=== PATIENT | female | born 1965 | race Two or more races ===

== ENCOUNTER 2016-06-18 20:59 | Emergency (ER) | payer SELFPAY ==
[~2016-06-18] VITALS: Ht 154.9 cm; Wt 83.5 kg
[2016-06-18] MEDS ORDERED: DIPHENHYDRAMINE HCL 25 MG CAPSULE PO ONE (22:00)
[2016-06-18] MEDS ORDERED: METOCLOPRAMIDE 10 MG TABLET. PO ONE (22:00)
--- NOTE | 2016-06-18 22:32 | RAD ---
PROCEDURE CT scan of the head without contrast 06/18/2016 HISTORY Severe headaches and dizziness for 3 months. Syncopal episode 2 days ago. TECHNIQUE Unenhanced contiguous, 5 millimeter axial sections were obtained through the head. One or more of the following individualized dose reduction techniques were utilized for this study: 1. Automated exposure control. 2. Adjustment of the mA and/or kV according to patient size. 3. Use of iterative reconstruction technique. FINDINGS There is mild generalized parenchymal atrophy. No acute parenchymal abnormality is seen. No extra-axial fluid collection is noted. No skull fracture is seen. IMPRESSION No acute intracranial abnormality is seen. Electronically signed by: Maurice Lora MD (Jun 18, 2016 22:30:52)
[2016-06-18] MEDS ORDERED: BUTA1CAP29 PO (22:39)
--- NOTE | 2016-06-18 22:39 | PHYS DOC ---
Past Medical History Past Medical History: Cancer Additional Past Medical Histor: cervical ca,HEP C, esophageal varices Past Surgical History: Other Additional Past Surgical Histo: radiation implants Alcohol Use: Occasionally Drug Use: None Adult General Chief Complaint Chief Complaint: HEADACHE HPI HPI 50-year-old female presents with a one-week history of waxing and waning headaches. She states the headaches at their worst R 10 out of 10 currently her pain is 5 out of 10. She states she has had some associated nosebleeds. She denies any trauma. She denies any fever or neck pain. She denies lateralizing neurologic weakness. She states she does occasionally get headaches. [] Review of Systems Review of Systems Constitutional: Denies fever or chills [] Eyes: Denies change in visual acuity, redness, or eye pain [] HENT: Denies nasal congestion or sore throat [] Respiratory: Denies cough or shortness of breath [] Cardiovascular: No additional information not addressed in HPI [] GI: Denies abdominal pain, nausea, vomiting, bloody stools or diarrhea [] : Denies dysuria or hematuria [] Musculoskeletal: Denies back pain or joint pain [] Integument: Denies rash or skin lesions [] Neurologic: Per history of present illness [] Endocrine: Denies polyuria or polydipsia [] Current Medications Current Medications Current Medications Medications (Trade) Dose Ordered Sig/Iza Start Time Stop Time Status Last Admin Dose Admin Diphenhydramine HCl (Benadryl) 25 mg 1X ONCE 06/18/16 22:00 06/18/16 22:01 DC 06/18/16 21:49 25 MG Metoclopramide HCl (Reglan) 10 mg 1X ONCE 06/18/16 22:00 06/18/16 22:01 DC 06/18/16 21:50 10 MG Allergies Allergies Allergies Coded Allergies Type Severity Reaction Last Updated Verified No Known Drug Allergies 11/16/14 No Physical Exam Physical Exam Constitutional: Well developed, well nourished, mild distress, non-toxic appearance. [] HENT: Normocephalic, atraumatic, bilateral external ears normal, oropharynx moist, no oral exudates, nose normal. [] Eyes: PERRLA, EOMI, conjunctiva normal, no discharge. [] Neck: Normal range of motion, no tenderness, supple, no stridor. [] Cardiovascular:Heart rate regular rhythm, no murmur [] Lungs & Thorax: Bilateral breath sounds clear to auscultation [] Abdomen: Bowel sounds normal, soft, no tenderness, no masses, no pulsatile masses. [] Skin: Warm, dry, no erythema, no rash. [] Back: No tenderness, no CVA tenderness. [] Extremities: No tenderness, no cyanosis, no clubbing, ROM intact, no edema. [] Neurologic: Alert and oriented X 3, normal motor function, normal sensory function, no focal deficits noted. [] Psychologic: Anxious. [] Current Patient Data Vital Signs Vital Signs Date Time Temp Pulse Resp B/P Pulse Ox O2 Delivery O2 Flow Rate FiO2 06/18/16 21:05 99 102 18 148/86 97 Room Air 99.0 EKG EKG [] Radiology/Procedures Radiology/Procedures [] Impressions: PROCEDURE: CT HEAD WO CONTRAST PROCEDURE CT scan of the head without contrast 06/18/2016 HISTORY Severe headaches and dizziness for 3 months. Syncopal episode 2 days ago. TECHNIQUE Unenhanced contiguous, 5 millimeter axial sections were obtained through the head. One or more of the following individualized dose reduction techniques were utilized for this study: 1. Automated exposure control. 2. Adjustment of the mA and/or kV according to patient size. 3. Use of iterative reconstruction technique. FINDINGS There is mild generalized parenchymal atrophy. No acute parenchymal abnormality is seen. No extra-axial fluid collection is noted. No skull fracture is seen. IMPRESSION No acute intracranial abnormality is seen. Course & Med Decision Making Course & Med Decision Making Pertinent Labs and Imaging studies reviewed. (See chart for details) [ED course: Evaluation reveals a 50-year-old neurologically intact female in mild distress secondary to headache. Her headache sounded migrainous in nature. She was given Reglan and Benadryl during her stay in the department which had some affect but did not completely resolve her headache. Her CT scan was unremarkable. I explained to the patient that I would prescribe her some medication to take for her headache at home. Patient stable for discharge] Dragon Disclaimer Dragon Disclaimer This electronic medical record was generated, in whole or in part, using a voice recognition dictation system. Departure Departure Impression: Primary Impression: Headache Disposition: HOME, SELF-CARE Condition: IMPROVED Referrals: NO PCP (PCP) Patient Instructions: General Headache Without Cause, Headache, FAQs, Migraine Headache Additional Instructions: Thank you for allowing us to participate in your care today. Followup with your primary care physician in 3 days if your symptoms do not improve. Return to the emergency department you have any new or concerning findings. This should be evaluated by the primary care physician and any necessary consulting services for continued management within a few days after discharge. Return to emergency room if you have any new or concerning symptoms including but not limited to fever, chills, nausea, vomiting, intractable pain, any new rashes, chest pain, shortness of air, uncontrolled bleeding, difficulty breathing, and/or vision loss. You may have been prescribed medication that can change in your level of thinking and ability to operate machinery. These medications include hydrocodone and Ativan. Also, Benadryl has been known to do this as well. Be sure to check with your pharmacist and ask if the medications you've prescribed can affect your level of consciousness. I recommend not operating heavy machinery or driving while on medication such as these. Scripts Butalb/Acetaminophen/Caffeine (Fioricet 50-300-40 Mg Capsule)1 Each Capsule1 Each PO PRN Q4HRS PRN MIGRAINE HEADACHE #20 CAP Prov:SHELLIE BARBOUR DO 06/18/16 Problem Qualifiers Primary Impression: Headache Headache type: tension-type Headache chronicity pattern: episodic headache Intractability: not intractable Qualified Code: G44.219 - Episodic tension- type headache, not intractable SHELLIE BARBOUR DO Jun 18, 2016 22:39
[2016-06-18 22:55] VITALS: BP 135/66
== END 2016-06-18 23:00 | disposition home or self-care (01) ==
LOC: ER 20:59
DX: R51 Headache (principal); R04.0 Epistaxis; R55 Syncope and collapse; R53.1 Weakness; R42 Dizziness and giddiness
CPT/HCPCS: 70450; 99284; J8597; Q0163

== ENCOUNTER 2016-06-25 17:02 | Inpatient (IN) | payer SELFPAY ==
[~2016-06-25] VITALS: Ht 157.5 cm; Wt 84.4 kg
[~2016-06-25 17:02] MED LIST: BUTA1CAP29 PO
--- NOTE | 2016-06-25 17:55 | PHYS DOC ---
Past Medical History Past Medical History: Cancer Additional Past Medical Histor: cervical ca,HEP C, esophageal varices Past Surgical History: Other Additional Past Surgical Histo: radiation implants Alcohol Use: Occasionally Drug Use: None Adult General Chief Complaint Chief Complaint: MULTIPLE COMPLAINTS HPI HPI Patient is a 50 year old female who presents with multiple complaints. Patient states that she started having chest pain, nausea, vomiting, diarrhea starting at 0400 this morning. Patient states that she has had multiple episodes of diarrhea and vomiting and states that she has noticed blood in both her stools and in her vomit. Patient states that the pain is underneath her left breast and describes the pain as sharp. Patient rates the pain as 7 out of 10 currently. Patient states that she has been dizzy and lightheaded especially upon standing. Patient is unsure but states that she may have history of ulcers , stating that she had an EGD done 2-1/2 years ago. Patient has not taken any medications to help with her symptoms. Patient denies any known exacerbating factors for her pain. Review of Systems Review of Systems Constitutional: Lightheadedness, Denies fever or chills [] Eyes: Denies change in visual acuity, redness, or eye pain [] HENT: Denies nasal congestion or sore throat [] Respiratory: Cough, shortness of breath [] Cardiovascular: Chest pain [] GI: Abdominal pain, hematemesis, bloody stools [] : Denies dysuria or hematuria [] Musculoskeletal: Denies back pain or joint pain [] Integument: Denies rash or skin lesions [] Neurologic: Denies headache, focal weakness or sensory changes [] Current Medications Current Medications Current Medications Medications (Trade) Dose Ordered Sig/Iza Start Time Stop Time Status Last Admin Dose Admin Famotidine (Pepcid) 20 mg 1X ONCE 06/25/16 18:00 06/25/16 18:27 DC Fentanyl Citrate (Fentanyl 2ml Vial) 50 mcg PRN Q15MIN PRN 06/25/16 18:00 06/26/16 17:59 Ondansetron HCl (Zofran) 4 mg 1X ONCE 06/25/16 18:00 06/25/16 18:01 DC Sodium Chloride (Iv Sodium Chloride 0.9% 1000ml Bag) 1,000 ml @ 1,000 mls/hr Q1H 06/25/16 18:00 06/25/16 18:59 DC Allergies Allergies Allergies Coded Allergies Type Severity Reaction Last Updated Verified No Known Drug Allergies 11/16/14 No Physical Exam Physical Exam Constitutional: Alert, afebrile, appears ill. [] HENT: Normocephalic, atraumatic, bilateral external ears normal, oropharynx dry , no oral exudates, nose normal. [] Eyes: PERRLA, EOMI, conjunctiva normal, no discharge. [] Neck: Normal range of motion, no tenderness, supple, no stridor. [] Cardiovascular: Tachycardia, regular rhythm no murmur [] Lungs & Thorax: Bilateral breath sounds clear to auscultation [] Abdomen: Bowel sounds normal, soft, left upper quadrant tenderness to palpation , no masses, no pulsatile masses. [] Skin: Warm, dry, no erythema, no rash. [] Back: No tenderness, no CVA tenderness. [] Extremities: No tenderness, no cyanosis, no clubbing, ROM intact, no edema. [] Neurologic: Alert and oriented X 3, normal motor function, normal sensory function, no focal deficits noted. [] Current Patient Data Vital Signs Vital Signs Date Time Temp Pulse Resp B/P Pulse Ox O2 Delivery O2 Flow Rate FiO2 06/25/16 17:05 98.3 129 24 159/72 100 Room Air 98.3 Lab Values Laboratory Tests Test 06/25/16 17:50 White Blood Count 17.6x10^3/uL (4.0-11.0) H Red Blood Count 2.87x10^6/uL (3.50-5.40) L Hemoglobin 6.2g/dL (12.0-15.5) *L Hematocrit 20.4% (36.0-47.0) *L Mean Corpuscular Volume 71fL (79-100) L Mean Corpuscular Hemoglobin 22pg (25-35) L Mean Corpuscular Hemoglobin Concent 31g/dL (31-37) Red Cell Distribution Width 21.4% (11.5-14.5) H Platelet Count 151x10^3/uL (140-400) Neutrophils (%) (Auto) 77% (31-73) H Lymphocytes (%) (Auto) 10% (24-48) L Monocytes (%) (Auto) 11% (0-9) H Eosinophils (%) (Auto) 1% (0-3) Basophils (%) (Auto) 1% (0-3) Neutrophils # (Auto) 13.5x10^3uL (1.8-7.7) H Lymphocytes # (Auto) 1.8x10^3/uL (1.0-4.8) Monocytes # (Auto) 1.9x10^3/uL (0.0-1.1) H Eosinophils # (Auto) 0.2x10^3/uL (0.0-0.7) Basophils # (Auto) 0.1x10^3/uL (0.0-0.2) Platelet Estimate Pending Prothrombin Time 15.7SEC (11.7-14.0) H Prothrombin Time INR 1.3 (0.8-1.1) H PTT 27SEC (24-38) D-Dimer (Yuliet) 0.27ug/mlFEU (0.00-0.50) Sodium Level 138mmol/L (136-145) Potassium Level 4.2mmol/L (3.5-5.1) Chloride Level 103mmol/L (98-107) Carbon Dioxide Level 22mmol/L (21-32) Anion Gap 13 (6-14) Blood Urea Nitrogen 35mg/dL (7-20) H Creatinine 0.9mg/dL (0.6-1.0) Estimated GFR (Cockcroft-Gault) 66.5 BUN/Creatinine Ratio 39 (6-20) H Glucose Level 162mg/dL (70-99) H Calcium Level 8.5mg/dL (8.5-10.1) Total Bilirubin 0.6mg/dL (0.2-1.0) Aspartate Amino Transferase (AST) 83U/L (15-37) H Alanine Aminotransferase (ALT) 42U/L (14-59) Alkaline Phosphatase 120U/L (46-116) H Creatine Kinase 62U/L (26-192) Creatine Kinase MB (Mass) 0.9ng/mL (0.0-3.6) Creatine Kinase MB Relative Index % (0-4) Troponin I Quantitative < 0.017ng/mL (0.000-0.055) Total Protein 8.5g/dL (6.4-8.2) H Albumin 2.9g/dL (3.4-5.0) L Albumin/Globulin Ratio 0.5 (1.0-1.7) L Lipase 188U/L (73-393) Laboratory Tests 06/25/16 17:50 Laboratory Tests 06/25/16 17:50 EKG EKG Interpreted by me: Heart rate 122, sinus tachycardia, normal intervals, leftward axis, no acute ST/T-wave abnormalities present [] Radiology/Procedures Radiology/Procedures 3 view acute abdominal series interpreted by me: No pulmonary infiltrates or effusions, nonobstructive bowel gas pattern, no free air under the diaphragm [] Course & Med Decision Making Course & Med Decision Making Pertinent Labs and Imaging studies reviewed. (See chart for details) Patient was started on IV fluids, Zofran, Protonix. Patient found having vomiting 6.2 and was typed and crossed for 3 units of packed red blood cells. I spoke with Dr. Hinson who will except care patient in hospital. I also spoke with Dr. Mendez who stated that he would inform Dr. Macdonald of GI of the patient's status and recommended that the patient be placed in ICU and continue on packed red blood cells and IV Protonix at this time. A bleeding scan was also ordered and results will be followed up by Dr. Macdonald of GI. Critical care time excluding procedures: 45 minutes Dragon Disclaimer Dragon Disclaimer This electronic medical record was generated, in whole or in part, using a voice recognition dictation system. Departure Departure Impression: Primary Impression: Acute GI bleeding Additional Impressions: Blood loss anemia Moderate protein malnutrition Disposition: ADMITTED INPATIENT Admitting Physician: Other Condition: GUARDED Referrals: NO PCP (PCP) Problem Qualifiers SEAMJ JEWELL MD Jun 25, 2016 17:55
[2016-06-25] MEDS ORDERED: FAMOTIDINE 20 MG/2 ML VIAL IVP ONE (18:00)
[2016-06-25] MEDS ORDERED: ONDANSETRON PF 4 MG/2 ML VIAL. IV ONE (18:00)
[2016-06-25] MEDS ORDERED: IV NORMAL SALINE 1000ML BAG 1,000 ML IV SCH (18:00)
[2016-06-25] MEDS ORDERED: fentaNYL PF VIAL 100 MCG/2 ML VIAL IV PRN (18:00)
[2016-06-25 18:10] LABS: BASO # 0.1 x10^3/uL (0.0-0.2); BASO % 1 % (0-3); EOS % 1 % (0-3); LYMPH # 1.8 x10^3/uL (1.0-4.8); LYMPH % 10 % (24-48); MEAN CORPUSCULAR HEMOGLOBIN 22 pg (25-35); MEAN CORPUSCULAR HGB CONC 31 g/dL (31-37); MEAN CORPUSCULAR VOLUME 71 fL (79-100); MONO % 11 % (0-9); NEUT % 77 % (31-73); PLATELET COUNT 151 x10^3/uL (140-400); RED BLOOD COUNT 2.87 x10^6/uL (3.50-5.40); RED CELL DISTRIBUTION WIDTH 21.4 % (11.5-14.5); WHITE BLOOD COUNT 17.6 x10^3/uL (4.0-11.0)
[2016-06-25 18:17] LABS: HEMATOCRIT 20.4 % (36.0-47.0); HEMOGLOBIN 6.2 g/dL (12.0-15.5)
[2016-06-25 18:30] LABS: INR 1.3 (0.8-1.1); PROTHROMBIN TIME PATIENT 15.7 SEC (11.7-14.0)
[2016-06-25] MEDS ORDERED: PANTOPRAZOLE IV PUSH 40 MG VIAL. IVP ONE (18:30)
[2016-06-25 18:37] LABS: CALCIUM 8.5 mg/dL (8.5-10.1); CREATININE 0.9 mg/dL (0.6-1.0); GFR 66.5; POTASSIUM 4.2 mmol/L (3.5-5.1)
[2016-06-25 18:39] LABS: CKMB MASS 0.9 ng/mL (0.0-3.6); CREATINE KINASE 62 U/L (26-192)
[2016-06-25 18:40] LABS: ALBUMIN 2.9 g/dL (3.4-5.0); ALBUMIN/GLOBULIN RATIO 0.5 (1.0-1.7); TOTAL BILIRUBIN 0.6 mg/dL (0.2-1.0); TOTAL PROTEIN 8.5 g/dL (6.4-8.2)
[2016-06-25 18:54] LABS: BILIRUBIN,URINE NEGATIVE (NEG); GLUCOSE,URINE NEGATIVE (NEG); NITRITE,URINE NEGATIVE (NEG); PROTEIN,URINE NEGATIVE (NEG-TRACE); UROBILINOGEN,URINE 0.2 mg/dL (0.2 mg/dL)
[2016-06-25] MEDS ORDERED: ONDANSETRON PF 4 MG/2 ML VIAL. IV PRN (19:00)
[2016-06-25 19:03] LABS: NEG OBC FOB NEG; POS OBC FOB POS
--- NOTE | 2016-06-25 19:10 | ACF ---
Admission Forms Criteria GASTROINTESTINAL BLEEDING Clinical Indications for Inpatient Care (Place 'X' for any and all applicable criteria): Ongoing inpatient care may be indicated for gastrointestinal bleeding with ANY ONE of the following (4)(20)(21)(22)(23)(24): [X]I. Active bleeding (eg, fresh voluminous blood in emesis or nasogastric aspirate, or per rectum) [ ]II. Hemodynamic instability [ ]III. Anticoagulation therapy or coagulopathy ((eg, advanced liver disease, irreversible anticoagulation) [ ]IV. Ischemic colitis (22) [ ]V. Endoscopy showing arterial bleeding, adherent clot, nonbleeding visible vessel, varices, flat red spots, ulcer size greater than 2 cm, or portal hypertensive gastropathy [ ]. High-risk low platelet count [X]VII. Anemia requiring inpatient care as indicated by ANY ONE of the following a)[ ] Cognitive impairment b)[ ] Syncope c)[ ] Heart failure d)[X] Chest pain e)[ ] Dyspnea f)[ ] Other findings suggesting inadequate perfusion (eg, peripheral or myocardial ischemia, end organ dysfunction) [ ]VIII. High-risk low platelet count [ ]IX. Suspected variceal cause of bleeding as indicated by ANY ONE of the following(27)(28): a)[ ] Known varices b)[ ] Hepatomegaly or splenomegaly c)[ ] Ascites d)[ ] Jaundice or scleral icterus e)[ ] History of liver disease (eg, cirrhosis) f)[ ] Physical findings of portal hypertension (eg, caput medusa) g)[ ] Comorbid disorder indicating risk for portal vein thrombosis (eg , abdominal surgery, sepsis, shock, exchange transfusion, prior umbilical vein catheterization) Extended stay may be needed until ALL of the following are present(20)(38)(47): [ ]a) Hemodynamic stability [ ]b) No evidence of active bleeding (eg, stable Hematocrit) [ ]c) Platelet count, prothrombin time, and partial thromboplastin time acceptable for next level of care [ ]d) Surgical or other acute intervention not needed [ ]e) Oral hydration and diet tolerated The original [facility] content created by [employer] has been revised. The portions of the content which have been revised are identified through the use of italic text or in bold, and [employer] has neither reviewed nor approved the modified material. All other unmodified content is copyright [facility]. Please see references footnoted in the original [facility] edition 2016 Admission Criteria Met?: Yes SUSI JULES Jun 25, 2016 19:10
[2016-06-25] MEDS: PANTOPRAZOLE SODIUM IV 80 MG in IV NORMAL SALINE 100ML 100 ML IV SCH (19:12)
[2016-06-25 19:15] LABS: BACTERIA,URINE FEW /HPF (0-FEW); SQUAMOUS EPITHELIAL CELL,UR MOD /LPF
[2016-06-25 19:28] LABS: NEG OBC UR NEG; POS OBC UR POS
[2016-06-25 19:57] LABS: % EOS 2 % (0-5); HYPOCHROMIA MOD; MICROCYTOSIS MOD; PLT ESTIMATE ADEQUATE (ADEQUATE); TARGET CELLS OCC
[2016-06-25 19:58] LABS: ROULEAUX PRESENT
[2016-06-25 21:15] VITALS: BP 147/82
[2016-06-25 21:30] VITALS: BP 151/61
[2016-06-25] MEDS: IV NORMAL SALINE 1000ML BAG 1,000 ML IV SCH (21:35)
[2016-06-25 21:45] VITALS: BP_SYST 147; BP_SYST 151; BP_DIAS 79; BP_DIAS 82
--- NOTE | 2016-06-25 21:51 | RAD ---
PROCEDURE GI bleed scan. HISTORY Rectal bleeding since 2010. Dark rectal bleeding today. Decreased hemoglobin. TECHNIQUE Patient is injected with 27 millicuries technetium 99m labeled red blood cells using ultra tag technique. Anterior dynamic images of the abdomen are acquired time 60 minutes. COMPARISON Tagged red blood cell scan October 02, 2010. FINDINGS Tracer is seen in blood pool. No accumulation or propagation of tracer is seen to indicate acute GI bleed. Tracer gradually accumulates in the bladder, normal. IMPRESSION Negative for acute GI bleed. Electronically signed by: Ross Martins MD (Jun 25, 2016 21:49:33)
[2016-06-25 22:00] VITALS: BP 152/74
[2016-06-25 23:00] VITALS: BP 137/67
--- NOTE | 2016-06-25 23:56 | HP ---
ADMIT DATE: 06/25/2016 CHIEF COMPLAINT: Melena. HISTORY OF PRESENT ILLNESS: The patient is a 50-year-old woman with history of GI bleed, admitted here twice, most recently in 11/2014. She relates that she had episodes of melena over the past couple of weeks, almost on a daily basis. However, this morning, she became very dizzy, could barely walk, had ongoing melena as well as today an episode of hematemesis. This finally prompted her to come to the Emergency Room. Here, she was found with a hemoglobin of 6.2 and promptly admitted for further management and care. PAST MEDICAL HISTORY: 1. History of GI bleed, EGD done in November 2014 without any evidence of bleeding. 2. 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 3. Diabetes mellitus. 4. Hypertension. 5. Anxiety/depression. 6. Osteoarthritis. 7. Sickle cell trait. FAMILY HISTORY: Positive for sickle cell disease in her son who of complications of diabetes, hypertension. SOCIAL HISTORY: She is , no toxic habits. ALLERGIES: No known drug allergies. MEDICATIONS: MAR reconciled with home medications. REVIEW OF SYSTEMS: Positive as per HPI for melena, hematemesis, abdominal pain, mainly on the left side. Pain worse with bowel movements. Rest of organ system review is negative. PHYSICAL EXAMINATION: VITAL SIGNS: Today, show blood pressure of 161/65, heart rate at 120, respiratory rate at 20. She is afebrile. GENERAL: This is a 50-year-old obese woman, alert and oriented, in no acute distress. HEENT: Shows no scleral icterus. NECK: Supple. CHEST: Lungs are clear. HEART: Slightly tachycardic. ABDOMEN: Positive bowel sounds, soft, tenderness in the left upper quadrant as well as mildly in the left lower quadrant. EXTREMITIES: Show no edema. SKIN: Warm, soft and dry without any rash, no bruising noted. LABORATORY DATA: CBC with a WBC of 17.6, hemoglobin 6.2, MCV of 71 (on previous admits had been in the 80s) and a platelet count of 151. Chemistries with a BUN and creatinine of 35 and 0.9, normal electrolytes. Glucose at 162, albumin at 2.9. LFTs with an AST of 83 and an alkaline phosphatase of 120, which is stable for her. ASSESSMENT AND PLAN: The patient is a 50-year-old woman with recurrent massive gastrointestinal bleed. She currently is severely anemic. We will transfuse as needed, monitoring her CBC closely, transfuse for hemoglobins of less than 7. The patient has microcytic anemia consistent with iron deficiency. We will obtain iron labs, probably will need replacement of this IV. A GI consult will be obtained. Suspicion for chronic bleed is given. A previous endoscopy about a year and a half ago was actually within normal limits without sign of bleeding or esophageal varices. Suspicion for small bowel AVM is given. A tagged RBC scan has been obtained, results are pending. The patient is diabetic, currently on n.p.o. and thus not receiving her medications. We will obtain insulin sliding scale and blood sugar checks on her q. 6 hours. Obtain hemoglobin A1c as well. The patient does have a history of hypertension and clearly is hypertensive despite severe anemia. Monitor closely. We will give her hydralazine p.r.n. for now until p.o. medications can be restarted. For prophylaxis, she has been started on IV PPI already. We will continue that for the time being. CHARIS LUNDBERG MD DR: SINAI/nts JOB#: [id number] / [id number] BARBRA
[2016-06-26] VITALS (26 sets, daily range): BP systolic 105–154; BP diastolic 57–94
[2016-06-26 01:45] LABS: BASO # 0.1 x10^3/uL (0.0-0.2); BASO % 1 % (0-3); EOS % 1 % (0-3); LYMPH # 1.8 x10^3/uL (1.0-4.8); LYMPH % 16 % (24-48); MEAN CORPUSCULAR HEMOGLOBIN 23 pg (25-35); MEAN CORPUSCULAR HGB CONC 32 g/dL (31-37); MEAN CORPUSCULAR VOLUME 73 fL (79-100); MONO % 11 % (0-9); NEUT % 71 % (31-73); PLATELET COUNT 112 x10^3/uL (140-400); RED BLOOD COUNT 2.82 x10^6/uL (3.50-5.40); RED CELL DISTRIBUTION WIDTH 20.8 % (11.5-14.5); WHITE BLOOD COUNT 11.4 x10^3/uL (4.0-11.0)
[2016-06-26 01:46] LABS: HEMATOCRIT 20.6 % (36.0-47.0); HEMOGLOBIN 6.5 g/dL (12.0-15.5)
[2016-06-26] MEDS: fentaNYL PF VIAL 100 MCG/2 ML VIAL IV PRN ×5 (02:24→21:25)
[2016-06-26] MEDS: PANTOPRAZOLE SODIUM IV 80 MG in IV NORMAL SALINE 100ML 100 ML IV SCH ×3 (03:37→17:19)
[2016-06-26] MEDS: IV NORMAL SALINE 1000ML BAG 1,000 ML IV SCH ×2 (05:34→10:58)
--- NOTE | 2016-06-26 06:43 | EKG ---
[facility] [address] [place] [address] Test Date: 2016-06-25 Test Time: 17:15:25 Pat Name: NELLI SHAY Department: Room: 108 1 Gender: F Pharmacy Benefit Manager: : [id number] Requested By: SEMAJ JEWELL Order Number: [id number] Reading MD: Brett Simeon Measurements Intervals [place] Rate: 122 P: 6 SD: 112 QRS: 0 QRSD: 86 T: 15 QT: 332 QTc: 474 Interpretive Statements SINUS TACHYCARDIA Electronically Signed On 07-08-2016 15:37:16 CDT by Brett Simeon
[2016-06-26 07:11] LABS: BASO # 0.1 x10^3/uL (0.0-0.2); BASO % 1 % (0-3); EOS % 3 % (0-3); HEMATOCRIT 26.8 % (36.0-47.0); HEMOGLOBIN 8.8 g/dL (12.0-15.5); LYMPH # 1.6 x10^3/uL (1.0-4.8); LYMPH % 16 % (24-48); MEAN CORPUSCULAR HEMOGLOBIN 25 pg (25-35); MEAN CORPUSCULAR HGB CONC 33 g/dL (31-37); MEAN CORPUSCULAR VOLUME 76 fL (79-100); MONO % 11 % (0-9); NEUT % 70 % (31-73); PLATELET COUNT 102 x10^3/uL (140-400); RED BLOOD COUNT 3.52 x10^6/uL (3.50-5.40); RED CELL DISTRIBUTION WIDTH 20.6 % (11.5-14.5); WHITE BLOOD COUNT 10.2 x10^3/uL (4.0-11.0)
[2016-06-26 07:37] LABS: CALCIUM 8.1 mg/dL (8.5-10.1); CREATININE 0.8 mg/dL (0.6-1.0); GFR 76.2; POTASSIUM 4.1 mmol/L (3.5-5.1)
--- NOTE | 2016-06-26 08:32 | RAD ---
Acute abdomen series with chest, 06/25/2016: History: Left lower quadrant pain, hematemesis Gas is present in large and small bowel in a nonspecific pattern. No free air is seen in the abdomen. There is no evidence of organomegaly. Lower pelvic calcifications are probably phleboliths. The heart size and pulmonary vascularity are normal. The lungs are clear. There is no evidence of pleural fluid. IMPRESSION: No acute abdominal abnormality is detected.
--- NOTE | 2016-06-26 08:40 | PDOC2 ---
GI CONSULT Reason For Consult: Acute GI Bleed HPI: HPI: 50 y/o female w/ h/o GI bleed evaluated in the ER for 1-2 weeks of black tarry stools (7-8 times daily). More recently, she has felt dizzy and weak, and also vomited some dark red blood yesterday. H/o Hep C w/ prior banding of esophageal varices, started treatment at but hasn't followed-up since last year. Additional h/o GERD w/ daily heartburn, has been out of medication x 1 month. Has also been taking ibuprofen or Advil QHS for migraines and body aches. Also has some lower abd discomfort. Last EGD by Dr. Macdonald on 11/15/14: no esophageal varices, scarring in the distal esophagus c/w prior banding, mild narrowing at GEJ, possible small Keira-Bailey tear (non-bleeding w/o clot), hiatal hernia, and normal duodenum. At that time chronic PPI was recommended. Additionally, abd US in 2014 showed mild hepatomegaly and borderline splenomegaly. No previous colonoscopy. Hgb in ER was 6.2, now 8.8 s/p transfusion 3 units pRBCs, low indices w/ elevated RDW, plt 102, INR 1.3, hemoccult neg stool, BUN 35 (now 24), Cr 0.8. LFTs WNL except AST 83. GI bleed scan was negative. In ICU, had one small dark stool. EGD planned later this morning. PMH: PMH: Hep C, GERD, HTN, anxiety/depression, migraines, OA, sickle cell trait, cervical cancer s/p radiation implants, FH: Family History: Cancer (colon (aunt), breast), DM Social History: Smoke: <1 pack per day ALCOHOL: occassional ROS: GEN: Denies fevers, chills, sweats HEENT: Denies blurred vision, sore throat CV: Denies chest pain RESP: Denies shortness of air, cough GI: Per HPI : Denies hematuria, dysuria ENDO: Denies weight changes NEURO: +dizziness MSK: +weakness SKIN: Denies jaundice, pruritus VItals: Vitals: Vital Signs Date Time Temp Pulse Resp B/P Pulse Ox O2 Delivery O2 Flow Rate FiO2 06/26/16 08:00 Room Air 06/26/16 08:00 99.0 77 19 120/73 97 99.0 Labs: Labs: Laboratory Tests Test 06/25/16 17:50 06/25/16 18:49 06/26/16 01:30 06/26/16 07:00 White Blood Count 17.6x10^3/uL (4.0-11.0) 11.4x10^3/uL (4.0-11.0) 10.2x10^3/uL (4.0-11.0) Red Blood Count 2.87x10^6/uL (3.50-5.40) 2.82x10^6/uL (3.50-5.40) 3.52x10^6/uL (3.50-5.40) Hemoglobin 6.2g/dL (12.0-15.5) 6.5g/dL (12.0-15.5) 8.8g/dL (12.0-15.5) Hematocrit 20.4% (36.0-47.0) 20.6% (36.0-47.0) 26.8% (36.0-47.0) Mean Corpuscular Volume 71fL (79-100) 73fL (79-100) 76fL (79-100) Mean Corpuscular Hemoglobin 22pg (25-35) 23pg (25-35) 25pg (25-35) Mean Corpuscular Hemoglobin Concent 31g/dL (31-37) 32g/dL (31-37) 33g/dL (31-37) Red Cell Distribution Width 21.4% (11.5-14.5) 20.8% (11.5-14.5) 20.6% (11.5-14.5) Platelet Count 151x10^3/uL (140-400) 112x10^3/uL (140-400) 102x10^3/uL (140-400) Neutrophils (%) (Auto) 77% (31-73) 71% (31-73) 70% (31-73) Lymphocytes (%) (Auto) 10% (24-48) 16% (24-48) 16% (24-48) Monocytes (%) (Auto) 11% (0-9) 11% (0-9) 11% (0-9) Eosinophils (%) (Auto) 1% (0-3) 1% (0-3) 3% (0-3) Basophils (%) (Auto) 1% (0-3) 1% (0-3) 1% (0-3) Neutrophils # (Auto) 13.5x10^3uL (1.8-7.7) 8.1x10^3uL (1.8-7.7) 7.1x10^3uL (1.8-7.7) Lymphocytes # (Auto) 1.8x10^3/uL (1.0-4.8) 1.8x10^3/uL (1.0-4.8) 1.6x10^3/uL (1.0-4.8) Monocytes # (Auto) 1.9x10^3/uL (0.0-1.1) 1.2x10^3/uL (0.0-1.1) 1.1x10^3/uL (0.0-1.1) Eosinophils # (Auto) 0.2x10^3/uL (0.0-0.7) 0.1x10^3/uL (0.0-0.7) 0.3x10^3/uL (0.0-0.7) Basophils # (Auto) 0.1x10^3/uL (0.0-0.2) 0.1x10^3/uL (0.0-0.2) 0.1x10^3/uL (0.0-0.2) Segmented Neutrophils % 80% (35-66) Band Neutrophils % 1% (0-9) Lymphocytes % 10% (24-48) Monocytes % 7% (0-10) Eosinophils % 2% (0-5) Platelet Estimate Adequate (ADEQUATE) Hypochromasia Mod Microcytosis Mod Target Cells Occ Rouleau Present Prothrombin Time 15.7SEC (11.7-14.0) Prothromb Time International Ratio 1.3 (0.8-1.1) Activated Partial Thromboplast Time 27SEC (24-38) D-Dimer (Yuliet) 0.27ug/mlFEU (0.00-0.50) Sodium Level 138mmol/L (136-145) 143mmol/L (136-145) Potassium Level 4.2mmol/L (3.5-5.1) 4.1mmol/L (3.5-5.1) Chloride Level 103mmol/L (98-107) 110mmol/L (98-107) Carbon Dioxide Level 22mmol/L (21-32) 23mmol/L (21-32) Anion Gap 13 (6-14) 10 (6-14) Blood Urea Nitrogen 35mg/dL (7-20) 24mg/dL (7-20) Creatinine 0.9mg/dL (0.6-1.0) 0.8mg/dL (0.6-1.0) Estimated GFR (Cockcroft-Gault) 66.5 76.2 BUN/Creatinine Ratio 39 (6-20) Glucose Level 162mg/dL (70-99) 96mg/dL (70-99) Calcium Level 8.5mg/dL (8.5-10.1) 8.1mg/dL (8.5-10.1) Total Bilirubin 0.6mg/dL (0.2-1.0) Aspartate Amino Transf (AST/SGOT) 83U/L (15-37) Alanine Aminotransferase (ALT/SGPT) 42U/L (14-59) Alkaline Phosphatase 120U/L (46-116) Creatine Kinase 62U/L (26-192) Creatine Kinase MB (Mass) 0.9ng/mL (0.0-3.6) Creatine Kinase MB Relative Index % (0-4) Troponin I Quantitative < 0.017ng/mL (0.000-0.055) Total Protein 8.5g/dL (6.4-8.2) Albumin 2.9g/dL (3.4-5.0) Albumin/Globulin Ratio 0.5 (1.0-1.7) Lipase 188U/L (73-393) Urine Collection Type Unknown Urine Color Yellow Urine Clarity Clear Urine pH 5.0 Urine Specific [place] 1.015 Urine Protein Negativemg/dL (NEG-TRACE) Urine Glucose (UA) Negativemg/dL (NEG) Urine Ketones (Stick) Negativemg/dL (NEG) Urine Blood Moderate (NEG) Urine Nitrite Negative (NEG) Urine Bilirubin Negative (NEG) Urine Urobilinogen Dipstick 0.2mg/dL (0.2 mg/dL) Urine Leukocyte Esterase Moderate (NEG) Urine RBC 6-10/HPF (0-2) Urine WBC 5-10/HPF (0-4) Urine Squamous Epithelial Cells Mod/LPF Urine Bacteria Few/HPF (0-FEW) Urine Test Negative (NEG) Stool Occult Blood Negative (NEG) Allergies: Coded Allergies: No Known Drug Allergies (Unverified , 11/16/14) Medications: Current Medications Medications (Trade) Dose Ordered Sig/Iza Route PRN Reason Start Time Stop Time Status Last Admin Dose Admin Sodium Chloride (Iv Sodium Chloride 0.9% 1000ml Bag) 1,000 ml @ 1,000 mls/hr Q1H IV 06/25/16 18:00 06/25/16 18:59 DC 06/25/16 19:05 Ondansetron HCl (Zofran) 4 mg 1X ONCE IV 06/25/16 18:00 06/25/16 18:01 DC 06/25/16 19:08 Fentanyl Citrate (Fentanyl 2ml Vial) 50 mcg PRN Q15MIN PRN IV PAIN GREATER THAN 3/10 06/25/16 18:00 06/25/16 21:33 DC 06/25/16 19:07 Pantoprazole Sodium 40 mg 40 mg 1X ONCE IVP 06/25/16 18:30 06/25/16 18:31 DC 06/25/16 19:14 Pantoprazole Sodium/Sodium Chloride (Protonix Iv/Iv Sodium Chloride 0.9% 100ml) 100 ml @ 10 mls/hr Q10H IV 06/25/16 18:30 06/26/16 03:37 Fentanyl Citrate 50 mcg 50 mcg PRN Q2HR PRN IV PAIN 06/25/16 19:00 06/26/16 18:59 06/26/16 07:46 Sodium Chloride (Iv Sodium Chloride 0.9% 1000ml Bag) 1,000 ml @ 125 mls/hr Q8H IV 06/25/16 18:58 06/26/16 18:57 06/26/16 05:34 Imaging: Imaging: GI Bleed Scan 06/25/16 IMPRESSION Negative for acute GI bleed. PE: GEN: NAD HEENT: Atraumatic, PERRL LUNGS: CTAB anteriorly HEART: RRR ABD: NABS, S/ND, vague BLQ/suprapubic discomfort EXTREMITY: No edema SKIN: No rashes, no jaundice NEURO/PSYCH: A & O 3 A/P: A/P: Melena, hematemesis, symptomatic anemia -melena for a couple weeks, hematemesis yesterday -Hgb improved s/p transfusion -on PPI drip Hep C -last EGD 11/2014 w/ evidence of prior banding of varices -started treatment at last year, has not followed-up -mild hepatomegaly and borderline splenomegaly on previous US -thrombocytopenic GERD -daily symptoms, untreated -hiatal hernia on previous EGD NSAID use -nightly for migraines CRC screen -no previous colonoscopy -aunt had colon cancer -- D/w Dr. Macdonald. Plan for EGD this morning. BENTON JACOBSON Jun 26, 2016 08:40
[2016-06-26] MEDS ORDERED: LIDOCAINE 2% PF Vial for OR 5 ML VIAL. ONE (09:32)
[2016-06-26] MEDS ORDERED: PROPOFOL 20 ML IV ONE ×5 (09:32→10:11)
[2016-06-26] MEDS ORDERED: EPINEPHrine SYRINGE 1 MG/10 ML SYRINGE ONE (10:07)
[2016-06-26] MEDS ORDERED: DEXTROSE 50% 25 GM / 50ML DISP.SYRIN. IV PRN (10:15)
--- NOTE | 2016-06-26 10:15 | PDOC ---
PROGRESS NOTES Chief Complaint Chief Complaint GIB ASSESSMENT AND PLAN: 1. GIB: suspect UGI, poss SB AVMs. d/w Dr Macdonald: EGD today. on PPI gtt, fentanyl PRN 2. Anemia: acute (and chronic) blood loss; s/p PRBC x3 O/N. monitor q6h, transfuse to keep Hgb >7. iron studies pending. also has sickle cell trait 3. HCV: on treatment, interrupted 4. DM: NPO. ISS 5. HTN: well controlled. hydralazine PRN 6. Anxiety/depression: no acute issues 7. Osteoarthritis: no acute issues. pain in epigastrium, not joints Vitals Vitals Vital Signs Date Time Temp Pulse Resp B/P Pulse Ox O2 Delivery O2 Flow Rate FiO2 06/26/16 09:36 72 20 100 06/26/16 09:32 Room Air 06/26/16 09:00 124/77 06/26/16 08:00 99.0 99.0 Physical Exam General: Alert, Oriented X3, Cooperative, No acute distress Heart: Regular rate Lungs: Clear Abdomen: Other (TTP epigastrium) Extremities: No clubbing Skin: No significant lesion Labs LABS Laboratory Tests Test 06/25/16 17:50 06/25/16 18:49 06/26/16 01:30 06/26/16 07:00 White Blood Count 17.6x10^3/uL (4.0-11.0) 11.4x10^3/uL (4.0-11.0) 10.2x10^3/uL (4.0-11.0) Red Blood Count 2.87x10^6/uL (3.50-5.40) 2.82x10^6/uL (3.50-5.40) 3.52x10^6/uL (3.50-5.40) Hemoglobin 6.2g/dL (12.0-15.5) 6.5g/dL (12.0-15.5) 8.8g/dL (12.0-15.5) Hematocrit 20.4% (36.0-47.0) 20.6% (36.0-47.0) 26.8% (36.0-47.0) Mean Corpuscular Volume 71fL (79-100) 73fL (79-100) 76fL (79-100) Mean Corpuscular Hemoglobin 22pg (25-35) 23pg (25-35) 25pg (25-35) Mean Corpuscular Hemoglobin Concent 31g/dL (31-37) 32g/dL (31-37) 33g/dL (31-37) Red Cell Distribution Width 21.4% (11.5-14.5) 20.8% (11.5-14.5) 20.6% (11.5-14.5) Platelet Count 151x10^3/uL (140-400) 112x10^3/uL (140-400) 102x10^3/uL (140-400) Neutrophils (%) (Auto) 77% (31-73) 71% (31-73) 70% (31-73) Lymphocytes (%) (Auto) 10% (24-48) 16% (24-48) 16% (24-48) Monocytes (%) (Auto) 11% (0-9) 11% (0-9) 11% (0-9) Eosinophils (%) (Auto) 1% (0-3) 1% (0-3) 3% (0-3) Basophils (%) (Auto) 1% (0-3) 1% (0-3) 1% (0-3) Neutrophils # (Auto) 13.5x10^3uL (1.8-7.7) 8.1x10^3uL (1.8-7.7) 7.1x10^3uL (1.8-7.7) Lymphocytes # (Auto) 1.8x10^3/uL (1.0-4.8) 1.8x10^3/uL (1.0-4.8) 1.6x10^3/uL (1.0-4.8) Monocytes # (Auto) 1.9x10^3/uL (0.0-1.1) 1.2x10^3/uL (0.0-1.1) 1.1x10^3/uL (0.0-1.1) Eosinophils # (Auto) 0.2x10^3/uL (0.0-0.7) 0.1x10^3/uL (0.0-0.7) 0.3x10^3/uL (0.0-0.7) Basophils # (Auto) 0.1x10^3/uL (0.0-0.2) 0.1x10^3/uL (0.0-0.2) 0.1x10^3/uL (0.0-0.2) Segmented Neutrophils % 80% (35-66) Band Neutrophils % 1% (0-9) Lymphocytes % 10% (24-48) Monocytes % 7% (0-10) Eosinophils % 2% (0-5) Platelet Estimate Adequate (ADEQUATE) Hypochromasia Mod Microcytosis Mod Target Cells Occ Rouleau Present Prothrombin Time 15.7SEC (11.7-14.0) Prothromb Time International Ratio 1.3 (0.8-1.1) Activated Partial Thromboplast Time 27SEC (24-38) D-Dimer ([place]uliet) 0.27ug/mlFEU (0.00-0.50) Sodium Level 138mmol/L (136-145) 143mmol/L (136-145) Potassium Level 4.2mmol/L (3.5-5.1) 4.1mmol/L (3.5-5.1) Chloride Level 103mmol/L (98-107) 110mmol/L (98-107) Carbon Dioxide Level 22mmol/L (21-32) 23mmol/L (21-32) Anion Gap 13 (6-14) 10 (6-14) Blood Urea Nitrogen 35mg/dL (7-20) 24mg/dL (7-20) Creatinine 0.9mg/dL (0.6-1.0) 0.8mg/dL (0.6-1.0) Estimated GFR (Cockcroft-Gault) 66.5 76.2 BUN/Creatinine Ratio 39 (6-20) Glucose Level 162mg/dL (70-99) 96mg/dL (70-99) Calcium Level 8.5mg/dL (8.5-10.1) 8.1mg/dL (8.5-10.1) Total Bilirubin 0.6mg/dL (0.2-1.0) Aspartate Amino Transf (AST/SGOT) 83U/L (15-37) Alanine Aminotransferase (ALT/SGPT) 42U/L (14-59) Alkaline Phosphatase 120U/L (46-116) Creatine Kinase 62U/L (26-192) Creatine Kinase MB (Mass) 0.9ng/mL (0.0-3.6) Creatine Kinase MB Relative Index % (0-4) Troponin I Quantitative < 0.017ng/mL (0.000-0.055) Total Protein 8.5g/dL (6.4-8.2) Albumin 2.9g/dL (3.4-5.0) Albumin/Globulin Ratio 0.5 (1.0-1.7) Lipase 188U/L (73-393) Urine Collection Type Unknown Urine Color Yellow Urine Clarity Clear Urine pH 5.0 Urine Specific [place] 1.015 Urine Protein Negativemg/dL (NEG-TRACE) Urine Glucose (UA) Negativemg/dL (NEG) Urine Ketones (Stick) Negativemg/dL (NEG) Urine Blood Moderate (NEG) Urine Nitrite Negative (NEG) Urine Bilirubin Negative (NEG) Urine Urobilinogen Dipstick 0.2mg/dL (0.2 mg/dL) Urine Leukocyte Esterase Moderate (NEG) Urine RBC 6-10/HPF (0-2) Urine WBC 5-10/HPF (0-4) Urine Squamous Epithelial Cells Mod/LPF Urine Bacteria Few/HPF (0-FEW) Urine Test Negative (NEG) Stool Occult Blood Negative (NEG) Review of Systems Review of Systems small BM, melanotic, hard, causing pain w/defecation CHARIS LUNDBERG MD Jun 26, 2016 10:15
[2016-06-26] MEDS ORDERED: EPINEPHrine SYRINGE 1 MG/10 ML SYRINGE IV ONE ×2 (10:20→10:22)
[2016-06-26] MEDS ORDERED: PROPOFOL 40 ML IV ONE (10:20)
[2016-06-26 10:27] LABS: % SAT IRON 23 % (15-34); IRON,SERUM 96 ug/dL (50-170)
--- NOTE | 2016-06-26 10:44 | PDOC4 ---
PROCEDURE Procedure EGD/attempted control of bleeding. Ind: UGI bleeding. Med: per anesthesia. Findings; E-distal grade IV reflux with mild stricture. NO VARICES. G--Small hiatal hernia. On retroflex in the hiatal hernia at the cardia, oozing of blood from what's probably a penetrating vein from external varices. Attempted clipping, epi injection, banding w/o success, largely due to location and no muscles in venous wall, therefore no response to epi. Remainder of stomach OK. D--Normal to second portion. Tolerated well. IMP: Bleeding likely from penetrating vein from external varices; unsuccessful re: treatment endoscopically. Severe reflux esophagitis with mild stricture. Hiatal hernia. REC: Octreotide drip. NPO If stabilizes, consider elective TIPS. If unstable, emergent TIPS. Continue PPI and follow. Thanks. RETA CANTU MD Jun 26, 2016 10:44
[2016-06-26] MEDS: OCTREOTIDE 500 MCG in IV NORMAL SALINE 100ML 100 ML IV PRN (11:26)
[2016-06-26] MEDS: INSULIN ASPART 300 UNITS/3 ML INSULN.PEN SQ SCH ×2 (11:29→17:00)
[2016-06-26 11:55] LABS: HEMATOCRIT 26.7 % (36.0-47.0); HEMOGLOBIN 8.6 g/dL (12.0-15.5); RED BLOOD COUNT 3.5 x10^6/uL (3.50-5.40); RED CELL DISTRIBUTION WIDTH 20.7 % (11.5-14.5); WHITE BLOOD COUNT 10.2 x10^3/uL (4.0-11.0)
[2016-06-26 12:05] LABS: INR 1.2 (0.8-1.1); PROTHROMBIN TIME PATIENT 14.6 SEC (11.7-14.0)
[2016-06-26 18:26] LABS: HEMATOCRIT 25.7 % (36.0-47.0); HEMOGLOBIN 8.5 g/dL (12.0-15.5); RED BLOOD COUNT 3.44 x10^6/uL (3.50-5.40); RED CELL DISTRIBUTION WIDTH 20.3 % (11.5-14.5); WHITE BLOOD COUNT 10.9 x10^3/uL (4.0-11.0)
[2016-06-26] MEDS ORDERED: FENTANYL PF 100 MCG/2 ML VIAL. IV PRN (21:00)
[2016-06-27] VITALS (15 sets, daily range): BP systolic 124–157; BP diastolic 64–84
[2016-06-27] MEDS: PANTOPRAZOLE SODIUM IV 80 MG in IV NORMAL SALINE 100ML 100 ML IV SCH ×2 (02:59→18:22)
[2016-06-27] MEDS: OCTREOTIDE 500 MCG in IV NORMAL SALINE 100ML 100 ML IV PRN ×2 (03:00→18:22)
[2016-06-27] MEDS: fentaNYL PF VIAL 100 MCG/2 ML VIAL IV PRN ×5 (05:24→20:42)
[2016-06-27 06:50] LABS: HEMATOCRIT 25.4 % (36.0-47.0); HEMOGLOBIN 8.1 g/dL (12.0-15.5); RED BLOOD COUNT 3.32 x10^6/uL (3.50-5.40); RED CELL DISTRIBUTION WIDTH 20.6 % (11.5-14.5); WHITE BLOOD COUNT 8.3 x10^3/uL (4.0-11.0)
[2016-06-27] MEDS: INSULIN ASPART 300 UNITS/3 ML INSULN.PEN SQ SCH ×3 (08:00→17:38)
--- NOTE | 2016-06-27 10:25 | PDOC ---
Subjective: Subjective: Feels constipated. Has had a couple more dark stools since EGD, says hard to clean. Some lower abd pain, dizziness. Has ice chips. Transferring to second floor. Objective: Vital Signs: Vital Signs Date Time Temp Pulse Resp B/P Pulse Ox O2 Delivery O2 Flow Rate FiO2 06/27/16 08:40 95 Room Air 4.0 06/27/16 08:00 77 16 141/73 06/27/16 04:00 98.4 98.4 Labs: Laboratory Tests Test 06/26/16 11:22 06/26/16 11:45 06/26/16 17:17 06/26/16 18:00 Glucose (Fingerstick) 124mg/dL 93mg/dL White Blood Count 10.2x10^3/uL 10.9x10^3/uL Red Blood Count 3.50x10^6/uL 3.44x10^6/uL Hemoglobin 8.6g/dL 8.5g/dL Hematocrit 26.7% 25.7% Mean Corpuscular Volume 76fL 75fL Mean Corpuscular Hemoglobin 25pg 25pg Mean Corpuscular Hemoglobin Concent 32g/dL 33g/dL Red Cell Distribution Width 20.7% 20.3% Platelet Count 102x10^3/uL 102x10^3/uL Prothrombin Time 14.6SEC Prothromb Time International Ratio 1.2 Test 06/27/16 06:07 06/27/16 08:40 White Blood Count 8.3x10^3/uL Red Blood Count 3.32x10^6/uL Hemoglobin 8.1g/dL Hematocrit 25.4% Mean Corpuscular Volume 77fL Mean Corpuscular Hemoglobin 24pg Mean Corpuscular Hemoglobin Concent 32g/dL Red Cell Distribution Width 20.6% Platelet Count 92x10^3/uL Glucose (Fingerstick) 103mg/dL Imaging: EGD 06/26/16: E-distal grade IV reflux with mild stricture. NO VARICES. G--Small hiatal hernia. On retroflex in the hiatal hernia at the cardia, oozing of blood from what's probably a penetrating vein from external varices. Attempted clipping, epi injection, banding w/o success, largely due to location and no muscles in venous wall, therefore no response to epi. Remainder of stomach OK. D--Normal to second portion. IMP: Bleeding likely from penetrating vein from external varices; unsuccessful re: treatment endoscopically. Severe reflux esophagitis with mild stricture. Hiatal hernia. PE: GEN: NAD LUNGS: CTAB HEART: RRR ABD: soft NEURO/PSYCH: A & O 3 A/P: GI bleeding likely from penetrating vein from external varices -unsuccessfully treated during EGD -no recurrent hematemesis, dark stools slowing (feels constipated), Hgb stable -on octreotide, PPI drip, ice chips Severe reflux esophagitis -w/ mild stricture, hiatal hernia on EGD 06/26/16 Hep C -started treatment at last year, has not followed-up -mild hepatomegaly and borderline splenomegaly on previous US -thrombocytopenic -- Reviewed w/ Dr. Macdonald - continue same per GI. BENTON JACOBSON Jun 27, 2016 10:25
--- NOTE | 2016-06-27 11:14 | PDOC ---
PROGRESS NOTES Chief Complaint Chief Complaint GIB ASSESSMENT AND PLAN: 1. GIB: variceal bleed on EDG 06/26. unable to clip/band. on PPI gtt, octreotide. fentanyl PRN. 2. Anemia: acute (and chronic) blood loss; s/p PRBC x3 initially, none in past 24h. monitor q6h, transfuse to keep Hgb >7. iron deficiency by labs: venofer IV. also has sickle cell trait 3. HCV: on treatment, interrupted 4. 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 DM: NPO. ISS 6. HTN: well controlled. hydralazine PRN 7. Anxiety/depression: no acute issues 8. Osteoarthritis: no acute issues. 9. Dispo: transfer to med floor Vitals Vitals Vital Signs Date Time Temp Pulse Resp B/P Pulse Ox O2 Delivery O2 Flow Rate FiO2 06/27/16 10:34 73 20 145/69 96 Room Air 06/27/16 08:40 4.0 06/27/16 04:00 98.4 98.4 Physical Exam General: Alert, Oriented X3, Cooperative, No acute distress Heart: Regular rate Lungs: Clear Abdomen: Soft, Other (TTP epigastrium) Extremities: No clubbing Skin: No significant lesion Labs LABS Laboratory Tests Test 06/26/16 11:22 06/26/16 11:45 06/26/16 17:17 06/26/16 18:00 Glucose (Fingerstick) 124mg/dL (70-99) 93mg/dL (70-99) White Blood Count 10.2x10^3/uL (4.0-11.0) 10.9x10^3/uL (4.0-11.0) Red Blood Count 3.50x10^6/uL (3.50-5.40) 3.44x10^6/uL (3.50-5.40) Hemoglobin 8.6g/dL (12.0-15.5) 8.5g/dL (12.0-15.5) Hematocrit 26.7% (36.0-47.0) 25.7% (36.0-47.0) Mean Corpuscular Volume 76fL (79-100) 75fL (79-100) Mean Corpuscular Hemoglobin 25pg (25-35) 25pg (25-35) Mean Corpuscular Hemoglobin Concent 32g/dL (31-37) 33g/dL (31-37) Red Cell Distribution Width 20.7% (11.5-14.5) 20.3% (11.5-14.5) Platelet Count 102x10^3/uL (140-400) 102x10^3/uL (140-400) Prothrombin Time 14.6SEC (11.7-14.0) Prothromb Time International Ratio 1.2 (0.8-1.1) Test 06/27/16 06:07 06/27/16 08:40 White Blood Count 8.3x10^3/uL (4.0-11.0) Red Blood Count 3.32x10^6/uL (3.50-5.40) Hemoglobin 8.1g/dL (12.0-15.5) Hematocrit 25.4% (36.0-47.0) Mean Corpuscular Volume 77fL (79-100) Mean Corpuscular Hemoglobin 24pg (25-35) Mean Corpuscular Hemoglobin Concent 32g/dL (31-37) Red Cell Distribution Width 20.6% (11.5-14.5) Platelet Count 92x10^3/uL (140-400) Glucose (Fingerstick) 103mg/dL (70-99) Review of Systems Review of Systems tired, no sleep O/N CHARIS LUNDBERG MD Jun 27, 2016 11:14
[2016-06-27] MEDS: IRON SUCROSE COMPLEX 300 MG in IV NORMAL SALINE 250ML 250 ML IV SCH ×2 (12:43→19:33)
[2016-06-27 14:13] LABS: HEMATOCRIT 25.4 % (36.0-47.0); HEMOGLOBIN 8.4 g/dL (12.0-15.5); RED BLOOD COUNT 3.35 x10^6/uL (3.50-5.40); RED CELL DISTRIBUTION WIDTH 20.4 % (11.5-14.5); WHITE BLOOD COUNT 8.2 x10^3/uL (4.0-11.0)
[2016-06-28] MEDS: fentaNYL PF VIAL 100 MCG/2 ML VIAL IV PRN ×6 (01:26→21:51)
[2016-06-28] MEDS: PANTOPRAZOLE SODIUM IV 80 MG in IV NORMAL SALINE 100ML 100 ML IV SCH ×2 (03:34→16:36)
[2016-06-28] MEDS: ONDANSETRON PF 4 MG/2 ML VIAL. IV PRN ×3 (04:35→22:04)
[2016-06-28 07:00] VITALS: BP 140/79
[2016-06-28] MEDS: INSULIN ASPART 300 UNITS/3 ML INSULN.PEN SQ SCH ×3 (08:00→16:46)
[2016-06-28] MEDS: IRON SUCROSE COMPLEX 300 MG in IV NORMAL SALINE 250ML 250 ML IV SCH (09:57)
[2016-06-28 11:00] VITALS: BP_SYST 138; BP_SYST 145; BP_DIAS 72; BP_DIAS 87
--- NOTE | 2016-06-28 14:52 | PDOC ---
PROGRESS NOTES Chief Complaint Chief Complaint cc: angina, nausea, vomiting, diarrhea -GI bleed -Hepatitis C -DM -Hypertension -Anxiety/Depression -OA -Sickle cell trait -Asthma -Esophageal varices -Ulcer -Cervical cancer History of Present Illness History of Present Illness Ms. Hollis reports she is feeling well overall, but she had a few symptoms to report. She had no jaundice upon examination. Her IV was hooked up and running. She described enduring a burning sensation today. According to her, she has not had any more blood in her stools. She is no longer experiencing episodes of emesis. Her condition is guarded. Vitals Vitals Vital Signs Date Time Temp Pulse Resp B/P Pulse Ox O2 Delivery O2 Flow Rate FiO2 06/28/16 14:43 Room Air 06/28/16 11:00 98.0 62 17 145/87 95 98.0 06/27/16 21:19 4.0 Physical Exam General: Alert, Cooperative, No acute distress Heart: Regular rate, Normal S1, Normal S2 Lungs: Clear, Other (No chest retractions) Abdomen: Soft, No tenderness Extremities: No clubbing, No cyanosis Skin: No rashes, No significant lesion Labs LABS Laboratory Tests Test 06/27/16 17:06 06/27/16 21:34 06/28/16 07:27 Glucose (Fingerstick) 187mg/dL (70-99) 98mg/dL (70-99) 107mg/dL (70-99) Review of Systems Review of Systems Ms. Hollis does confirm feeling nausea. She has a new onset headache. Dizziness and lightheadedness have persisted throughout her hospital stay thus far, but they are getting better. She has no appetite. She is experiencing muscle weakness and profound symptoms of osteoarthritis, which she associates with the changing weather. She has been experiencing cramps in her lower extremities over the past 4-5 days. Assessment and Plan Assessmemt and Plan Problems Medical Problems: (1) Acute GI bleeding Status: Acute (2) Blood loss anemia Status: Acute (3) Moderate protein malnutrition Status: Acute Assessment: Ms. Hollis is a 50 year old female who presented with angina, nausea, vomiting , and diarrhea. -GI bleed -Hepatitis C -DM -Hypertension -Anxiety/Depression -OA -Sickle cell trait -Asthma -Esophageal varices -Ulcer -Cervical cancer Plan: 1. Start Rocephin for UTI 2. Obtain CMP 3. Continue pain management with fentanyl 4. Continue nausea management with ondansetron 5. Continue GI bleed/varices treatment with octreotide and pantoprazole 6. Appreciate consultation from GI Problems: Comment Review of Relevant I have reviewed the following items candace (where applicable) has been applied. Labs Laboratory Tests Test 06/26/16 17:17 06/26/16 18:00 06/27/16 06:07 06/27/16 08:40 Glucose (Fingerstick) 93mg/dL (70-99) 103mg/dL (70-99) White Blood Count 10.9x10^3/uL (4.0-11.0) 8.3x10^3/uL (4.0-11.0) Red Blood Count 3.44x10^6/uL (3.50-5.40) 3.32x10^6/uL (3.50-5.40) Hemoglobin 8.5g/dL (12.0-15.5) 8.1g/dL (12.0-15.5) Hematocrit 25.7% (36.0-47.0) 25.4% (36.0-47.0) Mean Corpuscular Volume 75fL (79-100) 77fL (79-100) Mean Corpuscular Hemoglobin 25pg (25-35) 24pg (25-35) Mean Corpuscular Hemoglobin Concent 33g/dL (31-37) 32g/dL (31-37) Red Cell Distribution Width 20.3% (11.5-14.5) 20.6% (11.5-14.5) Platelet Count 102x10^3/uL (140-400) 92x10^3/uL (140-400) Test 06/27/16 11:49 06/27/16 14:00 06/27/16 17:06 06/27/16 21:34 Glucose (Fingerstick) 104mg/dL (70-99) 187mg/dL (70-99) 98mg/dL (70-99) White Blood Count 8.2x10^3/uL (4.0-11.0) Red Blood Count 3.35x10^6/uL (3.50-5.40) Hemoglobin 8.4g/dL (12.0-15.5) Hematocrit 25.4% (36.0-47.0) Mean Corpuscular Volume 76fL (79-100) Mean Corpuscular Hemoglobin 25pg (25-35) Mean Corpuscular Hemoglobin Concent 33g/dL (31-37) Red Cell Distribution Width 20.4% (11.5-14.5) Platelet Count 100x10^3/uL (140-400) Test 06/28/16 07:27 Glucose (Fingerstick) 107mg/dL (70-99) Laboratory Tests Test 06/27/16 17:06 06/27/16 21:34 06/28/16 07:27 Glucose (Fingerstick) 187mg/dL (70-99) 98mg/dL (70-99) 107mg/dL (70-99) Microbiology 06/25/16 Urine Culture - Final, Complete 06/25/16 Urine Culture Result 1 (JAKE) - Final, Complete Medications Current Medications Sodium Chloride (Iv Sodium Chloride 0.9% 1000ml Bag) 1,000 ml @ 1,000 mls/hr Q1H IV Last administered on 06/25/16 19:05; Start 06/25/16 at 18:00; Stop 01/31 at 18:59; Status DC Ondansetron HCl (Zofran) 4 mg 1X ONCE IV Last administered on 06/25/16 19:08 ; Start 06/25/16 at 18:00; Stop 06/25/16 at 18:01; Status DC Famotidine (Pepcid) 20 mg 1X ONCE IVP ; Start 06/25/16 at 18:00; Stop 06/25/16 at 18:27; Status DC Fentanyl Citrate (Fentanyl 2ml Vial) 50 mcg PRN Q15MIN PRN IV PAIN GREATER THAN 3/10 Last administered on 06/25/16 19:07; Start 06/25/16 at 18:00; Stop at 21:33; Status DC Pantoprazole Sodium 40 mg 40 mg 1X ONCE IVP Last administered on 06/25/16 19: 14; Start 06/25/16 at 18:30; Stop 06/25/16 at 18:31; Status DC Pantoprazole Sodium/Sodium Chloride (Protonix Iv/Iv Sodium Chloride 0.9% 100ml) 100 ml @ 10 mls/hr Q10H IV Last administered on 06/28/16 03:34; Start at 18:30 Ondansetron HCl (Zofran) 4 mg PRN Q8HRS PRN IV NAUSEA/VOMITING Last administered on 06/26/16 13:37; Start 06/25/16 at 19:00; Stop 06/26/16 at 18:59 ; Status DC Fentanyl Citrate 50 mcg 50 mcg PRN Q2HR PRN IV PAIN Last administered on 17:19; Start 06/25/16 at 19:00; Stop 06/26/16 at 18:59; Status DC Sodium Chloride 1,000 ml @ 125 mls/hr Q8H IV Last administered on 06/26/16 10 :58; Start 06/25/16 at 18:58; Stop 06/26/16 at 18:57; Status DC Propofol (Diprivan) 20 ml @ As Directed STK-MED ONCE IV ; Start 06/26/16 at 09: 32; Stop 06/26/16 at 09:33; Status DC Lidocaine HCl 5 ml 5 ml STK-MED ONCE .ROUTE ; Start 06/26/16 at 09:32; Stop 03/02 at 09:33; Status DC Propofol 20 ml @ As Directed STK-MED ONCE IV ; Start 06/26/16 at 09:50; Stop 03/02 at 09:51; Status DC Propofol 20 ml @ As Directed STK-MED ONCE IV ; Start 06/26/16 at 09:55; Stop 03/02 at 09:56; Status DC Propofol (Diprivan) 20 ml @ As Directed STK-MED ONCE IV ; Start 06/26/16 at 10: 04; Stop 06/26/16 at 10:05; Status DC Epinephrine HCl (Epinephrine Syringe) 1 mg STK-MED ONCE .ROUTE ; Start 06/26/16 at 10:07; Stop 06/26/16 at 10:08; Status DC Insulin Aspart (Novolog) 0-7 UNITS TIDWMEALS SQ Last administered on 06/27/16 17:38; Start 06/26/16 at 12:00 Dextrose 12.5 gm 12.5 gm PRN Q15MIN PRN IV SEE COMMENTS; Start 06/26/16 at 10: 15 Propofol 20 ml @ As Directed STK-MED ONCE IV ; Start 06/26/16 at 10:11; Stop 03/02 at 10:12; Status DC Propofol (Diprivan) 40 ml @ As Directed STK-MED ONCE IV ; Start 06/26/16 at 10: 20; Stop 06/26/16 at 10:21; Status DC Epinephrine HCl (Epinephrine Syringe) 1 mg STK-MED ONCE IV Last administered on 06/26/16 10:20; Start 06/26/16 at 10:20; Stop 06/26/16 at 10:46; Status DC Epinephrine HCl 1 mg 1 mg STK-MED ONCE IV Last administered on 06/26/16 10:22 ; Start 06/26/16 at 10:22; Stop 06/26/16 at 10:46; Status DC Octreotide Acetate/Sodium Chloride (Sandostatin/Iv Sodium Chloride 0.9% 100ml) 101 ml @ 0 mls/hr CONT PRN IV SEE COMMENTS Last administered on 06/27/16 18:22 ; Start 06/26/16 at 11:00 Fentanyl Citrate (Fentanyl 2ml Vial) 25 mcg PRN Q4HRS PRN IV PAIN; Start at 21:00; Stop 06/26/16 at 21:00; Status DC Fentanyl Citrate 25 mcg 25 mcg PRN Q4HRS PRN IV PAIN Last administered on 20:42; Start 06/26/16 at 21:00; Stop 06/28/16 at 00:00; Status DC Iron Sucrose/ Sodium Chloride (Venofer/Iv Sodium Chloride 0.9% 250ml) 265 ml @ 90 mls/hr Q12HR IV Last administered on 06/28/16 09:57; Start 06/27/16 at 12: 00; Stop 06/28/16 at 11:57; Status DC Fentanyl Citrate (Fentanyl 2ml Vial) 25 mcg PRN Q4HRS PRN IV SEVERE PAIN Last administered on 06/28/16 14:04; Start 06/28/16 at 01:15 Ondansetron HCl (Zofran) 4 mg PRN Q6HRS PRN IV NAUSEA/VOMITING Last administered on 06/28/16 14:03; Start 06/28/16 at 04:30 Active Scripts Active Fioricet 50-300-40 Mg Capsule (Butalb/Acetaminophen/Caffeine) 1 Each Capsule 1 Each PO PRN Q4HRS PRN Vitals/I & O Vital Sign - Last 24 Hours 06/27/16 06/27/16 06/27/16 06/27/16 15:00 17:15 17:56 19:00 Temp 97.5 97.5 Pulse 75 76 Resp 12 18 B/P 146/77 155/84 Pulse Ox 95 96 O2 Delivery Room Air Room Air Room Air Room Air 06/27/16 06/27/16 06/27/16 06/27/16 20:00 20:42 21:19 23:00 Temp 97.5 97.5 Pulse 71 Resp 18 B/P 140/76 Pulse Ox 96 O2 Delivery Room Air Room Air Room Air Room Air O2 Flow Rate 4.0 06/28/16 06/28/16 06/28/16 06/28/16 01:26 05:57 07:00 08:00 Temp 98.0 98.0 Pulse 66 Resp 20 17 B/P 140/79 Pulse Ox 95 O2 Delivery Room Air Room Air Room Air Room Air 06/28/16 06/28/16 06/28/16 06/28/16 09:57 11:00 14:04 14:43 Temp 98.0 98.0 Pulse 62 Resp 17 B/P 145/87 Pulse Ox 95 O2 Delivery Room Air Room Air Room Air Room Air Intake and Output 06/27/16 06/27/16 06/28/16 15:00 23:00 07:00 Intake Total 0 ml 0 ml Balance 0 ml 0 ml NAVID SANTOS III DO Jun 28, 2016 14:52
[2016-06-28 15:00] VITALS: BP 110/73
--- NOTE | 2016-06-28 17:33 | PDOC ---
G I PROGRESS NOTE Subjective No complaints. Tolerating clears. Wants to consider TIPS. Melena has apparently cleared. Physical Exam Lungs clear. RRR Abdomen soft, not distended nor tender. Review of Relevant I have reviewed the following items candace (where applicable) has been applied. Labs Laboratory Tests Test 06/26/16 18:00 06/27/16 06:07 06/27/16 08:40 06/27/16 11:49 White Blood Count 10.9x10^3/uL (4.0-11.0) 8.3x10^3/uL (4.0-11.0) Red Blood Count 3.44x10^6/uL (3.50-5.40) 3.32x10^6/uL (3.50-5.40) Hemoglobin 8.5g/dL (12.0-15.5) 8.1g/dL (12.0-15.5) Hematocrit 25.7% (36.0-47.0) 25.4% (36.0-47.0) Mean Corpuscular Volume 75fL (79-100) 77fL (79-100) Mean Corpuscular Hemoglobin 25pg (25-35) 24pg (25-35) Mean Corpuscular Hemoglobin Concent 33g/dL (31-37) 32g/dL (31-37) Red Cell Distribution Width 20.3% (11.5-14.5) 20.6% (11.5-14.5) Platelet Count 102x10^3/uL (140-400) 92x10^3/uL (140-400) Glucose (Fingerstick) 103mg/dL (70-99) 104mg/dL (70-99) Test 06/27/16 14:00 06/27/16 17:06 06/27/16 21:34 06/28/16 07:27 White Blood Count 8.2x10^3/uL (4.0-11.0) Red Blood Count 3.35x10^6/uL (3.50-5.40) Hemoglobin 8.4g/dL (12.0-15.5) Hematocrit 25.4% (36.0-47.0) Mean Corpuscular Volume 76fL (79-100) Mean Corpuscular Hemoglobin 25pg (25-35) Mean Corpuscular Hemoglobin Concent 33g/dL (31-37) Red Cell Distribution Width 20.4% (11.5-14.5) Platelet Count 100x10^3/uL (140-400) Glucose (Fingerstick) 187mg/dL (70-99) 98mg/dL (70-99) 107mg/dL (70-99) Laboratory Tests Test 06/27/16 21:34 06/28/16 07:27 Glucose (Fingerstick) 98mg/dL (70-99) 107mg/dL (70-99) Microbiology 06/25/16 Urine Culture - Final, Complete 06/25/16 Urine Culture Result 1 (JAKE) - Final, Complete Medications Current Medications Sodium Chloride (Iv Sodium Chloride 0.9% 1000ml Bag) 1,000 ml @ 1,000 mls/hr Q1H IV Last administered on 06/25/16 19:05; Start 06/25/16 at 18:00; Stop 01/31 at 18:59; Status DC Ondansetron HCl (Zofran) 4 mg 1X ONCE IV Last administered on 06/25/16 19:08 ; Start 06/25/16 at 18:00; Stop 06/25/16 at 18:01; Status DC Famotidine (Pepcid) 20 mg 1X ONCE IVP ; Start 06/25/16 at 18:00; Stop 06/25/16 at 18:27; Status DC Fentanyl Citrate (Fentanyl 2ml Vial) 50 mcg PRN Q15MIN PRN IV PAIN GREATER THAN 3/10 Last administered on 06/25/16 19:07; Start 06/25/16 at 18:00; Stop at 21:33; Status DC Pantoprazole Sodium 40 mg 40 mg 1X ONCE IVP Last administered on 06/25/16 19: 14; Start 06/25/16 at 18:30; Stop 06/25/16 at 18:31; Status DC Pantoprazole Sodium/Sodium Chloride (Protonix Iv/Iv Sodium Chloride 0.9% 100ml) 100 ml @ 10 mls/hr Q10H IV Last administered on 06/28/16 16:36; Start at 18:30 Ondansetron HCl (Zofran) 4 mg PRN Q8HRS PRN IV NAUSEA/VOMITING Last administered on 06/26/16 13:37; Start 06/25/16 at 19:00; Stop 06/26/16 at 18:59 ; Status DC Fentanyl Citrate 50 mcg 50 mcg PRN Q2HR PRN IV PAIN Last administered on 17:19; Start 06/25/16 at 19:00; Stop 06/26/16 at 18:59; Status DC Sodium Chloride 1,000 ml @ 125 mls/hr Q8H IV Last administered on 06/26/16 10 :58; Start 06/25/16 at 18:58; Stop 06/26/16 at 18:57; Status DC Propofol (Diprivan) 20 ml @ As Directed STK-MED ONCE IV ; Start 06/26/16 at 09: 32; Stop 06/26/16 at 09:33; Status DC Lidocaine HCl 5 ml 5 ml STK-MED ONCE .ROUTE ; Start 06/26/16 at 09:32; Stop 03/02 at 09:33; Status DC Propofol 20 ml @ As Directed STK-MED ONCE IV ; Start 06/26/16 at 09:50; Stop 03/02 at 09:51; Status DC Propofol 20 ml @ As Directed STK-MED ONCE IV ; Start 06/26/16 at 09:55; Stop 03/02 at 09:56; Status DC Propofol (Diprivan) 20 ml @ As Directed STK-MED ONCE IV ; Start 06/26/16 at 10: 04; Stop 06/26/16 at 10:05; Status DC Epinephrine HCl (Epinephrine Syringe) 1 mg STK-MED ONCE .ROUTE ; Start 06/26/16 at 10:07; Stop 06/26/16 at 10:08; Status DC Insulin Aspart (Novolog) 0-7 UNITS TIDWMEALS SQ Last administered on 06/27/16 17:38; Start 06/26/16 at 12:00 Dextrose 12.5 gm 12.5 gm PRN Q15MIN PRN IV SEE COMMENTS; Start 06/26/16 at 10: 15 Propofol 20 ml @ As Directed STK-MED ONCE IV ; Start 06/26/16 at 10:11; Stop 03/02 at 10:12; Status DC Propofol (Diprivan) 40 ml @ As Directed STK-MED ONCE IV ; Start 06/26/16 at 10: 20; Stop 06/26/16 at 10:21; Status DC Epinephrine HCl (Epinephrine Syringe) 1 mg STK-MED ONCE IV Last administered on 06/26/16 10:20; Start 06/26/16 at 10:20; Stop 06/26/16 at 10:46; Status DC Epinephrine HCl 1 mg 1 mg STK-MED ONCE IV Last administered on 06/26/16 10:22 ; Start 06/26/16 at 10:22; Stop 06/26/16 at 10:46; Status DC Octreotide Acetate/Sodium Chloride (Sandostatin/Iv Sodium Chloride 0.9% 100ml) 101 ml @ 0 mls/hr CONT PRN IV SEE COMMENTS Last administered on 06/27/16 18:22 ; Start 06/26/16 at 11:00 Fentanyl Citrate (Fentanyl 2ml Vial) 25 mcg PRN Q4HRS PRN IV PAIN; Start at 21:00; Stop 06/26/16 at 21:00; Status DC Fentanyl Citrate 25 mcg 25 mcg PRN Q4HRS PRN IV PAIN Last administered on 20:42; Start 06/26/16 at 21:00; Stop 06/28/16 at 00:00; Status DC Iron Sucrose/ Sodium Chloride (Venofer/Iv Sodium Chloride 0.9% 250ml) 265 ml @ 90 mls/hr Q12HR IV Last administered on 06/28/16 09:57; Start 06/27/16 at 12: 00; Stop 06/28/16 at 11:57; Status DC Fentanyl Citrate (Fentanyl 2ml Vial) 25 mcg PRN Q4HRS PRN IV SEVERE PAIN Last administered on 06/28/16 14:04; Start 06/28/16 at 01:15 Ondansetron HCl 4 mg 4 mg PRN Q6HRS PRN IV NAUSEA/VOMITING Last administered on 06/28/16 14:03; Start 06/28/16 at 04:30 Ceftriaxone Sodium/Sodium Chloride (Rocephin/Iv Sodium Chloride 0.9% 50ml) 50 ml @ 100 mls/hr Q24H IV Last administered on 06/28/16 16:36; Start 06/28/16 at 16:00 Active Scripts Active Fioricet 50-300-40 Mg Capsule (Butalb/Acetaminophen/Caffeine) 1 Each Capsule 1 Each PO PRN Q4HRS PRN Vitals/I & O Vital Sign - Last 24 Hours 06/27/16 06/27/16 06/27/16 06/27/16 17:56 19:00 20:00 20:42 Temp 97.5 97.5 Pulse 76 Resp 18 B/P 155/84 Pulse Ox 96 O2 Delivery Room Air Room Air Room Air Room Air 06/27/16 06/27/16 06/28/16 06/28/16 21:19 23:00 01:26 05:57 Temp 97.5 97.5 Pulse 71 Resp 18 20 B/P 140/76 Pulse Ox 96 O2 Delivery Room Air Room Air Room Air Room Air O2 Flow Rate 4.0 06/28/16 06/28/16 06/28/16 06/28/16 07:00 08:00 09:57 11:00 Temp 98.0 98.0 98.0 98.0 Pulse 66 62 Resp 17 17 B/P 140/79 145/87 Pulse Ox 95 95 O2 Delivery Room Air Room Air Room Air Room Air 06/28/16 06/28/16 06/28/16 06/28/16 11:00 14:04 14:43 15:00 Temp 98.7 98.1 98.7 98.1 Pulse 74 78 Resp 18 17 B/P 138/72 110/73 Pulse Ox 95 95 O2 Delivery Room Air Room Air Room Air Room Air Intake and Output 06/27/16 06/27/16 06/28/16 15:00 23:00 07:00 Intake Total 0 ml 0 ml Balance 0 ml 0 ml Problem List Problems Medical Problems: (1) Acute GI bleeding Status: Acute (2) Blood loss anemia Status: Acute (3) Moderate protein malnutrition Status: Acute Assessment "Variceal" bleed, appears stable. Plan of Care: Continue current Tx, Mgmt Plan of Care Note Stop octreotide. Advance diet, po PPI in am. Will ask IR to see. RETA CANTU MD Jun 28, 2016 17:32
[2016-06-28] MEDS: OCTREOTIDE 500 MCG in IV NORMAL SALINE 100ML 100 ML IV PRN (17:42)
[2016-06-28 19:36] VITALS: BP 133/81
[2016-06-28 23:59] VITALS: BP 138/84
[2016-06-29 03:59] VITALS: BP 132/81
[2016-06-29 05:49] LABS: CALCIUM 8.2 mg/dL (8.5-10.1); CREATININE 0.7 mg/dL (0.6-1.0); GFR 88.9; POTASSIUM 3.8 mmol/L (3.5-5.1)
[2016-06-29] MEDS: ONDANSETRON PF 4 MG/2 ML VIAL. IV PRN ×2 (06:24→20:50)
[2016-06-29 07:00] VITALS: BP 137/80
[2016-06-29] MEDS: INSULIN ASPART 300 UNITS/3 ML INSULN.PEN SQ SCH ×3 (08:00→17:00)
[2016-06-29] MEDS: PANTOPRAZOLE 40 MG TABLET.DR. PO SCH (08:46)
[2016-06-29 11:16] VITALS: BP 156/69
--- NOTE | 2016-06-29 11:21 | PDOC ---
Provider Note Provider Note IR Note: Asked to consider TIPS creation---thank you 50 YO female admitted thru ED with severe anemia, s/p 1-2 week h/o intermittent GI bleeding, including melena and hematemesis. She has h/o Hep C and prior h/o EV banding, although PMC EGD from 11/16/14 revealed no EVs. 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 Hgb stable. VSS. MELD score = 9. CT abdomen with contrast has been requested to confirm changes of portal HTN, to asses for varices, and to assess patency of portal and hepatic veins. Will discuss possible elective TIPS creation with patient following review of CT abdomen. JERRY FLOYD MD Jun 29, 2016 11:21
[2016-06-29] MEDS ORDERED: CONTRAST GIVEN MC PRN (12:00)
[2016-06-29] MEDS ORDERED: IOHEXOL 350 MG/ML 100 ML VIAL. IV ONE (12:00)
--- NOTE | 2016-06-29 13:47 | PDOC ---
G I PROGRESS NOTE Subjective No complaints. Would like more to eat. No further melena or hematemesis. Physical Exam Lungs clear. RRR Abdomen soft, not distended nor tender. Review of Relevant I have reviewed the following items candace (where applicable) has been applied. Labs Laboratory Tests Test 06/27/16 14:00 06/27/16 17:06 06/27/16 21:34 06/28/16 07:27 White Blood Count 8.2x10^3/uL (4.0-11.0) Red Blood Count 3.35x10^6/uL (3.50-5.40) Hemoglobin 8.4g/dL (12.0-15.5) Hematocrit 25.4% (36.0-47.0) Mean Corpuscular Volume 76fL (79-100) Mean Corpuscular Hemoglobin 25pg (25-35) Mean Corpuscular Hemoglobin Concent 33g/dL (31-37) Red Cell Distribution Width 20.4% (11.5-14.5) Platelet Count 100x10^3/uL (140-400) Glucose (Fingerstick) 187mg/dL (70-99) 98mg/dL (70-99) 107mg/dL (70-99) Test 06/28/16 20:41 06/29/16 04:15 06/29/16 07:42 06/29/16 08:00 Glucose (Fingerstick) 107mg/dL (70-99) 111mg/dL (70-99) 111mg/dL (70-99) Sodium Level 138mmol/L (136-145) Potassium Level 3.8mmol/L (3.5-5.1) Chloride Level 105mmol/L (98-107) Carbon Dioxide Level 23mmol/L (21-32) Anion Gap 10 (6-14) Blood Urea Nitrogen 4mg/dL (7-20) Creatinine 0.7mg/dL (0.6-1.0) Estimated GFR (Cockcroft-Gault) 88.9 Glucose Level 108mg/dL (70-99) Calcium Level 8.2mg/dL (8.5-10.1) Test 06/29/16 10:51 06/29/16 11:45 Glucose (Fingerstick) 112mg/dL (70-99) Ammonia 50mcmol/L (11-34) Laboratory Tests Test 06/28/16 20:41 06/29/16 04:15 06/29/16 07:42 06/29/16 08:00 Glucose (Fingerstick) 107mg/dL (70-99) 111mg/dL (70-99) 111mg/dL (70-99) Sodium Level 138mmol/L (136-145) Potassium Level 3.8mmol/L (3.5-5.1) Chloride Level 105mmol/L (98-107) Carbon Dioxide Level 23mmol/L (21-32) Anion Gap 10 (6-14) Blood Urea Nitrogen 4mg/dL (7-20) Creatinine 0.7mg/dL (0.6-1.0) Estimated GFR (Cockcroft-Gault) 88.9 Glucose Level 108mg/dL (70-99) Calcium Level 8.2mg/dL (8.5-10.1) Test 06/29/16 10:51 06/29/16 11:45 Glucose (Fingerstick) 112mg/dL (70-99) Ammonia 50mcmol/L (11-34) Microbiology 06/25/16 Urine Culture - Final, Complete 06/25/16 Urine Culture Result 1 (JAKE) - Final, Complete Medications Current Medications Sodium Chloride (Iv Sodium Chloride 0.9% 1000ml Bag) 1,000 ml @ 1,000 mls/hr Q1H IV Last administered on 06/25/16 19:05; Start 06/25/16 at 18:00; Stop 01/31 at 18:59; Status DC Ondansetron HCl (Zofran) 4 mg 1X ONCE IV Last administered on 06/25/16 19:08 ; Start 06/25/16 at 18:00; Stop 06/25/16 at 18:01; Status DC Famotidine (Pepcid) 20 mg 1X ONCE IVP ; Start 06/25/16 at 18:00; Stop 06/25/16 at 18:27; Status DC Fentanyl Citrate (Fentanyl 2ml Vial) 50 mcg PRN Q15MIN PRN IV PAIN GREATER THAN 3/10 Last administered on 06/25/16 19:07; Start 06/25/16 at 18:00; Stop at 21:33; Status DC Pantoprazole Sodium 40 mg 40 mg 1X ONCE IVP Last administered on 06/25/16 19: 14; Start 06/25/16 at 18:30; Stop 06/25/16 at 18:31; Status DC Pantoprazole Sodium/Sodium Chloride (Protonix Iv/Iv Sodium Chloride 0.9% 100ml) 100 ml @ 10 mls/hr Q10H IV Last administered on 06/28/16 16:36; Start at 18:30; Stop 06/29/16 at 07:18; Status DC Ondansetron HCl (Zofran) 4 mg PRN Q8HRS PRN IV NAUSEA/VOMITING Last administered on 06/26/16 13:37; Start 06/25/16 at 19:00; Stop 06/26/16 at 18:59 ; Status DC Fentanyl Citrate 50 mcg 50 mcg PRN Q2HR PRN IV PAIN Last administered on 17:19; Start 06/25/16 at 19:00; Stop 06/26/16 at 18:59; Status DC Sodium Chloride 1,000 ml @ 125 mls/hr Q8H IV Last administered on 06/26/16 10 :58; Start 06/25/16 at 18:58; Stop 06/26/16 at 18:57; Status DC Propofol (Diprivan) 20 ml @ As Directed STK-MED ONCE IV ; Start 06/26/16 at 09: 32; Stop 06/26/16 at 09:33; Status DC Lidocaine HCl 5 ml 5 ml STK-MED ONCE .ROUTE ; Start 06/26/16 at 09:32; Stop 03/02 at 09:33; Status DC Propofol 20 ml @ As Directed STK-MED ONCE IV ; Start 06/26/16 at 09:50; Stop 03/02 at 09:51; Status DC Propofol 20 ml @ As Directed STK-MED ONCE IV ; Start 06/26/16 at 09:55; Stop 03/02 at 09:56; Status DC Propofol (Diprivan) 20 ml @ As Directed STK-MED ONCE IV ; Start 06/26/16 at 10: 04; Stop 06/26/16 at 10:05; Status DC Epinephrine HCl (Epinephrine Syringe) 1 mg STK-MED ONCE .ROUTE ; Start 06/26/16 at 10:07; Stop 06/26/16 at 10:08; Status DC Insulin Aspart (Novolog) 0-7 UNITS TIDWMEALS SQ Last administered on 06/27/16 17:38; Start 06/26/16 at 12:00 Dextrose 12.5 gm 12.5 gm PRN Q15MIN PRN IV SEE COMMENTS; Start 06/26/16 at 10: 15 Propofol 20 ml @ As Directed STK-MED ONCE IV ; Start 06/26/16 at 10:11; Stop 03/02 at 10:12; Status DC Propofol (Diprivan) 40 ml @ As Directed STK-MED ONCE IV ; Start 06/26/16 at 10: 20; Stop 06/26/16 at 10:21; Status DC Epinephrine HCl (Epinephrine Syringe) 1 mg STK-MED ONCE IV Last administered on 06/26/16 10:20; Start 06/26/16 at 10:20; Stop 06/26/16 at 10:46; Status DC Epinephrine HCl 1 mg 1 mg STK-MED ONCE IV Last administered on 06/26/16 10:22 ; Start 06/26/16 at 10:22; Stop 06/26/16 at 10:46; Status DC Octreotide Acetate/Sodium Chloride (Sandostatin/Iv Sodium Chloride 0.9% 100ml) 101 ml @ 0 mls/hr CONT PRN IV SEE COMMENTS Last administered on 06/28/16 17:42 ; Start 06/26/16 at 11:00; Stop 06/29/16 at 07:18; Status DC Fentanyl Citrate (Fentanyl 2ml Vial) 25 mcg PRN Q4HRS PRN IV PAIN; Start at 21:00; Stop 06/26/16 at 21:00; Status DC Fentanyl Citrate 25 mcg 25 mcg PRN Q4HRS PRN IV PAIN Last administered on 20:42; Start 06/26/16 at 21:00; Stop 06/28/16 at 00:00; Status DC Iron Sucrose/ Sodium Chloride (Venofer/Iv Sodium Chloride 0.9% 250ml) 265 ml @ 90 mls/hr Q12HR IV Last administered on 06/28/16 09:57; Start 06/27/16 at 12: 00; Stop 06/28/16 at 11:57; Status DC Fentanyl Citrate (Fentanyl 2ml Vial) 25 mcg PRN Q4HRS PRN IV SEVERE PAIN Last administered on 06/28/16 21:51; Start 06/28/16 at 01:15 Ondansetron HCl 4 mg 4 mg PRN Q6HRS PRN IV NAUSEA/VOMITING Last administered on 06/29/16 06:24; Start 06/28/16 at 04:30 Ceftriaxone Sodium/Sodium Chloride (Rocephin/Iv Sodium Chloride 0.9% 50ml) 50 ml @ 100 mls/hr Q24H IV Last administered on 06/28/16 16:36; Start 06/28/16 at 16:00 Pantoprazole Sodium (Protonix) 40 mg DAILYAC PO Last administered on 06/29/16 08:46; Start 06/29/16 at 08:00 Iohexol (Omnipaque 350 Mg/ml) 75 ml 1X ONCE IV Last administered on 06/29/16 12:05; Start 06/29/16 at 12:00; Stop 06/29/16 at 12:01; Status DC Info (Do NOT chart on this entry -- for MONITORING) 1 each PRN DAILY PRN MC SEE COMMENTS; Start 06/29/16 at 12:00; Stop 07/01/16 at 11:59 Active Scripts Active Fioricet 50-300-40 Mg Capsule (Butalb/Acetaminophen/Caffeine) 1 Each Capsule 1 Each PO PRN Q4HRS PRN Vitals/I & O Vital Sign - Last 24 Hours 06/28/16 06/28/16 06/28/16 06/28/16 14:04 15:00 17:42 19:36 Temp 98.1 98.6 98.1 98.6 Pulse 78 67 Resp 17 18 B/P 110/73 133/81 Pulse Ox 95 98 O2 Delivery Room Air Room Air Room Air Room Air 06/28/16 06/28/16 06/28/16 06/28/16 21:50 21:51 22:20 23:59 Temp 98.4 98.4 Pulse 68 Resp 20 20 18 B/P 138/84 Pulse Ox 94 O2 Delivery Room Air Room Air Room Air Room Air 06/29/16 06/29/16 06/29/16 06/29/16 03:59 07:00 08:00 11:16 Temp 98.0 98.1 96.4 98.0 98.1 96.4 Pulse 66 72 67 Resp 18 18 18 B/P 132/81 137/80 156/69 Pulse Ox 95 94 95 O2 Delivery Room Air Room Air Room Air Room Air Intake and Output 06/28/16 06/28/16 06/29/16 15:00 23:00 07:00 Intake Total 1750 ml 170 ml Balance 1750 ml 170 ml Problem List Problems Medical Problems: (1) Acute GI bleeding Status: Acute (2) Blood loss anemia Status: Acute (3) Moderate protein malnutrition Status: Acute Assessment 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 Plan of Care: Continue current Tx, Mgmt Plan of Care Note Advance diet. Await final IR note re: TIPS. RETA CANTU MD Jun 29, 2016 13:47
--- NOTE | 2016-06-29 14:26 | PDOC ---
PROGRESS NOTES Chief Complaint Chief Complaint cc: angina, nausea, vomiting, diarrhea -GI bleed -Hepatitis C -DM -Hypertension -Anxiety/Depression -OA -Sickle cell trait -Asthma -Esophageal varices -Ulcer -Cervical cancer History of Present Illness History of Present Illness Ms. Hollis is doing well and sitting comfortably in NAD. She reports she is still having the persistent headaches. They are associated with tearing and rhinorrhea and occur when she stands up or moves too quickly. The pain medications she is receiving are working to curb the pain. She also reports scotoma when she moves too quickly. Her condition remains guarded. Vitals Vitals Vital Signs Date Time Temp Pulse Resp B/P Pulse Ox O2 Delivery O2 Flow Rate FiO2 06/29/16 11:16 96.4 67 18 156/69 95 Room Air 96.4 Physical Exam General: Alert, Cooperative, No acute distress Heart: Regular rate, Normal S1, Normal S2 Lungs: Clear, Other (No chest retractions were present.) Abdomen: Soft, No tenderness Extremities: No clubbing, No cyanosis Skin: No rashes, No breakdown Labs LABS Laboratory Tests Test 06/28/16 20:41 06/29/16 04:15 06/29/16 07:42 06/29/16 08:00 Glucose (Fingerstick) 107mg/dL (70-99) 111mg/dL (70-99) 111mg/dL (70-99) Sodium Level 138mmol/L (136-145) Potassium Level 3.8mmol/L (3.5-5.1) Chloride Level 105mmol/L (98-107) Carbon Dioxide Level 23mmol/L (21-32) Anion Gap 10 (6-14) Blood Urea Nitrogen 4mg/dL (7-20) Creatinine 0.7mg/dL (0.6-1.0) Estimated GFR (Cockcroft-Gault) 88.9 Glucose Level 108mg/dL (70-99) Calcium Level 8.2mg/dL (8.5-10.1) Test 06/29/16 10:51 06/29/16 11:45 Glucose (Fingerstick) 112mg/dL (70-99) Ammonia 50mcmol/L (11-34) Review of Systems Review of Systems Ms. Hollis reports she is still feeling a dizziness. The cramping sensation in her legs has gotten better from yesterday. Assessment and Plan Assessmemt and Plan Problems Medical Problems: (1) Acute GI bleeding Status: Acute (2) Blood loss anemia Status: Acute (3) Moderate protein malnutrition Status: Acute Ms. Hollis is a 50 year old female who presented with angina, nausea, vomiting , and diarrhea. -GI bleed -Hepatitis C -DM -Hypertension -Anxiety/Depression -OA -Sickle cell trait -Asthma -Esophageal varices -Ulcer -Cervical cancer Plan: 1. Recheck labs and continue to monitor for anemic symptoms 2. Continue antibiotic ceftriaxone 3. Continue pantoprazole 4. Continue pain management with fentanyl 5. Advance diet per GI 6. Continue nausea medication with ondansetron 7. Consider PT/OT 8. Appreciate consultation from GI Problems: Comment Review of Relevant I have reviewed the following items candace (where applicable) has been applied. Labs Laboratory Tests Test 06/27/16 17:06 06/27/16 21:34 06/28/16 07:27 06/28/16 20:41 Glucose (Fingerstick) 187mg/dL (70-99) 98mg/dL (70-99) 107mg/dL (70-99) 107mg/dL (70-99) Test 06/29/16 04:15 06/29/16 07:42 06/29/16 08:00 06/29/16 10:51 Sodium Level 138mmol/L (136-145) Potassium Level 3.8mmol/L (3.5-5.1) Chloride Level 105mmol/L (98-107) Carbon Dioxide Level 23mmol/L (21-32) Anion Gap 10 (6-14) Blood Urea Nitrogen 4mg/dL (7-20) Creatinine 0.7mg/dL (0.6-1.0) Estimated GFR (Cockcroft-Gault) 88.9 Glucose Level 108mg/dL (70-99) Calcium Level 8.2mg/dL (8.5-10.1) Glucose (Fingerstick) 111mg/dL (70-99) 111mg/dL (70-99) 112mg/dL (70-99) Test 06/29/16 11:45 Ammonia 50mcmol/L (11-34) Laboratory Tests Test 06/28/16 20:41 06/29/16 04:15 06/29/16 07:42 06/29/16 08:00 Glucose (Fingerstick) 107mg/dL (70-99) 111mg/dL (70-99) 111mg/dL (70-99) Sodium Level 138mmol/L (136-145) Potassium Level 3.8mmol/L (3.5-5.1) Chloride Level 105mmol/L (98-107) Carbon Dioxide Level 23mmol/L (21-32) Anion Gap 10 (6-14) Blood Urea Nitrogen 4mg/dL (7-20) Creatinine 0.7mg/dL (0.6-1.0) Estimated GFR (Cockcroft-Gault) 88.9 Glucose Level 108mg/dL (70-99) Calcium Level 8.2mg/dL (8.5-10.1) Test 06/29/16 10:51 06/29/16 11:45 Glucose (Fingerstick) 112mg/dL (70-99) Ammonia 50mcmol/L (11-34) Microbiology 06/25/16 Urine Culture - Final, Complete 06/25/16 Urine Culture Result 1 (JAKE) - Final, Complete Medications Current Medications Sodium Chloride (Iv Sodium Chloride 0.9% 1000ml Bag) 1,000 ml @ 1,000 mls/hr Q1H IV Last administered on 06/25/16 19:05; Start 06/25/16 at 18:00; Stop 01/31 at 18:59; Status DC Ondansetron HCl (Zofran) 4 mg 1X ONCE IV Last administered on 06/25/16 19:08 ; Start 06/25/16 at 18:00; Stop 06/25/16 at 18:01; Status DC Famotidine (Pepcid) 20 mg 1X ONCE IVP ; Start 06/25/16 at 18:00; Stop 06/25/16 at 18:27; Status DC Fentanyl Citrate (Fentanyl 2ml Vial) 50 mcg PRN Q15MIN PRN IV PAIN GREATER THAN 3/10 Last administered on 06/25/16 19:07; Start 06/25/16 at 18:00; Stop at 21:33; Status DC Pantoprazole Sodium 40 mg 40 mg 1X ONCE IVP Last administered on 06/25/16 19: 14; Start 06/25/16 at 18:30; Stop 06/25/16 at 18:31; Status DC Pantoprazole Sodium/Sodium Chloride (Protonix Iv/Iv Sodium Chloride 0.9% 100ml) 100 ml @ 10 mls/hr Q10H IV Last administered on 06/28/16 16:36; Start at 18:30; Stop 06/29/16 at 07:18; Status DC Ondansetron HCl (Zofran) 4 mg PRN Q8HRS PRN IV NAUSEA/VOMITING Last administered on 06/26/16 13:37; Start 06/25/16 at 19:00; Stop 06/26/16 at 18:59 ; Status DC Fentanyl Citrate 50 mcg 50 mcg PRN Q2HR PRN IV PAIN Last administered on 17:19; Start 06/25/16 at 19:00; Stop 06/26/16 at 18:59; Status DC Sodium Chloride 1,000 ml @ 125 mls/hr Q8H IV Last administered on 06/26/16 10 :58; Start 06/25/16 at 18:58; Stop 06/26/16 at 18:57; Status DC Propofol (Diprivan) 20 ml @ As Directed STK-MED ONCE IV ; Start 06/26/16 at 09: 32; Stop 06/26/16 at 09:33; Status DC Lidocaine HCl 5 ml 5 ml STK-MED ONCE .ROUTE ; Start 06/26/16 at 09:32; Stop 03/02 at 09:33; Status DC Propofol 20 ml @ As Directed STK-MED ONCE IV ; Start 06/26/16 at 09:50; Stop 03/02 at 09:51; Status DC Propofol 20 ml @ As Directed STK-MED ONCE IV ; Start 06/26/16 at 09:55; Stop 03/02 at 09:56; Status DC Propofol (Diprivan) 20 ml @ As Directed STK-MED ONCE IV ; Start 06/26/16 at 10: 04; Stop 06/26/16 at 10:05; Status DC Epinephrine HCl (Epinephrine Syringe) 1 mg STK-MED ONCE .ROUTE ; Start 06/26/16 at 10:07; Stop 06/26/16 at 10:08; Status DC Insulin Aspart (Novolog) 0-7 UNITS TIDWMEALS SQ Last administered on 06/27/16 17:38; Start 06/26/16 at 12:00 Dextrose 12.5 gm 12.5 gm PRN Q15MIN PRN IV SEE COMMENTS; Start 06/26/16 at 10: 15 Propofol 20 ml @ As Directed STK-MED ONCE IV ; Start 06/26/16 at 10:11; Stop 03/02 at 10:12; Status DC Propofol (Diprivan) 40 ml @ As Directed STK-MED ONCE IV ; Start 06/26/16 at 10: 20; Stop 06/26/16 at 10:21; Status DC Epinephrine HCl (Epinephrine Syringe) 1 mg STK-MED ONCE IV Last administered on 06/26/16 10:20; Start 06/26/16 at 10:20; Stop 06/26/16 at 10:46; Status DC Epinephrine HCl 1 mg 1 mg STK-MED ONCE IV Last administered on 06/26/16 10:22 ; Start 06/26/16 at 10:22; Stop 06/26/16 at 10:46; Status DC Octreotide Acetate/Sodium Chloride (Sandostatin/Iv Sodium Chloride 0.9% 100ml) 101 ml @ 0 mls/hr CONT PRN IV SEE COMMENTS Last administered on 06/28/16 17:42 ; Start 06/26/16 at 11:00; Stop 06/29/16 at 07:18; Status DC Fentanyl Citrate (Fentanyl 2ml Vial) 25 mcg PRN Q4HRS PRN IV PAIN; Start at 21:00; Stop 06/26/16 at 21:00; Status DC Fentanyl Citrate 25 mcg 25 mcg PRN Q4HRS PRN IV PAIN Last administered on 20:42; Start 06/26/16 at 21:00; Stop 06/28/16 at 00:00; Status DC Iron Sucrose/ Sodium Chloride (Venofer/Iv Sodium Chloride 0.9% 250ml) 265 ml @ 90 mls/hr Q12HR IV Last administered on 06/28/16 09:57; Start 06/27/16 at 12: 00; Stop 06/28/16 at 11:57; Status DC Fentanyl Citrate (Fentanyl 2ml Vial) 25 mcg PRN Q4HRS PRN IV SEVERE PAIN Last administered on 06/28/16 21:51; Start 06/28/16 at 01:15 Ondansetron HCl 4 mg 4 mg PRN Q6HRS PRN IV NAUSEA/VOMITING Last administered on 06/29/16 06:24; Start 06/28/16 at 04:30 Ceftriaxone Sodium/Sodium Chloride (Rocephin/Iv Sodium Chloride 0.9% 50ml) 50 ml @ 100 mls/hr Q24H IV Last administered on 06/28/16 16:36; Start 06/28/16 at 16:00 Pantoprazole Sodium (Protonix) 40 mg DAILYAC PO Last administered on 06/29/16 08:46; Start 06/29/16 at 08:00 Iohexol (Omnipaque 350 Mg/ml) 75 ml 1X ONCE IV Last administered on 06/29/16 12:05; Start 06/29/16 at 12:00; Stop 06/29/16 at 12:01; Status DC Info (Do NOT chart on this entry -- for MONITORING) 1 each PRN DAILY PRN MC SEE COMMENTS; Start 06/29/16 at 12:00; Stop 07/01/16 at 11:59 Active Scripts Active Fioricet 50-300-40 Mg Capsule (Butalb/Acetaminophen/Caffeine) 1 Each Capsule 1 Each PO PRN Q4HRS PRN Vitals/I & O Vital Sign - Last 24 Hours 06/28/16 06/28/16 06/28/16 06/28/16 15:00 17:42 19:36 21:50 Temp 98.1 98.6 98.1 98.6 Pulse 78 67 Resp 17 18 B/P 110/73 133/81 Pulse Ox 95 98 O2 Delivery Room Air Room Air Room Air Room Air 06/28/16 06/28/16 06/28/16 06/29/16 21:51 22:20 23:59 03:59 Temp 98.4 98.0 98.4 98.0 Pulse 68 66 Resp 20 20 18 18 B/P 138/84 132/81 Pulse Ox 94 95 O2 Delivery Room Air Room Air Room Air Room Air 06/29/16 06/29/16 06/29/16 07:00 08:00 11:16 Temp 98.1 96.4 98.1 96.4 Pulse 72 67 Resp 18 18 B/P 137/80 156/69 Pulse Ox 94 95 O2 Delivery Room Air Room Air Room Air Intake and Output 06/28/16 06/28/16 06/29/16 15:00 23:00 07:00 Intake Total 1750 ml 170 ml Balance 1750 ml 170 ml NAVID SANTOS III DO Jun 29, 2016 14:26
[2016-06-29] MEDS: fentaNYL PF VIAL 100 MCG/2 ML VIAL IV PRN ×2 (14:54→20:53)
[2016-06-29 15:00] VITALS: BP 144/79
[2016-06-29 19:00] VITALS: BP 113/72
[2016-06-29 23:00] VITALS: BP 117/74
[2016-06-30 03:04] VITALS: BP 131/74
[2016-06-30 04:16] LABS: CALCIUM 8.1 mg/dL (8.5-10.1); CREATININE 0.8 mg/dL (0.6-1.0); GFR 76.2; POTASSIUM 3.3 mmol/L (3.5-5.1)
[2016-06-30] MEDS: fentaNYL PF VIAL 100 MCG/2 ML VIAL IV PRN ×3 (04:46→20:10)
[2016-06-30] MEDS: PANTOPRAZOLE 40 MG TABLET.DR. PO SCH (06:35)
[2016-06-30 07:00] VITALS: BP 114/66
[2016-06-30] MEDS: INSULIN ASPART 300 UNITS/3 ML INSULN.PEN SQ SCH ×3 (08:00→16:29)
--- NOTE | 2016-06-30 09:36 | RAD ---
EXAM: CT abdomen with and without contrast. HISTORY: 50-year-old female presents for TIPS evaluation, history of hep C. TECHNIQUE: Computed tomographic images of the abdomen are obtained before and after the intravenous demonstration of 75 cc of Omni 350. Precontrast, arterial and portal venous phases are obtained. Multiplanar reformatting was performed. One or more of the following individualized dose reduction techniques were utilized for this examination: 1. Automated exposure control 2. Adjustment of the mA and/or kV according to patient size 3. Use of iterative reconstruction technique COMPARISON: None. FINDINGS: Visualized lung bases appear clear. The liver demonstrates a micronodular contour. No intrahepatic mass is seen. Hepatic veins and portal veins appear patent. Spleen appears within upper limits of normal in size. The gallbladder, pancreas, adrenal glands and kidneys demonstrate no focal abnormality. Visualized GI tract demonstrates no dilated bowel loops to suggest obstruction. The appendix appears surgically absent. No intra-abdominal free air, free fluid or significant lymphadenopathy is seen. Aorta is normal in caliber with patent celiac axis, SMA, renal arteries and ERVIN. Overlying soft tissues and visualized osseous structures demonstrate no acute or suspicious finding. IMPRESSION: No acute intra-abdominal or pelvic process. Minimal nodular contour of the liver suggested, without an intrahepatic mass seen.
--- NOTE | 2016-06-30 10:26 | PDOC ---
PROGRESS NOTES Chief Complaint Chief Complaint cc: GI bleeding. Upper GI bleeding, due to varicose veins, due to portal hypertension Plan s/p EGD Hemoglobin stable IR recommendation, possible TIPS Pain control with fentanyl Avoid co2 narcosis - History of Present Illness History of Present Illness No GI Bleeding no fever Vitals Vitals Vital Signs Date Time Temp Pulse Resp B/P Pulse Ox O2 Delivery O2 Flow Rate FiO2 06/30/16 08:00 Room Air 06/30/16 07:00 97.7 69 20 114/66 96 97.7 06/29/16 15:24 4.0 Physical Exam General: Alert, Oriented X3, Cooperative, No acute distress Heart: Regular rate, Normal S1, Normal S2 Lungs: Clear, Other (No chest retractions were present.) Abdomen: Soft, No tenderness Extremities: No clubbing, No cyanosis Skin: No rashes, No breakdown Labs LABS Laboratory Tests Test 06/29/16 10:51 06/29/16 11:45 06/29/16 16:52 06/29/16 20:12 Glucose (Fingerstick) 112mg/dL (70-99) 103mg/dL (70-99) 99mg/dL (70-99) Ammonia 50mcmol/L (11-34) Test 06/30/16 03:15 06/30/16 07:38 Sodium Level 140mmol/L (136-145) Potassium Level 3.3mmol/L (3.5-5.1) Chloride Level 104mmol/L (98-107) Carbon Dioxide Level 26mmol/L (21-32) Anion Gap 10 (6-14) Blood Urea Nitrogen 5mg/dL (7-20) Creatinine 0.8mg/dL (0.6-1.0) Estimated GFR (Cockcroft-Gault) 76.2 Glucose Level 109mg/dL (70-99) Calcium Level 8.1mg/dL (8.5-10.1) Glucose (Fingerstick) 106mg/dL (70-99) Assessment and Plan Assessmemt and Plan Problems Medical Problems: (1) Acute GI bleeding Status: Acute (2) Blood loss anemia Status: Acute (3) Moderate protein malnutrition Status: Acute Problems: Comment Review of Relevant I have reviewed the following items candace (where applicable) has been applied. Labs Laboratory Tests Test 06/28/16 11:20 06/28/16 16:43 06/28/16 20:41 06/29/16 04:15 Glucose (Fingerstick) 108mg/dL (70-99) 89mg/dL (70-99) 107mg/dL (70-99) Sodium Level 138mmol/L (136-145) Potassium Level 3.8mmol/L (3.5-5.1) Chloride Level 105mmol/L (98-107) Carbon Dioxide Level 23mmol/L (21-32) Anion Gap 10 (6-14) Blood Urea Nitrogen 4mg/dL (7-20) Creatinine 0.7mg/dL (0.6-1.0) Estimated GFR (Cockcroft-Gault) 88.9 Glucose Level 108mg/dL (70-99) Calcium Level 8.2mg/dL (8.5-10.1) Test 06/29/16 07:42 06/29/16 08:00 06/29/16 10:51 06/29/16 11:45 Glucose (Fingerstick) 111mg/dL (70-99) 111mg/dL (70-99) 112mg/dL (70-99) Ammonia 50mcmol/L (11-34) Test 06/29/16 16:52 06/29/16 20:12 06/30/16 03:15 06/30/16 07:38 Glucose (Fingerstick) 103mg/dL (70-99) 99mg/dL (70-99) 106mg/dL (70-99) Sodium Level 140mmol/L (136-145) Potassium Level 3.3mmol/L (3.5-5.1) Chloride Level 104mmol/L (98-107) Carbon Dioxide Level 26mmol/L (21-32) Anion Gap 10 (6-14) Blood Urea Nitrogen 5mg/dL (7-20) Creatinine 0.8mg/dL (0.6-1.0) Estimated GFR (Cockcroft-Gault) 76.2 Glucose Level 109mg/dL (70-99) Calcium Level 8.1mg/dL (8.5-10.1) Laboratory Tests Test 06/29/16 10:51 06/29/16 11:45 06/29/16 16:52 06/29/16 20:12 Glucose (Fingerstick) 112mg/dL (70-99) 103mg/dL (70-99) 99mg/dL (70-99) Ammonia 50mcmol/L (11-34) Test 06/30/16 03:15 06/30/16 07:38 Sodium Level 140mmol/L (136-145) Potassium Level 3.3mmol/L (3.5-5.1) Chloride Level 104mmol/L (98-107) Carbon Dioxide Level 26mmol/L (21-32) Anion Gap 10 (6-14) Blood Urea Nitrogen 5mg/dL (7-20) Creatinine 0.8mg/dL (0.6-1.0) Estimated GFR (Cockcroft-Gault) 76.2 Glucose Level 109mg/dL (70-99) Calcium Level 8.1mg/dL (8.5-10.1) Glucose (Fingerstick) 106mg/dL (70-99) Microbiology 06/25/16 Urine Culture - Final, Complete 06/25/16 Urine Culture Result 1 (JAKE) - Final, Complete Medications Current Medications Sodium Chloride (Iv Sodium Chloride 0.9% 1000ml Bag) 1,000 ml @ 1,000 mls/hr Q1H IV Last administered on 06/25/16 19:05; Start 06/25/16 at 18:00; Stop 01/31 at 18:59; Status DC Ondansetron HCl (Zofran) 4 mg 1X ONCE IV Last administered on 06/25/16 19:08 ; Start 06/25/16 at 18:00; Stop 06/25/16 at 18:01; Status DC Famotidine (Pepcid) 20 mg 1X ONCE IVP ; Start 06/25/16 at 18:00; Stop 06/25/16 at 18:27; Status DC Fentanyl Citrate (Fentanyl 2ml Vial) 50 mcg PRN Q15MIN PRN IV PAIN GREATER THAN 3/10 Last administered on 06/25/16 19:07; Start 06/25/16 at 18:00; Stop at 21:33; Status DC Pantoprazole Sodium 40 mg 40 mg 1X ONCE IVP Last administered on 06/25/16 19: 14; Start 06/25/16 at 18:30; Stop 06/25/16 at 18:31; Status DC Pantoprazole Sodium/Sodium Chloride (Protonix Iv/Iv Sodium Chloride 0.9% 100ml) 100 ml @ 10 mls/hr Q10H IV Last administered on 06/28/16 16:36; Start at 18:30; Stop 06/29/16 at 07:18; Status DC Ondansetron HCl (Zofran) 4 mg PRN Q8HRS PRN IV NAUSEA/VOMITING Last administered on 06/26/16 13:37; Start 06/25/16 at 19:00; Stop 06/26/16 at 18:59 ; Status DC Fentanyl Citrate 50 mcg 50 mcg PRN Q2HR PRN IV PAIN Last administered on 17:19; Start 06/25/16 at 19:00; Stop 06/26/16 at 18:59; Status DC Sodium Chloride 1,000 ml @ 125 mls/hr Q8H IV Last administered on 06/26/16 10 :58; Start 06/25/16 at 18:58; Stop 06/26/16 at 18:57; Status DC Propofol (Diprivan) 20 ml @ As Directed STK-MED ONCE IV ; Start 06/26/16 at 09: 32; Stop 06/26/16 at 09:33; Status DC Lidocaine HCl 5 ml 5 ml STK-MED ONCE .ROUTE ; Start 06/26/16 at 09:32; Stop 03/02 at 09:33; Status DC Propofol 20 ml @ As Directed STK-MED ONCE IV ; Start 06/26/16 at 09:50; Stop 03/02 at 09:51; Status DC Propofol 20 ml @ As Directed STK-MED ONCE IV ; Start 06/26/16 at 09:55; Stop 03/02 at 09:56; Status DC Propofol (Diprivan) 20 ml @ As Directed STK-MED ONCE IV ; Start 06/26/16 at 10: 04; Stop 06/26/16 at 10:05; Status DC Epinephrine HCl (Epinephrine Syringe) 1 mg STK-MED ONCE .ROUTE ; Start 06/26/16 at 10:07; Stop 06/26/16 at 10:08; Status DC Insulin Aspart (Novolog) 0-7 UNITS TIDWMEALS SQ Last administered on 06/27/16 17:38; Start 06/26/16 at 12:00 Dextrose 12.5 gm 12.5 gm PRN Q15MIN PRN IV SEE COMMENTS; Start 06/26/16 at 10: 15 Propofol 20 ml @ As Directed STK-MED ONCE IV ; Start 06/26/16 at 10:11; Stop 03/02 at 10:12; Status DC Propofol (Diprivan) 40 ml @ As Directed STK-MED ONCE IV ; Start 06/26/16 at 10: 20; Stop 06/26/16 at 10:21; Status DC Epinephrine HCl (Epinephrine Syringe) 1 mg STK-MED ONCE IV Last administered on 06/26/16 10:20; Start 06/26/16 at 10:20; Stop 06/26/16 at 10:46; Status DC Epinephrine HCl 1 mg 1 mg STK-MED ONCE IV Last administered on 06/26/16 10:22 ; Start 06/26/16 at 10:22; Stop 06/26/16 at 10:46; Status DC Octreotide Acetate/Sodium Chloride (Sandostatin/Iv Sodium Chloride 0.9% 100ml) 101 ml @ 0 mls/hr CONT PRN IV SEE COMMENTS Last administered on 06/28/16 17:42 ; Start 06/26/16 at 11:00; Stop 06/29/16 at 07:18; Status DC Fentanyl Citrate (Fentanyl 2ml Vial) 25 mcg PRN Q4HRS PRN IV PAIN; Start at 21:00; Stop 06/26/16 at 21:00; Status DC Fentanyl Citrate 25 mcg 25 mcg PRN Q4HRS PRN IV PAIN Last administered on 20:42; Start 06/26/16 at 21:00; Stop 06/28/16 at 00:00; Status DC Iron Sucrose/ Sodium Chloride (Venofer/Iv Sodium Chloride 0.9% 250ml) 265 ml @ 90 mls/hr Q12HR IV Last administered on 06/28/16 09:57; Start 06/27/16 at 12: 00; Stop 06/28/16 at 11:57; Status DC Fentanyl Citrate (Fentanyl 2ml Vial) 25 mcg PRN Q4HRS PRN IV SEVERE PAIN Last administered on 06/30/16 04:46; Start 06/28/16 at 01:15 Ondansetron HCl 4 mg 4 mg PRN Q6HRS PRN IV NAUSEA/VOMITING Last administered on 06/29/16 20:50; Start 06/28/16 at 04:30 Ceftriaxone Sodium/Sodium Chloride (Rocephin/Iv Sodium Chloride 0.9% 50ml) 50 ml @ 100 mls/hr Q24H IV Last administered on 06/29/16 16:30; Start 06/28/16 at 16:00 Pantoprazole Sodium (Protonix) 40 mg DAILYAC PO Last administered on 06/30/16 06:35; Start 06/29/16 at 08:00 Iohexol (Omnipaque 350 Mg/ml) 75 ml 1X ONCE IV Last administered on 06/29/16 12:05; Start 06/29/16 at 12:00; Stop 06/29/16 at 12:01; Status DC Info (Do NOT chart on this entry -- for MONITORING) 1 each PRN DAILY PRN MC SEE COMMENTS; Start 06/29/16 at 12:00; Stop 07/01/16 at 11:59 Active Scripts Active Fioricet 50-300-40 Mg Capsule (Butalb/Acetaminophen/Caffeine) 1 Each Capsule 1 Each PO PRN Q4HRS PRN Vitals/I & O Vital Sign - Last 24 Hours 06/29/16 06/29/16 06/29/16 06/29/16 11:16 14:54 15:00 15:24 Temp 96.4 99.7 96.4 99.7 Pulse 67 70 Resp 18 16 18 B/P 156/69 144/79 Pulse Ox 95 96 O2 Delivery Room Air Room Air Room Air O2 Flow Rate 4.0 06/29/16 06/29/16 06/29/16 06/29/16 19:00 20:00 20:53 23:00 Temp 98.8 98.6 98.8 98.6 Pulse 84 78 Resp 20 20 20 B/P 113/72 117/74 Pulse Ox 93 93 95 O2 Delivery Room Air Room Air Room Air Room Air 06/30/16 06/30/16 06/30/16 06/30/16 03:04 04:46 05:16 07:00 Temp 98.3 97.7 98.3 97.7 Pulse 80 69 Resp 20 20 20 20 B/P 131/74 114/66 Pulse Ox 94 94 94 96 O2 Delivery Room Air Room Air Room Air Room Air 06/30/16 08:00 O2 Delivery Room Air Intake and Output 06/29/16 06/29/16 06/30/16 15:00 23:00 07:00 Intake Total 300 ml Balance 300 ml ANTONY GILES MD Jun 30, 2016 10:26
[2016-06-30 10:46] VITALS: BP 112/64
[2016-06-30] MEDS ORDERED: POTASSIUM CHLORIDE 20 MEQ TABLET.ER. PO ONE (11:00)
[2016-06-30 14:40] VITALS: BP 128/69
[2016-06-30] MEDS: ONDANSETRON PF 4 MG/2 ML VIAL. IV PRN (14:43)
--- NOTE | 2016-06-30 15:20 | PDOC ---
G I PROGRESS NOTE Subjective No complaints. Having abnormal stools again now off octreotide? Objective Awaiting final IR opinion. Physical Exam Lungs clear. RRR Abdomen soft, not tender nor distended. Review of Relevant I have reviewed the following items candace (where applicable) has been applied. Labs Laboratory Tests Test 06/28/16 16:43 06/28/16 20:41 06/29/16 04:15 06/29/16 07:42 Glucose (Fingerstick) 89mg/dL (70-99) 107mg/dL (70-99) 111mg/dL (70-99) Sodium Level 138mmol/L (136-145) Potassium Level 3.8mmol/L (3.5-5.1) Chloride Level 105mmol/L (98-107) Carbon Dioxide Level 23mmol/L (21-32) Anion Gap 10 (6-14) Blood Urea Nitrogen 4mg/dL (7-20) Creatinine 0.7mg/dL (0.6-1.0) Estimated GFR (Cockcroft-Gault) 88.9 Glucose Level 108mg/dL (70-99) Calcium Level 8.2mg/dL (8.5-10.1) Test 06/29/16 08:00 06/29/16 10:51 06/29/16 11:45 06/29/16 16:52 Glucose (Fingerstick) 111mg/dL (70-99) 112mg/dL (70-99) 103mg/dL (70-99) Ammonia 50mcmol/L (11-34) Test 06/29/16 20:12 06/30/16 03:15 06/30/16 07:38 06/30/16 10:07 Glucose (Fingerstick) 99mg/dL (70-99) 106mg/dL (70-99) 148mg/dL (70-99) Sodium Level 140mmol/L (136-145) Potassium Level 3.3mmol/L (3.5-5.1) Chloride Level 104mmol/L (98-107) Carbon Dioxide Level 26mmol/L (21-32) Anion Gap 10 (6-14) Blood Urea Nitrogen 5mg/dL (7-20) Creatinine 0.8mg/dL (0.6-1.0) Estimated GFR (Cockcroft-Gault) 76.2 Glucose Level 109mg/dL (70-99) Calcium Level 8.1mg/dL (8.5-10.1) Laboratory Tests Test 06/29/16 16:52 06/29/16 20:12 06/30/16 03:15 06/30/16 07:38 Glucose (Fingerstick) 103mg/dL (70-99) 99mg/dL (70-99) 106mg/dL (70-99) Sodium Level 140mmol/L (136-145) Potassium Level 3.3mmol/L (3.5-5.1) Chloride Level 104mmol/L (98-107) Carbon Dioxide Level 26mmol/L (21-32) Anion Gap 10 (6-14) Blood Urea Nitrogen 5mg/dL (7-20) Creatinine 0.8mg/dL (0.6-1.0) Estimated GFR (Cockcroft-Gault) 76.2 Glucose Level 109mg/dL (70-99) Calcium Level 8.1mg/dL (8.5-10.1) Test 06/30/16 10:07 Glucose (Fingerstick) 148mg/dL (70-99) Microbiology 06/25/16 Urine Culture - Final, Complete 06/25/16 Urine Culture Result 1 (JAKE) - Final, Complete Medications Current Medications Sodium Chloride (Iv Sodium Chloride 0.9% 1000ml Bag) 1,000 ml @ 1,000 mls/hr Q1H IV Last administered on 06/25/16 19:05; Start 06/25/16 at 18:00; Stop 01/31 at 18:59; Status DC Ondansetron HCl (Zofran) 4 mg 1X ONCE IV Last administered on 06/25/16 19:08 ; Start 06/25/16 at 18:00; Stop 06/25/16 at 18:01; Status DC Famotidine (Pepcid) 20 mg 1X ONCE IVP ; Start 06/25/16 at 18:00; Stop 06/25/16 at 18:27; Status DC Fentanyl Citrate (Fentanyl 2ml Vial) 50 mcg PRN Q15MIN PRN IV PAIN GREATER THAN 3/10 Last administered on 06/25/16 19:07; Start 06/25/16 at 18:00; Stop at 21:33; Status DC Pantoprazole Sodium 40 mg 40 mg 1X ONCE IVP Last administered on 06/25/16 19: 14; Start 06/25/16 at 18:30; Stop 06/25/16 at 18:31; Status DC Pantoprazole Sodium/Sodium Chloride (Protonix Iv/Iv Sodium Chloride 0.9% 100ml) 100 ml @ 10 mls/hr Q10H IV Last administered on 06/28/16 16:36; Start at 18:30; Stop 06/29/16 at 07:18; Status DC Ondansetron HCl (Zofran) 4 mg PRN Q8HRS PRN IV NAUSEA/VOMITING Last administered on 06/26/16 13:37; Start 06/25/16 at 19:00; Stop 06/26/16 at 18:59 ; Status DC Fentanyl Citrate 50 mcg 50 mcg PRN Q2HR PRN IV PAIN Last administered on 17:19; Start 06/25/16 at 19:00; Stop 06/26/16 at 18:59; Status DC Sodium Chloride 1,000 ml @ 125 mls/hr Q8H IV Last administered on 06/26/16 10 :58; Start 06/25/16 at 18:58; Stop 06/26/16 at 18:57; Status DC Propofol (Diprivan) 20 ml @ As Directed STK-MED ONCE IV ; Start 06/26/16 at 09: 32; Stop 06/26/16 at 09:33; Status DC Lidocaine HCl 5 ml 5 ml STK-MED ONCE .ROUTE ; Start 06/26/16 at 09:32; Stop 03/02 at 09:33; Status DC Propofol 20 ml @ As Directed STK-MED ONCE IV ; Start 06/26/16 at 09:50; Stop 03/02 at 09:51; Status DC Propofol 20 ml @ As Directed STK-MED ONCE IV ; Start 06/26/16 at 09:55; Stop 03/02 at 09:56; Status DC Propofol (Diprivan) 20 ml @ As Directed STK-MED ONCE IV ; Start 06/26/16 at 10: 04; Stop 06/26/16 at 10:05; Status DC Epinephrine HCl (Epinephrine Syringe) 1 mg STK-MED ONCE .ROUTE ; Start 06/26/16 at 10:07; Stop 06/26/16 at 10:08; Status DC Insulin Aspart (Novolog) 0-7 UNITS TIDWMEALS SQ Last administered on 06/27/16 17:38; Start 06/26/16 at 12:00 Dextrose 12.5 gm 12.5 gm PRN Q15MIN PRN IV SEE COMMENTS; Start 06/26/16 at 10: 15 Propofol 20 ml @ As Directed STK-MED ONCE IV ; Start 06/26/16 at 10:11; Stop 03/02 at 10:12; Status DC Propofol (Diprivan) 40 ml @ As Directed STK-MED ONCE IV ; Start 06/26/16 at 10: 20; Stop 06/26/16 at 10:21; Status DC Epinephrine HCl (Epinephrine Syringe) 1 mg STK-MED ONCE IV Last administered on 06/26/16 10:20; Start 06/26/16 at 10:20; Stop 06/26/16 at 10:46; Status DC Epinephrine HCl 1 mg 1 mg STK-MED ONCE IV Last administered on 06/26/16 10:22 ; Start 06/26/16 at 10:22; Stop 06/26/16 at 10:46; Status DC Octreotide Acetate/Sodium Chloride (Sandostatin/Iv Sodium Chloride 0.9% 100ml) 101 ml @ 0 mls/hr CONT PRN IV SEE COMMENTS Last administered on 06/28/16 17:42 ; Start 06/26/16 at 11:00; Stop 06/29/16 at 07:18; Status DC Fentanyl Citrate (Fentanyl 2ml Vial) 25 mcg PRN Q4HRS PRN IV PAIN; Start at 21:00; Stop 06/26/16 at 21:00; Status DC Fentanyl Citrate 25 mcg 25 mcg PRN Q4HRS PRN IV PAIN Last administered on 20:42; Start 06/26/16 at 21:00; Stop 06/28/16 at 00:00; Status DC Iron Sucrose/ Sodium Chloride (Venofer/Iv Sodium Chloride 0.9% 250ml) 265 ml @ 90 mls/hr Q12HR IV Last administered on 06/28/16 09:57; Start 06/27/16 at 12: 00; Stop 06/28/16 at 11:57; Status DC Fentanyl Citrate (Fentanyl 2ml Vial) 25 mcg PRN Q4HRS PRN IV SEVERE PAIN Last administered on 06/30/16 14:44; Start 06/28/16 at 01:15 Ondansetron HCl 4 mg 4 mg PRN Q6HRS PRN IV NAUSEA/VOMITING Last administered on 06/30/16 14:43; Start 06/28/16 at 04:30 Ceftriaxone Sodium/Sodium Chloride (Rocephin/Iv Sodium Chloride 0.9% 50ml) 50 ml @ 100 mls/hr Q24H IV Last administered on 06/30/16 14:44; Start 06/28/16 at 16:00 Pantoprazole Sodium (Protonix) 40 mg DAILYAC PO Last administered on 06/30/16 06:35; Start 06/29/16 at 08:00 Iohexol (Omnipaque 350 Mg/ml) 75 ml 1X ONCE IV Last administered on 06/29/16 12:05; Start 06/29/16 at 12:00; Stop 06/29/16 at 12:01; Status DC Info (Do NOT chart on this entry -- for MONITORING) 1 each PRN DAILY PRN MC SEE COMMENTS; Start 06/29/16 at 12:00; Stop 07/01/16 at 11:59 Potassium Chloride (Klor-Con) 40 meq 1X ONCE PO Last administered on 11:18; Start 06/30/16 at 11:00; Stop 06/30/16 at 11:01; Status DC Active Scripts Active Fioricet 50-300-40 Mg Capsule (Butalb/Acetaminophen/Caffeine) 1 Each Capsule 1 Each PO PRN Q4HRS PRN Vitals/I & O Vital Sign - Last 24 Hours 06/29/16 06/29/16 06/29/16 06/29/16 15:24 19:00 20:00 20:53 Temp 98.8 98.8 Pulse 84 Resp 20 20 B/P 113/72 Pulse Ox 93 93 O2 Delivery Room Air Room Air Room Air O2 Flow Rate 4.0 06/29/16 06/30/16 06/30/16 06/30/16 23:00 03:04 04:46 05:16 Temp 98.6 98.3 98.6 98.3 Pulse 78 80 Resp 20 20 20 20 B/P 117/74 131/74 Pulse Ox 95 94 94 94 O2 Delivery Room Air Room Air Room Air Room Air 06/30/16 06/30/16 06/30/16 06/30/16 07:00 08:00 10:46 14:40 Temp 97.7 97.9 98.1 97.7 97.9 98.1 Pulse 69 73 70 Resp 20 20 20 B/P 114/66 112/64 128/69 Pulse Ox 96 95 98 O2 Delivery Room Air Room Air Room Air Room Air 06/30/16 14:44 Pulse Ox 98 O2 Delivery Room Air O2 Flow Rate 4.0 Intake and Output 06/29/16 06/29/16 06/30/16 15:00 23:00 07:00 Intake Total 300 ml Balance [address] done. Problem List Problems Medical Problems: (1) Acute GI bleeding Status: Acute (2) Blood loss anemia Status: Acute (3) Moderate protein malnutrition Status: Acute Assessment Portal HTN-related bleeding; awaiting final IR opinion re: TIPS. Plan of Care: Continue current Tx, Mgmt Plan of Care Note Observe for bleeding. RETA CANTU MD Jun 30, 2016 15:20
[2016-06-30 19:00] VITALS: BP 132/71
[2016-06-30 23:00] VITALS: BP 148/83
[2016-07-01] VITALS (13 sets, daily range): BP systolic 105–159; BP diastolic 58–88
[2016-07-01] MEDS: fentaNYL PF VIAL 100 MCG/2 ML VIAL IV PRN ×3 (02:05→11:33)
[2016-07-01 04:49] LABS: CALCIUM 8.1 mg/dL (8.5-10.1); CREATININE 0.7 mg/dL (0.6-1.0); GFR 88.9; POTASSIUM 3.6 mmol/L (3.5-5.1)
[2016-07-01] MEDS: PANTOPRAZOLE 40 MG TABLET.DR. PO SCH (06:17)
[2016-07-01] MEDS: INSULIN ASPART 300 UNITS/3 ML INSULN.PEN SQ SCH ×3 (08:00→17:00)
[2016-07-01 08:02] LABS: HEMATOCRIT 26.1 % (36.0-47.0); HEMOGLOBIN 8.3 g/dL (12.0-15.5); RED BLOOD COUNT 3.3 x10^6/uL (3.50-5.40); RED CELL DISTRIBUTION WIDTH 22.6 % (11.5-14.5); WHITE BLOOD COUNT 9.2 x10^3/uL (4.0-11.0)
--- NOTE | 2016-07-01 08:39 | PDOC ---
Provider Note Provider Note IR Note: VSS over weekend. Last two stools normal. CBC pending. CT abdomen Friday revealed no obvious findings of portal HTN. Discussed case with GI this AM. Plan TJLB with hemodynamics today. If significant portosysemic gradient demonstrated, then proceed to TIPS tomorrow with Anesthesia. JERRY FLOYD MD Jul 01, 2016 08:38
[2016-07-01] MEDS ORDERED: MORPHINE SULFATE 2 MG/ML DISP.SYRIN. IV PRN ×2 (09:00→11:00)
--- NOTE | 2016-07-01 10:56 | PDOC ---
PROGRESS NOTES Chief Complaint Chief Complaint cc: GI bleeding. Upper GI bleeding, due to portal hypertension, esophageal varices s/p EGD w/u TIPS, Dr. Kohli following Hemoglobin stable IR recommendation, possible TIPS Pain control with fentanyl or morphine - History of Present Illness History of Present Illness some nasal bleeding No GI Bleeding no fever Vitals Vitals Vital Signs Date Time Temp Pulse Resp B/P Pulse Ox O2 Delivery O2 Flow Rate FiO2 07/01/16 09:34 97 Room Air 07/01/16 07:56 98.2 64 18 131/75 98.2 07/01/16 06:17 4.0 Physical Exam General: Alert, Oriented X3, Cooperative, No acute distress Heart: Regular rate, Normal S1, Normal S2, No murmurs Lungs: Clear, Other (No chest retractions were present.) Abdomen: Soft, No tenderness Extremities: No clubbing, No cyanosis Skin: No rashes, No breakdown Labs LABS Laboratory Tests Test 06/30/16 16:17 06/30/16 20:57 07/01/16 03:20 07/01/16 03:22 Glucose (Fingerstick) 102mg/dL (70-99) 111mg/dL (70-99) White Blood Count 9.2x10^3/uL (4.0-11.0) Red Blood Count 3.30x10^6/uL (3.50-5.40) Hemoglobin 8.3g/dL (12.0-15.5) Hematocrit 26.1% (36.0-47.0) Mean Corpuscular Volume 79fL (79-100) Mean Corpuscular Hemoglobin 25pg (25-35) Mean Corpuscular Hemoglobin Concent 32g/dL (31-37) Red Cell Distribution Width 22.6% (11.5-14.5) Platelet Count 141x10^3/uL (140-400) Sodium Level 139mmol/L (136-145) Potassium Level 3.6mmol/L (3.5-5.1) Chloride Level 103mmol/L (98-107) Carbon Dioxide Level 27mmol/L (21-32) Anion Gap 9 (6-14) Blood Urea Nitrogen 6mg/dL (7-20) Creatinine 0.7mg/dL (0.6-1.0) Estimated GFR (Cockcroft-Gault) 88.9 Glucose Level 88mg/dL (70-99) Calcium Level 8.1mg/dL (8.5-10.1) Test 07/01/16 08:06 Glucose (Fingerstick) 99mg/dL (70-99) Review of Systems Review of Systems pain w/ headache no n/v/d Assessment and Plan Assessmemt and Plan Problems Medical Problems: (1) Acute GI bleeding Status: Acute (2) Blood loss anemia Status: Acute (3) Moderate protein malnutrition Status: Acute Problems: Comment Review of Relevant I have reviewed the following items candace (where applicable) has been applied. Labs Laboratory Tests Test 06/29/16 11:45 06/29/16 16:52 06/29/16 20:12 06/30/16 03:15 Ammonia 50mcmol/L (11-34) Glucose (Fingerstick) 103mg/dL (70-99) 99mg/dL (70-99) Sodium Level 140mmol/L (136-145) Potassium Level 3.3mmol/L (3.5-5.1) Chloride Level 104mmol/L (98-107) Carbon Dioxide Level 26mmol/L (21-32) Anion Gap 10 (6-14) Blood Urea Nitrogen 5mg/dL (7-20) Creatinine 0.8mg/dL (0.6-1.0) Estimated GFR (Cockcroft-Gault) 76.2 Glucose Level 109mg/dL (70-99) Calcium Level 8.1mg/dL (8.5-10.1) Test 06/30/16 07:38 06/30/16 10:07 06/30/16 16:17 06/30/16 20:57 Glucose (Fingerstick) 106mg/dL (70-99) 148mg/dL (70-99) 102mg/dL (70-99) 111mg/dL (70-99) Test 07/01/16 03:20 07/01/16 03:22 07/01/16 08:06 White Blood Count 9.2x10^3/uL (4.0-11.0) Red Blood Count 3.30x10^6/uL (3.50-5.40) Hemoglobin 8.3g/dL (12.0-15.5) Hematocrit 26.1% (36.0-47.0) Mean Corpuscular Volume 79fL (79-100) Mean Corpuscular Hemoglobin 25pg (25-35) Mean Corpuscular Hemoglobin Concent 32g/dL (31-37) Red Cell Distribution Width 22.6% (11.5-14.5) Platelet Count 141x10^3/uL (140-400) Sodium Level 139mmol/L (136-145) Potassium Level 3.6mmol/L (3.5-5.1) Chloride Level 103mmol/L (98-107) Carbon Dioxide Level 27mmol/L (21-32) Anion Gap 9 (6-14) Blood Urea Nitrogen 6mg/dL (7-20) Creatinine 0.7mg/dL (0.6-1.0) Estimated GFR (Cockcroft-Gault) 88.9 Glucose Level 88mg/dL (70-99) Calcium Level 8.1mg/dL (8.5-10.1) Glucose (Fingerstick) 99mg/dL (70-99) Laboratory Tests Test 06/30/16 16:17 06/30/16 20:57 07/01/16 03:20 07/01/16 03:22 Glucose (Fingerstick) 102mg/dL (70-99) 111mg/dL (70-99) White Blood Count 9.2x10^3/uL (4.0-11.0) Red Blood Count 3.30x10^6/uL (3.50-5.40) Hemoglobin 8.3g/dL (12.0-15.5) Hematocrit 26.1% (36.0-47.0) Mean Corpuscular Volume 79fL (79-100) Mean Corpuscular Hemoglobin 25pg (25-35) Mean Corpuscular Hemoglobin Concent 32g/dL (31-37) Red Cell Distribution Width 22.6% (11.5-14.5) Platelet Count 141x10^3/uL (140-400) Sodium Level 139mmol/L (136-145) Potassium Level 3.6mmol/L (3.5-5.1) Chloride Level 103mmol/L (98-107) Carbon Dioxide Level 27mmol/L (21-32) Anion Gap 9 (6-14) Blood Urea Nitrogen 6mg/dL (7-20) Creatinine 0.7mg/dL (0.6-1.0) Estimated GFR (Cockcroft-Gault) 88.9 Glucose Level 88mg/dL (70-99) Calcium Level 8.1mg/dL (8.5-10.1) Test 07/01/16 08:06 Glucose (Fingerstick) 99mg/dL (70-99) Microbiology 06/25/16 Urine Culture - Final, Complete 06/25/16 Urine Culture Result 1 (JAKE) - Final, Complete Medications Current Medications Sodium Chloride (Iv Sodium Chloride 0.9% 1000ml Bag) 1,000 ml @ 1,000 mls/hr Q1H IV Last administered on 06/25/16 19:05; Start 06/25/16 at 18:00; Stop 01/31 at 18:59; Status DC Ondansetron HCl (Zofran) 4 mg 1X ONCE IV Last administered on 06/25/16 19:08 ; Start 06/25/16 at 18:00; Stop 06/25/16 at 18:01; Status DC Famotidine (Pepcid) 20 mg 1X ONCE IVP ; Start 06/25/16 at 18:00; Stop 06/25/16 at 18:27; Status DC Fentanyl Citrate (Fentanyl 2ml Vial) 50 mcg PRN Q15MIN PRN IV PAIN GREATER THAN 3/10 Last administered on 06/25/16 19:07; Start 06/25/16 at 18:00; Stop at 21:33; Status DC Pantoprazole Sodium 40 mg 40 mg 1X ONCE IVP Last administered on 06/25/16 19: 14; Start 06/25/16 at 18:30; Stop 06/25/16 at 18:31; Status DC Pantoprazole Sodium/Sodium Chloride (Protonix Iv/Iv Sodium Chloride 0.9% 100ml) 100 ml @ 10 mls/hr Q10H IV Last administered on 06/28/16 16:36; Start at 18:30; Stop 06/29/16 at 07:18; Status DC Ondansetron HCl (Zofran) 4 mg PRN Q8HRS PRN IV NAUSEA/VOMITING Last administered on 06/26/16 13:37; Start 06/25/16 at 19:00; Stop 06/26/16 at 18:59 ; Status DC Fentanyl Citrate 50 mcg 50 mcg PRN Q2HR PRN IV PAIN Last administered on 17:19; Start 06/25/16 at 19:00; Stop 06/26/16 at 18:59; Status DC Sodium Chloride 1,000 ml @ 125 mls/hr Q8H IV Last administered on 06/26/16 10 :58; Start 06/25/16 at 18:58; Stop 06/26/16 at 18:57; Status DC Propofol (Diprivan) 20 ml @ As Directed STK-MED ONCE IV ; Start 06/26/16 at 09: 32; Stop 06/26/16 at 09:33; Status DC Lidocaine HCl 5 ml 5 ml STK-MED ONCE .ROUTE ; Start 06/26/16 at 09:32; Stop 03/02 at 09:33; Status DC Propofol 20 ml @ As Directed STK-MED ONCE IV ; Start 06/26/16 at 09:50; Stop 03/02 at 09:51; Status DC Propofol 20 ml @ As Directed STK-MED ONCE IV ; Start 06/26/16 at 09:55; Stop 03/02 at 09:56; Status DC Propofol (Diprivan) 20 ml @ As Directed STK-MED ONCE IV ; Start 06/26/16 at 10: 04; Stop 06/26/16 at 10:05; Status DC Epinephrine HCl (Epinephrine Syringe) 1 mg STK-MED ONCE .ROUTE ; Start 06/26/16 at 10:07; Stop 06/26/16 at 10:08; Status DC Insulin Aspart (Novolog) 0-7 UNITS TIDWMEALS SQ Last administered on 06/27/16 17:38; Start 06/26/16 at 12:00 Dextrose 12.5 gm 12.5 gm PRN Q15MIN PRN IV SEE COMMENTS; Start 06/26/16 at 10: 15 Propofol 20 ml @ As Directed STK-MED ONCE IV ; Start 06/26/16 at 10:11; Stop 03/02 at 10:12; Status DC Propofol (Diprivan) 40 ml @ As Directed STK-MED ONCE IV ; Start 06/26/16 at 10: 20; Stop 06/26/16 at 10:21; Status DC Epinephrine HCl (Epinephrine Syringe) 1 mg STK-MED ONCE IV Last administered on 06/26/16 10:20; Start 06/26/16 at 10:20; Stop 06/26/16 at 10:46; Status DC Epinephrine HCl 1 mg 1 mg STK-MED ONCE IV Last administered on 06/26/16 10:22 ; Start 06/26/16 at 10:22; Stop 06/26/16 at 10:46; Status DC Octreotide Acetate/Sodium Chloride (Sandostatin/Iv Sodium Chloride 0.9% 100ml) 101 ml @ 0 mls/hr CONT PRN IV SEE COMMENTS Last administered on 06/28/16 17:42 ; Start 06/26/16 at 11:00; Stop 06/29/16 at 07:18; Status DC Fentanyl Citrate (Fentanyl 2ml Vial) 25 mcg PRN Q4HRS PRN IV PAIN; Start at 21:00; Stop 06/26/16 at 21:00; Status DC Fentanyl Citrate 25 mcg 25 mcg PRN Q4HRS PRN IV PAIN Last administered on 20:42; Start 06/26/16 at 21:00; Stop 06/28/16 at 00:00; Status DC Iron Sucrose/ Sodium Chloride (Venofer/Iv Sodium Chloride 0.9% 250ml) 265 ml @ 90 mls/hr Q12HR IV Last administered on 06/28/16 09:57; Start 06/27/16 at 12: 00; Stop 06/28/16 at 11:57; Status DC Fentanyl Citrate (Fentanyl 2ml Vial) 25 mcg PRN Q4HRS PRN IV SEVERE PAIN Last administered on 07/01/16 06:17; Start 06/28/16 at 01:15; Stop 07/01/16 at 09:00 ; Status DC Ondansetron HCl 4 mg 4 mg PRN Q6HRS PRN IV NAUSEA/VOMITING Last administered on 06/30/16 14:43; Start 06/28/16 at 04:30 Ceftriaxone Sodium/Sodium Chloride (Rocephin/Iv Sodium Chloride 0.9% 50ml) 50 ml @ 100 mls/hr Q24H IV Last administered on 06/30/16 14:44; Start 06/28/16 at 16:00 Pantoprazole Sodium (Protonix) 40 mg DAILYAC PO Last administered on 07/01/16 06:17; Start 06/29/16 at 08:00 Iohexol (Omnipaque 350 Mg/ml) 75 ml 1X ONCE IV Last administered on 06/29/16 12:05; Start 06/29/16 at 12:00; Stop 06/29/16 at 12:01; Status DC Info (Do NOT chart on this entry -- for MONITORING) 1 each PRN DAILY PRN MC SEE COMMENTS; Start 06/29/16 at 12:00; Stop 07/01/16 at 11:59 Potassium Chloride (Klor-Con) 40 meq 1X ONCE PO Last administered on 11:18; Start 06/30/16 at 11:00; Stop 06/30/16 at 11:01; Status DC Morphine Sulfate 2 mg PRN Q2HR PRN IV PAIN Last administered on 07/01/16 09:04 ; Start 07/01/16 at 09:00 Fentanyl Citrate (Fentanyl 2ml Vial) 25 mcg PRN Q2HR PRN IV SEVERE PAIN; Start 07/01/16 at 01:15 Active Scripts Active Fioricet 50-300-40 Mg Capsule (Butalb/Acetaminophen/Caffeine) 1 Each Capsule 1 Each PO PRN Q4HRS PRN Vitals/I & O Vital Sign - Last 24 Hours 06/30/16 06/30/16 06/30/16 06/30/16 14:40 14:44 19:00 20:00 Temp 98.1 98.4 98.1 98.4 Pulse 70 82 Resp 20 20 B/P 128/69 132/71 Pulse Ox 98 98 98 O2 Delivery Room Air Room Air Room Air Room Air O2 Flow Rate 4.0 06/30/16 06/30/16 07/01/16 07/01/16 20:10 23:00 02:05 02:35 Temp 97.9 97.9 Pulse 71 Resp 18 20 20 B/P 148/83 Pulse Ox 97 100 O2 Delivery Room Air Room Air Room Air O2 Flow Rate 4.0 07/01/16 07/01/16 07/01/16 07/01/16 03:00 06:17 06:47 07:56 Temp 97.9 98.2 97.9 98.2 Pulse 64 64 Resp 20 20 20 18 B/P 129/79 131/75 Pulse Ox 97 97 97 98 O2 Delivery Room Air Room Air Room Air Room Air O2 Flow Rate 4.0 07/01/16 07/01/16 07/01/16 08:00 09:04 09:34 Pulse Ox 97 97 O2 Delivery Room Air Room Air Room Air Intake and Output 06/30/16 06/30/16 07/01/16 14:59 22:59 06:59 Intake Total 240 ml 320 ml Balance 240 ml 320 ml CHEPE NIEVES MD Jul 01, 2016 10:56
[2016-07-01] MEDS ORDERED: IV RINGERS,LACTATED 1000ML 1,000 ML IV SCH (10:59)
[2016-07-01] MEDS ORDERED: fentaNYL PF VIAL 100 MCG/2 ML VIAL IV PRN ×2 (11:00)
[2016-07-01] MEDS ORDERED: HYDROmorphone 2 MG/ML VIAL IV PRN (11:00)
[2016-07-01] MEDS ORDERED: ONDANSETRON PF 4 MG/2 ML VIAL. IV PRN (11:00)
[2016-07-01] MEDS ORDERED: LIDOCAINE 1% 1 ML SYRINGE. ID PRN (11:00)
[2016-07-01] MEDS ORDERED: PROCHLORPERAZINE 10 MG/2 ML VIAL. IV PRN (11:00)
[2016-07-01] MEDS ORDERED: MIDAZOLAM HCL/PF 2 MG/2 ML VIAL. ONE (13:27)
[2016-07-01] MEDS ORDERED: fentaNYL PF VIAL 250 MCG/5 ML VIAL ONE (13:27)
[2016-07-01] MEDS ORDERED: IOHEXOL 300 MG/ML 100ML VIAL. ONE (13:30)
[2016-07-01] MEDS ORDERED: LIDOCAINE 1% / SOD BICARB 8.4% 20 ML VIAL. IJ ONE ×2 (13:30→14:15)
[2016-07-01] MEDS ORDERED: MIDAZOLAM HCL/PF 2 MG/2 ML VIAL. IV ONE (14:15)
[2016-07-01] MEDS ORDERED: fentaNYL PF VIAL 250 MCG/5 ML VIAL IV ONE (14:15)
[2016-07-01] MEDS ORDERED: IOHEXOL 300 MG/ML 100ML VIAL. IART ONE (14:15)
--- NOTE | 2016-07-01 14:18 | PDOC ---
G I PROGRESS NOTE Subjective Not in room (in IR?). Not seen. Objective Case discussed with Dr. Kohli. Physical Exam No PE. Review of Relevant I have reviewed the following items candace (where applicable) has been applied. Labs Laboratory Tests Test 06/29/16 16:52 06/29/16 20:12 06/30/16 03:15 06/30/16 07:38 Glucose (Fingerstick) 103mg/dL (70-99) 99mg/dL (70-99) 106mg/dL (70-99) Sodium Level 140mmol/L (136-145) Potassium Level 3.3mmol/L (3.5-5.1) Chloride Level 104mmol/L (98-107) Carbon Dioxide Level 26mmol/L (21-32) Anion Gap 10 (6-14) Blood Urea Nitrogen 5mg/dL (7-20) Creatinine 0.8mg/dL (0.6-1.0) Estimated GFR (Cockcroft-Gault) 76.2 Glucose Level 109mg/dL (70-99) Calcium Level 8.1mg/dL (8.5-10.1) Test 06/30/16 10:07 06/30/16 16:17 06/30/16 20:57 07/01/16 03:20 Glucose (Fingerstick) 148mg/dL (70-99) 102mg/dL (70-99) 111mg/dL (70-99) White Blood Count 9.2x10^3/uL (4.0-11.0) Red Blood Count 3.30x10^6/uL (3.50-5.40) Hemoglobin 8.3g/dL (12.0-15.5) Hematocrit 26.1% (36.0-47.0) Mean Corpuscular Volume 79fL (79-100) Mean Corpuscular Hemoglobin 25pg (25-35) Mean Corpuscular Hemoglobin Concent 32g/dL (31-37) Red Cell Distribution Width 22.6% (11.5-14.5) Platelet Count 141x10^3/uL (140-400) Test 07/01/16 03:22 07/01/16 08:06 07/01/16 11:29 Sodium Level 139mmol/L (136-145) Potassium Level 3.6mmol/L (3.5-5.1) Chloride Level 103mmol/L (98-107) Carbon Dioxide Level 27mmol/L (21-32) Anion Gap 9 (6-14) Blood Urea Nitrogen 6mg/dL (7-20) Creatinine 0.7mg/dL (0.6-1.0) Estimated GFR (Cockcroft-Gault) 88.9 Glucose Level 88mg/dL (70-99) Calcium Level 8.1mg/dL (8.5-10.1) Glucose (Fingerstick) 99mg/dL (70-99) 93mg/dL (70-99) Laboratory Tests Test 06/30/16 16:17 06/30/16 20:57 07/01/16 03:20 07/01/16 03:22 Glucose (Fingerstick) 102mg/dL (70-99) 111mg/dL (70-99) White Blood Count 9.2x10^3/uL (4.0-11.0) Red Blood Count 3.30x10^6/uL (3.50-5.40) Hemoglobin 8.3g/dL (12.0-15.5) Hematocrit 26.1% (36.0-47.0) Mean Corpuscular Volume 79fL (79-100) Mean Corpuscular Hemoglobin 25pg (25-35) Mean Corpuscular Hemoglobin Concent 32g/dL (31-37) Red Cell Distribution Width 22.6% (11.5-14.5) Platelet Count 141x10^3/uL (140-400) Sodium Level 139mmol/L (136-145) Potassium Level 3.6mmol/L (3.5-5.1) Chloride Level 103mmol/L (98-107) Carbon Dioxide Level 27mmol/L (21-32) Anion Gap 9 (6-14) Blood Urea Nitrogen 6mg/dL (7-20) Creatinine 0.7mg/dL (0.6-1.0) Estimated GFR (Cockcroft-Gault) 88.9 Glucose Level 88mg/dL (70-99) Calcium Level 8.1mg/dL (8.5-10.1) Test 07/01/16 08:06 07/01/16 11:29 Glucose (Fingerstick) 99mg/dL (70-99) 93mg/dL (70-99) Microbiology 06/25/16 Urine Culture - Final, Complete 06/25/16 Urine Culture Result 1 (JAKE) - Final, Complete Medications Current Medications Sodium Chloride (Iv Sodium Chloride 0.9% 1000ml Bag) 1,000 ml @ 1,000 mls/hr Q1H IV Last administered on 06/25/16 19:05; Start 06/25/16 at 18:00; Stop 01/31 at 18:59; Status DC Ondansetron HCl (Zofran) 4 mg 1X ONCE IV Last administered on 06/25/16 19:08 ; Start 06/25/16 at 18:00; Stop 06/25/16 at 18:01; Status DC Famotidine (Pepcid) 20 mg 1X ONCE IVP ; Start 06/25/16 at 18:00; Stop 06/25/16 at 18:27; Status DC Fentanyl Citrate (Fentanyl 2ml Vial) 50 mcg PRN Q15MIN PRN IV PAIN GREATER THAN 3/10 Last administered on 06/25/16 19:07; Start 06/25/16 at 18:00; Stop at 21:33; Status DC Pantoprazole Sodium 40 mg 40 mg 1X ONCE IVP Last administered on 06/25/16 19: 14; Start 06/25/16 at 18:30; Stop 06/25/16 at 18:31; Status DC Pantoprazole Sodium/Sodium Chloride (Protonix Iv/Iv Sodium Chloride 0.9% 100ml) 100 ml @ 10 mls/hr Q10H IV Last administered on 06/28/16 16:36; Start at 18:30; Stop 06/29/16 at 07:18; Status DC Ondansetron HCl (Zofran) 4 mg PRN Q8HRS PRN IV NAUSEA/VOMITING Last administered on 06/26/16 13:37; Start 06/25/16 at 19:00; Stop 06/26/16 at 18:59 ; Status DC Fentanyl Citrate 50 mcg 50 mcg PRN Q2HR PRN IV PAIN Last administered on 17:19; Start 06/25/16 at 19:00; Stop 06/26/16 at 18:59; Status DC Sodium Chloride 1,000 ml @ 125 mls/hr Q8H IV Last administered on 06/26/16 10 :58; Start 06/25/16 at 18:58; Stop 06/26/16 at 18:57; Status DC Propofol (Diprivan) 20 ml @ As Directed STK-MED ONCE IV ; Start 06/26/16 at 09: 32; Stop 06/26/16 at 09:33; Status DC Lidocaine HCl 5 ml 5 ml STK-MED ONCE .ROUTE ; Start 06/26/16 at 09:32; Stop 03/02 at 09:33; Status DC Propofol 20 ml @ As Directed STK-MED ONCE IV ; Start 06/26/16 at 09:50; Stop 03/02 at 09:51; Status DC Propofol 20 ml @ As Directed STK-MED ONCE IV ; Start 06/26/16 at 09:55; Stop 03/02 at 09:56; Status DC Propofol (Diprivan) 20 ml @ As Directed STK-MED ONCE IV ; Start 06/26/16 at 10: 04; Stop 06/26/16 at 10:05; Status DC Epinephrine HCl (Epinephrine Syringe) 1 mg STK-MED ONCE .ROUTE ; Start 06/26/16 at 10:07; Stop 06/26/16 at 10:08; Status DC Insulin Aspart (Novolog) 0-7 UNITS TIDWMEALS SQ Last administered on 06/27/16 17:38; Start 06/26/16 at 12:00 Dextrose 12.5 gm 12.5 gm PRN Q15MIN PRN IV SEE COMMENTS; Start 06/26/16 at 10: 15 Propofol 20 ml @ As Directed STK-MED ONCE IV ; Start 06/26/16 at 10:11; Stop 03/02 at 10:12; Status DC Propofol (Diprivan) 40 ml @ As Directed STK-MED ONCE IV ; Start 06/26/16 at 10: 20; Stop 06/26/16 at 10:21; Status DC Epinephrine HCl (Epinephrine Syringe) 1 mg STK-MED ONCE IV Last administered on 06/26/16 10:20; Start 06/26/16 at 10:20; Stop 06/26/16 at 10:46; Status DC Epinephrine HCl 1 mg 1 mg STK-MED ONCE IV Last administered on 06/26/16 10:22 ; Start 06/26/16 at 10:22; Stop 06/26/16 at 10:46; Status DC Octreotide Acetate/Sodium Chloride (Sandostatin/Iv Sodium Chloride 0.9% 100ml) 101 ml @ 0 mls/hr CONT PRN IV SEE COMMENTS Last administered on 06/28/16 17:42 ; Start 06/26/16 at 11:00; Stop 06/29/16 at 07:18; Status DC Fentanyl Citrate (Fentanyl 2ml Vial) 25 mcg PRN Q4HRS PRN IV PAIN; Start at 21:00; Stop 06/26/16 at 21:00; Status DC Fentanyl Citrate 25 mcg 25 mcg PRN Q4HRS PRN IV PAIN Last administered on 20:42; Start 06/26/16 at 21:00; Stop 06/28/16 at 00:00; Status DC Iron Sucrose/ Sodium Chloride (Venofer/Iv Sodium Chloride 0.9% 250ml) 265 ml @ 90 mls/hr Q12HR IV Last administered on 06/28/16 09:57; Start 06/27/16 at 12: 00; Stop 06/28/16 at 11:57; Status DC Fentanyl Citrate (Fentanyl 2ml Vial) 25 mcg PRN Q4HRS PRN IV SEVERE PAIN Last administered on 07/01/16 06:17; Start 06/28/16 at 01:15; Stop 07/01/16 at 09:00 ; Status DC Ondansetron HCl 4 mg 4 mg PRN Q6HRS PRN IV NAUSEA/VOMITING Last administered on 06/30/16 14:43; Start 06/28/16 at 04:30 Ceftriaxone Sodium/Sodium Chloride (Rocephin/Iv Sodium Chloride 0.9% 50ml) 50 ml @ 100 mls/hr Q24H IV Last administered on 06/30/16 14:44; Start 06/28/16 at 16:00 Pantoprazole Sodium (Protonix) 40 mg DAILYAC PO Last administered on 07/01/16 06:17; Start 06/29/16 at 08:00 Iohexol (Omnipaque 350 Mg/ml) 75 ml 1X ONCE IV Last administered on 06/29/16 12:05; Start 06/29/16 at 12:00; Stop 06/29/16 at 12:01; Status DC Info (Do NOT chart on this entry -- for MONITORING) 1 each PRN DAILY PRN MC SEE COMMENTS; Start 06/29/16 at 12:00; Stop 07/01/16 at 11:59; Status DC Potassium Chloride (Klor-Con) 40 meq 1X ONCE PO Last administered on 11:18; Start 06/30/16 at 11:00; Stop 06/30/16 at 11:01; Status DC Morphine Sulfate 2 mg PRN Q2HR PRN IV PAIN Last administered on 07/01/16 09:04 ; Start 07/01/16 at 09:00; Stop 07/01/16 at 10:53; Status DC Fentanyl Citrate (Fentanyl 2ml Vial) 25 mcg PRN Q2HR PRN IV SEVERE PAIN Last administered on 07/01/16 11:33; Start 07/01/16 at 01:15 Morphine Sulfate 4 mg PRN Q2HR PRN IV PAIN; Start 07/01/16 at 11:00 Ondansetron HCl (Zofran) 4 mg PRN Q6HRS PRN IV NAUSEA/VOMITING; Start 07/01/16 at 11:00; Stop 07/02/16 at 10:59 Fentanyl Citrate (Fentanyl 2ml Vial) 25 mcg PRN Q5MIN PRN IV MILD PAIN; Start 07/01/16 at 11:00; Stop 07/02/16 at 10:59 Fentanyl Citrate (Fentanyl 2ml Vial) 50 mcg PRN Q5MIN PRN IV MODERATE PAIN; Start 07/01/16 at 11:00; Stop 07/02/16 at 10:59 Morphine Sulfate 1 mg 1 mg PRN Q10MIN PRN IV SEVERE PAIN; Start 07/01/16 at 11: 00; Stop 07/02/16 at 10:59 Lactated Ringer's (Iv Lactated Ringers) 1,000 ml @ 30 mls/hr Q24H IV ; Start at 10:59; Stop 07/01/16 at 22:58 Lidocaine HCl 2 ml PRN 1X PRN ID PRIOR TO IV START; Start 07/01/16 at 11:00; Stop 07/02/16 at 10:59 Hydromorphone HCl (Dilaudid) 0.5 mg PRN Q10MIN PRN IV SEV PAIN, Second choice; Start 07/01/16 at 11:00; Stop 07/02/16 at 10:59 Prochlorperazine Edisylate (Compazine) 5 mg PACU PRN PRN IV NAUSEA, MRX1; Start 07/01/16 at 11:00; Stop 07/02/16 at 10:59 Midazolam HCl (Versed) 2 mg STK-MED ONCE .ROUTE ; Start 07/01/16 at 13:27; Stop 07/01/16 at 13:28; Status DC Fentanyl Citrate (Fentanyl 5ml Vial) 250 mcg STK-MED ONCE .ROUTE ; Start at 13:27; Stop 07/01/16 at 13:28; Status DC Iohexol (Omnipaque 300 Mg/ml) 100 ml STK-MED ONCE .ROUTE ; Start 07/01/16 at 13: 30; Stop 07/01/16 at 13:31; Status DC Lidocaine/Sodium Bicarbonate 20 ml 20 ml STK-MED ONCE IJ ; Start 07/01/16 at 13: 30; Stop 07/01/16 at 13:31; Status DC Heparin Sodium/ Sodium Chloride 500 ml @ As Directed STK-MED ONCE .ROUTE ; Start 07/01/16 at 13:30; Stop 07/01/16 at 13:31; Status DC Active Scripts Active Fioricet 50-300-40 Mg Capsule (Butalb/Acetaminophen/Caffeine) 1 Each Capsule 1 Each PO PRN Q4HRS PRN Vitals/I & O Vital Sign - Last 24 Hours 06/30/16 06/30/16 06/30/16 06/30/16 14:40 14:44 19:00 20:00 Temp 98.1 98.4 98.1 98.4 Pulse 70 82 Resp 20 20 B/P 128/69 132/71 Pulse Ox 98 98 98 O2 Delivery Room Air Room Air Room Air Room Air O2 Flow Rate 4.0 06/30/16 06/30/16 07/01/16 07/01/16 20:10 23:00 02:05 02:35 Temp 97.9 97.9 Pulse 71 Resp 18 20 20 B/P 148/83 Pulse Ox 97 100 O2 Delivery Room Air Room Air Room Air O2 Flow Rate 4.0 4/17/17 07/01/16 07/01/16 07/01/16 03:00 06:17 06:47 07:56 Temp 97.9 98.2 97.9 98.2 Pulse 64 64 Resp 20 20 20 18 B/P 129/79 131/75 Pulse Ox 97 97 97 98 O2 Delivery Room Air Room Air Room Air Room Air O2 Flow Rate 4.0 07/01/16 07/01/16 07/01/16 07/01/16 08:00 09:04 09:34 10:30 Temp 97.9 97.9 Pulse 75 Resp 18 B/P 145/74 Pulse Ox 97 97 97 O2 Delivery Room Air Room Air Room Air Room Air 07/01/16 07/01/16 11:33 12:03 Pulse Ox 97 97 O2 Delivery Room Air Room Air Intake and Output 06/30/16 06/30/16 07/01/16 14:59 22:59 06:59 Intake Total 240 ml 320 ml Balance 240 ml [address] reviewed. 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 Plan of Care: Continue current Tx, Mgmt Plan of Care Note Await IR results. RETA CANTU MD Jul 01, 2016 14:17
--- NOTE | 2016-07-01 14:41 | PDOC ---
MODERATE SEDATION ASSESSMENT RISKS/ALTERNATIVES Risks/Alternatives Risks and alternatives of this type of sedation and procedure discussed with: RISK/ALTERNATIVES: Patient H & P ON CHART H & P H & P on chart and reviewed for co-morbid conditions and appropriate labs. H&P ON CHART: Yes STATUS PREG STATUS ASSESSED: N/A MEDS/ALLERGIES REVIEWED Meds/Allergies Reviewed Medications and Allergies including time and route of recently administered narcotics and sedatives. MEDS/ALLERGIES REVIEWED: Yes ASA RATING ASA RATING: II AIRWAY ASSESSMENT Airway Assessment Airway patency, oral function limitations, presence of caps, crowns, dentures, partials, and ability to extend neck assessed. AIRWAY ASSESSMENT: Yes MALLAMPATI SCORE MALLAMPATI SCORE: III PRE-SEDATION ASSESSMENT PRE-SEDATION ASSESSMENT: Yes JERRY FLOYD MD Jul 01, 2016 14:41
--- NOTE | 2016-07-01 14:51 | PDOC ---
[employer] [address] Draft[employer] Seun Cashier Receptionist Cashier Receptionist Pancho Desai Pre-Procedure Diagnosis Pre-Procedure Diagnosis 50 YO female with Hep C, with h/o prior EV banding, and with frequent bouts of intermittent GI bleeding. No significant findings of portal HTN on CT. TJLBx with hepatic hemodynamics indicated to confirm or exclude Portal HTN. Post-Procedure Diagnosis Post-Procedure Diagnosis Significant 19mm HG mean PSG. On schedule for TIPS creation tomorrow with anesthesia. Procedure Performed Procedure Performed TJLBx. Hepatic venogram with hemodynamics. Type of Anesthesia Type of Anesthesia Local + Mod sedation Estimated Blood Loss EBL: Minimal Specimens Specimans 4 20G core bx from rt lobe liver to path in formalin. Condition of Patient Condition of Patient Stable. No apparent complication. 11F rt IJ sheath left in place for access for TIPS creation planned tomorrow. Disposition Disposition From IR return to [facility]. Given mean PSG of 19 mm hg, TIPS creation is scheduled for tomorrow with anesthesia. Full report to follow. JERRY FLOYD MD Jul 01, 2016 14:51
[2016-07-01] MEDS: MORPHINE SULFATE 2 MG/ML DISP.SYRIN. IV PRN ×2 (15:46→20:58)
[2016-07-02] VITALS (11 sets, daily range): BP systolic 139–154; BP diastolic 73–86
[2016-07-02] MEDS: MORPHINE SULFATE 2 MG/ML DISP.SYRIN. IV PRN ×3 (04:29→23:38)
[2016-07-02] MEDS: PANTOPRAZOLE 40 MG TABLET.DR. PO SCH (07:30)
[2016-07-02] MEDS: INSULIN ASPART 300 UNITS/3 ML INSULN.PEN SQ SCH ×3 (08:00→17:00)
[2016-07-02 08:21] LABS: BASO # 0.1 x10^3/uL (0.0-0.2); BASO % 1 % (0-3); EOS % 4 % (0-3); HEMATOCRIT 28.6 % (36.0-47.0); HEMOGLOBIN 9.2 g/dL (12.0-15.5); LYMPH # 1.2 x10^3/uL (1.0-4.8); LYMPH % 11 % (24-48); MEAN CORPUSCULAR HEMOGLOBIN 26 pg (25-35); MEAN CORPUSCULAR HGB CONC 32 g/dL (31-37); MEAN CORPUSCULAR VOLUME 79 fL (79-100); MONO % 8 % (0-9); NEUT % 75 % (31-73); PLATELET COUNT 168 x10^3/uL (140-400); RED BLOOD COUNT 3.62 x10^6/uL (3.50-5.40); RED CELL DISTRIBUTION WIDTH 23.6 % (11.5-14.5); WHITE BLOOD COUNT 10.8 x10^3/uL (4.0-11.0)
[2016-07-02 08:34] LABS: ALBUMIN 2.7 g/dL (3.4-5.0); ALBUMIN/GLOBULIN RATIO 0.5 (1.0-1.7); CALCIUM 8.7 mg/dL (8.5-10.1); CREATININE 0.7 mg/dL (0.6-1.0); GFR 88.9; TOTAL BILIRUBIN 0.5 mg/dL (0.2-1.0); TOTAL PROTEIN 8.1 g/dL (6.4-8.2)
--- NOTE | 2016-07-02 08:37 | RAD ---
Ultrasound and fluoroscopy guided right hepatic venogram with hepatic hemodynamics Transjugular liver biopsy Indication: 50-year-old female with hepatitis C, with history of prior esophageal variceal banding, and with recurrent, intermittent bouts of upper GI bleeding. Hepatic venogram, with hemodynamics, has been scheduled to confirm expected cirrhosis, and to confirm or exclude significant portosystemic gradient, prior to possible TIPS creation. Fluoroscopy time: 4.7 minutes Kerma-area Product: 30 Gycm2 Contrast material: 40 cc Omnipaque 300 Anesthesia: 42 minutes moderate sedation was provided utilizing a total of 2 mg Versed and 100 mcg fentanyl, IV. The patient was appropriately monitored by a qualified independent observer throughout the time of moderate sedation. Consent: The procedure was explained in its entirety to the patient and/or the patient's designated product sales representative by a member of the treatment team. This included a discussion of risks and benefits and commonly accepted alternatives to the procedure, as well as expected consequences of no treatment at all. Discussion of risks included, but was not limited to, those that are most frequent and those that are rare, but possibly severe or life-threatening, as well as the possibility of unforeseen complications. Sterility: All elements of maximal sterile barrier technique were utilized, including cap, mask, sterile gown, sterile gloves, large sterile sheet, appropriate hand hygiene, and 2% chlorhexidine for cutaneous antisepsis. Antibiotic: No prophylactic antibiotic was considered indicated for this procedure. Procedure: Informed consent was obtained from the patient. She was placed supine on the angiography table. Preliminary fluoroscopic evaluation of right neck revealed wide patency of right internal jugular vein, which was documented with a single hard copy ultrasound image. Right neck was then prepped and draped in the usual sterile fashion, utilizing all elements of maximal sterile barrier technique, as described above. Moderate sedation was provided with IV Versed and fentanyl. Using aseptic technique, local anesthesia, and direct ultrasound guidance, a micropuncture needle was successfully introduced into right internal jugular vein. The micropuncture needle was exchanged over a microguidewire for a micropuncture sheath, which was, internal, removed over a 0.035 inch guidewire. The percutaneous tract was dilated and an 11 [place] right IJ sheath was successfully introduced, and was positioned near cavoatrial junction under fluoroscopic guidance. Right hepatic venogram: A 5 [place] MPA catheter was advanced through the 11 [place] right IJ sheath and was successfully directed deeply into right hepatic vein over a Glidewire. Omnipaque 300 was injected and right hepatic venogram digital angiographic images were obtained. Those images revealed widely patent right hepatic vein, without stricture or web. Contrast opacified secondary and tertiary hepatic vein branches are suboptimally opacified and appear irregular in contour, a nonspecific finding, which can be seen in association with hepatic cirrhosis. Transjugular liver biopsy: The 5 [place] MPA catheter was exchanged over an Amplatz wire for a Ayla transjugular liver biopsy set. The angled, directional guiding cannula of the biopsy set was advanced into peripheral aspect of right hepatic vein. The 19-gauge biopsy needle was then coaxially inserted through the guiding cannula, and was utilized to obtain a total of 4 biopsies from posterior segment right lobe of liver. Biopsy material was submitted in formalin to pathology. Contrast material injected through the guide cannula revealed no post biopsy complication. Hepatic hemodynamics: The biopsy guide cannula was exchanged over an Amplatz wire for a 6 mm x 20 mm Cordis extreme ART MODEL balloon, which was advanced deeply into right hepatic vein. The ART MODEL balloon was then gently inflated, and wedged hepatic vein pressures were obtained at 30 mmHg mean. The ART MODEL balloon was then deflated and was withdrawn into central right hepatic vein, and non-wedged hepatic vein pressure measurements were obtained at 14 mmHg mean. The ART MODEL balloon was then withdrawn into right atrium, and right atrial pressures were obtained at 11 mmHg mean. Patient tolerated the procedure well without apparent cortication. Given significantly elevated portosystemic gradient, the 11 [place] right IJ sheath was sutured in place to provide access for subsequent TIPS creation, which has been to the planned for the following day. Impression: 1. Right hepatic vein is widely patent, without web or stricture. 2. Successful, uneventful transjugular liver biopsy. 3. Significant 19 mmHg mean portosystemic gradient--- TIPS Creation with anesthesia has been scheduled for 07/02/2016.
[2016-07-02 08:39] LABS: INR 1.3 (0.8-1.1); PROTHROMBIN TIME PATIENT 15.4 SEC (11.7-14.0)
--- NOTE | 2016-07-02 09:21 | PDOC ---
G I PROGRESS NOTE Subjective No complaints. Awaiting TIPS. Physical Exam Lungs clear. RRR Abdomen soft, not tender nor distended. Review of Relevant I have reviewed the following items candace (where applicable) has been applied. Labs Laboratory Tests Test 06/30/16 10:07 06/30/16 16:17 06/30/16 20:57 07/01/16 03:20 Glucose (Fingerstick) 148mg/dL (70-99) 102mg/dL (70-99) 111mg/dL (70-99) White Blood Count 9.2x10^3/uL (4.0-11.0) Red Blood Count 3.30x10^6/uL (3.50-5.40) Hemoglobin 8.3g/dL (12.0-15.5) Hematocrit 26.1% (36.0-47.0) Mean Corpuscular Volume 79fL (79-100) Mean Corpuscular Hemoglobin 25pg (25-35) Mean Corpuscular Hemoglobin Concent 32g/dL (31-37) Red Cell Distribution Width 22.6% (11.5-14.5) Platelet Count 141x10^3/uL (140-400) Test 07/01/16 03:22 07/01/16 08:06 07/01/16 11:29 07/01/16 16:36 Sodium Level 139mmol/L (136-145) Potassium Level 3.6mmol/L (3.5-5.1) Chloride Level 103mmol/L (98-107) Carbon Dioxide Level 27mmol/L (21-32) Anion Gap 9 (6-14) Blood Urea Nitrogen 6mg/dL (7-20) Creatinine 0.7mg/dL (0.6-1.0) Estimated GFR (Cockcroft-Gault) 88.9 Glucose Level 88mg/dL (70-99) Calcium Level 8.1mg/dL (8.5-10.1) Glucose (Fingerstick) 99mg/dL (70-99) 93mg/dL (70-99) 98mg/dL (70-99) Test 07/01/16 22:01 07/02/16 05:00 07/02/16 07:51 07/02/16 08:00 Glucose (Fingerstick) 127mg/dL (70-99) 92mg/dL (70-99) Prothrombin Time 15.4SEC (11.7-14.0) Prothromb Time International Ratio 1.3 (0.8-1.1) White Blood Count 10.8x10^3/uL (4.0-11.0) Red Blood Count 3.62x10^6/uL (3.50-5.40) Hemoglobin 9.2g/dL (12.0-15.5) Hematocrit 28.6% (36.0-47.0) Mean Corpuscular Volume 79fL (79-100) Mean Corpuscular Hemoglobin 26pg (25-35) Mean Corpuscular Hemoglobin Concent 32g/dL (31-37) Red Cell Distribution Width 23.6% (11.5-14.5) Platelet Count 168x10^3/uL (140-400) Neutrophils (%) (Auto) 75% (31-73) Lymphocytes (%) (Auto) 11% (24-48) Monocytes (%) (Auto) 8% (0-9) Eosinophils (%) (Auto) 4% (0-3) Basophils (%) (Auto) 1% (0-3) Neutrophils # (Auto) 8.2x10^3uL (1.8-7.7) Lymphocytes # (Auto) 1.2x10^3/uL (1.0-4.8) Monocytes # (Auto) 0.9x10^3/uL (0.0-1.1) Eosinophils # (Auto) 0.4x10^3/uL (0.0-0.7) Basophils # (Auto) 0.1x10^3/uL (0.0-0.2) Sodium Level 136mmol/L (136-145) Potassium Level 4.0mmol/L (3.5-5.1) Chloride Level 105mmol/L (98-107) Carbon Dioxide Level 26mmol/L (21-32) Anion Gap 5 (6-14) Blood Urea Nitrogen 6mg/dL (7-20) Creatinine 0.7mg/dL (0.6-1.0) Estimated GFR (Cockcroft-Gault) 88.9 BUN/Creatinine Ratio 9 (6-20) Glucose Level 95mg/dL (70-99) Calcium Level 8.7mg/dL (8.5-10.1) Total Bilirubin 0.5mg/dL (0.2-1.0) Aspartate Amino Transf (AST/SGOT) 55U/L (15-37) Alanine Aminotransferase (ALT/SGPT) 34U/L (14-59) Alkaline Phosphatase 130U/L (46-116) Total Protein 8.1g/dL (6.4-8.2) Albumin 2.7g/dL (3.4-5.0) Albumin/Globulin Ratio 0.5 (1.0-1.7) Laboratory Tests Test 07/01/16 11:29 07/01/16 16:36 07/01/16 22:01 07/02/16 05:00 Glucose (Fingerstick) 93mg/dL (70-99) 98mg/dL (70-99) 127mg/dL (70-99) Prothrombin Time 15.4SEC (11.7-14.0) Prothromb Time International Ratio 1.3 (0.8-1.1) Test 07/02/16 07:51 07/02/16 08:00 Glucose (Fingerstick) 92mg/dL (70-99) White Blood Count 10.8x10^3/uL (4.0-11.0) Red Blood Count 3.62x10^6/uL (3.50-5.40) Hemoglobin 9.2g/dL (12.0-15.5) Hematocrit 28.6% (36.0-47.0) Mean Corpuscular Volume 79fL (79-100) Mean Corpuscular Hemoglobin 26pg (25-35) Mean Corpuscular Hemoglobin Concent 32g/dL (31-37) Red Cell Distribution Width 23.6% (11.5-14.5) Platelet Count 168x10^3/uL (140-400) Neutrophils (%) (Auto) 75% (31-73) Lymphocytes (%) (Auto) 11% (24-48) Monocytes (%) (Auto) 8% (0-9) Eosinophils (%) (Auto) 4% (0-3) Basophils (%) (Auto) 1% (0-3) Neutrophils # (Auto) 8.2x10^3uL (1.8-7.7) Lymphocytes # (Auto) 1.2x10^3/uL (1.0-4.8) Monocytes # (Auto) 0.9x10^3/uL (0.0-1.1) Eosinophils # (Auto) 0.4x10^3/uL (0.0-0.7) Basophils # (Auto) 0.1x10^3/uL (0.0-0.2) Sodium Level 136mmol/L (136-145) Potassium Level 4.0mmol/L (3.5-5.1) Chloride Level 105mmol/L (98-107) Carbon Dioxide Level 26mmol/L (21-32) Anion Gap 5 (6-14) Blood Urea Nitrogen 6mg/dL (7-20) Creatinine 0.7mg/dL (0.6-1.0) Estimated GFR (Cockcroft-Gault) 88.9 BUN/Creatinine Ratio 9 (6-20) Glucose Level 95mg/dL (70-99) Calcium Level 8.7mg/dL (8.5-10.1) Total Bilirubin 0.5mg/dL (0.2-1.0) Aspartate Amino Transf (AST/SGOT) 55U/L (15-37) Alanine Aminotransferase (ALT/SGPT) 34U/L (14-59) Alkaline Phosphatase 130U/L (46-116) Total Protein 8.1g/dL (6.4-8.2) Albumin 2.7g/dL (3.4-5.0) Albumin/Globulin Ratio 0.5 (1.0-1.7) Microbiology 06/25/16 Urine Culture - Final, Complete 06/25/16 Urine Culture Result 1 (JAKE) - Final, Complete Medications Current Medications Sodium Chloride (Iv Sodium Chloride 0.9% 1000ml Bag) 1,000 ml @ 1,000 mls/hr Q1H IV Last administered on 06/25/16 19:05; Start 06/25/16 at 18:00; Stop 01/31 at 18:59; Status DC Ondansetron HCl (Zofran) 4 mg 1X ONCE IV Last administered on 06/25/16t 19:08 ; Start 06/25/16 at 18:00; Stop 06/25/16 at 18:01; Status DC Famotidine (Pepcid) 20 mg 1X ONCE IVP ; Start 06/25/16 at 18:00; Stop 06/25/16 at 18:27; Status DC Fentanyl Citrate (Fentanyl 2ml Vial) 50 mcg PRN Q15MIN PRN IV PAIN GREATER THAN 3/10 Last administered on 06/25/16 19:07; Start 06/25/16 at 18:00; Stop at 21:33; Status DC Pantoprazole Sodium 40 mg 40 mg 1X ONCE IVP Last administered on 06/25/16 19: 14; Start 06/25/16 at 18:30; Stop 06/25/16 at 18:31; Status DC Pantoprazole Sodium/Sodium Chloride (Protonix Iv/Iv Sodium Chloride 0.9% 100ml) 100 ml @ 10 mls/hr Q10H IV Last administered on 06/28/16 16:36; Start at 18:30; Stop 06/29/16 at 07:18; Status DC Ondansetron HCl (Zofran) 4 mg PRN Q8HRS PRN IV NAUSEA/VOMITING Last administered on 06/26/16 13:37; Start 06/25/16 at 19:00; Stop 06/26/16 at 18:59 ; Status DC Fentanyl Citrate 50 mcg 50 mcg PRN Q2HR PRN IV PAIN Last administered on 17:19; Start 06/25/16 at 19:00; Stop 06/26/16 at 18:59; Status DC Sodium Chloride 1,000 ml @ 125 mls/hr Q8H IV Last administered on 06/26/16 10 :58; Start 06/25/16 at 18:58; Stop 06/26/16 at 18:57; Status DC Propofol (Diprivan) 20 ml @ As Directed STK-MED ONCE IV ; Start 06/26/16 at 09: 32; Stop 06/26/16 at 09:33; Status DC Lidocaine HCl 5 ml 5 ml STK-MED ONCE .ROUTE ; Start 06/26/16 at 09:32; Stop 03/02 at 09:33; Status DC Propofol 20 ml @ As Directed STK-MED ONCE IV ; Start 06/26/16 at 09:50; Stop 03/02 at 09:51; Status DC Propofol 20 ml @ As Directed STK-MED ONCE IV ; Start 06/26/16 at 09:55; Stop 03/02 at 09:56; Status DC Propofol (Diprivan) 20 ml @ As Directed STK-MED ONCE IV ; Start 06/26/16 at 10: 04; Stop 06/26/16 at 10:05; Status DC Epinephrine HCl (Epinephrine Syringe) 1 mg STK-MED ONCE .ROUTE ; Start 06/26/16 at 10:07; Stop 06/26/16 at 10:08; Status DC Insulin Aspart (Novolog) 0-7 UNITS TIDWMEALS SQ Last administered on 06/27/16 17:38; Start 06/26/16 at 12:00 Dextrose 12.5 gm 12.5 gm PRN Q15MIN PRN IV SEE COMMENTS; Start 06/26/16 at 10: 15 Propofol 20 ml @ As Directed STK-MED ONCE IV ; Start 06/26/16 at 10:11; Stop 03/02 at 10:12; Status DC Propofol (Diprivan) 40 ml @ As Directed STK-MED ONCE IV ; Start 06/26/16 at 10: 20; Stop 06/26/16 at 10:21; Status DC Epinephrine HCl (Epinephrine Syringe) 1 mg STK-MED ONCE IV Last administered on 06/26/16 10:20; Start 06/26/16 at 10:20; Stop 06/26/16 at 10:46; Status DC Epinephrine HCl 1 mg 1 mg STK-MED ONCE IV Last administered on 06/26/16 10:22 ; Start 06/26/16 at 10:22; Stop 06/26/16 at 10:46; Status DC Octreotide Acetate/Sodium Chloride (Sandostatin/Iv Sodium Chloride 0.9% 100ml) 101 ml @ 0 mls/hr CONT PRN IV SEE COMMENTS Last administered on 06/28/16 17:42 ; Start 06/26/16 at 11:00; Stop 06/29/16 at 07:18; Status DC Fentanyl Citrate (Fentanyl 2ml Vial) 25 mcg PRN Q4HRS PRN IV PAIN; Start at 21:00; Stop 06/26/16 at 21:00; Status DC Fentanyl Citrate 25 mcg 25 mcg PRN Q4HRS PRN IV PAIN Last administered on 20:42; Start 06/26/16 at 21:00; Stop 06/28/16 at 00:00; Status DC Iron Sucrose/ Sodium Chloride (Venofer/Iv Sodium Chloride 0.9% 250ml) 265 ml @ 90 mls/hr Q12HR IV Last administered on 06/28/16 09:57; Start 06/27/16 at 12: 00; Stop 06/28/16 at 11:57; Status DC Fentanyl Citrate (Fentanyl 2ml Vial) 25 mcg PRN Q4HRS PRN IV SEVERE PAIN Last administered on 07/01/16 06:17; Start 06/28/16 at 01:15; Stop 07/01/16 at 09:00 ; Status DC Ondansetron HCl 4 mg 4 mg PRN Q6HRS PRN IV NAUSEA/VOMITING Last administered on 06/30/16 14:43; Start 06/28/16 at 04:30 Ceftriaxone Sodium/Sodium Chloride (Rocephin/Iv Sodium Chloride 0.9% 50ml) 50 ml @ 100 mls/hr Q24H IV Last administered on 07/01/16 15:46; Start 06/28/16 at 16:00 Pantoprazole Sodium (Protonix) 40 mg DAILYAC PO Last administered on 07/01/16 06:17; Start 06/29/16 at 08:00 Iohexol (Omnipaque 350 Mg/ml) 75 ml 1X ONCE IV Last administered on 06/29/16 12:05; Start 06/29/16 at 12:00; Stop 06/29/16 at 12:01; Status DC Info (Do NOT chart on this entry -- for MONITORING) 1 each PRN DAILY PRN MC SEE COMMENTS; Start 06/29/16 at 12:00; Stop 07/01/16 at 11:59; Status DC Potassium Chloride (Klor-Con) 40 meq 1X ONCE PO Last administered on 11:18; Start 06/30/16 at 11:00; Stop 06/30/16 at 11:01; Status DC Morphine Sulfate 2 mg PRN Q2HR PRN IV PAIN Last administered on 07/01/16 09:04 ; Start 07/01/16 at 09:00; Stop 07/01/16 at 10:53; Status DC Fentanyl Citrate (Fentanyl 2ml Vial) 25 mcg PRN Q2HR PRN IV SEVERE PAIN Last administered on 07/01/16t 11:33; Start 07/01/16 at 01:15 Morphine Sulfate 4 mg PRN Q2HR PRN IV PAIN Last administered on 07/02/16t 08:46 ; Start 07/01/16 at 11:00 Ondansetron HCl (Zofran) 4 mg PRN Q6HRS PRN IV NAUSEA/VOMITING; Start 07/01/16 at 11:00; Stop 07/02/16 at 10:59 Fentanyl Citrate (Fentanyl 2ml Vial) 25 mcg PRN Q5MIN PRN IV MILD PAIN; Start 07/01/16 at 11:00; Stop 07/02/16 at 10:59 Fentanyl Citrate (Fentanyl 2ml Vial) 50 mcg PRN Q5MIN PRN IV MODERATE PAIN; Start 07/01/16 at 11:00; Stop 07/02/16 at 10:59 Morphine Sulfate 1 mg 1 mg PRN Q10MIN PRN IV SEVERE PAIN; Start 07/01/16 at 11: 00; Stop 07/02/16 at 10:59 Lactated Ringer's (Iv Lactated Ringers) 1,000 ml @ 30 mls/hr Q24H IV ; Start at 10:59; Stop 07/01/16 at 22:58; Status DC Lidocaine HCl 2 ml PRN 1X PRN ID PRIOR TO IV START; Start 07/01/16 at 11:00; Stop 07/02/16 at 10:59 Hydromorphone HCl (Dilaudid) 0.5 mg PRN Q10MIN PRN IV SEV PAIN, Second choice; Start 07/01/16 at 11:00; Stop 07/02/16 at 10:59 Prochlorperazine Edisylate (Compazine) 5 mg PACU PRN PRN IV NAUSEA, MRX1; Start 07/01/16 at 11:00; Stop 07/02/16 at 10:59 Midazolam HCl (Versed) 2 mg STK-MED ONCE .ROUTE ; Start 07/01/16 at 13:27; Stop 07/01/16 at 13:28; Status DC Fentanyl Citrate (Fentanyl 5ml Vial) 250 mcg STK-MED ONCE .ROUTE ; Start at 13:27; Stop 07/01/16 at 13:28; Status DC Iohexol (Omnipaque 300 Mg/ml) 100 ml STK-MED ONCE .ROUTE ; Start 07/01/16 at 13: 30; Stop 07/01/16 at 13:31; Status DC Lidocaine/Sodium Bicarbonate 20 ml 20 ml STK-MED ONCE IJ ; Start 07/01/16 at 13: 30; Stop 07/01/16 at 13:31; Status DC Heparin Sodium/ Sodium Chloride 500 ml @ As Directed STK-MED ONCE .ROUTE ; Start 07/01/16 at 13:30; Stop 07/01/16 at 13:31; Status DC Heparin Sodium/ Sodium Chloride 1,000 unit 1X ONCE IART Last administered on 14:25; Start 07/01/16 at 14:15; Stop 07/01/16 at 14:20; Status DC Lidocaine/Sodium Bicarbonate (Buffered Lidocaine 1%) 2 ml 1X ONCE IJ Last administered on 07/01/16 14:25; Start 07/01/16 at 14:15; Stop 07/01/16 at 14:20 ; Status DC Midazolam HCl (Versed) 2 mg 1X ONCE IV Last administered on 07/01/16 14:26; Start 07/01/16 at 14:15; Stop 07/01/16 at 14:20; Status DC Fentanyl Citrate (Fentanyl 5ml Vial) 100 mcg 1X ONCE IV Last administered on 14:26; Start 07/01/16 at 14:15; Stop 07/01/16 at 14:20; Status DC Iohexol (Omnipaque 300 Mg/ml) 40 ml 1X ONCE IART Last administered on 14:26; Start 07/01/16 at 14:15; Stop 07/01/16 at 14:20; Status DC Active Scripts Active Fioricet 50-300-40 Mg Capsule (Butalb/Acetaminophen/Caffeine) 1 Each Capsule 1 Each PO PRN Q4HRS PRN Vitals/I & O Vital Sign - Last 24 Hours 07/01/16 07/01/16 07/01/16 07/01/16 09:34 10:30 11:33 12:03 Temp 97.9 97.9 Pulse 75 Resp 18 B/P 145/74 Pulse Ox 97 97 97 97 O2 Delivery Room Air Room Air Room Air Room Air 4/07/01/16 07/01/16 07/01/16 14:26 14:27 14:45 15:00 Temp 97.9 97.9 Pulse 65 67 87 Resp 14 18 B/P 142/88 157/80 Pulse Ox 99 99 97 97 O2 Delivery Nasal Cannula Nasal Cannula Room Air Room Air O2 Flow Rate 2.0 2.0 07/01/16 07/01/16 07/01/16 07/01/16 15:15 15:30 15:46 16:00 Temp 97.8 97.8 97.8 97.8 Pulse 79 86 79 Resp 18 18 18 B/P 153/69 139/78 157/68 Pulse Ox 98 99 97 95 O2 Delivery Room Air Room Air Room Air Room Air 07/01/16 07/01/16 07/01/16 07/01/16 16:30 16:30 17:30 19:00 Temp 98.1 98.1 Pulse 77 77 83 76 Resp 18 19 B/P 117/60 117/60 105/58 129/77 Pulse Ox 95 95 95 97 O2 Delivery Room Air Room Air Room Air Room Air 07/01/16 07/01/16 07/01/16 07/01/16 20:00 20:58 21:28 23:00 Temp 98.1 98.1 Pulse 78 Resp 16 B/P 159/80 Pulse Ox 97 97 98 O2 Delivery Room Air Room Air Room Air Room Air O2 Flow Rate 2.0 07/02/16 07/02/16 07/02/16 07/02/16 04:29 07:00 08:00 08:46 Temp 97.9 97.9 Pulse 63 Resp 18 B/P 147/81 Pulse Ox 98 98 98 O2 Delivery Room Air Room Air Room Air Room Air Intake and Output 07/01/16 07/01/16 07/02/16 15:00 23:00 07:00 Intake Total 0 ml 220 ml Balance 0 ml 220 ml Images Data from IR reviewed. 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 Plan of Care: Continue current Tx, Mgmt Plan of Care Note Await TIPS. RETA CANTU MD Jul 02, 2016 09:20
[2016-07-02] MEDS ORDERED: IOHEXOL 300 MG/ML 100ML VIAL. ONE (12:24)
[2016-07-02] MEDS ORDERED: LIDOCAINE 1% / SOD BICARB 8.4% 20 ML VIAL. IJ ONE ×2 (12:25→13:15)
--- NOTE | 2016-07-02 12:40 | PDOC ---
PROGRESS NOTES Chief Complaint Chief Complaint Upper GI bleeding, due to portal hypertension, esophageal varices s/p EGD TIPS planned for today, Hemoglobin improved IR recommendation, possible TIPS Pain control with fentanyl or morphine - History of Present Illness History of Present Illness some nasal bleeding No GI Bleeding no fever Vitals Vitals Vital Signs Date Time Temp Pulse Resp B/P Pulse Ox O2 Delivery O2 Flow Rate FiO2 07/02/16 11:00 98.1 64 16 139/73 95 Room Air 98.1 07/01/16 20:00 2.0 Physical Exam General: Alert, Oriented X3, Cooperative, No acute distress Heart: Regular rate, Normal S1, Normal S2, No murmurs Lungs: Clear, Other (No chest retractions were present.) Abdomen: Soft, No tenderness Extremities: No clubbing, No cyanosis Skin: No rashes, No breakdown Labs LABS Laboratory Tests Test 07/01/16 16:36 07/01/16 22:01 07/02/16 05:00 07/02/16 07:51 Glucose (Fingerstick) 98mg/dL (70-99) 127mg/dL (70-99) 92mg/dL (70-99) Prothrombin Time 15.4SEC (11.7-14.0) Prothromb Time International Ratio 1.3 (0.8-1.1) Test 07/02/16 08:00 07/02/16 10:51 White Blood Count 10.8x10^3/uL (4.0-11.0) Red Blood Count 3.62x10^6/uL (3.50-5.40) Hemoglobin 9.2g/dL (12.0-15.5) Hematocrit 28.6% (36.0-47.0) Mean Corpuscular Volume 79fL (79-100) Mean Corpuscular Hemoglobin 26pg (25-35) Mean Corpuscular Hemoglobin Concent 32g/dL (31-37) Red Cell Distribution Width 23.6% (11.5-14.5) Platelet Count 168x10^3/uL (140-400) Neutrophils (%) (Auto) 75% (31-73) Lymphocytes (%) (Auto) 11% (24-48) Monocytes (%) (Auto) 8% (0-9) Eosinophils (%) (Auto) 4% (0-3) Basophils (%) (Auto) 1% (0-3) Neutrophils # (Auto) 8.2x10^3uL (1.8-7.7) Lymphocytes # (Auto) 1.2x10^3/uL (1.0-4.8) Monocytes # (Auto) 0.9x10^3/uL (0.0-1.1) Eosinophils # (Auto) 0.4x10^3/uL (0.0-0.7) Basophils # (Auto) 0.1x10^3/uL (0.0-0.2) Sodium Level 136mmol/L (136-145) Potassium Level 4.0mmol/L (3.5-5.1) Chloride Level 105mmol/L (98-107) Carbon Dioxide Level 26mmol/L (21-32) Anion Gap 5 (6-14) Blood Urea Nitrogen 6mg/dL (7-20) Creatinine 0.7mg/dL (0.6-1.0) Estimated GFR (Cockcroft-Gault) 88.9 BUN/Creatinine Ratio 9 (6-20) Glucose Level 95mg/dL (70-99) Calcium Level 8.7mg/dL (8.5-10.1) Total Bilirubin 0.5mg/dL (0.2-1.0) Aspartate Amino Transf (AST/SGOT) 55U/L (15-37) Alanine Aminotransferase (ALT/SGPT) 34U/L (14-59) Alkaline Phosphatase 130U/L (46-116) Total Protein 8.1g/dL (6.4-8.2) Albumin 2.7g/dL (3.4-5.0) Albumin/Globulin Ratio 0.5 (1.0-1.7) Glucose (Fingerstick) 88mg/dL (70-99) Review of Systems Review of Systems no nv,d' Assessment and Plan Assessmemt and Plan Problems Medical Problems: (1) Acute GI bleeding Status: Acute (2) Blood loss anemia Status: Acute (3) Moderate protein malnutrition Status: Acute Problems: Comment Review of Relevant I have reviewed the following items candace (where applicable) has been applied. Labs Laboratory Tests Test 06/30/16 16:17 06/30/16 20:57 07/01/16 03:20 07/01/16 03:22 Glucose (Fingerstick) 102mg/dL (70-99) 111mg/dL (70-99) White Blood Count 9.2x10^3/uL (4.0-11.0) Red Blood Count 3.30x10^6/uL (3.50-5.40) Hemoglobin 8.3g/dL (12.0-15.5) Hematocrit 26.1% (36.0-47.0) Mean Corpuscular Volume 79fL (79-100) Mean Corpuscular Hemoglobin 25pg (25-35) Mean Corpuscular Hemoglobin Concent 32g/dL (31-37) Red Cell Distribution Width 22.6% (11.5-14.5) Platelet Count 141x10^3/uL (140-400) Sodium Level 139mmol/L (136-145) Potassium Level 3.6mmol/L (3.5-5.1) Chloride Level 103mmol/L (98-107) Carbon Dioxide Level 27mmol/L (21-32) Anion Gap 9 (6-14) Blood Urea Nitrogen 6mg/dL (7-20) Creatinine 0.7mg/dL (0.6-1.0) Estimated GFR (Cockcroft-Gault) 88.9 Glucose Level 88mg/dL (70-99) Calcium Level 8.1mg/dL (8.5-10.1) Test 07/01/16 08:06 07/01/16 11:29 07/01/16 16:36 07/01/16 22:01 Glucose (Fingerstick) 99mg/dL (70-99) 93mg/dL (70-99) 98mg/dL (70-99) 127mg/dL (70-99) Test 07/02/16 05:00 07/02/16 07:51 07/02/16 08:00 07/02/16 10:51 Prothrombin Time 15.4SEC (11.7-14.0) Prothromb Time International Ratio 1.3 (0.8-1.1) Glucose (Fingerstick) 92mg/dL (70-99) 88mg/dL (70-99) White Blood Count 10.8x10^3/uL (4.0-11.0) Red Blood Count 3.62x10^6/uL (3.50-5.40) Hemoglobin 9.2g/dL (12.0-15.5) Hematocrit 28.6% (36.0-47.0) Mean Corpuscular Volume 79fL (79-100) Mean Corpuscular Hemoglobin 26pg (25-35) Mean Corpuscular Hemoglobin Concent 32g/dL (31-37) Red Cell Distribution Width 23.6% (11.5-14.5) Platelet Count 168x10^3/uL (140-400) Neutrophils (%) (Auto) 75% (31-73) Lymphocytes (%) (Auto) 11% (24-48) Monocytes (%) (Auto) 8% (0-9) Eosinophils (%) (Auto) 4% (0-3) Basophils (%) (Auto) 1% (0-3) Neutrophils # (Auto) 8.2x10^3uL (1.8-7.7) Lymphocytes # (Auto) 1.2x10^3/uL (1.0-4.8) Monocytes # (Auto) 0.9x10^3/uL (0.0-1.1) Eosinophils # (Auto) 0.4x10^3/uL (0.0-0.7) Basophils # (Auto) 0.1x10^3/uL (0.0-0.2) Sodium Level 136mmol/L (136-145) Potassium Level 4.0mmol/L (3.5-5.1) Chloride Level 105mmol/L (98-107) Carbon Dioxide Level 26mmol/L (21-32) Anion Gap 5 (6-14) Blood Urea Nitrogen 6mg/dL (7-20) Creatinine 0.7mg/dL (0.6-1.0) Estimated GFR (Cockcroft-Gault) 88.9 BUN/Creatinine Ratio 9 (6-20) Glucose Level 95mg/dL (70-99) Calcium Level 8.7mg/dL (8.5-10.1) Total Bilirubin 0.5mg/dL (0.2-1.0) Aspartate Amino Transf (AST/SGOT) 55U/L (15-37) Alanine Aminotransferase (ALT/SGPT) 34U/L (14-59) Alkaline Phosphatase 130U/L (46-116) Total Protein 8.1g/dL (6.4-8.2) Albumin 2.7g/dL (3.4-5.0) Albumin/Globulin Ratio 0.5 (1.0-1.7) Laboratory Tests Test 07/01/16 16:36 07/01/16 22:01 07/02/16 05:00 07/02/16 07:51 Glucose (Fingerstick) 98mg/dL (70-99) 127mg/dL (70-99) 92mg/dL (70-99) Prothrombin Time 15.4SEC (11.7-14.0) Prothromb Time International Ratio 1.3 (0.8-1.1) Test 07/02/16 08:00 07/02/16 10:51 White Blood Count 10.8x10^3/uL (4.0-11.0) Red Blood Count 3.62x10^6/uL (3.50-5.40) Hemoglobin 9.2g/dL (12.0-15.5) Hematocrit 28.6% (36.0-47.0) Mean Corpuscular Volume 79fL (79-100) Mean Corpuscular Hemoglobin 26pg (25-35) Mean Corpuscular Hemoglobin Concent 32g/dL (31-37) Red Cell Distribution Width 23.6% (11.5-14.5) Platelet Count 168x10^3/uL (140-400) Neutrophils (%) (Auto) 75% (31-73) Lymphocytes (%) (Auto) 11% (24-48) Monocytes (%) (Auto) 8% (0-9) Eosinophils (%) (Auto) 4% (0-3) Basophils (%) (Auto) 1% (0-3) Neutrophils # (Auto) 8.2x10^3uL (1.8-7.7) Lymphocytes # (Auto) 1.2x10^3/uL (1.0-4.8) Monocytes # (Auto) 0.9x10^3/uL (0.0-1.1) Eosinophils # (Auto) 0.4x10^3/uL (0.0-0.7) Basophils # (Auto) 0.1x10^3/uL (0.0-0.2) Sodium Level 136mmol/L (136-145) Potassium Level 4.0mmol/L (3.5-5.1) Chloride Level 105mmol/L (98-107) Carbon Dioxide Level 26mmol/L (21-32) Anion Gap 5 (6-14) Blood Urea Nitrogen 6mg/dL (7-20) Creatinine 0.7mg/dL (0.6-1.0) Estimated GFR (Cockcroft-Gault) 88.9 BUN/Creatinine Ratio 9 (6-20) Glucose Level 95mg/dL (70-99) Calcium Level 8.7mg/dL (8.5-10.1) Total Bilirubin 0.5mg/dL (0.2-1.0) Aspartate Amino Transf (AST/SGOT) 55U/L (15-37) Alanine Aminotransferase (ALT/SGPT) 34U/L (14-59) Alkaline Phosphatase 130U/L (46-116) Total Protein 8.1g/dL (6.4-8.2) Albumin 2.7g/dL (3.4-5.0) Albumin/Globulin Ratio 0.5 (1.0-1.7) Glucose (Fingerstick) 88mg/dL (70-99) Microbiology 06/25/16 Urine Culture - Final, Complete 06/25/16 Urine Culture Result 1 (JAKE) - Final, Complete Medications Current Medications Sodium Chloride (Iv Sodium Chloride 0.9% 1000ml Bag) 1,000 ml @ 1,000 mls/hr Q1H IV Last administered on 06/25/16 19:05; Start 06/25/16 at 18:00; Stop 01/31 at 18:59; Status DC Ondansetron HCl (Zofran) 4 mg 1X ONCE IV Last administered on 06/25/16 19:08 ; Start 06/25/16 at 18:00; Stop 06/25/16 at 18:01; Status DC Famotidine (Pepcid) 20 mg 1X ONCE IVP ; Start 06/25/16 at 18:00; Stop 06/25/16 at 18:27; Status DC Fentanyl Citrate (Fentanyl 2ml Vial) 50 mcg PRN Q15MIN PRN IV PAIN GREATER THAN 3/10 Last administered on 06/25/16 19:07; Start 06/25/16 at 18:00; Stop at 21:33; Status DC Pantoprazole Sodium 40 mg 40 mg 1X ONCE IVP Last administered on 06/25/16 19: 14; Start 06/25/16 at 18:30; Stop 06/25/16 at 18:31; Status DC Pantoprazole Sodium/Sodium Chloride (Protonix Iv/Iv Sodium Chloride 0.9% 100ml) 100 ml @ 10 mls/hr Q10H IV Last administered on 06/28/16 16:36; Start at 18:30; Stop 06/29/16 at 07:18; Status DC Ondansetron HCl (Zofran) 4 mg PRN Q8HRS PRN IV NAUSEA/VOMITING Last administered on 06/26/16 13:37; Start 06/25/16 at 19:00; Stop 06/26/16 at 18:59 ; Status DC Fentanyl Citrate 50 mcg 50 mcg PRN Q2HR PRN IV PAIN Last administered on 17:19; Start 06/25/16 at 19:00; Stop 06/26/16 at 18:59; Status DC Sodium Chloride 1,000 ml @ 125 mls/hr Q8H IV Last administered on 06/26/16 10 :58; Start 06/25/16 at 18:58; Stop 06/26/16 at 18:57; Status DC Propofol (Diprivan) 20 ml @ As Directed STK-MED ONCE IV ; Start 06/26/16 at 09: 32; Stop 06/26/16 at 09:33; Status DC Lidocaine HCl 5 ml 5 ml STK-MED ONCE .ROUTE ; Start 06/26/16 at 09:32; Stop 03/02 at 09:33; Status DC Propofol 20 ml @ As Directed STK-MED ONCE IV ; Start 06/26/16 at 09:50; Stop 03/02 at 09:51; Status DC Propofol 20 ml @ As Directed STK-MED ONCE IV ; Start 06/26/16 at 09:55; Stop 03/02 at 09:56; Status DC Propofol (Diprivan) 20 ml @ As Directed STK-MED ONCE IV ; Start 06/26/16 at 10: 04; Stop 06/26/16 at 10:05; Status DC Epinephrine HCl (Epinephrine Syringe) 1 mg STK-MED ONCE .ROUTE ; Start 06/26/16 at 10:07; Stop 06/26/16 at 10:08; Status DC Insulin Aspart (Novolog) 0-7 UNITS TIDWMEALS SQ Last administered on 06/27/16 17:38; Start 06/26/16 at 12:00 Dextrose 12.5 gm 12.5 gm PRN Q15MIN PRN IV SEE COMMENTS; Start 06/26/16 at 10: 15 Propofol 20 ml @ As Directed STK-MED ONCE IV ; Start 06/26/16 at 10:11; Stop 03/02 at 10:12; Status DC Propofol (Diprivan) 40 ml @ As Directed STK-MED ONCE IV ; Start 06/26/16 at 10: 20; Stop 06/26/16 at 10:21; Status DC Epinephrine HCl (Epinephrine Syringe) 1 mg STK-MED ONCE IV Last administered on 06/26/16 10:20; Start 06/26/16 at 10:20; Stop 06/26/16 at 10:46; Status DC Epinephrine HCl 1 mg 1 mg STK-MED ONCE IV Last administered on 06/26/16 10:22 ; Start 06/26/16 at 10:22; Stop 06/26/16 at 10:46; Status DC Octreotide Acetate/Sodium Chloride (Sandostatin/Iv Sodium Chloride 0.9% 100ml) 101 ml @ 0 mls/hr CONT PRN IV SEE COMMENTS Last administered on 06/28/16 17:42 ; Start 06/26/16 at 11:00; Stop 06/29/16 at 07:18; Status DC Fentanyl Citrate (Fentanyl 2ml Vial) 25 mcg PRN Q4HRS PRN IV PAIN; Start at 21:00; Stop 06/26/16 at 21:00; Status DC Fentanyl Citrate 25 mcg 25 mcg PRN Q4HRS PRN IV PAIN Last administered on 20:42; Start 06/26/16 at 21:00; Stop 06/28/16 at 00:00; Status DC Iron Sucrose/ Sodium Chloride (Venofer/Iv Sodium Chloride 0.9% 250ml) 265 ml @ 90 mls/hr Q12HR IV Last administered on 06/28/16 09:57; Start 06/27/16 at 12: 00; Stop 06/28/16 at 11:57; Status DC Fentanyl Citrate (Fentanyl 2ml Vial) 25 mcg PRN Q4HRS PRN IV SEVERE PAIN Last administered on 07/01/16 06:17; Start 06/28/16 at 01:15; Stop 07/01/16 at 09:00 ; Status DC Ondansetron HCl 4 mg 4 mg PRN Q6HRS PRN IV NAUSEA/VOMITING Last administered on 06/30/16 14:43; Start 06/28/16 at 04:30 Ceftriaxone Sodium/Sodium Chloride (Rocephin/Iv Sodium Chloride 0.9% 50ml) 50 ml @ 100 mls/hr Q24H IV Last administered on 07/01/16 15:46; Start 06/28/16 at 16:00 Pantoprazole Sodium (Protonix) 40 mg DAILYAC PO Last administered on 07/01/16 06:17; Start 06/29/16 at 08:00 Iohexol (Omnipaque 350 Mg/ml) 75 ml 1X ONCE IV Last administered on 06/29/16 12:05; Start 06/29/16 at 12:00; Stop 06/29/16 at 12:01; Status DC Info (Do NOT chart on this entry -- for MONITORING) 1 each PRN DAILY PRN MC SEE COMMENTS; Start 06/29/16 at 12:00; Stop 07/01/16 at 11:59; Status DC Potassium Chloride (Klor-Con) 40 meq 1X ONCE PO Last administered on 11:18; Start 06/30/16 at 11:00; Stop 06/30/16 at 11:01; Status DC Morphine Sulfate 2 mg PRN Q2HR PRN IV PAIN Last administered on 07/01/16 09:04 ; Start 07/01/16 at 09:00; Stop 07/01/16 at 10:53; Status DC Fentanyl Citrate (Fentanyl 2ml Vial) 25 mcg PRN Q2HR PRN IV SEVERE PAIN Last administered on 07/01/16 11:33; Start 07/01/16 at 01:15 Morphine Sulfate 4 mg PRN Q2HR PRN IV PAIN Last administered on 07/02/16 08:46 ; Start 07/01/16 at 11:00 Ondansetron HCl (Zofran) 4 mg PRN Q6HRS PRN IV NAUSEA/VOMITING; Start 07/01/16 at 11:00; Stop 07/02/16 at 10:59; Status DC Fentanyl Citrate (Fentanyl 2ml Vial) 25 mcg PRN Q5MIN PRN IV MILD PAIN; Start 07/01/16 at 11:00; Stop 07/02/16 at 10:59; Status DC Fentanyl Citrate (Fentanyl 2ml Vial) 50 mcg PRN Q5MIN PRN IV MODERATE PAIN; Start 07/01/16 at 11:00; Stop 07/02/16 at 10:59; Status DC Morphine Sulfate 1 mg 1 mg PRN Q10MIN PRN IV SEVERE PAIN; Start 07/01/16 at 11: 00; Stop 07/02/16 at 10:59; Status DC Lactated Ringer's (Iv Lactated Ringers) 1,000 ml @ 30 mls/hr Q24H IV ; Start at 10:59; Stop 07/01/16 at 22:58; Status DC Lidocaine HCl 2 ml PRN 1X PRN ID PRIOR TO IV START; Start 07/01/16 at 11:00; Stop 07/02/16 at 10:59; Status DC Hydromorphone HCl (Dilaudid) 0.5 mg PRN Q10MIN PRN IV SEV PAIN, Second choice; Start 07/01/16 at 11:00; Stop 07/02/16 at 10:59; Status DC Prochlorperazine Edisylate (Compazine) 5 mg PACU PRN PRN IV NAUSEA, MRX1; Start 07/01/16 at 11:00; Stop 07/02/16 at 10:59; Status DC Midazolam HCl (Versed) 2 mg STK-MED ONCE .ROUTE ; Start 07/01/16 at 13:27; Stop 07/01/16 at 13:28; Status DC Fentanyl Citrate (Fentanyl 5ml Vial) 250 mcg STK-MED ONCE .ROUTE ; Start at 13:27; Stop 07/01/16 at 13:28; Status DC Iohexol (Omnipaque 300 Mg/ml) 100 ml STK-MED ONCE .ROUTE ; Start 07/01/16 at 13: 30; Stop 07/01/16 at 13:31; Status DC Lidocaine/Sodium Bicarbonate 20 ml 20 ml STK-MED ONCE IJ ; Start 07/01/16 at 13: 30; Stop 07/01/16 at 13:31; Status DC Heparin Sodium/ Sodium Chloride 500 ml @ As Directed STK-MED ONCE .ROUTE ; Start 07/01/16 at 13:30; Stop 07/01/16 at 13:31; Status DC Heparin Sodium/ Sodium Chloride 1,000 unit 1X ONCE IART Last administered on 14:25; Start 07/01/16 at 14:15; Stop 07/01/16 at 14:20; Status DC Lidocaine/Sodium Bicarbonate (Buffered Lidocaine 1%) 2 ml 1X ONCE IJ Last administered on 07/01/16 14:25; Start 07/01/16 at 14:15; Stop 07/01/16 at 14:20 ; Status DC Midazolam HCl (Versed) 2 mg 1X ONCE IV Last administered on 07/01/16 14:26; Start 07/01/16 at 14:15; Stop 07/01/16 at 14:20; Status DC Fentanyl Citrate (Fentanyl 5ml Vial) 100 mcg 1X ONCE IV Last administered on 14:26; Start 07/01/16 at 14:15; Stop 07/01/16 at 14:20; Status DC Iohexol (Omnipaque 300 Mg/ml) 40 ml 1X ONCE IART Last administered on 14:26; Start 07/01/16 at 14:15; Stop 07/01/16 at 14:20; Status DC Iohexol (Omnipaque 300 Mg/ml) 100 ml STK-MED ONCE .ROUTE ; Start 07/02/16 at 12: 24; Stop 07/02/16 at 12:25; Status DC Lidocaine/Sodium Bicarbonate 20 ml 20 ml STK-MED ONCE IJ ; Start 07/02/16 at 12: 25; Stop 07/02/16 at 12:26; Status DC Heparin Sodium/ Sodium Chloride 1,000 ml @ As Directed STK-MED ONCE .ROUTE ; Start 07/02/16 at 12:25; Stop 07/02/16 at 12:26; Status DC Active Scripts Active Fioricet 50-300-40 Mg Capsule (Butalb/Acetaminophen/Caffeine) 1 Each Capsule 1 Each PO PRN Q4HRS PRN Vitals/I & O Vital Sign - Last 24 Hours 07/01/16 07/01/16 07/01/16 07/01/16 14:26 14:27 14:45 15:00 Temp 97.9 97.9 Pulse 65 67 87 Resp 14 18 B/P 142/88 157/80 Pulse Ox 99 99 97 97 O2 Delivery Nasal Cannula Nasal Cannula Room Air Room Air O2 Flow Rate 2.0 2.0 07/01/16 07/01/16 07/01/16 07/01/16 15:15 15:30 15:46 16:00 Temp 97.8 97.8 97.8 97.8 Pulse 79 86 79 Resp 18 18 18 B/P 153/69 139/78 157/68 Pulse Ox 98 99 97 95 O2 Delivery Room Air Room Air Room Air Room Air 07/01/16 07/01/16 07/01/16 07/01/16 16:30 16:30 17:30 19:00 Temp 98.1 98.1 Pulse 77 77 83 76 Resp 19 B/P 117/60 117/60 105/58 129/77 Pulse Ox 95 95 95 97 O2 Delivery Room Air Room Air Room Air Room Air 07/01/16 07/01/16 07/01/16 07/02/16 20:00 20:58 23:00 04:29 Temp 98.1 98.1 Pulse 78 Resp 16 B/P 159/80 Pulse Ox 97 98 98 O2 Delivery Room Air Room Air Room Air Room Air O2 Flow Rate 2.0 07/02/16 07/02/16 07/02/16 07/02/16 07:00 08:00 08:46 09:16 Temp 97.9 97.9 Pulse 63 Resp 18 B/P 147/81 Pulse Ox 98 98 98 O2 Delivery Room Air Room Air Room Air Room Air 07/02/16 11:00 Temp 98.1 98.1 Pulse 64 Resp 16 B/P 139/73 Pulse Ox 95 O2 Delivery Room Air Intake and Output 07/01/16 07/01/16 07/02/16 15:00 23:00 07:00 Intake Total 0 ml 220 ml Balance 0 ml 220 ml CHEPE NIEVES MD Jul 02, 2016 12:40
[2016-07-02] MEDS ORDERED: IOHEXOL 300 MG/ML 100ML VIAL. IART ONE (13:15)
[2016-07-02] MEDS ORDERED: MIDAZOLAM HCL/PF 2 MG/2 ML VIAL. ONE (13:34)
[2016-07-02] MEDS ORDERED: PROPOFOL 20 ML IV ONE ×2 (13:34→17:50)
[2016-07-02] MEDS ORDERED: ONDANSETRON PF 4 MG/2 ML VIAL. ONE (13:34)
[2016-07-02] MEDS ORDERED: DEXAMETHASONE SOD PHOS 20 MG/5 ML VIAL. ONE (13:34)
[2016-07-02] MEDS ORDERED: fentaNYL PF VIAL 100 MCG/2 ML VIAL ONE ×3 (13:34→17:50)
[2016-07-02] MEDS ORDERED: ROCURONIUM 50 MG/5 ML VIAL. ONE (13:34)
[2016-07-02] MEDS ORDERED: PHENYLEPHRINE in 0.9% NACL PF 1 MG/10 ML DISP.SYRIN. IV ONE (14:16)
--- NOTE | 2016-07-02 19:39 | PDOC ---
Exam Regional Account Manager Regional Account Manager Seun C[employer]arette Making Machine Operator Cigarette Making Machine Operator Pancho Desai Pre-Procedure Diagnosis Pre-Procedure Diagnosis Hep C + ETOH liver disease, with Portal HTN (mean PSG of 19mm HG by hepatic hemodynamics), and multiple episodes of upper GI bleeding. Post-Procedure Diagnosis Post-Procedure Diagnosis Same Procedure Performed Procedure Performed Fluoro guided TIPS creation Type of Anesthesia Type of Anesthesia General Estimated Blood Loss EBL: 50 cc Condition of Patient Condition of Patient Hemodynamically stable. No apparent complication. Disposition Disposition Extubated in biplane IR, then directly to ICU for overnight monitoring for bleeding, mental status changes, and rt heart failure. Please contact GI for post TIPS diet and med orders. Full re[port to follow. JERRY FLOYD MD Jul 02, 2016 19:39
[2016-07-02] MEDS: fentaNYL PF VIAL 100 MCG/2 ML VIAL IV PRN ×2 (20:31→22:30)
[2016-07-02] MEDS: ONDANSETRON PF 4 MG/2 ML VIAL. IV PRN (20:32)
[2016-07-03] VITALS (12 sets, daily range): BP systolic 92–126; BP diastolic 34–70
[2016-07-03] MEDS: MORPHINE SULFATE 2 MG/ML DISP.SYRIN. IV PRN ×5 (02:14→20:24)
[2016-07-03 05:32] LABS: BASO # 0.1 x10^3/uL (0.0-0.2); BASO % 0 % (0-3); EOS % 0 % (0-3); HEMATOCRIT 24.2 % (36.0-47.0); HEMOGLOBIN 7.7 g/dL (12.0-15.5); LYMPH # 0.6 x10^3/uL (1.0-4.8); LYMPH % 3 % (24-48); MEAN CORPUSCULAR HEMOGLOBIN 25 pg (25-35); MEAN CORPUSCULAR HGB CONC 32 g/dL (31-37); MEAN CORPUSCULAR VOLUME 78 fL (79-100); MONO % 9 % (0-9); NEUT % 88 % (31-73); PLATELET COUNT 198 x10^3/uL (140-400); RED BLOOD COUNT 3.09 x10^6/uL (3.50-5.40); RED CELL DISTRIBUTION WIDTH 24.8 % (11.5-14.5); WHITE BLOOD COUNT 23.9 x10^3/uL (4.0-11.0)
[2016-07-03 05:52] LABS: ALBUMIN 2.6 g/dL (3.4-5.0); ALBUMIN/GLOBULIN RATIO 0.5 (1.0-1.7); CALCIUM 8.8 mg/dL (8.5-10.1); CREATININE 0.9 mg/dL (0.6-1.0); GFR 66.5
[2016-07-03 06:17] LABS: PLT ESTIMATE ADEQUATE (ADEQUATE)
--- NOTE | 2016-07-03 07:26 | PDOC ---
IR PROGRESS NOTE Diagnosis GI BLEEDING DUE TO: Other (Portal HTN) Other S/P TIPS creation. 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 No bloody stools. Objective Objective Vital Signs Date Time Temp Pulse Resp B/P Pulse Ox O2 Delivery O2 Flow Rate FiO2 07/03/16 06:00 97.0 87 17 103/64 97 Nasal Cannula 2.0 97.0 Intake and Output 07/03/16 07:00 Intake Total 0 ml Output Total 1150 ml Balance -1150 ml Intake Oral 0 ml Output Urine Total 1150 ml Cardiovascular RRR Chest LCTA Other Abdomen diffusely tender, S/P TIPS No hepatic encephalopathy Comment Review of Relevant I have reviewed the following items candace (where applicable) has been applied. Labs Laboratory Tests Test 07/01/16 08:06 07/01/16 11:29 07/01/16 16:36 07/01/16 22:01 Glucose (Fingerstick) 99mg/dL (70-99) 93mg/dL (70-99) 98mg/dL (70-99) 127mg/dL (70-99) Test 07/02/16 05:00 07/02/16 07:51 07/02/16 08:00 07/02/16 10:51 Prothrombin Time 15.4SEC (11.7-14.0) Prothromb Time International Ratio 1.3 (0.8-1.1) Glucose (Fingerstick) 92mg/dL (70-99) 88mg/dL (70-99) White Blood Count 10.8x10^3/uL (4.0-11.0) Red Blood Count 3.62x10^6/uL (3.50-5.40) Hemoglobin 9.2g/dL (12.0-15.5) Hematocrit 28.6% (36.0-47.0) Mean Corpuscular Volume 79fL (79-100) Mean Corpuscular Hemoglobin 26pg (25-35) Mean Corpuscular Hemoglobin Concent 32g/dL (31-37) Red Cell Distribution Width 23.6% (11.5-14.5) Platelet Count 168x10^3/uL (140-400) Neutrophils (%) (Auto) 75% (31-73) Lymphocytes (%) (Auto) 11% (24-48) Monocytes (%) (Auto) 8% (0-9) Eosinophils (%) (Auto) 4% (0-3) Basophils (%) (Auto) 1% (0-3) Neutrophils # (Auto) 8.2x10^3uL (1.8-7.7) Lymphocytes # (Auto) 1.2x10^3/uL (1.0-4.8) Monocytes # (Auto) 0.9x10^3/uL (0.0-1.1) Eosinophils # (Auto) 0.4x10^3/uL (0.0-0.7) Basophils # (Auto) 0.1x10^3/uL (0.0-0.2) Sodium Level 136mmol/L (136-145) Potassium Level 4.0mmol/L (3.5-5.1) Chloride Level 105mmol/L (98-107) Carbon Dioxide Level 26mmol/L (21-32) Anion Gap 5 (6-14) Blood Urea Nitrogen 6mg/dL (7-20) Creatinine 0.7mg/dL (0.6-1.0) Estimated GFR (Cockcroft-Gault) 88.9 BUN/Creatinine Ratio 9 (6-20) Glucose Level 95mg/dL (70-99) Calcium Level 8.7mg/dL (8.5-10.1) Total Bilirubin 0.5mg/dL (0.2-1.0) Aspartate Amino Transf (AST/SGOT) 55U/L (15-37) Alanine Aminotransferase (ALT/SGPT) 34U/L (14-59) Alkaline Phosphatase 130U/L (46-116) Total Protein 8.1g/dL (6.4-8.2) Albumin 2.7g/dL (3.4-5.0) Albumin/Globulin Ratio 0.5 (1.0-1.7) Test 07/03/16 04:50 White Blood Count 23.9x10^3/uL (4.0-11.0) Red Blood Count 3.09x10^6/uL (3.50-5.40) Hemoglobin 7.7g/dL (12.0-15.5) Hematocrit 24.2% (36.0-47.0) Mean Corpuscular Volume 78fL (79-100) Mean Corpuscular Hemoglobin 25pg (25-35) Mean Corpuscular Hemoglobin Concent 32g/dL (31-37) Red Cell Distribution Width 24.8% (11.5-14.5) Platelet Count 198x10^3/uL (140-400) Neutrophils (%) (Auto) 88% (31-73) Lymphocytes (%) (Auto) 3% (24-48) Monocytes (%) (Auto) 9% (0-9) Eosinophils (%) (Auto) 0% (0-3) Basophils (%) (Auto) 0% (0-3) Neutrophils # (Auto) 21.1x10^3uL (1.8-7.7) Lymphocytes # (Auto) 0.6x10^3/uL (1.0-4.8) Monocytes # (Auto) 2.0x10^3/uL (0.0-1.1) Eosinophils # (Auto) 0.0x10^3/uL (0.0-0.7) Basophils # (Auto) 0.1x10^3/uL (0.0-0.2) Segmented Neutrophils % 80% (35-66) Band Neutrophils % 7% (0-9) Lymphocytes % 5% (24-48) Monocytes % 7% (0-10) Metamyelocytes % 1% (0-0) Platelet Estimate Adequate (ADEQUATE) Sodium Level 137mmol/L (136-145) Potassium Level 4.0mmol/L (3.5-5.1) Chloride Level 103mmol/L (98-107) Carbon Dioxide Level 24mmol/L (21-32) Anion Gap 10 (6-14) Blood Urea Nitrogen 8mg/dL (7-20) Creatinine 0.9mg/dL (0.6-1.0) Estimated GFR (Cockcroft-Gault) 66.5 BUN/Creatinine Ratio 9 (6-20) Glucose Level 136mg/dL (70-99) Calcium Level 8.8mg/dL (8.5-10.1) Total Bilirubin 1.0mg/dL (0.2-1.0) Aspartate Amino Transf (AST/SGOT) 102U/L (15-37) Alanine Aminotransferase (ALT/SGPT) 53U/L (14-59) Alkaline Phosphatase 130U/L (46-116) Total Protein 8.0g/dL (6.4-8.2) Albumin 2.6g/dL (3.4-5.0) Albumin/Globulin Ratio 0.5 (1.0-1.7) Laboratory Tests Test 07/02/16 07:51 07/02/16 08:00 07/02/16 10:51 07/03/16 04:50 Glucose (Fingerstick) 92mg/dL (70-99) 88mg/dL (70-99) White Blood Count 10.8x10^3/uL (4.0-11.0) 23.9x10^3/uL (4.0-11.0) Red Blood Count 3.62x10^6/uL (3.50-5.40) 3.09x10^6/uL (3.50-5.40) Hemoglobin 9.2g/dL (12.0-15.5) 7.7g/dL (12.0-15.5) Hematocrit 28.6% (36.0-47.0) 24.2% (36.0-47.0) Mean Corpuscular Volume 79fL (79-100) 78fL (79-100) Mean Corpuscular Hemoglobin 26pg (25-35) 25pg (25-35) Mean Corpuscular Hemoglobin Concent 32g/dL (31-37) 32g/dL (31-37) Red Cell Distribution Width 23.6% (11.5-14.5) 24.8% (11.5-14.5) Platelet Count 168x10^3/uL (140-400) 198x10^3/uL (140-400) Neutrophils (%) (Auto) 75% (31-73) 88% (31-73) Lymphocytes (%) (Auto) 11% (24-48) 3% (24-48) Monocytes (%) (Auto) 8% (0-9) 9% (0-9) Eosinophils (%) (Auto) 4% (0-3) 0% (0-3) Basophils (%) (Auto) 1% (0-3) 0% (0-3) Neutrophils # (Auto) 8.2x10^3uL (1.8-7.7) 21.1x10^3uL (1.8-7.7) Lymphocytes # (Auto) 1.2x10^3/uL (1.0-4.8) 0.6x10^3/uL (1.0-4.8) Monocytes # (Auto) 0.9x10^3/uL (0.0-1.1) 2.0x10^3/uL (0.0-1.1) Eosinophils # (Auto) 0.4x10^3/uL (0.0-0.7) 0.0x10^3/uL (0.0-0.7) Basophils # (Auto) 0.1x10^3/uL (0.0-0.2) 0.1x10^3/uL (0.0-0.2) Sodium Level 136mmol/L (136-145) 137mmol/L (136-145) Potassium Level 4.0mmol/L (3.5-5.1) 4.0mmol/L (3.5-5.1) Chloride Level 105mmol/L (98-107) 103mmol/L (98-107) Carbon Dioxide Level 26mmol/L (21-32) 24mmol/L (21-32) Anion Gap 5 (6-14) 10 (6-14) Blood Urea Nitrogen 6mg/dL (7-20) 8mg/dL (7-20) Creatinine 0.7mg/dL (0.6-1.0) 0.9mg/dL (0.6-1.0) Estimated GFR (Cockcroft-Gault) 88.9 66.5 BUN/Creatinine Ratio 9 (6-20) 9 (6-20) Glucose Level 95mg/dL (70-99) 136mg/dL (70-99) Calcium Level 8.7mg/dL (8.5-10.1) 8.8mg/dL (8.5-10.1) Total Bilirubin 0.5mg/dL (0.2-1.0) 1.0mg/dL (0.2-1.0) Aspartate Amino Transf (AST/SGOT) 55U/L (15-37) 102U/L (15-37) Alanine Aminotransferase (ALT/SGPT) 34U/L (14-59) 53U/L (14-59) Alkaline Phosphatase 130U/L (46-116) 130U/L (46-116) Total Protein 8.1g/dL (6.4-8.2) 8.0g/dL (6.4-8.2) Albumin 2.7g/dL (3.4-5.0) 2.6g/dL (3.4-5.0) Albumin/Globulin Ratio 0.5 (1.0-1.7) 0.5 (1.0-1.7) Segmented Neutrophils % 80% (35-66) Band Neutrophils % 7% (0-9) Lymphocytes % 5% (24-48) Monocytes % 7% (0-10) Metamyelocytes % 1% (0-0) Platelet Estimate Adequate (ADEQUATE) Microbiology 06/25/16 Urine Culture - Final, Complete 06/25/16 Urine Culture Result 1 (JAKE) - Final, Complete Hgb drop this AM likely dilutional due to intraprocedural IVFs. No creatinine increase post high volume iodinated contrast during prolonged TIPS. Expected post TIPS minimal bump in LFTs. Medications Current Medications Sodium Chloride (Iv Sodium Chloride 0.9% 1000ml Bag) 1,000 ml @ 1,000 mls/hr Q1H IV Last administered on 06/25/16 19:05; Start 06/25/16 at 18:00; Stop 01/31 at 18:59; Status DC Ondansetron HCl (Zofran) 4 mg 1X ONCE IV Last administered on 06/25/16 19:08 ; Start 06/25/16 at 18:00; Stop 06/25/16 at 18:01; Status DC Famotidine (Pepcid) 20 mg 1X ONCE IVP ; Start 06/25/16 at 18:00; Stop 06/25/16 at 18:27; Status DC Fentanyl Citrate (Fentanyl 2ml Vial) 50 mcg PRN Q15MIN PRN IV PAIN GREATER THAN 3/10 Last administered on 06/25/16 19:07; Start 06/25/16 at 18:00; Stop at 21:33; Status DC Pantoprazole Sodium 40 mg 40 mg 1X ONCE IVP Last administered on 06/25/16 19: 14; Start 06/25/16 at 18:30; Stop 06/25/16 at 18:31; Status DC Pantoprazole Sodium/Sodium Chloride (Protonix Iv/Iv Sodium Chloride 0.9% 100ml) 100 ml @ 10 mls/hr Q10H IV Last administered on 06/28/16 16:36; Start at 18:30; Stop 06/29/16 at 07:18; Status DC Ondansetron HCl (Zofran) 4 mg PRN Q8HRS PRN IV NAUSEA/VOMITING Last administered on 06/26/16 13:37; Start 06/25/16 at 19:00; Stop 06/26/16 at 18:59 ; Status DC Fentanyl Citrate 50 mcg 50 mcg PRN Q2HR PRN IV PAIN Last administered on 17:19; Start 06/25/16 at 19:00; Stop 06/26/16 at 18:59; Status DC Sodium Chloride 1,000 ml @ 125 mls/hr Q8H IV Last administered on 06/26/16 10 :58; Start 06/25/16 at 18:58; Stop 06/26/16 at 18:57; Status DC Propofol (Diprivan) 20 ml @ As Directed STK-MED ONCE IV ; Start 06/26/16 at 09: 32; Stop 06/26/16 at 09:33; Status DC Lidocaine HCl 5 ml 5 ml STK-MED ONCE .ROUTE ; Start 06/26/16 at 09:32; Stop 03/02 at 09:33; Status DC Propofol 20 ml @ As Directed STK-MED ONCE IV ; Start 06/26/16 at 09:50; Stop 03/02 at 09:51; Status DC Propofol 20 ml @ As Directed STK-MED ONCE IV ; Start 06/26/16 at 09:55; Stop 03/02 at 09:56; Status DC Propofol (Diprivan) 20 ml @ As Directed STK-MED ONCE IV ; Start 06/26/16 at 10: 04; Stop 06/26/16 at 10:05; Status DC Epinephrine HCl (Epinephrine Syringe) 1 mg STK-MED ONCE .ROUTE ; Start 06/26/16 at 10:07; Stop 06/26/16 at 10:08; Status DC Insulin Aspart (Novolog) 0-7 UNITS TIDWMEALS SQ Last administered on 06/27/16 17:38; Start 06/26/16 at 12:00 Dextrose 12.5 gm 12.5 gm PRN Q15MIN PRN IV SEE COMMENTS; Start 06/26/16 at 10: 15 Propofol 20 ml @ As Directed STK-MED ONCE IV ; Start 06/26/16 at 10:11; Stop 03/02 at 10:12; Status DC Propofol (Diprivan) 40 ml @ As Directed STK-MED ONCE IV ; Start 06/26/16 at 10: 20; Stop 06/26/16 at 10:21; Status DC Epinephrine HCl (Epinephrine Syringe) 1 mg STK-MED ONCE IV Last administered on 06/26/16 10:20; Start 06/26/16 at 10:20; Stop 06/26/16 at 10:46; Status DC Epinephrine HCl 1 mg 1 mg STK-MED ONCE IV Last administered on 06/26/16 10:22 ; Start 06/26/16 at 10:22; Stop 06/26/16 at 10:46; Status DC Octreotide Acetate/Sodium Chloride (Sandostatin/Iv Sodium Chloride 0.9% 100ml) 101 ml @ 0 mls/hr CONT PRN IV SEE COMMENTS Last administered on 06/28/16 17:42 ; Start 06/26/16 at 11:00; Stop 06/29/16 at 07:18; Status DC Fentanyl Citrate (Fentanyl 2ml Vial) 25 mcg PRN Q4HRS PRN IV PAIN; Start at 21:00; Stop 06/26/16 at 21:00; Status DC Fentanyl Citrate 25 mcg 25 mcg PRN Q4HRS PRN IV PAIN Last administered on 20:42; Start 06/26/16 at 21:00; Stop 06/28/16 at 00:00; Status DC Iron Sucrose/ Sodium Chloride (Venofer/Iv Sodium Chloride 0.9% 250ml) 265 ml @ 90 mls/hr Q12HR IV Last administered on 06/28/16 09:57; Start 06/27/16 at 12: 00; Stop 06/28/16 at 11:57; Status DC Fentanyl Citrate (Fentanyl 2ml Vial) 25 mcg PRN Q4HRS PRN IV SEVERE PAIN Last administered on 07/01/16 06:17; Start 06/28/16 at 01:15; Stop 07/01/16 at 09:00 ; Status DC Ondansetron HCl 4 mg 4 mg PRN Q6HRS PRN IV NAUSEA/VOMITING Last administered on 07/02/16 20:32; Start 06/28/16 at 04:30 Ceftriaxone Sodium/Sodium Chloride (Rocephin/Iv Sodium Chloride 0.9% 50ml) 50 ml @ 100 mls/hr Q24H IV Last administered on 07/01/16 15:46; Start 06/28/16 at 16:00; Stop 07/02/16 at 13:43; Status DC Pantoprazole Sodium (Protonix) 40 mg DAILYAC PO Last administered on 07/01/16 06:17; Start 06/29/16 at 08:00 Iohexol (Omnipaque 350 Mg/ml) 75 ml 1X ONCE IV Last administered on 06/29/16 12:05; Start 06/29/16 at 12:00; Stop 06/29/16 at 12:01; Status DC Info (Do NOT chart on this entry -- for MONITORING) 1 each PRN DAILY PRN MC SEE COMMENTS; Start 06/29/16 at 12:00; Stop 07/01/16 at 11:59; Status DC Potassium Chloride (Klor-Con) 40 meq 1X ONCE PO Last administered on 11:18; Start 06/30/16 at 11:00; Stop 06/30/16 at 11:01; Status DC Morphine Sulfate 2 mg PRN Q2HR PRN IV PAIN Last administered on 07/01/16 09:04 ; Start 07/01/16 at 09:00; Stop 07/01/16 at 10:53; Status DC Fentanyl Citrate (Fentanyl 2ml Vial) 25 mcg PRN Q2HR PRN IV SEVERE PAIN Last administered on 07/02/16 22:30; Start 07/01/16 at 01:15 Morphine Sulfate 4 mg PRN Q2HR PRN IV PAIN Last administered on 07/03/16 02:14 ; Start 07/01/16 at 11:00 Ondansetron HCl (Zofran) 4 mg PRN Q6HRS PRN IV NAUSEA/VOMITING; Start 07/01/16 at 11:00; Stop 07/02/16 at 10:59; Status DC Fentanyl Citrate (Fentanyl 2ml Vial) 25 mcg PRN Q5MIN PRN IV MILD PAIN; Start 07/01/16 at 11:00; Stop 07/02/16 at 10:59; Status DC Fentanyl Citrate (Fentanyl 2ml Vial) 50 mcg PRN Q5MIN PRN IV MODERATE PAIN; Start 07/01/16 at 11:00; Stop 07/02/16 at 10:59; Status DC Morphine Sulfate 1 mg 1 mg PRN Q10MIN PRN IV SEVERE PAIN; Start 07/01/16 at 11: 00; Stop 07/02/16 at 10:59; Status DC Lactated Ringer's (Iv Lactated Ringers) 1,000 ml @ 30 mls/hr Q24H IV ; Start at 10:59; Stop 07/01/16 at 22:58; Status DC Lidocaine HCl 2 ml PRN 1X PRN ID PRIOR TO IV START; Start 07/01/16 at 11:00; Stop 07/02/16 at 10:59; Status DC Hydromorphone HCl (Dilaudid) 0.5 mg PRN Q10MIN PRN IV SEV PAIN, Second choice; Start 07/01/16 at 11:00; Stop 07/02/16 at 10:59; Status DC Prochlorperazine Edisylate (Compazine) 5 mg PACU PRN PRN IV NAUSEA, MRX1; Start 07/01/16 at 11:00; Stop 07/02/16 at 10:59; Status DC Midazolam HCl (Versed) 2 mg STK-MED ONCE .ROUTE ; Start 07/01/16 at 13:27; Stop 07/01/16 at 13:28; Status DC Fentanyl Citrate (Fentanyl 5ml Vial) 250 mcg STK-MED ONCE .ROUTE ; Start at 13:27; Stop 07/01/16 at 13:28; Status DC Iohexol (Omnipaque 300 Mg/ml) 100 ml STK-MED ONCE .ROUTE ; Start 07/01/16 at 13: 30; Stop 07/01/16 at 13:31; Status DC Lidocaine/Sodium Bicarbonate 20 ml 20 ml STK-MED ONCE IJ ; Start 07/01/16 at 13: 30; Stop 07/01/16 at 13:31; Status DC Heparin Sodium/ Sodium Chloride 500 ml @ As Directed STK-MED ONCE .ROUTE ; Start 07/01/16 at 13:30; Stop 07/01/16 at 13:31; Status DC Heparin Sodium/ Sodium Chloride 1,000 unit 1X ONCE IART Last administered on 14:25; Start 07/01/16 at 14:15; Stop 07/01/16 at 14:20; Status DC Lidocaine/Sodium Bicarbonate (Buffered Lidocaine 1%) 2 ml 1X ONCE IJ Last administered on 07/01/16 14:25; Start 07/01/16 at 14:15; Stop 07/01/16 at 14:20 ; Status DC Midazolam HCl (Versed) 2 mg 1X ONCE IV Last administered on 07/01/16 14:26; Start 07/01/16 at 14:15; Stop 07/01/16 at 14:20; Status DC Fentanyl Citrate (Fentanyl 5ml Vial) 100 mcg 1X ONCE IV Last administered on 14:26; Start 07/01/16 at 14:15; Stop 07/01/16 at 14:20; Status DC Iohexol (Omnipaque 300 Mg/ml) 40 ml 1X ONCE IART Last administered on 14:26; Start 07/01/16 at 14:15; Stop 07/01/16 at 14:20; Status DC Iohexol (Omnipaque 300 Mg/ml) 100 ml STK-MED ONCE .ROUTE ; Start 07/02/16 at 12: 24; Stop 07/02/16 at 12:25; Status DC Lidocaine/Sodium Bicarbonate 20 ml 20 ml STK-MED ONCE IJ ; Start 07/02/16 at 12: 25; Stop 07/02/16 at 12:26; Status DC Heparin Sodium/ Sodium Chloride 1,000 ml @ As Directed STK-MED ONCE .ROUTE ; Start 07/02/16 at 12:25; Stop 07/02/16 at 12:26; Status DC Heparin Sodium/ Sodium Chloride 2,000 unit 1X ONCE IART Last administered on 14:04; Start 07/02/16 at 13:15; Stop 07/02/16 at 13:16; Status DC Lidocaine/Sodium Bicarbonate (Buffered Lidocaine 1%) 20 ml 1X ONCE IJ Last administered on 07/02/16 14:05; Start 07/02/16 at 13:15; Stop 07/02/16 at 13:16 ; Status DC Iohexol 200 ml 200 ml 1X ONCE IART Last administered on 07/02/16 14:05; Start 07/02/16 at 13:15; Stop 07/02/16 at 13:16; Status DC Ceftriaxone Sodium (Rocephin 1gm Ivpb For Omni) 50 ml @ As Directed STK-MED ONCE IV ; Start 07/02/16 at 13:20; Stop 07/02/16 at 13:21; Status DC Dexamethasone Sodium Phosphate (Decadron) 20 mg STK-MED ONCE .ROUTE ; Start at 13:34; Stop 07/02/16 at 13:35; Status DC Ondansetron HCl 4 mg 4 mg STK-MED ONCE .ROUTE ; Start 07/02/16 at 13:34; Stop at 13:35; Status DC Propofol (Diprivan) 20 ml @ As Directed STK-MED ONCE IV ; Start 07/02/16 at 13: 34; Stop 07/02/16 at 13:35; Status DC Fentanyl Citrate (Fentanyl 2ml Vial) 100 mcg STK-MED ONCE .ROUTE ; Start at 13:34; Stop 07/02/16 at 13:35; Status DC Midazolam HCl (Versed) 2 mg STK-MED ONCE .ROUTE ; Start 07/02/16 at 13:34; Stop 07/02/16 at 13:35; Status DC Rocuronium [place] 50 mg 50 mg STK-MED ONCE .ROUTE ; Start 07/02/16 at 13:34; Stop 07/02/16 at 13:35; Status DC Ceftriaxone Sodium 50 ml @ 100 mls/hr 1X ONCE IV Last administered on t 14:06; Start 07/02/16 at 13:45; Stop 07/02/16 at 14:14; Status DC Ceftriaxone Sodium/Sodium Chloride (Rocephin/Iv Sodium Chloride 0.9% 50ml) 50 ml @ 100 mls/hr Q24H IV ; Start 07/03/16 at 14:00 Ephedrine Sulfate (Akovaz) 50 mg STK-MED ONCE .ROUTE ; Start 07/02/16 at 14:16; Stop 07/02/16 at 14:17; Status DC Phenylephrine HCl 1 mg STK-MED ONCE IV ; Start 07/02/16 at 14:16; Stop 07/02/16 at 14:17; Status DC Fentanyl Citrate (Fentanyl 2ml Vial) 100 mcg STK-MED ONCE .ROUTE ; Start at 16:30; Stop 07/02/16 at 16:31; Status DC Fentanyl Citrate 100 mcg 100 mcg STK-MED ONCE .ROUTE ; Start 07/02/16 at 17:50; Stop 07/02/16 at 17:51; Status DC Propofol (Diprivan) 20 ml @ As Directed STK-MED ONCE IV ; Start 07/02/16 at 17: 50; Stop 07/02/16 at 17:51; Status DC Active Scripts Active Fioricet 50-300-40 Mg Capsule (Butalb/Acetaminophen/Caffeine) 1 Each Capsule 1 Each PO PRN Q4HRS PRN Vitals/I & O Vital Sign - Last 24 Hours 07/02/16 07/02/16 07/02/16 07/02/16 08:00 08:46 11:00 19:15 Temp 98.1 99.3 98.1 99.3 Pulse 64 94 Resp 16 26 B/P 139/73 147/82 Pulse Ox 98 95 99 O2 Delivery Room Air Room Air Room Air Simple Mask O2 Flow Rate 10.0 07/02/16 07/02/16 07/02/16 07/02/16 19:30 19:45 20:00 20:00 Pulse 90 84 78 Resp 26 20 20 B/P 142/83 154/86 147/78 Pulse Ox 100 100 100 O2 Delivery Simple Mask Simple Mask Simple Mask Mask O2 Flow Rate 10.0 10.0 10.0 10.0 07/02/16 07/02/16 07/02/16 07/02/16 20:15 20:31 20:45 21:00 Pulse 74 72 72 Resp 23 24 10 14 B/P 142/77 151/83 147/83 Pulse Ox 100 95 98 98 O2 Delivery Nasal Cannula Simple Mask Nasal Cannula Nasal Cannula O2 Flow Rate 3.0 10.0 3.0 3.0 07/02/16 07/02/16 07/02/16/18/17 21:01 22:00 22:30 23:00 Pulse 81 Resp 13 12 16 B/P 140/79 Pulse Ox 98 98 98 O2 Delivery Nasal Cannula Nasal Cannula O2 Flow Rate 3.0 3.0 3.0 07/02/16 07/02/16 07/03/16 07/03/16 23:00 23:38 00:00 00:01 Temp 96.9 96.9 Pulse 92 93 Resp 24 14 14 B/P 143/76 125/70 Pulse Ox 100 100 99 O2 Delivery Nasal Cannula Nasal Cannula Nasal Cannula O2 Flow Rate 3.0 2.0 2.0 2.0 07/03/16 07/03/16 07/03/16 07/03/16 00:08 01:00 02:00 02:14 Pulse 62 79 Resp 14 20 24 15 B/P 118/54 126/64 Pulse Ox 99 99 99 99 O2 Delivery Nasal Cannula Nasal Cannula Nasal Cannula Nasal Cannula O2 Flow Rate 2.0 2.0 2.0 2.0 07/03/16 07/03/16 07/03/16 07/03/16 03:00 04:00 04:00 05:00 Temp 94.8 94.8 Pulse 78 61 77 Resp 17 17 17 B/P 115/61 118/55 101/65 Pulse Ox 99 99 98 O2 Delivery Nasal Cannula Nasal Cannula Nasal Cannula Nasal Cannula O2 Flow Rate 2.0 2.0 2.0 2.0 07/03/16 06:00 Temp 97.0 97.0 Pulse 87 Resp 17 B/P 103/64 Pulse Ox 97 O2 Delivery Nasal Cannula O2 Flow Rate 2.0 Intake and Output 07/02/16 07/02/16 07/03/16 15:00 23:00 07:00 Intake Total 0 ml Output Total 1150 ml Balance -1150 ml Assessment Assessment Satisfactory post TIPS course. Diffuse abdominal pain improving. Hgb drop from 9.2 to 7.7 likely dilutional---no bloody stools. Expected post TIPS bump in total bili from 0.5 to 1.0. No hepatic encephalopathy. Plan Plan Transfer out of ICU if OK with GI and HIMS. Advance diet per GI. Advance activity as tolerated. Consider CT abd/pelvis if abdominal pain persists or for further hgb drop. JERRY FLOYD MD Jul 03, 2016 07:26
[2016-07-03] MEDS: INSULIN ASPART 300 UNITS/3 ML INSULN.PEN SQ SCH ×4 (08:00→17:00)
--- NOTE | 2016-07-03 08:20 | PDOC ---
G I PROGRESS NOTE Subjective Reports abdominal discomfort, non-specific. No nausea, vomiting. Seems to be mentating OK. Physical Exam Lungs clear. RRR Abdomen soft, mildly tender. Review of Relevant I have reviewed the following items candace (where applicable) has been applied. Labs Laboratory Tests Test 07/01/16 11:29 07/01/16 16:36 07/01/16 22:01 07/02/16 05:00 Glucose (Fingerstick) 93mg/dL (70-99) 98mg/dL (70-99) 127mg/dL (70-99) Prothrombin Time 15.4SEC (11.7-14.0) Prothromb Time International Ratio 1.3 (0.8-1.1) Test 07/02/16 07:51 07/02/16 08:00 07/02/16 10:51 07/03/16 04:50 Glucose (Fingerstick) 92mg/dL (70-99) 88mg/dL (70-99) White Blood Count 10.8x10^3/uL (4.0-11.0) 23.9x10^3/uL (4.0-11.0) Red Blood Count 3.62x10^6/uL (3.50-5.40) 3.09x10^6/uL (3.50-5.40) Hemoglobin 9.2g/dL (12.0-15.5) 7.7g/dL (12.0-15.5) Hematocrit 28.6% (36.0-47.0) 24.2% (36.0-47.0) Mean Corpuscular Volume 79fL (79-100) 78fL (79-100) Mean Corpuscular Hemoglobin 26pg (25-35) 25pg (25-35) Mean Corpuscular Hemoglobin Concent 32g/dL (31-37) 32g/dL (31-37) Red Cell Distribution Width 23.6% (11.5-14.5) 24.8% (11.5-14.5) Platelet Count 168x10^3/uL (140-400) 198x10^3/uL (140-400) Neutrophils (%) (Auto) 75% (31-73) 88% (31-73) Lymphocytes (%) (Auto) 11% (24-48) 3% (24-48) Monocytes (%) (Auto) 8% (0-9) 9% (0-9) Eosinophils (%) (Auto) 4% (0-3) 0% (0-3) Basophils (%) (Auto) 1% (0-3) 0% (0-3) Neutrophils # (Auto) 8.2x10^3uL (1.8-7.7) 21.1x10^3uL (1.8-7.7) Lymphocytes # (Auto) 1.2x10^3/uL (1.0-4.8) 0.6x10^3/uL (1.0-4.8) Monocytes # (Auto) 0.9x10^3/uL (0.0-1.1) 2.0x10^3/uL (0.0-1.1) Eosinophils # (Auto) 0.4x10^3/uL (0.0-0.7) 0.0x10^3/uL (0.0-0.7) Basophils # (Auto) 0.1x10^3/uL (0.0-0.2) 0.1x10^3/uL (0.0-0.2) Sodium Level 136mmol/L (136-145) 137mmol/L (136-145) Potassium Level 4.0mmol/L (3.5-5.1) 4.0mmol/L (3.5-5.1) Chloride Level 105mmol/L (98-107) 103mmol/L (98-107) Carbon Dioxide Level 26mmol/L (21-32) 24mmol/L (21-32) Anion Gap 5 (6-14) 10 (6-14) Blood Urea Nitrogen 6mg/dL (7-20) 8mg/dL (7-20) Creatinine 0.7mg/dL (0.6-1.0) 0.9mg/dL (0.6-1.0) Estimated GFR (Cockcroft-Gault) 88.9 66.5 BUN/Creatinine Ratio 9 (6-20) 9 (6-20) Glucose Level 95mg/dL (70-99) 136mg/dL (70-99) Calcium Level 8.7mg/dL (8.5-10.1) 8.8mg/dL (8.5-10.1) Total Bilirubin 0.5mg/dL (0.2-1.0) 1.0mg/dL (0.2-1.0) Aspartate Amino Transf (AST/SGOT) 55U/L (15-37) 102U/L (15-37) Alanine Aminotransferase (ALT/SGPT) 34U/L (14-59) 53U/L (14-59) Alkaline Phosphatase 130U/L (46-116) 130U/L (46-116) Total Protein 8.1g/dL (6.4-8.2) 8.0g/dL (6.4-8.2) Albumin 2.7g/dL (3.4-5.0) 2.6g/dL (3.4-5.0) Albumin/Globulin Ratio 0.5 (1.0-1.7) 0.5 (1.0-1.7) Segmented Neutrophils % 80% (35-66) Band Neutrophils % 7% (0-9) Lymphocytes % 5% (24-48) Monocytes % 7% (0-10) Metamyelocytes % 1% (0-0) Platelet Estimate Adequate (ADEQUATE) Laboratory Tests Test 07/02/16 10:51 07/03/16 04:50 Glucose (Fingerstick) 88mg/dL (70-99) White Blood Count 23.9x10^3/uL (4.0-11.0) Red Blood Count 3.09x10^6/uL (3.50-5.40) Hemoglobin 7.7g/dL (12.0-15.5) Hematocrit 24.2% (36.0-47.0) Mean Corpuscular Volume 78fL (79-100) Mean Corpuscular Hemoglobin 25pg (25-35) Mean Corpuscular Hemoglobin Concent 32g/dL (31-37) Red Cell Distribution Width 24.8% (11.5-14.5) Platelet Count 198x10^3/uL (140-400) Neutrophils (%) (Auto) 88% (31-73) Lymphocytes (%) (Auto) 3% (24-48) Monocytes (%) (Auto) 9% (0-9) Eosinophils (%) (Auto) 0% (0-3) Basophils (%) (Auto) 0% (0-3) Neutrophils # (Auto) 21.1x10^3uL (1.8-7.7) Lymphocytes # (Auto) 0.6x10^3/uL (1.0-4.8) Monocytes # (Auto) 2.0x10^3/uL (0.0-1.1) Eosinophils # (Auto) 0.0x10^3/uL (0.0-0.7) Basophils # (Auto) 0.1x10^3/uL (0.0-0.2) Segmented Neutrophils % 80% (35-66) Band Neutrophils % 7% (0-9) Lymphocytes % 5% (24-48) Monocytes % 7% (0-10) Metamyelocytes % 1% (0-0) Platelet Estimate Adequate (ADEQUATE) Sodium Level 137mmol/L (136-145) Potassium Level 4.0mmol/L (3.5-5.1) Chloride Level 103mmol/L (98-107) Carbon Dioxide Level 24mmol/L (21-32) Anion Gap 10 (6-14) Blood Urea Nitrogen 8mg/dL (7-20) Creatinine 0.9mg/dL (0.6-1.0) Estimated GFR (Cockcroft-Gault) 66.5 BUN/Creatinine Ratio 9 (6-20) Glucose Level 136mg/dL (70-99) Calcium Level 8.8mg/dL (8.5-10.1) Total Bilirubin 1.0mg/dL (0.2-1.0) Aspartate Amino Transf (AST/SGOT) 102U/L (15-37) Alanine Aminotransferase (ALT/SGPT) 53U/L (14-59) Alkaline Phosphatase 130U/L (46-116) Total Protein 8.0g/dL (6.4-8.2) Albumin 2.6g/dL (3.4-5.0) Albumin/Globulin Ratio 0.5 (1.0-1.7) Microbiology 06/25/16 Urine Culture - Final, Complete 06/25/16 Urine Culture Result 1 (JAKE) - Final, Complete Drop in hemolobin felt to be dilutional. Leukocytosis from stress? Platelet count OK. LFT's basically stable. Medications Current Medications Sodium Chloride (Iv Sodium Chloride 0.9% 1000ml Bag) 1,000 ml @ 1,000 mls/hr Q1H IV Last administered on 06/25/16 19:05; Start 06/25/16 at 18:00; Stop 01/31 at 18:59; Status DC Ondansetron HCl (Zofran) 4 mg 1X ONCE IV Last administered on 06/25/16 19:08 ; Start 06/25/16 at 18:00; Stop 06/25/16 at 18:01; Status DC Famotidine (Pepcid) 20 mg 1X ONCE IVP ; Start 06/25/16 at 18:00; Stop 06/25/16 at 18:27; Status DC Fentanyl Citrate (Fentanyl 2ml Vial) 50 mcg PRN Q15MIN PRN IV PAIN GREATER THAN 3/10 Last administered on 06/25/16 19:07; Start 06/25/16 at 18:00; Stop at 21:33; Status DC Pantoprazole Sodium 40 mg 40 mg 1X ONCE IVP Last administered on 06/25/16 19: 14; Start 06/25/16 at 18:30; Stop 06/25/16 at 18:31; Status DC Pantoprazole Sodium/Sodium Chloride (Protonix Iv/Iv Sodium Chloride 0.9% 100ml) 100 ml @ 10 mls/hr Q10H IV Last administered on 06/28/16 16:36; Start at 18:30; Stop 06/29/16 at 07:18; Status DC Ondansetron HCl (Zofran) 4 mg PRN Q8HRS PRN IV NAUSEA/VOMITING Last administered on 06/26/16 13:37; Start 06/25/16 at 19:00; Stop 06/26/16 at 18:59 ; Status DC Fentanyl Citrate 50 mcg 50 mcg PRN Q2HR PRN IV PAIN Last administered on 17:19; Start 06/25/16 at 19:00; Stop 06/26/16 at 18:59; Status DC Sodium Chloride 1,000 ml @ 125 mls/hr Q8H IV Last administered on 06/26/16 10 :58; Start 06/25/16 at 18:58; Stop 06/26/16 at 18:57; Status DC Propofol (Diprivan) 20 ml @ As Directed STK-MED ONCE IV ; Start 06/26/16 at 09: 32; Stop 06/26/16 at 09:33; Status DC Lidocaine HCl 5 ml 5 ml STK-MED ONCE .ROUTE ; Start 06/26/16 at 09:32; Stop 03/02 at 09:33; Status DC Propofol 20 ml @ As Directed STK-MED ONCE IV ; Start 06/26/16 at 09:50; Stop 03/02 at 09:51; Status DC Propofol 20 ml @ As Directed STK-MED ONCE IV ; Start 06/26/16 at 09:55; Stop 03/02 at 09:56; Status DC Propofol (Diprivan) 20 ml @ As Directed STK-MED ONCE IV ; Start 06/26/16 at 10: 04; Stop 06/26/16 at 10:05; Status DC Epinephrine HCl (Epinephrine Syringe) 1 mg STK-MED ONCE .ROUTE ; Start 06/26/16 at 10:07; Stop 06/26/16 at 10:08; Status DC Insulin Aspart (Novolog) 0-7 UNITS TIDWMEALS SQ Last administered on 06/27/16 17:38; Start 06/26/16 at 12:00 Dextrose 12.5 gm 12.5 gm PRN Q15MIN PRN IV SEE COMMENTS; Start 06/26/16 at 10: 15 Propofol 20 ml @ As Directed STK-MED ONCE IV ; Start 06/26/16 at 10:11; Stop 03/02 at 10:12; Status DC Propofol (Diprivan) 40 ml @ As Directed STK-MED ONCE IV ; Start 06/26/16 at 10: 20; Stop 06/26/16 at 10:21; Status DC Epinephrine HCl (Epinephrine Syringe) 1 mg STK-MED ONCE IV Last administered on 06/26/16 10:20; Start 06/26/16 at 10:20; Stop 06/26/16 at 10:46; Status DC Epinephrine HCl 1 mg 1 mg STK-MED ONCE IV Last administered on 06/26/16 10:22 ; Start 06/26/16 at 10:22; Stop 06/26/16 at 10:46; Status DC Octreotide Acetate/Sodium Chloride (Sandostatin/Iv Sodium Chloride 0.9% 100ml) 101 ml @ 0 mls/hr CONT PRN IV SEE COMMENTS Last administered on 06/28/16 17:42 ; Start 06/26/16 at 11:00; Stop 06/29/16 at 07:18; Status DC Fentanyl Citrate (Fentanyl 2ml Vial) 25 mcg PRN Q4HRS PRN IV PAIN; Start at 21:00; Stop 06/26/16 at 21:00; Status DC Fentanyl Citrate 25 mcg 25 mcg PRN Q4HRS PRN IV PAIN Last administered on 20:42; Start 06/26/16 at 21:00; Stop 06/28/16 at 00:00; Status DC Iron Sucrose/ Sodium Chloride (Venofer/Iv Sodium Chloride 0.9% 250ml) 265 ml @ 90 mls/hr Q12HR IV Last administered on 06/28/16 09:57; Start 06/27/16 at 12: 00; Stop 06/28/16 at 11:57; Status DC Fentanyl Citrate (Fentanyl 2ml Vial) 25 mcg PRN Q4HRS PRN IV SEVERE PAIN Last administered on 07/01/16 06:17; Start 06/28/16 at 01:15; Stop 07/01/16 at 09:00 ; Status DC Ondansetron HCl 4 mg 4 mg PRN Q6HRS PRN IV NAUSEA/VOMITING Last administered on 07/02/16 20:32; Start 06/28/16 at 04:30 Ceftriaxone Sodium/Sodium Chloride (Rocephin/Iv Sodium Chloride 0.9% 50ml) 50 ml @ 100 mls/hr Q24H IV Last administered on 07/01/16 15:46; Start 06/28/16 at 16:00; Stop 07/02/16 at 13:43; Status DC Pantoprazole Sodium (Protonix) 40 mg DAILYAC PO Last administered on 07/01/16 06:17; Start 06/29/16 at 08:00 Iohexol (Omnipaque 350 Mg/ml) 75 ml 1X ONCE IV Last administered on 06/29/16 12:05; Start 06/29/16 at 12:00; Stop 06/29/16 at 12:01; Status DC Info (Do NOT chart on this entry -- for MONITORING) 1 each PRN DAILY PRN MC SEE COMMENTS; Start 06/29/16 at 12:00; Stop 07/01/16 at 11:59; Status DC Potassium Chloride (Klor-Con) 40 meq 1X ONCE PO Last administered on 11:18; Start 06/30/16 at 11:00; Stop 06/30/16 at 11:01; Status DC Morphine Sulfate 2 mg PRN Q2HR PRN IV PAIN Last administered on 07/01/16 09:04 ; Start 07/01/16 at 09:00; Stop 07/01/16 at 10:53; Status DC Fentanyl Citrate (Fentanyl 2ml Vial) 25 mcg PRN Q2HR PRN IV SEVERE PAIN Last administered on 07/02/16 22:30; Start 07/01/16 at 01:15 Morphine Sulfate 4 mg PRN Q2HR PRN IV PAIN Last administered on 07/03/16 02:14 ; Start 07/01/16 at 11:00 Ondansetron HCl (Zofran) 4 mg PRN Q6HRS PRN IV NAUSEA/VOMITING; Start 07/01/16 at 11:00; Stop 07/02/16 at 10:59; Status DC Fentanyl Citrate (Fentanyl 2ml Vial) 25 mcg PRN Q5MIN PRN IV MILD PAIN; Start 07/01/16 at 11:00; Stop 07/02/16 at 10:59; Status DC Fentanyl Citrate (Fentanyl 2ml Vial) 50 mcg PRN Q5MIN PRN IV MODERATE PAIN; Start 07/01/16 at 11:00; Stop 07/02/16 at 10:59; Status DC Morphine Sulfate 1 mg 1 mg PRN Q10MIN PRN IV SEVERE PAIN; Start 07/01/16 at 11: 00; Stop 07/02/16 at 10:59; Status DC Lactated Ringer's (Iv Lactated Ringers) 1,000 ml @ 30 mls/hr Q24H IV ; Start at 10:59; Stop 07/01/16 at 22:58; Status DC Lidocaine HCl 2 ml PRN 1X PRN ID PRIOR TO IV START; Start 07/01/16 at 11:00; Stop 07/02/16 at 10:59; Status DC Hydromorphone HCl (Dilaudid) 0.5 mg PRN Q10MIN PRN IV SEV PAIN, Second choice; Start 07/01/16 at 11:00; Stop 07/02/16 at 10:59; Status DC Prochlorperazine Edisylate (Compazine) 5 mg PACU PRN PRN IV NAUSEA, MRX1; Start 07/01/16 at 11:00; Stop 07/02/16 at 10:59; Status DC Midazolam HCl (Versed) 2 mg STK-MED ONCE .ROUTE ; Start 07/01/16 at 13:27; Stop 07/01/16 at 13:28; Status DC Fentanyl Citrate (Fentanyl 5ml Vial) 250 mcg STK-MED ONCE .ROUTE ; Start at 13:27; Stop 07/01/16 at 13:28; Status DC Iohexol (Omnipaque 300 Mg/ml) 100 ml STK-MED ONCE .ROUTE ; Start 07/01/16 at 13: 30; Stop 07/01/16 at 13:31; Status DC Lidocaine/Sodium Bicarbonate 20 ml 20 ml STK-MED ONCE IJ ; Start 07/01/16 at 13: 30; Stop 07/01/16 at 13:31; Status DC Heparin Sodium/ Sodium Chloride 500 ml @ As Directed STK-MED ONCE .ROUTE ; Start 07/01/16 at 13:30; Stop 07/01/16 at 13:31; Status DC Heparin Sodium/ Sodium Chloride 1,000 unit 1X ONCE IART Last administered on 14:25; Start 07/01/16 at 14:15; Stop 07/01/16 at 14:20; Status DC Lidocaine/Sodium Bicarbonate (Buffered Lidocaine 1%) 2 ml 1X ONCE IJ Last administered on 07/01/16 14:25; Start 07/01/16 at 14:15; Stop 07/01/16 at 14:20 ; Status DC Midazolam HCl (Versed) 2 mg 1X ONCE IV Last administered on 07/01/16 14:26; Start 07/01/16 at 14:15; Stop 07/01/16 at 14:20; Status DC Fentanyl Citrate (Fentanyl 5ml Vial) 100 mcg 1X ONCE IV Last administered on 14:26; Start 07/01/16 at 14:15; Stop 07/01/16 at 14:20; Status DC Iohexol (Omnipaque 300 Mg/ml) 40 ml 1X ONCE IART Last administered on 14:26; Start 07/01/16 at 14:15; Stop 07/01/16 at 14:20; Status DC Iohexol (Omnipaque 300 Mg/ml) 100 ml STK-MED ONCE .ROUTE ; Start 07/02/16 at 12: 24; Stop 07/02/16 at 12:25; Status DC Lidocaine/Sodium Bicarbonate 20 ml 20 ml STK-MED ONCE IJ ; Start 07/02/16 at 12: 25; Stop 07/02/16 at 12:26; Status DC Heparin Sodium/ Sodium Chloride 1,000 ml @ As Directed STK-MED ONCE .ROUTE ; Start 07/02/16 at 12:25; Stop 07/02/16 at 12:26; Status DC Heparin Sodium/ Sodium Chloride 2,000 unit 1X ONCE IART Last administered on 14:04; Start 07/02/16 at 13:15; Stop 07/02/16 at 13:16; Status DC Lidocaine/Sodium Bicarbonate (Buffered Lidocaine 1%) 20 ml 1X ONCE IJ Last administered on 07/02/16 14:05; Start 07/02/16 at 13:15; Stop 07/02/16 at 13:16 ; Status DC Iohexol 200 ml 200 ml 1X ONCE IART Last administered on 07/02/16 14:05; Start 07/02/16 at 13:15; Stop 07/02/16 at 13:16; Status DC Ceftriaxone Sodium (Rocephin 1gm Ivpb For Omni) 50 ml @ As Directed STK-MED ONCE IV ; Start 07/02/16 at 13:20; Stop 07/02/16 at 13:21; Status DC Dexamethasone Sodium Phosphate (Decadron) 20 mg STK-MED ONCE .ROUTE ; Start at 13:34; Stop 07/02/16 at 13:35; Status DC Ondansetron HCl 4 mg 4 mg STK-MED ONCE .ROUTE ; Start 07/02/16 at 13:34; Stop at 13:35; Status DC Propofol (Diprivan) 20 ml @ As Directed STK-MED ONCE IV ; Start 07/02/16 at 13: 34; Stop 07/02/16 at 13:35; Status DC Fentanyl Citrate (Fentanyl 2ml Vial) 100 mcg STK-MED ONCE .ROUTE ; Start at 13:34; Stop 07/02/16 at 13:35; Status DC Midazolam HCl (Versed) 2 mg STK-MED ONCE .ROUTE ; Start 07/02/16 at 13:34; Stop 07/02/16 at 13:35; Status DC Rocuronium [place] 50 mg 50 mg STK-MED ONCE .ROUTE ; Start 07/02/16 at 13:34; Stop 07/02/16 at 13:35; Status DC Ceftriaxone Sodium 50 ml @ 100 mls/hr 1X ONCE IV Last administered on t 14:06; Start 07/02/16 at 13:45; Stop 07/02/16 at 14:14; Status DC Ceftriaxone Sodium/Sodium Chloride (Rocephin/Iv Sodium Chloride 0.9% 50ml) 50 ml @ 100 mls/hr Q24H IV ; Start 07/03/16 at 14:00 Ephedrine Sulfate (Akovaz) 50 mg STK-MED ONCE .ROUTE ; Start 07/02/16 at 14:16; Stop 07/02/16 at 14:17; Status DC Phenylephrine HCl 1 mg STK-MED ONCE IV ; Start 07/02/16 at 14:16; Stop 07/02/16 at 14:17; Status DC Fentanyl Citrate (Fentanyl 2ml Vial) 100 mcg STK-MED ONCE .ROUTE ; Start at 16:30; Stop 07/02/16 at 16:31; Status DC Fentanyl Citrate 100 mcg 100 mcg STK-MED ONCE .ROUTE ; Start 07/02/16 at 17:50; Stop 07/02/16 at 17:51; Status DC Propofol (Diprivan) 20 ml @ As Directed STK-MED ONCE IV ; Start 07/02/16 at 17: 50; Stop 07/02/16 at 17:51; Status DC Active Scripts Active Fioricet 50-300-40 Mg Capsule (Butalb/Acetaminophen/Caffeine) 1 Each Capsule 1 Each PO PRN Q4HRS PRN Vitals/I & O Vital Sign - Last 24 Hours 07/02/16 07/02/16 07/02/16 07/02/16 08:46 11:00 19:15 19:30 Temp 98.1 99.3 98.1 99.3 Pulse 64 94 90 Resp 16 26 26 B/P 139/73 147/82 142/83 Pulse Ox 98 95 99 100 O2 Delivery Room Air Room Air Simple Mask Simple Mask O2 Flow Rate 10.0 10.0 4/18/17 4/18/17 4/18/17 4/18/17 19:45 20:00 20:00 20:15 Pulse 84 78 74 Resp 20 20 23 B/P 154/86 147/78 142/77 Pulse Ox 100 100 100 O2 Delivery Simple Mask Simple Mask Mask Nasal Cannula O2 Flow Rate 10.0 10.0 10.0 3.0 4/18/17 4/18/17 4/18/17 4/18/17 20:31 20:45 21:00 21:01 Pulse 72 72 Resp 24 10 14 B/P 151/83 147/83 Pulse Ox 95 98 98 O2 Delivery Simple Mask Nasal Cannula Nasal Cannula Nasal Cannula O2 Flow Rate 10.0 3.0 3.0 /18/17 4/18/17 4/18/17 4/18/17 22:00 22:30 23:00 23:00 Pulse 81 92 Resp 13 12 16 24 B/P 140/79 143/76 Pulse Ox 98 98 98 100 O2 Delivery Nasal Cannula Nasal Cannula O2 Flow Rate 3.0 3.0 3.0 3.0 18/17 4//17 4//17 417 23:38 00:00 00:01 00:08 Temp 96.9 96.9 Pulse 93 Resp 14 14 14 B/P 125/70 Pulse Ox 100 99 99 O2 Delivery Nasal Cannula Nasal Cannula Nasal Cannula O2 Flow Rate 2.0 2.0 2.0 2.0 07/03/17 4//17 4//17 417 01:00 02:00 02:14 03:00 Pulse 62 79 78 Resp 20 24 15 17 B/P 118/54 126/64 115/61 Pulse Ox 99 99 99 99 O2 Delivery Nasal Cannula Nasal Cannula Nasal Cannula Nasal Cannula O2 Flow Rate 2.0 2.0 2.0 2.0 07/03/17 4//17 4//17 4 04:00 04:00 05:00 06:00 Temp 94.8 97.0 94.8 97.0 Pulse 61 77 87 Resp 17 17 17 B/P 118/55 101/65 103/64 Pulse Ox 99 98 97 O2 Delivery Nasal Cannula Nasal Cannula Nasal Cannula Nasal Cannula O2 Flow Rate 2.0 2.0 2.0 2.0 Intake and Output 07/02/16 07/02/16 07/03/16 15:00 23:00 07:00 Intake Total 0 ml Output Total 1150 ml Balance -1150 ml Problem List Problems Medical Problems: (1) Acute GI bleeding Status: Acute (2) Blood loss anemia Status: Acute (3) Moderate protein malnutrition Status: Acute Assessment Cirrhosis/portal HTN, s/p TIPS. Seems to have tolerated well. Plan of Care: Continue current Tx, Mgmt Plan of Care Note Out of ICU OK with me. OK to feed, resume prior meds. Monitor hemoglobin, mentation. Home soon if continues OK. RETA CANTU MD Jul 03, 2016 08:20
[2016-07-03] MEDS: PANTOPRAZOLE 40 MG TABLET.DR. PO SCH (08:37)
--- NOTE | 2016-07-03 11:59 | PDOC ---
PROGRESS NOTES Chief Complaint Chief Complaint Upper GI bleeding, 2/2 to portal hypertension, esophageal varices s/p EGD, s/p TIPS on 07/02 hep C, alcoholic cirrhosis non compliance plan: fu with IR, gi post TIPS on soft gi diet ok to transfer out of ICU ammonia level tmr still on ceftriaxone, may dc when dc home. gi ppx - History of Present Illness History of Present Illness No GI Bleeding no fever post TIPS 07/01, mild abd pain ,diffusely Vitals Vitals Vital Signs Date Time Temp Pulse Resp B/P Pulse Ox O2 Delivery O2 Flow Rate FiO2 07/03/16 11:35 Nasal Cannula 2.0 07/03/16 09:11 95 07/03/16 08:47 97.5 94 16 104/62 97.5 Physical Exam General: Alert, Oriented X3, Cooperative, No acute distress Heart: Regular rate, Normal S1, Normal S2, No murmurs Lungs: Clear, Other (No chest retractions were present.) Abdomen: Soft, Other (mild diffusely tenderness) Extremities: No clubbing, No cyanosis Skin: No rashes, No breakdown Labs LABS Laboratory Tests Test 07/03/16 04:50 07/03/16 08:43 White Blood Count 23.9x10^3/uL (4.0-11.0) Red Blood Count 3.09x10^6/uL (3.50-5.40) Hemoglobin 7.7g/dL (12.0-15.5) Hematocrit 24.2% (36.0-47.0) Mean Corpuscular Volume 78fL (79-100) Mean Corpuscular Hemoglobin 25pg (25-35) Mean Corpuscular Hemoglobin Concent 32g/dL (31-37) Red Cell Distribution Width 24.8% (11.5-14.5) Platelet Count 198x10^3/uL (140-400) Neutrophils (%) (Auto) 88% (31-73) Lymphocytes (%) (Auto) 3% (24-48) Monocytes (%) (Auto) 9% (0-9) Eosinophils (%) (Auto) 0% (0-3) Basophils (%) (Auto) 0% (0-3) Neutrophils # (Auto) 21.1x10^3uL (1.8-7.7) Lymphocytes # (Auto) 0.6x10^3/uL (1.0-4.8) Monocytes # (Auto) 2.0x10^3/uL (0.0-1.1) Eosinophils # (Auto) 0.0x10^3/uL (0.0-0.7) Basophils # (Auto) 0.1x10^3/uL (0.0-0.2) Segmented Neutrophils % 80% (35-66) Band Neutrophils % 7% (0-9) Lymphocytes % 5% (24-48) Monocytes % 7% (0-10) Metamyelocytes % 1% (0-0) Platelet Estimate Adequate (ADEQUATE) Sodium Level 137mmol/L (136-145) Potassium Level 4.0mmol/L (3.5-5.1) Chloride Level 103mmol/L (98-107) Carbon Dioxide Level 24mmol/L (21-32) Anion Gap 10 (6-14) Blood Urea Nitrogen 8mg/dL (7-20) Creatinine 0.9mg/dL (0.6-1.0) Estimated GFR (Cockcroft-Gault) 66.5 BUN/Creatinine Ratio 9 (6-20) Glucose Level 136mg/dL (70-99) Calcium Level 8.8mg/dL (8.5-10.1) Total Bilirubin 1.0mg/dL (0.2-1.0) Aspartate Amino Transf (AST/SGOT) 102U/L (15-37) Alanine Aminotransferase (ALT/SGPT) 53U/L (14-59) Alkaline Phosphatase 130U/L (46-116) Total Protein 8.0g/dL (6.4-8.2) Albumin 2.6g/dL (3.4-5.0) Albumin/Globulin Ratio 0.5 (1.0-1.7) Glucose (Fingerstick) 112mg/dL (70-99) Review of Systems Review of Systems no fever, chills, sob or chest pain Assessment and Plan Assessmemt and Plan Problems Medical Problems: (1) Acute GI bleeding Status: Acute (2) Blood loss anemia Status: Acute (3) Moderate protein malnutrition Status: Acute Problems: Comment Review of Relevant I have reviewed the following items candace (where applicable) has been applied. Labs Laboratory Tests Test 07/01/16 16:36 07/01/16 22:01 07/02/16 05:00 07/02/16 07:51 Glucose (Fingerstick) 98mg/dL (70-99) 127mg/dL (70-99) 92mg/dL (70-99) Prothrombin Time 15.4SEC (11.7-14.0) Prothromb Time International Ratio 1.3 (0.8-1.1) Test 07/02/16 08:00 07/02/16 10:51 07/03/16 04:50 07/03/16 08:43 White Blood Count 10.8x10^3/uL (4.0-11.0) 23.9x10^3/uL (4.0-11.0) Red Blood Count 3.62x10^6/uL (3.50-5.40) 3.09x10^6/uL (3.50-5.40) Hemoglobin 9.2g/dL (12.0-15.5) 7.7g/dL (12.0-15.5) Hematocrit 28.6% (36.0-47.0) 24.2% (36.0-47.0) Mean Corpuscular Volume 79fL (79-100) 78fL (79-100) Mean Corpuscular Hemoglobin 26pg (25-35) 25pg (25-35) Mean Corpuscular Hemoglobin Concent 32g/dL (31-37) 32g/dL (31-37) Red Cell Distribution Width 23.6% (11.5-14.5) 24.8% (11.5-14.5) Platelet Count 168x10^3/uL (140-400) 198x10^3/uL (140-400) Neutrophils (%) (Auto) 75% (31-73) 88% (31-73) Lymphocytes (%) (Auto) 11% (24-48) 3% (24-48) Monocytes (%) (Auto) 8% (0-9) 9% (0-9) Eosinophils (%) (Auto) 4% (0-3) 0% (0-3) Basophils (%) (Auto) 1% (0-3) 0% (0-3) Neutrophils # (Auto) 8.2x10^3uL (1.8-7.7) 21.1x10^3uL (1.8-7.7) Lymphocytes # (Auto) 1.2x10^3/uL (1.0-4.8) 0.6x10^3/uL (1.0-4.8) Monocytes # (Auto) 0.9x10^3/uL (0.0-1.1) 2.0x10^3/uL (0.0-1.1) Eosinophils # (Auto) 0.4x10^3/uL (0.0-0.7) 0.0x10^3/uL (0.0-0.7) Basophils # (Auto) 0.1x10^3/uL (0.0-0.2) 0.1x10^3/uL (0.0-0.2) Sodium Level 136mmol/L (136-145) 137mmol/L (136-145) Potassium Level 4.0mmol/L (3.5-5.1) 4.0mmol/L (3.5-5.1) Chloride Level 105mmol/L (98-107) 103mmol/L (98-107) Carbon Dioxide Level 26mmol/L (21-32) 24mmol/L (21-32) Anion Gap 5 (6-14) 10 (6-14) Blood Urea Nitrogen 6mg/dL (7-20) 8mg/dL (7-20) Creatinine 0.7mg/dL (0.6-1.0) 0.9mg/dL (0.6-1.0) Estimated GFR (Cockcroft-Gault) 88.9 66.5 BUN/Creatinine Ratio 9 (6-20) 9 (6-20) Glucose Level 95mg/dL (70-99) 136mg/dL (70-99) Calcium Level 8.7mg/dL (8.5-10.1) 8.8mg/dL (8.5-10.1) Total Bilirubin 0.5mg/dL (0.2-1.0) 1.0mg/dL (0.2-1.0) Aspartate Amino Transf (AST/SGOT) 55U/L (15-37) 102U/L (15-37) Alanine Aminotransferase (ALT/SGPT) 34U/L (14-59) 53U/L (14-59) Alkaline Phosphatase 130U/L (46-116) 130U/L (46-116) Total Protein 8.1g/dL (6.4-8.2) 8.0g/dL (6.4-8.2) Albumin 2.7g/dL (3.4-5.0) 2.6g/dL (3.4-5.0) Albumin/Globulin Ratio 0.5 (1.0-1.7) 0.5 (1.0-1.7) Glucose (Fingerstick) 88mg/dL (70-99) 112mg/dL (70-99) Segmented Neutrophils % 80% (35-66) Band Neutrophils % 7% (0-9) Lymphocytes % 5% (24-48) Monocytes % 7% (0-10) Metamyelocytes % 1% (0-0) Platelet Estimate Adequate (ADEQUATE) Laboratory Tests Test 07/03/16 04:50 07/03/16 08:43 White Blood Count 23.9x10^3/uL (4.0-11.0) Red Blood Count 3.09x10^6/uL (3.50-5.40) Hemoglobin 7.7g/dL (12.0-15.5) Hematocrit 24.2% (36.0-47.0) Mean Corpuscular Volume 78fL (79-100) Mean Corpuscular Hemoglobin 25pg (25-35) Mean Corpuscular Hemoglobin Concent 32g/dL (31-37) Red Cell Distribution Width 24.8% (11.5-14.5) Platelet Count 198x10^3/uL (140-400) Neutrophils (%) (Auto) 88% (31-73) Lymphocytes (%) (Auto) 3% (24-48) Monocytes (%) (Auto) 9% (0-9) Eosinophils (%) (Auto) 0% (0-3) Basophils (%) (Auto) 0% (0-3) Neutrophils # (Auto) 21.1x10^3uL (1.8-7.7) Lymphocytes # (Auto) 0.6x10^3/uL (1.0-4.8) Monocytes # (Auto) 2.0x10^3/uL (0.0-1.1) Eosinophils # (Auto) 0.0x10^3/uL (0.0-0.7) Basophils # (Auto) 0.1x10^3/uL (0.0-0.2) Segmented Neutrophils % 80% (35-66) Band Neutrophils % 7% (0-9) Lymphocytes % 5% (24-48) Monocytes % 7% (0-10) Metamyelocytes % 1% (0-0) Platelet Estimate Adequate (ADEQUATE) Sodium Level 137mmol/L (136-145) Potassium Level 4.0mmol/L (3.5-5.1) Chloride Level 103mmol/L (98-107) Carbon Dioxide Level 24mmol/L (21-32) Anion Gap 10 (6-14) Blood Urea Nitrogen 8mg/dL (7-20) Creatinine 0.9mg/dL (0.6-1.0) Estimated GFR (Cockcroft-Gault) 66.5 BUN/Creatinine Ratio 9 (6-20) Glucose Level 136mg/dL (70-99) Calcium Level 8.8mg/dL (8.5-10.1) Total Bilirubin 1.0mg/dL (0.2-1.0) Aspartate Amino Transf (AST/SGOT) 102U/L (15-37) Alanine Aminotransferase (ALT/SGPT) 53U/L (14-59) Alkaline Phosphatase 130U/L (46-116) Total Protein 8.0g/dL (6.4-8.2) Albumin 2.6g/dL (3.4-5.0) Albumin/Globulin Ratio 0.5 (1.0-1.7) Glucose (Fingerstick) 112mg/dL (70-99) Microbiology 06/25/16 Urine Culture - Final, Complete 06/25/16 Urine Culture Result 1 (JAEK) - Final, Complete Medications Current Medications Sodium Chloride (Iv Sodium Chloride 0.9% 1000ml Bag) 1,000 ml @ 1,000 mls/hr Q1H IV Last administered on 06/25/16 19:05; Start 06/25/16 at 18:00; Stop 01/31 at 18:59; Status DC Ondansetron HCl (Zofran) 4 mg 1X ONCE IV Last administered on 06/25/16 19:08 ; Start 06/25/16 at 18:00; Stop 06/25/16 at 18:01; Status DC Famotidine (Pepcid) 20 mg 1X ONCE IVP ; Start 06/25/16 at 18:00; Stop 06/25/16 at 18:27; Status DC Fentanyl Citrate (Fentanyl 2ml Vial) 50 mcg PRN Q15MIN PRN IV PAIN GREATER THAN 3/10 Last administered on 06/25/16 19:07; Start 06/25/16 at 18:00; Stop at 21:33; Status DC Pantoprazole Sodium 40 mg 40 mg 1X ONCE IVP Last administered on 06/25/16 19: 14; Start 06/25/16 at 18:30; Stop 06/25/16 at 18:31; Status DC Pantoprazole Sodium/Sodium Chloride (Protonix Iv/Iv Sodium Chloride 0.9% 100ml) 100 ml @ 10 mls/hr Q10H IV Last administered on 06/28/16 16:36; Start at 18:30; Stop 06/29/16 at 07:18; Status DC Ondansetron HCl (Zofran) 4 mg PRN Q8HRS PRN IV NAUSEA/VOMITING Last administered on 06/26/16 13:37; Start 06/25/16 at 19:00; Stop 06/26/16 at 18:59 ; Status DC Fentanyl Citrate 50 mcg 50 mcg PRN Q2HR PRN IV PAIN Last administered on 17:19; Start 06/25/16 at 19:00; Stop 06/26/16 at 18:59; Status DC Sodium Chloride 1,000 ml @ 125 mls/hr Q8H IV Last administered on 06/26/16 10 :58; Start 06/25/16 at 18:58; Stop 06/26/16 at 18:57; Status DC Propofol (Diprivan) 20 ml @ As Directed STK-MED ONCE IV ; Start 06/26/16 at 09: 32; Stop 06/26/16 at 09:33; Status DC Lidocaine HCl 5 ml 5 ml STK-MED ONCE .ROUTE ; Start 06/26/16 at 09:32; Stop 03/02 at 09:33; Status DC Propofol 20 ml @ As Directed STK-MED ONCE IV ; Start 06/26/16 at 09:50; Stop 03/02 at 09:51; Status DC Propofol 20 ml @ As Directed STK-MED ONCE IV ; Start 06/26/16 at 09:55; Stop 03/02 at 09:56; Status DC Propofol (Diprivan) 20 ml @ As Directed STK-MED ONCE IV ; Start 06/26/16 at 10: 04; Stop 06/26/16 at 10:05; Status DC Epinephrine HCl (Epinephrine Syringe) 1 mg STK-MED ONCE .ROUTE ; Start 06/26/16 at 10:07; Stop 06/26/16 at 10:08; Status DC Insulin Aspart (Novolog) 0-7 UNITS TIDWMEALS SQ Last administered on 06/27/16 17:38; Start 06/26/16 at 12:00 Dextrose 12.5 gm 12.5 gm PRN Q15MIN PRN IV SEE COMMENTS; Start 06/26/16 at 10: 15 Propofol 20 ml @ As Directed STK-MED ONCE IV ; Start 06/26/16 at 10:11; Stop 03/02 at 10:12; Status DC Propofol (Diprivan) 40 ml @ As Directed STK-MED ONCE IV ; Start 06/26/16 at 10: 20; Stop 06/26/16 at 10:21; Status DC Epinephrine HCl (Epinephrine Syringe) 1 mg STK-MED ONCE IV Last administered on 06/26/16 10:20; Start 06/26/16 at 10:20; Stop 06/26/16 at 10:46; Status DC Epinephrine HCl 1 mg 1 mg STK-MED ONCE IV Last administered on 06/26/16 10:22 ; Start 06/26/16 at 10:22; Stop 06/26/16 at 10:46; Status DC Octreotide Acetate/Sodium Chloride (Sandostatin/Iv Sodium Chloride 0.9% 100ml) 101 ml @ 0 mls/hr CONT PRN IV SEE COMMENTS Last administered on 06/28/16 17:42 ; Start 06/26/16 at 11:00; Stop 06/29/16 at 07:18; Status DC Fentanyl Citrate (Fentanyl 2ml Vial) 25 mcg PRN Q4HRS PRN IV PAIN; Start at 21:00; Stop 06/26/16 at 21:00; Status DC Fentanyl Citrate 25 mcg 25 mcg PRN Q4HRS PRN IV PAIN Last administered on 20:42; Start 06/26/16 at 21:00; Stop 06/28/16 at 00:00; Status DC Iron Sucrose/ Sodium Chloride (Venofer/Iv Sodium Chloride 0.9% 250ml) 265 ml @ 90 mls/hr Q12HR IV Last administered on 06/28/16 09:57; Start 06/27/16 at 12: 00; Stop 06/28/16 at 11:57; Status DC Fentanyl Citrate (Fentanyl 2ml Vial) 25 mcg PRN Q4HRS PRN IV SEVERE PAIN Last administered on 07/01/16 06:17; Start 06/28/16 at 01:15; Stop 07/01/16 at 09:00 ; Status DC Ondansetron HCl 4 mg 4 mg PRN Q6HRS PRN IV NAUSEA/VOMITING Last administered on 07/02/16 20:32; Start 06/28/16 at 04:30 Ceftriaxone Sodium/Sodium Chloride (Rocephin/Iv Sodium Chloride 0.9% 50ml) 50 ml @ 100 mls/hr Q24H IV Last administered on 07/01/16 15:46; Start 06/28/16 at 16:00; Stop 07/02/16 at 13:43; Status DC Pantoprazole Sodium (Protonix) 40 mg DAILYAC PO Last administered on 07/03/16 08:37; Start 06/29/16 at 08:00 Iohexol (Omnipaque 350 Mg/ml) 75 ml 1X ONCE IV Last administered on 06/29/16 12:05; Start 06/29/16 at 12:00; Stop 06/29/16 at 12:01; Status DC Info (Do NOT chart on this entry -- for MONITORING) 1 each PRN DAILY PRN MC SEE COMMENTS; Start 06/29/16 at 12:00; Stop 07/01/16 at 11:59; Status DC Potassium Chloride (Klor-Con) 40 meq 1X ONCE PO Last administered on 11:18; Start 06/30/16 at 11:00; Stop 06/30/16 at 11:01; Status DC Morphine Sulfate 2 mg PRN Q2HR PRN IV PAIN Last administered on 07/01/16 09:04 ; Start 07/01/16 at 09:00; Stop 07/01/16 at 10:53; Status DC Fentanyl Citrate (Fentanyl 2ml Vial) 25 mcg PRN Q2HR PRN IV SEVERE PAIN Last administered on 07/02/16t 22:30; Start 07/01/16 at 01:15 Morphine Sulfate 4 mg PRN Q2HR PRN IV PAIN Last administered on 07/03/16 08:41 ; Start 07/01/16 at 11:00 Ondansetron HCl (Zofran) 4 mg PRN Q6HRS PRN IV NAUSEA/VOMITING; Start 07/01/16 at 11:00; Stop 07/02/16 at 10:59; Status DC Fentanyl Citrate (Fentanyl 2ml Vial) 25 mcg PRN Q5MIN PRN IV MILD PAIN; Start 07/01/16 at 11:00; Stop 07/02/16 at 10:59; Status DC Fentanyl Citrate (Fentanyl 2ml Vial) 50 mcg PRN Q5MIN PRN IV MODERATE PAIN; Start 07/01/16 at 11:00; Stop 07/02/16 at 10:59; Status DC Morphine Sulfate 1 mg 1 mg PRN Q10MIN PRN IV SEVERE PAIN; Start 07/01/16 at 11: 00; Stop 07/02/16 at 10:59; Status DC Lactated Ringer's (Iv Lactated Ringers) 1,000 ml @ 30 mls/hr Q24H IV ; Start at 10:59; Stop 07/01/16 at 22:58; Status DC Lidocaine HCl 2 ml PRN 1X PRN ID PRIOR TO IV START; Start 07/01/16 at 11:00; Stop 07/02/16 at 10:59; Status DC Hydromorphone HCl (Dilaudid) 0.5 mg PRN Q10MIN PRN IV SEV PAIN, Second choice; Start 07/01/16 at 11:00; Stop 07/02/16 at 10:59; Status DC Prochlorperazine Edisylate (Compazine) 5 mg PACU PRN PRN IV NAUSEA, MRX1; Start 07/01/16 at 11:00; Stop 07/02/16 at 10:59; Status DC Midazolam HCl (Versed) 2 mg STK-MED ONCE .ROUTE ; Start 07/01/16 at 13:27; Stop 07/01/16 at 13:28; Status DC Fentanyl Citrate (Fentanyl 5ml Vial) 250 mcg STK-MED ONCE .ROUTE ; Start at 13:27; Stop 07/01/16 at 13:28; Status DC Iohexol (Omnipaque 300 Mg/ml) 100 ml STK-MED ONCE .ROUTE ; Start 07/01/16 at 13: 30; Stop 07/01/16 at 13:31; Status DC Lidocaine/Sodium Bicarbonate 20 ml 20 ml STK-MED ONCE IJ ; Start 07/01/16 at 13: 30; Stop 07/01/16 at 13:31; Status DC Heparin Sodium/ Sodium Chloride 500 ml @ As Directed STK-MED ONCE .ROUTE ; Start 07/01/16 at 13:30; Stop 07/01/16 at 13:31; Status DC Heparin Sodium/ Sodium Chloride 1,000 unit 1X ONCE IART Last administered on 14:25; Start 07/01/16 at 14:15; Stop 07/01/16 at 14:20; Status DC Lidocaine/Sodium Bicarbonate (Buffered Lidocaine 1%) 2 ml 1X ONCE IJ Last administered on 07/01/16 14:25; Start 07/01/16 at 14:15; Stop 07/01/16 at 14:20 ; Status DC Midazolam HCl (Versed) 2 mg 1X ONCE IV Last administered on 07/01/16 14:26; Start 07/01/16 at 14:15; Stop 07/01/16 at 14:20; Status DC Fentanyl Citrate (Fentanyl 5ml Vial) 100 mcg 1X ONCE IV Last administered on 14:26; Start 07/01/16 at 14:15; Stop 07/01/16 at 14:20; Status DC Iohexol (Omnipaque 300 Mg/ml) 40 ml 1X ONCE IART Last administered on 14:26; Start 07/01/16 at 14:15; Stop 07/01/16 at 14:20; Status DC Iohexol (Omnipaque 300 Mg/ml) 100 ml STK-MED ONCE .ROUTE ; Start 07/02/16 at 12: 24; Stop 07/02/16 at 12:25; Status DC Lidocaine/Sodium Bicarbonate 20 ml 20 ml STK-MED ONCE IJ ; Start 07/02/16 at 12: 25; Stop 07/02/16 at 12:26; Status DC Heparin Sodium/ Sodium Chloride 1,000 ml @ As Directed STK-MED ONCE .ROUTE ; Start 07/02/16 at 12:25; Stop 07/02/16 at 12:26; Status DC Heparin Sodium/ Sodium Chloride 2,000 unit 1X ONCE IART Last administered on t 14:04; Start 07/02/16 at 13:15; Stop 07/02/16 at 13:16; Status DC Lidocaine/Sodium Bicarbonate (Buffered Lidocaine 1%) 20 ml 1X ONCE IJ Last administered on 07/02/16 14:05; Start 07/02/16 at 13:15; Stop 07/02/16 at 13:16 ; Status DC Iohexol 200 ml 200 ml 1X ONCE IART Last administered on 07/02/16 14:05; Start 07/02/16 at 13:15; Stop 07/02/16 at 13:16; Status DC Ceftriaxone Sodium (Rocephin 1gm Ivpb For Omni) 50 ml @ As Directed STK-MED ONCE IV ; Start 07/02/16 at 13:20; Stop 07/02/16 at 13:21; Status DC Dexamethasone Sodium Phosphate (Decadron) 20 mg STK-MED ONCE .ROUTE ; Start at 13:34; Stop 07/02/16 at 13:35; Status DC Ondansetron HCl 4 mg 4 mg STK-MED ONCE .ROUTE ; Start 07/02/16 at 13:34; Stop at 13:35; Status DC Propofol (Diprivan) 20 ml @ As Directed STK-MED ONCE IV ; Start 07/02/16 at 13: 34; Stop 07/02/16 at 13:35; Status DC Fentanyl Citrate (Fentanyl 2ml Vial) 100 mcg STK-MED ONCE .ROUTE ; Start at 13:34; Stop 07/02/16 at 13:35; Status DC Midazolam HCl (Versed) 2 mg STK-MED ONCE .ROUTE ; Start 07/02/16 at 13:34; Stop 07/02/16 at 13:35; Status DC Rocuronium [place] 50 mg 50 mg STK-MED ONCE .ROUTE ; Start 07/02/16 at 13:34; Stop 07/02/16 at 13:35; Status DC Ceftriaxone Sodium 50 ml @ 100 mls/hr 1X ONCE IV Last administered on t 14:06; Start 07/02/16 at 13:45; Stop 07/02/16 at 14:14; Status DC Ceftriaxone Sodium/Sodium Chloride (Rocephin/Iv Sodium Chloride 0.9% 50ml) 50 ml @ 100 mls/hr Q24H IV ; Start 07/03/16 at 14:00 Ephedrine Sulfate (Akovaz) 50 mg STK-MED ONCE .ROUTE ; Start 07/02/16 at 14:16; Stop 07/02/16 at 14:17; Status DC Phenylephrine HCl 1 mg STK-MED ONCE IV ; Start 07/02/16 at 14:16; Stop 07/02/16 at 14:17; Status DC Fentanyl Citrate (Fentanyl 2ml Vial) 100 mcg STK-MED ONCE .ROUTE ; Start at 16:30; Stop 07/02/16 at 16:31; Status DC Fentanyl Citrate 100 mcg 100 mcg STK-MED ONCE .ROUTE ; Start 07/02/16 at 17:50; Stop 07/02/16 at 17:51; Status DC Propofol (Diprivan) 20 ml @ As Directed STK-MED ONCE IV ; Start 07/02/16 at 17: 50; Stop 07/02/16 at 17:51; Status DC Active Scripts Active Fioricet 50-300-40 Mg Capsule (Butalb/Acetaminophen/Caffeine) 1 Each Capsule 1 Each PO PRN Q4HRS PRN Vitals/I & O Vital Sign - Last 24 Hours 07/02/16 07/02/16 07/02/16 07/02/16 19:15 19:30 19:45 20:00 Temp 99.3 99.3 Pulse 94 90 84 78 Resp 26 26 20 20 B/P 147/82 142/83 154/86 147/78 Pulse Ox 99 100 100 100 O2 Delivery Simple Mask Simple Mask Simple Mask Simple Mask O2 Flow Rate 10.0 10.0 10.0 10.0 07/02/16 07/02/16 07/02/16 07/02/16 20:00 20:15 20:31 20:45 Pulse 74 72 Resp 23 24 10 B/P 142/77 151/83 Pulse Ox 100 95 98 O2 Delivery Mask Nasal Cannula Simple Mask Nasal Cannula O2 Flow Rate 10.0 3.0 10.0 3.0 07/02/17 17 17 07/02/16 21:00 21:01 22:00 22:30 Pulse 72 81 Resp 14 13 12 B/P 147/83 140/79 Pulse Ox 98 98 98 O2 Delivery Nasal Cannula Nasal Cannula Nasal Cannula O2 Flow Rate 3.0 3.0 3.0 17 07/02/17 17 07/03/16 23:00 23:00 23:38 00:00 Pulse 92 Resp 16 24 14 B/P 143/76 Pulse Ox 98 100 100 O2 Delivery Nasal Cannula Nasal Cannula O2 Flow Rate 3.0 3.0 2.0 2.0 07/03/16 07/03/16 07/03/16 07/03/16 00:01 00:08 01:00 02:00 Temp 96.9 96.9 Pulse 93 62 79 Resp 14 14 20 24 B/P 125/70 118/54 126/64 Pulse Ox 99 99 99 O2 Delivery Nasal Cannula Nasal Cannula Nasal Cannula O2 Flow Rate 2.0 2.0 2.0 07/03/16 07/03/16 07/03/16 07/03/16 02:14 03:00 04:00 04:00 Temp 94.8 94.8 Pulse 78 61 Resp 15 17 17 B/P 115/61 118/55 Pulse Ox 99 99 99 O2 Delivery Nasal Cannula Nasal Cannula Nasal Cannula Nasal Cannula O2 Flow Rate 2.0 2.0 2.0 2.0 07/03/16 07/03/16 07/03/16 07/03/16 05:00 06:00 08:00 08:41 Temp 97.0 97.0 Pulse 77 87 Resp 17 17 B/P 101/65 103/64 Pulse Ox 98 97 97 O2 Delivery Nasal Cannula Nasal Cannula Nasal Cannula Nasal Cannula O2 Flow Rate 2.0 2.0 2.0 2.0 07/03/16 07/03/16 07/03/16 08:47 09:11 11:35 Temp 97.5 97.5 Pulse 94 Resp 16 B/P 104/62 Pulse Ox 95 95 O2 Delivery Nasal Cannula Nasal Cannula Nasal Cannula O2 Flow Rate 2.0 2.0 2.0 Intake and Output 07/02/16 07/02/16 07/03/16 15:00 23:00 07:00 Intake Total 0 ml Output Total 1150 ml Balance -1150 ml LORENZO FERRER MD Jul 03, 2016 11:59
--- NOTE | 2016-07-03 14:15 | PATHOLOGY ---
PATHOLOGY REPORT * * * * * * * * FINAL DIAGNOSIS: Liver, needle core biopsies: - Cirrhosis, stage IV/IV. COMMENT: The liver architecture is nodular with expansion of portal areas by ductular reaction, portal tract expansion, and collapse of hepatic network. There is also abundant inflammation composed of lymphocytes with neutrophils. The neutrophils are also identified within the hepatic lobules. The background liver shows occasional balloon hepatocytes, Keira-Denk bodies, and macrovesicular type of steatosis comprising about 10-15%. Special stains performed at [facility] on block A1 show the following results: Reticulin: Shows a collapsed reticulin framework Trichrome: Shows cirrhosis stage 4 with macro and micro nodules and also focal pericellular fibrosis Iron: 03/20 PAS: Does not show any hepatic glycogenization PAS-D: Does not show any hyaline globules Although the final diagnosis is cirrhosis but underlying etiology can include causes as viral hepatitis (hepatitis C) and also steatohepatitis. Globules of alpha-1 antitrypsin are not identified. Iron is not markedly increased. (ANK:mggerber; d/t: 07/03/16) REPORT ELECTRONICALLY SIGNED BY: Rianna Vizcarra M.D. DATE/TIME: 07/03/2016 14:14 * * * * * * * * GROSS PATHOLOGY: Received in formalin labeled "Dori Hollis, liver biopsy," are four distinct needle cores of bray soft tissue ranging from 1.6 to 2.1 cm in length, which are submitted entirely in cassette A1. (CAA; 07/01/2016) INITIAL CPT CODE(S): A; 35404, 77943, 39258, 28525, 30807, 44051 Professional services performed by [facility] at [facility], [address] [place] [id number]. Technical services performed by [facility] at [address] [place] [address], [address], [place] [address]. SPECIMEN(S) RECEIVED: A.Liver, needle biopsy CLINICAL HISTORY: Hepatitis C with portal hypertension, ? cirrhosis, partial incomplete treatment for Hepatitis C, frequent GI bleeds, history of EV banding PATIENT: DORI HOLLIS /AGE: 8 1965 (Age: 50) PATIENT #: [id number] ALT CASE #: SPECIMEN COLLECTION DATE: 07/01/2016 SPECIMEN RECEIVED DATE: 07/01/2016 [facility] - [id number] [place] [address] - PHONE: [phone] * * * END OF REPORT * * *
[2016-07-04] VITALS (10 sets, daily range): BP systolic 91–105; BP diastolic 54–63
[2016-07-04] MEDS: MORPHINE SULFATE 2 MG/ML DISP.SYRIN. IV PRN ×6 (00:52→22:53)
[2016-07-04 05:21] LABS: BASO # 0.1 x10^3/uL (0.0-0.2); BASO % 1 % (0-3); EOS % 3 % (0-3); LYMPH # 1.5 x10^3/uL (1.0-4.8); LYMPH % 8 % (24-48); MEAN CORPUSCULAR HEMOGLOBIN 26 pg (25-35); MEAN CORPUSCULAR HGB CONC 32 g/dL (31-37); MEAN CORPUSCULAR VOLUME 82 fL (79-100); MONO % 11 % (0-9); NEUT % 78 % (31-73); PLATELET COUNT 193 x10^3/uL (140-400); RED BLOOD COUNT 2.53 x10^6/uL (3.50-5.40); RED CELL DISTRIBUTION WIDTH 26.7 % (11.5-14.5); WHITE BLOOD COUNT 19.7 x10^3/uL (4.0-11.0)
[2016-07-04 05:27] LABS: HEMATOCRIT 20.6 % (36.0-47.0); HEMOGLOBIN 6.5 g/dL (12.0-15.5)
[2016-07-04 05:50] LABS: CALCIUM 8.3 mg/dL (8.5-10.1); CREATININE 1.8 mg/dL (0.6-1.0); GFR 29.9; POTASSIUM 3.9 mmol/L (3.5-5.1)
[2016-07-04 05:56] LABS: ALBUMIN 2.8 g/dL (3.4-5.0); DIRECT BILIRUBIN 0.8 mg/dL (0.0-0.2); TOTAL BILIRUBIN 1.1 mg/dL (0.2-1.0); TOTAL PROTEIN 7.4 g/dL (6.4-8.2)
[2016-07-04] MEDS: PANTOPRAZOLE 40 MG TABLET.DR. PO SCH (06:07)
--- NOTE | 2016-07-04 07:29 | RAD ---
Ultrasound and fluoroscopy guided TIPS creation Indication: 50-year-old female with hepatitis C, with ETOH liver disease, with portal hypertension documented by hepatic hemodynamics, with past history of endoscopic EV banding, and with multiple bouts of recurrent presumably variceal GI bleeding. TIPS creation has been requested by GI. Fluoro time: 99.7 minutes Kerma-Area Product: [id number] Anesthesia: General Contrast material: CO2 + 290 cc Omnipaque 300 Consent: The procedure was explained in its entirety to the patient and/or the patient's designated associate sales representative by a member of the treatment team. This included a discussion of risks and benefits and commonly accepted alternatives to the procedure, as well as expected consequences of no treatment at all. Discussion of risks included, but was not limited to, those that are most frequent and those that are rare, but possibly severe or life-threatening, as well as the possibility of unforeseen complications. Sterility: All elements of maximal sterile barrier technique, including the use of a cap, mask, sterile gown, sterile gloves, large sterile sheet, appropriate hand hygiene, and 2% chlorhexidine for cutaneous antisepsis (or acceptable alternative antiseptic per current guidelines) were utilized. Antibiotic: A single dose of Rocephin was administered within 1 hour of the procedure start time. Procedure: Informed consent was obtained from the patient. She was placed supine on the biplane angiography table. General anesthesia was provided by the department of anesthesiology. 1 g Rocephin was given IV, prophylactically. Right neck, chest, and abdomen were then prepped and draped in the usual sterile fashion, utilizing all elements of maximal sterile barrier technique, as described above. The patient's indwelling 11 Spanish right IJ sheath, placed the previous day for transjugular liver biopsy and hepatic hemodynamics, was exchanged over a guidewire for a 12 Spanish 10 cm long right IJ sheath. A 5 Spanish MP catheter was then inserted through the IJ sheath and was Initially advanced over a Glidewire into an accessory right hepatic vein utilizing fluoroscopic guidance. Omnipaque 300 was injected through the MP catheter, and accessory right hepatic venogram DSA images were obtained. Those images revealed wide patency of this accessory right hepatic vein. The MP catheter was then exchanged over an Amplatz wire for a 10 Spanish 40 cm long sheath, which was advanced deeply into accessory right hepatic vein utilizing fluoroscopic control. A 5 mm x 20 mm Cordis extreme [employer]ING [employer]NAGER balloon was then advanced through the 10 Spanish sheath over the Amplatz wire, which was then removed. The [employer]ING MANAGER balloon was then inflated. CO2 was then injected through the balloon catheter, and biplane portogram roadmapping DSA images were obtained, documenting position of intrahepatic and extrahepatic portal vein structures. Those images documented unsatisfactory relationship of the accessory right hepatic vein and portal vein branches for attempted TIPS creation. The DEM[employer]ING MANAGER balloon was then deflated and removed. The 10 Spanish sheath was withdrawn into right atrium. The 5 Spanish MP catheter was reintroduced through the 10 Spanish sheath over a Glidewire and was successfully advanced deeply into middle hepatic vein. Omnipaque 300 was injected through the MP catheter and venogram DSA images were obtained, which revealed wide patency of middle hepatic vein. The MP catheter was then removed over an Amplatz wire. The 10 Spanish sheath was advanced over the Amplatz wire into mid segment of the middle hepatic vein. The 5 mm x 20 mm Cordis extreme [employer]ING MANAGER balloon was reintroduced over the Amplatz wire through the 10 Spanish sheath into peripheral aspect of middle hepatic vein. The DEMAND [employer]ANNING MANAGER balloon was inflated. CO2 was injected through the balloon catheter, and biplane CO2 portogram DSA images were obtained. The DEMAND PLANNING MANAGER balloon was then deflated and removed. A Cook Ring TIPS set was then advanced through the 10 Spanish sheath into middle hepatic vein. Subsequently, utilizing the biplane CO2 portogram images for roadmapping guidance, several unsuccessful attempts were made to successfully puncture portal vein branches utilizing the 16-gauge Colapinto needle. The TIPS set was then removed through the 10 Spanish sheath, which was withdrawn into right atrium. The 5 Spanish MP catheter was reintroduced through the 10 Spanish sheath over a Glidewire, and was successfully advanced deeply into right hepatic vein. Omnipaque 300 was injected through the MP catheter, and venogram DSA images were obtained, which revealed wide patency of right hepatic vein. The MP catheter was then exchanged over an Amplatz wire for the 5 mm x 20 mm Cordis extreme [employer]ING MANAGER balloon, which was advanced into peripheral aspect of right hepatic vein. The DEMAND PLANNING MANAGER balloon was inflated, CO2 was injected, and biplane portogram DSA images were obtained. The DEMAND PLANNING MANAGER balloon was then deflated and removed over the Amplatz wire. The 10 Spanish 40 cm long sheath was advanced over the Amplatz wire into proximal right hepatic vein. The Cook Ring TIPS set was then reintroduced through the 10 Spanish sheath into right hepatic vein. Several passes were then made with the 16-gauge Colapinto needle, eventually resulting in successful puncture of intrahepatic right posterior portal vein branch, just peripheral bifurcation of right portal vein, which had been demonstrated to lie predominantly extrahepatic in location on prior CT images. A Glidewire was then advanced through the Colapinto needle under fluoroscopic guidance. This wire successfully traversed right portal vein and main portal vein to lie within superior mesenteric vein. The Colapinto needle was then exchanged over the Glidewire for a quick cross catheter, which was advanced into extrahepatic portal vein, just above splenic vein-SMV confluence. Omnipaque 300 was then injected through the quick cross catheter, and portogram DSA images were obtained, which documented satisfactory intraluminal position of the quick cross catheter within main portal vein. The quick cross catheter was then exchanged over a [facility] advantage guidewire for a 5 Spanish marker Omni Flush catheter, which was positioned within extrahepatic portal vein. Direct portal vein pressures were then obtained at 30 mmHg mean, essentially unchanged from the indirect wedged hepatic vein pressure measurement obtained on hepatic hemodynamics done the previous day. The marker Omni Flush catheter was then further advanced into splenic vein. CO2 was injected and portogram DSA images were obtained utilizing CO2 stacking technique. Those images revealed hepatofugal flow within inferior mesenteric vein and superior mesenteric vein, hepatopedal flow within portal vein, and contrast opacification of multiple serpiginous varices extending from left portal vein superiorly above the GE junction. The marker Omni Flush Flush catheter was then exchanged over the Terumo advantage guidewire for a 4 mm x 40mm Cordis extreme [employer]ING MANAGER balloon, which was utilized to perform preliminary high-pressure balloon dilatation of the TIPS tract. The 4 mm DEMAND PL[employer]ING MANAGER balloon was then exchanged for a 7 mm x 80 mm conquest DEMAND PLANNING MANAGER balloon, which was utilized to perform further high-pressure balloon dilatation of the TIPS tract to a peak pressure of 24 lew. Final balloon dilatation of the TIPS tract was then performed utilizing a 7 mm x 40 mm conquest [employer] PL[employer]ING MANAGER balloon, inflated to a peak pressure of 28 lew. The DEMAND PL[employer]ING MANAGER balloon was then deflated and was exchanged over the advantage wire for the marker Omni Flush catheter, which was positioned with its tip within mid segment of extrahepatic portal vein. The 10 Spanish sheath was then withdrawn to the level of right hepatic vein-IVC confluence. Omnipaque 300 was simultaneously injected through the marker Omni Flush catheter and through the 10 Spanish sheath, and DSA images were obtained and were utilized to select a 10 mm x 80 mm Viatorr stent for TIPS creation. The Omni Flush catheter was then exchanged over a Lunderquist wire for the 10 Spanish 40 cm sheath which was advanced through the TIPS tract into extrahepatic portal vein. The [place] Viatorr stent was then advanced over the Lunderquist wire and was successfully deployed across the TIPS tract through the 10 Spanish sheath, which was withdrawn into inferior aspect of right atrium. Post dilatation of the TIPS stent was then performed utilizing an 8 mm x 4 cm conquest [employer]ING MANAGER balloon, which was advanced through the 10 Spanish sheath over the Lunderquist wire, and was inflated to a peak pressure of 20 lew. The DEM[employer] PL[employer]ING MANAGER balloon was then deflated and removed over the Lunderquist wire. Fluoroscopic evaluation revealed a persistent area of focal narrowing of the Viatorr stent, at the TIPS tract-portal vein junction. Therefore, a 10 mm x 39 mm Cordis Gisela balloon expandable stent was advanced through the 10 Spanish sheath over the Lunderquist wire and was successfully deployed across the area of residual narrowing. The marker Omni Flush catheter was then readvanced through the 10 Spanish sheath over the Lunderquist wire into extrahepatic portal vein. Post tips direct pressure measurements were attempted, but could not be obtained due to technical difficulties. Omnipaque 300 was injected through the Omni Flush catheter, and completion portogram DSA images were obtained. Those images revealed brisk antegrade flow through the TIPS shunt, with only mild focal residual eccentric narrowing. There was significantly diminished flow within left portal vein, with essentially complete decompression of the previously demonstrated serpiginous varices. However, completion portogram images demonstrated superior margin of the Viatorr stent to lie short of IVC-right hepatic vein junction. Therefore, the marker Omni Flush catheter was exchanged over a Taplister guidewire for a 14 mm x 40 mm Cordis control Smart stent, which was successfully deployed at right hepatic vein-IVC junction, extending inferiorly to overlap superior aspect of the Viatorr stent. Patient tolerated the procedure well without apparent complication. The 12French right IJ sheath was removed and hemostasis was achieved utilizing manual pressure. The patient was extubated in the biplane angiography suite. She was then transported to the intensive care unit in hemodynamically stable condition. Impression: Successful, uneventful TIPS creation, performed in the biplane angiography suite under general anesthesia, as described.
[2016-07-04] MEDS: INSULIN ASPART 300 UNITS/3 ML INSULN.PEN SQ SCH ×3 (07:58→16:49)
[2016-07-04] MEDS ORDERED: IBUPROFEN 400 MG TABLET. PO ONE (11:00)
--- NOTE | 2016-07-04 12:52 | PDOC ---
Subjective: Subjective: Some abd discomfort. Eating okay, doesn't like the meat. No bleeding, had two small stools. No n/v. Objective: Objective: Tmax 100.9 overnight Per RN - no obvious bleeding Vital Signs: Vital Signs Date Time Temp Pulse Resp B/P Pulse Ox O2 Delivery O2 Flow Rate FiO2 07/04/16 12:44 97.8 91 16 91/54 97.8 07/04/16 11:36 Room Air 07/04/16 07:00 93 07/04/16 01:22 2.0 Labs: Laboratory Tests Test 07/03/16 17:11 07/03/16 20:53 07/04/16 07:55 07/04/16 11:42 Glucose (Fingerstick) 115mg/dL (70-99) 143mg/dL (70-99) 143mg/dL (70-99) 139mg/dL (70-99) PE: GEN: NAD, mostly empty lunch tray LUNGS: CTAB HEART: RRR, ABD: NABS, S/ND, right-sided tenderness mostly NEURO/PSYCH: A & O 3 A/P: Cirrhosis (Hep C, alcohol), portal HTN, s/p TIPS Anemia -Hgb from 9.2 to 7.7 to 6.5 after TIPS, denies obvious bleeding, transfusion in process -- Other per Dr. Macdonald. BENTON JACOBSON Jul 04, 2016 12:52
--- NOTE | 2016-07-04 16:09 | PDOC ---
Provider Note Provider Note IR Note: Day #2 post TIPS creation Afebrile. VSS. Persistent mild abdominal tenderness. Hgb drop noted, without definite GI bleed. If this trend continues, would Rx CT abd/pelvis to exclude possible post TIPS bleeding complication. Creatine bump from 0.9 at admit to 1.8 this AM. Possible NORA following large volume contrast administration during TIPS creation. Consider renal consult. Post TIPS Doppler ultrasound requested for tomorrow. Will follow. JERRY FLOYD MD Jul 04, 2016 16:09
[2016-07-04 17:08] LABS: HEMATOCRIT 23.3 % (36.0-47.0); HEMOGLOBIN 7.6 g/dL (12.0-15.5)
[2016-07-04] MEDS: traMADol 50 MG TABLET PO PRN (21:23)
[2016-07-05] MEDS: MORPHINE SULFATE 2 MG/ML DISP.SYRIN. IV PRN ×3 (00:15→07:30)
[2016-07-05] MEDS: fentaNYL PF VIAL 100 MCG/2 ML VIAL IV PRN ×2 (02:14→07:59)
[2016-07-05 03:00] VITALS: BP 109/63
[2016-07-05 06:21] LABS: CALCIUM 8.5 mg/dL (8.5-10.1); GFR 58.9; POTASSIUM 3.9 mmol/L (3.5-5.1)
[2016-07-05 07:00] VITALS: BP 102/62
[2016-07-05] MEDS: PANTOPRAZOLE 40 MG TABLET.DR. PO SCH (07:31)
[2016-07-05] MEDS: INSULIN ASPART 300 UNITS/3 ML INSULN.PEN SQ SCH ×3 (08:00→17:00)
[2016-07-05] MEDS ORDERED: MORPHINE SULFATE 2 MG/ML DISP.SYRIN. IV PRN (09:15)
[2016-07-05] MEDS ORDERED: MORPHINE SULFATE 10 MG/ML VIAL. IV PRN (09:15)
[2016-07-05] MEDS ORDERED: fentaNYL PF VIAL 100 MCG/2 ML VIAL IV PRN (09:15)
[2016-07-05] MEDS: MORPHINE SULFATE 10 MG/ML VIAL. IV PRN (09:52)
--- NOTE | 2016-07-05 10:52 | PDOC ---
PROGRESS NOTES Chief Complaint Chief Complaint Upper GI bleeding, 2/2 to portal hypertension, esophageal varices s/p EGD, s/p TIPS on 07/02 hep C, alcoholic cirrhosis non compliance post TIPS on soft gi diet, marked pain - History of Present Illness History of Present Illness No GI Bleeding no fever severe pain, req. IV pain meds post TIPS 07/01, mild abd pain ,diffusely Vitals Vitals Vital Signs Date Time Temp Pulse Resp B/P Pulse Ox O2 Delivery O2 Flow Rate FiO2 07/05/16 10:44 Nasal Cannula 3.0 07/05/16 07:30 100 07/05/16 07:00 98.8 99 24 102/62 98.8 Physical Exam General: Alert, Oriented X3, Cooperative, No acute distress Heart: Regular rate, Normal S1, Normal S2, No murmurs Lungs: Clear, Other (No chest retractions were present.) Abdomen: Soft, Other (mild diffusely tenderness) Extremities: No clubbing, No cyanosis Skin: No rashes, No breakdown Labs LABS Laboratory Tests Test 07/04/16 11:42 07/04/16 16:40 07/04/16 16:52 07/04/16 21:23 Glucose (Fingerstick) 139mg/dL (70-99) 129mg/dL (70-99) 165mg/dL (70-99) Hemoglobin 7.6g/dL (12.0-15.5) Hematocrit 23.3% (36.0-47.0) Mean Corpuscular Hemoglobin Concent 32g/dL (31-37) Test 07/05/16 05:15 07/05/16 07:19 Sodium Level 133mmol/L (136-145) Potassium Level 3.9mmol/L (3.5-5.1) Chloride Level 99mmol/L (98-107) Carbon Dioxide Level 25mmol/L (21-32) Anion Gap 9 (6-14) Blood Urea Nitrogen 14mg/dL (7-20) Creatinine 1.0mg/dL (0.6-1.0) Estimated GFR (Cockcroft-Gault) 58.9 Glucose Level 127mg/dL (70-99) Calcium Level 8.5mg/dL (8.5-10.1) Glucose (Fingerstick) 151mg/dL (70-99) Review of Systems Review of Systems nausea pain poor PO intake Assessment and Plan Assessmemt and Plan Problems Medical Problems: (1) Acute GI bleeding Status: Acute (2) Blood loss anemia Status: Acute (3) Dentalgia Status: Acute (4) Headache Status: Acute (5) Moderate protein malnutrition Status: Acute Problems: Comment Review of Relevant I have reviewed the following items candace (where applicable) has been applied. Labs Laboratory Tests Test 07/03/16 12:15 07/03/16 17:11 07/03/16 20:53 07/04/16 05:05 Glucose (Fingerstick) 209mg/dL (70-99) 115mg/dL (70-99) 143mg/dL (70-99) White Blood Count 19.7x10^3/uL (4.0-11.0) Red Blood Count 2.53x10^6/uL (3.50-5.40) Hemoglobin 6.5g/dL (12.0-15.5) Hematocrit 20.6% (36.0-47.0) Mean Corpuscular Volume 82fL (79-100) Mean Corpuscular Hemoglobin 26pg (25-35) Mean Corpuscular Hemoglobin Concent 32g/dL (31-37) Red Cell Distribution Width 26.7% (11.5-14.5) Platelet Count 193x10^3/uL (140-400) Neutrophils (%) (Auto) 78% (31-73) Lymphocytes (%) (Auto) 8% (24-48) Monocytes (%) (Auto) 11% (0-9) Eosinophils (%) (Auto) 3% (0-3) Basophils (%) (Auto) 1% (0-3) Neutrophils # (Auto) 15.4x10^3uL (1.8-7.7) Lymphocytes # (Auto) 1.5x10^3/uL (1.0-4.8) Monocytes # (Auto) 2.1x10^3/uL (0.0-1.1) Eosinophils # (Auto) 0.6x10^3/uL (0.0-0.7) Basophils # (Auto) 0.1x10^3/uL (0.0-0.2) Sodium Level 134mmol/L (136-145) Potassium Level 3.9mmol/L (3.5-5.1) Chloride Level 99mmol/L (98-107) Carbon Dioxide Level 24mmol/L (21-32) Anion Gap 11 (6-14) Blood Urea Nitrogen 17mg/dL (7-20) Creatinine 1.8mg/dL (0.6-1.0) Estimated GFR (Cockcroft-Gault) 29.9 Glucose Level 119mg/dL (70-99) Calcium Level 8.3mg/dL (8.5-10.1) Total Bilirubin 1.1mg/dL (0.2-1.0) Direct Bilirubin 0.8mg/dL (0.0-0.2) Aspartate Amino Transf (AST/SGOT) 298U/L (15-37) Alanine Aminotransferase (ALT/SGPT) 144U/L (14-59) Alkaline Phosphatase 170U/L (46-116) Ammonia 48mcmol/L (11-34) Total Protein 7.4g/dL (6.4-8.2) Albumin 2.8g/dL (3.4-5.0) Test 07/04/16 07:55 07/04/16 11:42 07/04/16 16:40 07/04/16 16:52 Glucose (Fingerstick) 143mg/dL (70-99) 139mg/dL (70-99) 129mg/dL (70-99) Hemoglobin 7.6g/dL (12.0-15.5) Hematocrit 23.3% (36.0-47.0) Mean Corpuscular Hemoglobin Concent 32g/dL (31-37) Test 07/04/16 21:23 07/05/16 05:15 07/05/16 07:19 Glucose (Fingerstick) 165mg/dL (70-99) 151mg/dL (70-99) Sodium Level 133mmol/L (136-145) Potassium Level 3.9mmol/L (3.5-5.1) Chloride Level 99mmol/L (98-107) Carbon Dioxide Level 25mmol/L (21-32) Anion Gap 9 (6-14) Blood Urea Nitrogen 14mg/dL (7-20) Creatinine 1.0mg/dL (0.6-1.0) Estimated GFR (Cockcroft-Gault) 58.9 Glucose Level 127mg/dL (70-99) Calcium Level 8.5mg/dL (8.5-10.1) Laboratory Tests Test 07/04/16 11:42 07/04/16 16:40 07/04/16 16:52 07/04/16 21:23 Glucose (Fingerstick) 139mg/dL (70-99) 129mg/dL (70-99) 165mg/dL (70-99) Hemoglobin 7.6g/dL (12.0-15.5) Hematocrit 23.3% (36.0-47.0) Mean Corpuscular Hemoglobin Concent 32g/dL (31-37) Test 07/05/16 05:15 07/05/16 07:19 Sodium Level 133mmol/L (136-145) Potassium Level 3.9mmol/L (3.5-5.1) Chloride Level 99mmol/L (98-107) Carbon Dioxide Level 25mmol/L (21-32) Anion Gap 9 (6-14) Blood Urea Nitrogen 14mg/dL (7-20) Creatinine 1.0mg/dL (0.6-1.0) Estimated GFR (Cockcroft-Gault) 58.9 Glucose Level 127mg/dL (70-99) Calcium Level 8.5mg/dL (8.5-10.1) Glucose (Fingerstick) 151mg/dL (70-99) Microbiology 06/25/16 Urine Culture - Final, Complete 06/25/16 Urine Culture Result 1 (JAKE) - Final, Complete Medications Current Medications Sodium Chloride (Iv Sodium Chloride 0.9% 1000ml Bag) 1,000 ml @ 1,000 mls/hr Q1H IV Last administered on 06/25/16 19:05; Start 06/25/16 at 18:00; Stop 01/31 at 18:59; Status DC Ondansetron HCl (Zofran) 4 mg 1X ONCE IV Last administered on 06/25/16 19:08 ; Start 06/25/16 at 18:00; Stop 06/25/16 at 18:01; Status DC Famotidine (Pepcid) 20 mg 1X ONCE IVP ; Start 06/25/16 at 18:00; Stop 06/25/16 at 18:27; Status DC Fentanyl Citrate (Fentanyl 2ml Vial) 50 mcg PRN Q15MIN PRN IV PAIN GREATER THAN 3/10 Last administered on 06/25/16 19:07; Start 06/25/16 at 18:00; Stop at 21:33; Status DC Pantoprazole Sodium 40 mg 40 mg 1X ONCE IVP Last administered on 06/25/16 19: 14; Start 06/25/16 at 18:30; Stop 06/25/16 at 18:31; Status DC Pantoprazole Sodium/Sodium Chloride (Protonix Iv/Iv Sodium Chloride 0.9% 100ml) 100 ml @ 10 mls/hr Q10H IV Last administered on 06/28/16 16:36; Start at 18:30; Stop 06/29/16 at 07:18; Status DC Ondansetron HCl (Zofran) 4 mg PRN Q8HRS PRN IV NAUSEA/VOMITING Last administered on 06/26/16 13:37; Start 06/25/16 at 19:00; Stop 06/26/16 at 18:59 ; Status DC Fentanyl Citrate 50 mcg 50 mcg PRN Q2HR PRN IV PAIN Last administered on 17:19; Start 06/25/16 at 19:00; Stop 06/26/16 at 18:59; Status DC Sodium Chloride 1,000 ml @ 125 mls/hr Q8H IV Last administered on 06/26/16 10 :58; Start 06/25/16 at 18:58; Stop 06/26/16 at 18:57; Status DC Propofol (Diprivan) 20 ml @ As Directed STK-MED ONCE IV ; Start 06/26/16 at 09: 32; Stop 06/26/16 at 09:33; Status DC Lidocaine HCl 5 ml 5 ml STK-MED ONCE .ROUTE ; Start 06/26/16 at 09:32; Stop 03/02 at 09:33; Status DC Propofol 20 ml @ As Directed STK-MED ONCE IV ; Start 06/26/16 at 09:50; Stop 03/02 at 09:51; Status DC Propofol 20 ml @ As Directed STK-MED ONCE IV ; Start 06/26/16 at 09:55; Stop 03/02 at 09:56; Status DC Propofol (Diprivan) 20 ml @ As Directed STK-MED ONCE IV ; Start 06/26/16 at 10: 04; Stop 06/26/16 at 10:05; Status DC Epinephrine HCl (Epinephrine Syringe) 1 mg STK-MED ONCE .ROUTE ; Start 06/26/16 at 10:07; Stop 06/26/16 at 10:08; Status DC Insulin Aspart (Novolog) 0-7 UNITS TIDWMEALS SQ Last administered on 07/03/16 12:47; Start 06/26/16 at 12:00 Dextrose 12.5 gm 12.5 gm PRN Q15MIN PRN IV SEE COMMENTS; Start 06/26/16 at 10: 15 Propofol 20 ml @ As Directed STK-MED ONCE IV ; Start 06/26/16 at 10:11; Stop 03/02 at 10:12; Status DC Propofol (Diprivan) 40 ml @ As Directed STK-MED ONCE IV ; Start 06/26/16 at 10: 20; Stop 06/26/16 at 10:21; Status DC Epinephrine HCl (Epinephrine Syringe) 1 mg STK-MED ONCE IV Last administered on 06/26/16 10:20; Start 06/26/16 at 10:20; Stop 06/26/16 at 10:46; Status DC Epinephrine HCl 1 mg 1 mg STK-MED ONCE IV Last administered on 06/26/16 10:22 ; Start 06/26/16 at 10:22; Stop 06/26/16 at 10:46; Status DC Octreotide Acetate/Sodium Chloride (Sandostatin/Iv Sodium Chloride 0.9% 100ml) 101 ml @ 0 mls/hr CONT PRN IV SEE COMMENTS Last administered on 06/28/16 17:42 ; Start 06/26/16 at 11:00; Stop 06/29/16 at 07:18; Status DC Fentanyl Citrate (Fentanyl 2ml Vial) 25 mcg PRN Q4HRS PRN IV PAIN; Start at 21:00; Stop 06/26/16 at 21:00; Status DC Fentanyl Citrate 25 mcg 25 mcg PRN Q4HRS PRN IV PAIN Last administered on 20:42; Start 06/26/16 at 21:00; Stop 06/28/16 at 00:00; Status DC Iron Sucrose/ Sodium Chloride (Venofer/Iv Sodium Chloride 0.9% 250ml) 265 ml @ 90 mls/hr Q12HR IV Last administered on 06/28/16 09:57; Start 06/27/16 at 12: 00; Stop 06/28/16 at 11:57; Status DC Fentanyl Citrate (Fentanyl 2ml Vial) 25 mcg PRN Q4HRS PRN IV SEVERE PAIN Last administered on 07/01/16 06:17; Start 06/28/16 at 01:15; Stop 07/01/16 at 09:00 ; Status DC Ondansetron HCl 4 mg 4 mg PRN Q6HRS PRN IV NAUSEA/VOMITING Last administered on 07/02/16 20:32; Start 06/28/16 at 04:30 Ceftriaxone Sodium/Sodium Chloride (Rocephin/Iv Sodium Chloride 0.9% 50ml) 50 ml @ 100 mls/hr Q24H IV Last administered on 07/01/16 15:46; Start 06/28/16 at 16:00; Stop 07/02/16 at 13:43; Status DC Pantoprazole Sodium (Protonix) 40 mg DAILYAC PO Last administered on 07/05/16 07:31; Start 06/29/16 at 08:00 Iohexol (Omnipaque 350 Mg/ml) 75 ml 1X ONCE IV Last administered on 06/29/16 12:05; Start 06/29/16 at 12:00; Stop 06/29/16 at 12:01; Status DC Info (Do NOT chart on this entry -- for MONITORING) 1 each PRN DAILY PRN MC SEE COMMENTS; Start 06/29/16 at 12:00; Stop 07/01/16 at 11:59; Status DC Potassium Chloride (Klor-Con) 40 meq 1X ONCE PO Last administered on 11:18; Start 06/30/16 at 11:00; Stop 06/30/16 at 11:01; Status DC Morphine Sulfate 2 mg PRN Q2HR PRN IV PAIN Last administered on 07/01/16 09:04 ; Start 07/01/16 at 09:00; Stop 07/01/16 at 10:53; Status DC Fentanyl Citrate (Fentanyl 2ml Vial) 25 mcg PRN Q2HR PRN IV SEVERE PAIN Last administered on 4/21/17at 07:59; Start 07/01/16 at 01:15; Stop 07/05/16 at 09:04 ; Status DC Morphine Sulfate 4 mg PRN Q2HR PRN IV PAIN Last administered on 07/05/16t 07:30 ; Start 07/01/16 at 11:00; Stop 07/05/16 at 09:05; Status DC Ondansetron HCl (Zofran) 4 mg PRN Q6HRS PRN IV NAUSEA/VOMITING; Start 07/01/16 at 11:00; Stop 07/02/16 at 10:59; Status DC Fentanyl Citrate (Fentanyl 2ml Vial) 25 mcg PRN Q5MIN PRN IV MILD PAIN; Start 07/01/16 at 11:00; Stop 07/02/16 at 10:59; Status DC Fentanyl Citrate (Fentanyl 2ml Vial) 50 mcg PRN Q5MIN PRN IV MODERATE PAIN; Start 07/01/16 at 11:00; Stop 07/02/16 at 10:59; Status DC Morphine Sulfate 1 mg 1 mg PRN Q10MIN PRN IV SEVERE PAIN; Start 07/01/16 at 11: 00; Stop 07/02/16 at 10:59; Status DC Lactated Ringer's (Iv Lactated Ringers) 1,000 ml @ 30 mls/hr Q24H IV ; Start at 10:59; Stop 07/01/16 at 22:58; Status DC Lidocaine HCl 2 ml PRN 1X PRN ID PRIOR TO IV START; Start 07/01/16 at 11:00; Stop 07/02/16 at 10:59; Status DC Hydromorphone HCl (Dilaudid) 0.5 mg PRN Q10MIN PRN IV SEV PAIN, Second choice; Start 07/01/16 at 11:00; Stop 07/02/16 at 10:59; Status DC Prochlorperazine Edisylate (Compazine) 5 mg PACU PRN PRN IV NAUSEA, MRX1; Start 07/01/16 at 11:00; Stop 07/02/16 at 10:59; Status DC Midazolam HCl (Versed) 2 mg STK-MED ONCE .ROUTE ; Start 07/01/16 at 13:27; Stop 07/01/16 at 13:28; Status DC Fentanyl Citrate (Fentanyl 5ml Vial) 250 mcg STK-MED ONCE .ROUTE ; Start at 13:27; Stop 07/01/16 at 13:28; Status DC Iohexol (Omnipaque 300 Mg/ml) 100 ml STK-MED ONCE .ROUTE ; Start 07/01/16 at 13: 30; Stop 07/01/16 at 13:31; Status DC Lidocaine/Sodium Bicarbonate 20 ml 20 ml STK-MED ONCE IJ ; Start 07/01/16 at 13: 30; Stop 07/01/16 at 13:31; Status DC Heparin Sodium/ Sodium Chloride 500 ml @ As Directed STK-MED ONCE .ROUTE ; Start 07/01/16 at 13:30; Stop 07/01/16 at 13:31; Status DC Heparin Sodium/ Sodium Chloride 1,000 unit 1X ONCE IART Last administered on 14:25; Start 07/01/16 at 14:15; Stop 07/01/16 at 14:20; Status DC Lidocaine/Sodium Bicarbonate (Buffered Lidocaine 1%) 2 ml 1X ONCE IJ Last administered on 07/01/16 14:25; Start 07/01/16 at 14:15; Stop 07/01/16 at 14:20 ; Status DC Midazolam HCl (Versed) 2 mg 1X ONCE IV Last administered on 07/01/16 14:26; Start 07/01/16 at 14:15; Stop 07/01/16 at 14:20; Status DC Fentanyl Citrate (Fentanyl 5ml Vial) 100 mcg 1X ONCE IV Last administered on 14:26; Start 07/01/16 at 14:15; Stop 07/01/16 at 14:20; Status DC Iohexol (Omnipaque 300 Mg/ml) 40 ml 1X ONCE IART Last administered on 14:26; Start 07/01/16 at 14:15; Stop 07/01/16 at 14:20; Status DC Iohexol (Omnipaque 300 Mg/ml) 100 ml STK-MED ONCE .ROUTE ; Start 07/02/16 at 12: 24; Stop 07/02/16 at 12:25; Status DC Lidocaine/Sodium Bicarbonate 20 ml 20 ml STK-MED ONCE IJ ; Start 07/02/16 at 12: 25; Stop 07/02/16 at 12:26; Status DC Heparin Sodium/ Sodium Chloride 1,000 ml @ As Directed STK-MED ONCE .ROUTE ; Start 07/02/16 at 12:25; Stop 07/02/16 at 12:26; Status DC Heparin Sodium/ Sodium Chloride 2,000 unit 1X ONCE IART Last administered on 14:04; Start 07/02/16 at 13:15; Stop 07/02/16 at 13:16; Status DC Lidocaine/Sodium Bicarbonate (Buffered Lidocaine 1%) 20 ml 1X ONCE IJ Last administered on 07/02/16 14:05; Start 07/02/16 at 13:15; Stop 07/02/16 at 13:16 ; Status DC Iohexol 200 ml 200 ml 1X ONCE IART Last administered on 07/02/16 14:05; Start 07/02/16 at 13:15; Stop 07/02/16 at 13:16; Status DC Ceftriaxone Sodium (Rocephin 1gm Ivpb For Omni) 50 ml @ As Directed STK-MED ONCE IV ; Start 07/02/16 at 13:20; Stop 07/02/16 at 13:21; Status DC Dexamethasone Sodium Phosphate (Decadron) 20 mg STK-MED ONCE .ROUTE ; Start at 13:34; Stop 07/02/16 at 13:35; Status DC Ondansetron HCl 4 mg 4 mg STK-MED ONCE .ROUTE ; Start 07/02/16 at 13:34; Stop at 13:35; Status DC Propofol (Diprivan) 20 ml @ As Directed STK-MED ONCE IV ; Start 07/02/16 at 13: 34; Stop 07/02/16 at 13:35; Status DC Fentanyl Citrate (Fentanyl 2ml Vial) 100 mcg STK-MED ONCE .ROUTE ; Start at 13:34; Stop 07/02/16 at 13:35; Status DC Midazolam HCl (Versed) 2 mg STK-MED ONCE .ROUTE ; Start 07/02/16 at 13:34; Stop 07/02/16 at 13:35; Status DC Rocuronium [place] 50 mg 50 mg STK-MED ONCE .ROUTE ; Start 07/02/16 at 13:34; Stop 07/02/16 at 13:35; Status DC Ceftriaxone Sodium 50 ml @ 100 mls/hr 1X ONCE IV Last administered on 14:06; Start 07/02/16 at 13:45; Stop 07/02/16 at 14:14; Status DC Ceftriaxone Sodium/Sodium Chloride (Rocephin/Iv Sodium Chloride 0.9% 50ml) 50 ml @ 100 mls/hr Q24H IV Last administered on 07/04/16 14:17; Start 07/03/16 at 14:00 Ephedrine Sulfate (Akovaz) 50 mg STK-MED ONCE .ROUTE ; Start 07/02/16 at 14:16; Stop 07/02/16 at 14:17; Status DC Phenylephrine HCl 1 mg STK-MED ONCE IV ; Start 07/02/16 at 14:16; Stop 07/02/16 at 14:17; Status DC Fentanyl Citrate (Fentanyl 2ml Vial) 100 mcg STK-MED ONCE .ROUTE ; Start at 16:30; Stop 07/02/16 at 16:31; Status DC Fentanyl Citrate 100 mcg 100 mcg STK-MED ONCE .ROUTE ; Start 07/02/16 at 17:50; Stop 07/02/16 at 17:51; Status DC Propofol (Diprivan) 20 ml @ As Directed STK-MED ONCE IV ; Start 07/02/16 at 17: 50; Stop 07/02/16 at 17:51; Status DC Tramadol HCl (Ultram) 50 mg PRN Q6HRS PRN PO PAIN Last administered on 21:23; Start 07/03/16 at 12:00 Ibuprofen (Motrin) 400 mg 1X ONCE PO Last administered on 07/04/16 10:30; Start 07/04/16 at 11:00; Stop 07/04/16 at 11:01; Status DC Fentanyl Citrate (Fentanyl 2ml Vial) 75 mcg PRN Q2HR PRN IV SEVERE PAIN; Start 07/05/16 at 09:15 Morphine Sulfate 6 mg PRN Q2HR PRN IV PAIN; Start 07/05/16 at 09:15; Stop 07/05 at 09:15; Status DC Morphine Sulfate 8 mg PRN Q2HR PRN IV PAIN; Start 07/05/16 at 09:15; Stop 07/05 at 09:45; Status DC Morphine Sulfate 10 mg PRN Q2HR PRN IV PAIN Last administered on 07/05/16t 09: 52; Start 07/05/16 at 09:45 Active Scripts Active Fioricet 50-300-40 Mg Capsule (Butalb/Acetaminophen/Caffeine) 1 Each Capsule 1 Each PO PRN Q4HRS PRN Vitals/I & O Vital Sign - Last 24 Hours 07/04/16 07/04/16 07/04/16 07/04/16 11:00 11:30 11:46 12:44 Temp 100.8 98.0 97.4 97.8 100.8 98.0 97.4 97.8 Pulse 99 90 90 91 Resp 18 18 20 16 B/P 105/56 102/60 95/56 91/54 Pulse Ox 95 O2 Delivery Room Air 07/04/16 07/04/16 07/04/16 07/04/16 13:42 14:49 14:55 18:33 Temp 98.0 96.8 98.0 96.8 Pulse 86 84 Resp 16 18 B/P 96/56 102/63 Pulse Ox 97 O2 Delivery Nasal Cannula Nasal Cannula Nasal Cannula O2 Flow Rate 2.0 07/04/16 07/04/16 07/04/16 07/04/16 19:00 20:00 21:23 22:55 Temp 98.4 97.9 98.4 97.9 Pulse 92 95 Resp 20 B/P 102/58 98/59 Pulse Ox 100 100 100 O2 Delivery Nasal Cannula Nasal Cannula Nasal Cannula Nasal Cannula O2 Flow Rate 2.0 2.0 2.0 2.0 07/04/16 07/05/16 07/05/16 07/05/16 23:20 00:15 02:14 02:44 Pulse Ox 100 100 100 100 O2 Delivery Nasal Cannula Nasal Cannula Nasal Cannula Nasal Cannula O2 Flow Rate 2.0 2.0 2.0 2.0 07/05/16 07/05/16 07/05/16 07/05/16 03:00 04:22 04:52 07:00 Temp 97.9 98.8 97.9 98.8 Pulse 95 99 Resp 20 24 B/P 109/63 102/62 Pulse Ox 100 100 100 98 O2 Delivery Nasal Cannula Nasal Cannula Nasal Cannula Nasal Cannula O2 Flow Rate 2.0 2.0 2.0 2.0 4/21/17 07/05/16 07/05/16 07/05/16 07:30 07:59 09:52 10:44 Pulse Ox 100 O2 Delivery Nasal Cannula Nasal Cannula Nasal Cannula Nasal Cannula O2 Flow Rate 2.0 2.0 3.0 3.0 Intake and Output 07/04/16 07/04/16 07/05/16 15:00 23:00 07:00 Intake Total 1175 ml 1250 ml Balance 1175 ml 1250 ml CHEPE NIEVES MD Jul 05, 2016 10:52
[2016-07-05 11:00] VITALS: BP 99/58
--- NOTE | 2016-07-05 14:10 | RAD ---
Indication post TIPS placement Grayscale color Doppler and spectral imaging was performed. The examination was targeted to the hepatic veins, the main portal vein and the TIPS. The hepatic veins are patent. The recently placed TIPS is patent demonstrating normal flow velocities. The main portal vein is patent. The individual left and right portal veins are poorly identified and likely significantly attenuated as suggested on CT examination 6 days ago IMPRESSION: Patent TIPS. Patent hepatic veins
--- NOTE | 2016-07-05 14:33 | PDOC ---
Subjective: Subjective: Right abd pain toward back. Worse w/ deep breathing, some chest pressure. Not much of an appetite (although has been NPO). Wants a pain pill and to shower. Objective: Vital Signs: Vital Signs Date Time Temp Pulse Resp B/P Pulse Ox O2 Delivery O2 Flow Rate FiO2 07/05/16 12:39 3 Nasal Cannula 07/05/16 11:00 98.6 94 19 99/58 2.0 98.6 Labs: Laboratory Tests Test 07/04/16 16:40 07/04/16 21:23 07/05/16 07:19 07/05/16 10:51 Glucose (Fingerstick) 129mg/dL (70-99) 165mg/dL (70-99) 151mg/dL (70-99) 151mg/dL (70-99) Imaging: Abd Doppler IMPRESSION: Patent TIPS. Patent hepatic veins. PE: GEN: NAD LUNGS: CTAB anteriorly HEART: RRR ABD: RUQ discomfort, BS+ NEURO/PSYCH: A & O 3 A/P: Cirrhosis (Hep C, alcohol), portal HTN, s/p TIPS -Doppler as above Abd pain - worse Anemia -transfused yesterday, last Hgb 7.6 yesterday afternoon Elevated Cr - improved -- Will review w/ Dr. Macdonald. ?BENTON DOWELL Jul 05, 2016 14:32
[2016-07-05 15:00] VITALS: BP 108/65
[2016-07-05] MEDS: MORPHINE IR 15 MG TABLET PO PRN ×2 (15:29→20:10)
[2016-07-05] MEDS ORDERED: IOHEXOL 300 MG/ML 75 ML VIAL PO ONE (17:00)
[2016-07-05] MEDS ORDERED: IOHEXOL 240 MG/ML 50ML VIAL. PO ONE (17:00)
[2016-07-05] MEDS ORDERED: CONTRAST GIVEN MC PRN (17:00)
[2016-07-05 19:00] VITALS: BP 101/58
[2016-07-05 23:00] VITALS: BP 105/62
[2016-07-06 01:22] LABS: BILIRUBIN,URINE MODERATE (NEG); GLUCOSE,URINE NEGATIVE (NEG); NITRITE,URINE POSITIVE (NEG); PROTEIN,URINE NEGATIVE (NEG-TRACE)
[2016-07-06 01:31] LABS: BACTERIA,URINE 0 /HPF (0-FEW); SQUAMOUS EPITHELIAL CELL,UR FEW /LPF
[2016-07-06] MEDS: MORPHINE IR 15 MG TABLET PO PRN ×4 (01:42→22:35)
[2016-07-06 03:00] VITALS: BP 97/57
[2016-07-06 05:10] LABS: BASO # 0.1 x10^3/uL (0.0-0.2); BASO % 0 % (0-3); EOS % 2 % (0-3); HEMATOCRIT 25.4 % (36.0-47.0); HEMOGLOBIN 8.2 g/dL (12.0-15.5); LYMPH # 0.9 x10^3/uL (1.0-4.8); LYMPH % 4 % (24-48); MEAN CORPUSCULAR HEMOGLOBIN 27 pg (25-35); MEAN CORPUSCULAR HGB CONC 32 g/dL (31-37); MEAN CORPUSCULAR VOLUME 82 fL (79-100); MONO % 9 % (0-9); NEUT % 85 % (31-73); PLATELET COUNT 243 x10^3/uL (140-400); RED BLOOD COUNT 3.09 x10^6/uL (3.50-5.40); RED CELL DISTRIBUTION WIDTH 24.8 % (11.5-14.5); WHITE BLOOD COUNT 22.7 x10^3/uL (4.0-11.0)
[2016-07-06 05:38] LABS: ALBUMIN 2.7 g/dL (3.4-5.0); ALBUMIN/GLOBULIN RATIO 0.5 (1.0-1.7); CALCIUM 8.8 mg/dL (8.5-10.1); CREATININE 1.7 mg/dL (0.6-1.0); GFR 31.9; POTASSIUM 4.5 mmol/L (3.5-5.1); TOTAL BILIRUBIN 2.3 mg/dL (0.2-1.0); TOTAL PROTEIN 8.5 g/dL (6.4-8.2)
[2016-07-06 07:00] VITALS: BP 113/70
[2016-07-06] MEDS: INSULIN ASPART 300 UNITS/3 ML INSULN.PEN SQ SCH ×3 (08:00→16:25)
[2016-07-06] MEDS: PANTOPRAZOLE 40 MG TABLET.DR. PO SCH (08:08)
[2016-07-06 10:41] VITALS: BP 109/58
[2016-07-06] MEDS ORDERED: PIP/TAZO PER PHARMACY MC PRN (10:45)
[2016-07-06] MEDS: PIPERACILLIN/TAZOBACTAM 3.375 GM in IV NORMAL SALINE 50ML 50 ML IV SCH ×2 (11:06→17:59)
--- NOTE | 2016-07-06 11:37 | RAD ---
CT scan of the abdomen and pelvis with contrast 07/05/2016 Clinical history: Abdominal pain. History of recent TIPS procedure. Technique: After the oral and intravenous initiation of contrast, contiguous, 5 mm axial sections were obtained through the abdomen and pelvis. 75 cc of Omnipaque 300 were administered intravenously during this examination. One or more of the following individualized dose reduction techniques were utilized for this study: 1. Automated exposure control. 2. Adjustment of the mA and/or kV according to patient size. 3. Use of iterative reconstruction technique. Findings: Comparison study is dated 06/29/2016. Images through the lung bases demonstrate borderline cardiomegaly. Minimal dependent subsegmental atelectasis is seen involving both lower lobes, right greater than left. The liver parenchyma has a nodular contour suggestive of cirrhosis. A TIPS is seen extending from the expected location of the left middle hepatic vein to the mid portal vein. A subacute subcapsular hematoma is seen surrounding the right lobe of the liver. This measures 2.8 cm in transverse diameter. A wedge-shaped area of decreased attenuation is seen involving the superior aspect of the right lobe of the liver which likely represents an area of infarction. This measures 5.5 cm in greatest diameter. The spleen, pancreas, adrenal glands and right kidney are within normal limits. A 1.6 cm rounded low-attenuation structure is seen involving the midpole of the left kidney. This likely represents a cyst. It is unchanged. The abdominal aorta tapers normally. The gallbladder is slightly contracted. Very small collections of air are seen near the gallbladder of uncertain significance. There is no evidence of bowel obstruction. Images through the pelvis demonstrate the urinary bladder distended with urine. A small to moderate amount of fluid is seen within the pelvis. This has increased attenuation suggesting subacute hemoperitoneum. The appendix is filled with contrast and is within normal limits. Calcifications are seen within the pelvis consistent with phleboliths. The osseous structures are unchanged. Impression: 1. A subacute subcapsular hematoma is seen surrounding the right lobe of the liver. 2. A relatively small area of infarction is seen involving the right lobe of the liver. 3. Small to moderate amount of subacute hemoperitoneum is seen within the pelvis.
--- NOTE | 2016-07-06 11:48 | PDOC ---
Subjective: Subjective: c/o dark urine Objective: Vital Signs: Vital Signs Date Time Temp Pulse Resp B/P Pulse Ox O2 Delivery O2 Flow Rate FiO2 07/06/16 10:41 97.9 84 16 109/58 94 Nasal Cannula 2.0 97.9 Labs: Laboratory Tests Test 07/05/16 16:03 07/05/16 20:43 07/05/16 23:08 07/06/16 04:30 Glucose (Fingerstick) 114mg/dL (70-99) 134mg/dL (70-99) Urine Collection Type Unknown Urine Color [place] Urine Clarity Clear Urine pH 5.0 Urine Specific [place] >=1.030 Urine Protein Negativemg/dL (NEG-TRACE) Urine Glucose (UA) Negativemg/dL (NEG) Urine Ketones (Stick) Tracemg/dL (NEG) Urine Blood Negative (NEG) Urine Nitrite Positive (NEG) Urine Bilirubin Moderate (NEG) Urine Urobilinogen Dipstick 1.0mg/dL (0.2 mg/dL) Urine Leukocyte Esterase Small (NEG) Urine RBC 1-2/HPF (0-2) Urine WBC 5-10/HPF (0-4) Urine Squamous Epithelial Cells Few/LPF Urine Bacteria 0/HPF (0-FEW) Urine Hyaline Casts Many/HPF Urine Mucus Mod/LPF White Blood Count 22.7x10^3/uL (4.0-11.0) Red Blood Count 3.09x10^6/uL (3.50-5.40) Hemoglobin 8.2g/dL (12.0-15.5) Hematocrit 25.4% (36.0-47.0) Mean Corpuscular Volume 82fL (79-100) Mean Corpuscular Hemoglobin 27pg (25-35) Mean Corpuscular Hemoglobin Concent 32g/dL (31-37) Red Cell Distribution Width 24.8% (11.5-14.5) Platelet Count 243x10^3/uL (140-400) Neutrophils (%) (Auto) 85% (31-73) Lymphocytes (%) (Auto) 4% (24-48) Monocytes (%) (Auto) 9% (0-9) Eosinophils (%) (Auto) 2% (0-3) Basophils (%) (Auto) 0% (0-3) Neutrophils # (Auto) 19.3x10^3uL (1.8-7.7) Lymphocytes # (Auto) 0.9x10^3/uL (1.0-4.8) Monocytes # (Auto) 2.0x10^3/uL (0.0-1.1) Eosinophils # (Auto) 0.4x10^3/uL (0.0-0.7) Basophils # (Auto) 0.1x10^3/uL (0.0-0.2) Sodium Level 132mmol/L (136-145) Potassium Level 4.5mmol/L (3.5-5.1) Chloride Level 97mmol/L (98-107) Carbon Dioxide Level 24mmol/L (21-32) Anion Gap 11 (6-14) Blood Urea Nitrogen 24mg/dL (7-20) Creatinine 1.7mg/dL (0.6-1.0) Estimated GFR (Cockcroft-Gault) 31.9 BUN/Creatinine Ratio 14 (6-20) Glucose Level 125mg/dL (70-99) Calcium Level 8.8mg/dL (8.5-10.1) Total Bilirubin 2.3mg/dL (0.2-1.0) Aspartate Amino Transf (AST/SGOT) 122U/L (15-37) Alanine Aminotransferase (ALT/SGPT) 125U/L (14-59) Alkaline Phosphatase 208U/L (46-116) Total Protein 8.5g/dL (6.4-8.2) Albumin 2.7g/dL (3.4-5.0) Albumin/Globulin Ratio 0.5 (1.0-1.7) Test 07/06/16 11:21 Glucose (Fingerstick) 137mg/dL (70-99) Physical Exam: Physical Exam: GEN: NAD LUNGS: CTAB anteriorly HEART: RRR ABD: RUQ discomfort, BS+ NEURO/PSYCH: A & O 3 Assessment & Plan: Assessment : Cirrhosis (Hep C, alcohol), portal HTN, s/p TIPS -Doppler as above Abd pain - worse Anemia -transfused , last Hgb 8.2 CT with 1. A subacute subcapsular hematoma is seen surrounding the right lobe of the liver. 2. A relatively small area of infarction is seen involving the right lobe of the liver. 3. Small to moderate amount of subacute hemoperitoneum is seen within the pelvis. Elevated Cr - improved Plan: Dw Dr Valentine. No acute bleeding. He does not think she will need further IR intervention. Follow Hgb Problems: TAYA MONROY MD Jul 06, 2016 11:48
--- NOTE | 2016-07-06 12:10 | PDOC ---
Provider Note Provider Note IR Note: Day #4 post TIPS creation. Persistent RUQ pain----explained by post TIPS subacute liver subcapsular hematoma + subsegmental liver infarct. Post TIPS hgb drop---in the absence of GI bleeding, this is explained by liver subcapsular hematoma + hemoperitoneum within pelvis. Given stable hgb and stable VS, active bleeding considered unlikely. If hgb falls again, would recommend CTA of liver, followed by arteriogram with embolization, if active arterial bleeding, AVF, or pseudoaneurysm is identified. Will follow. JERRY FLOYD MD Jul 06, 2016 12:09
--- NOTE | 2016-07-06 12:12 | PDOC ---
PROGRESS NOTES Chief Complaint Chief Complaint Upper GI bleeding, 2/2 to portal hypertension, esophageal varices s/p EGD, s/p TIPS on 07/02 hep C, alcoholic cirrhosis non compliance acute renal failure, suspect ATN post TIPS on soft gi diet, marked pain - History of Present Illness History of Present Illness No GI Bleeding no fever persistent pain, req. pain meds post TIPS 07/01, mild abd pain ,diffusely Vitals Vitals Vital Signs Date Time Temp Pulse Resp B/P Pulse Ox O2 Delivery O2 Flow Rate FiO2 07/06/16 11:55 94 Room Air 2.0 07/06/16 10:41 97.9 84 16 109/58 97.9 Physical Exam General: Alert, Oriented X3, Cooperative, No acute distress Heart: Regular rate, Normal S1, Normal S2, No murmurs Lungs: Clear, Other (No chest retractions were present.) Abdomen: Soft, Other (mild diffusely tenderness) Extremities: No clubbing, No cyanosis Skin: No rashes, No breakdown Labs LABS Laboratory Tests Test 07/05/16 16:03 07/05/16 20:43 07/05/16 23:08 07/06/16 04:30 Glucose (Fingerstick) 114mg/dL (70-99) 134mg/dL (70-99) Urine Collection Type Unknown Urine Color [place] Urine Clarity Clear Urine pH 5.0 Urine Specific [place] >=1.030 Urine Protein Negativemg/dL (NEG-TRACE) Urine Glucose (UA) Negativemg/dL (NEG) Urine Ketones (Stick) Tracemg/dL (NEG) Urine Blood Negative (NEG) Urine Nitrite Positive (NEG) Urine Bilirubin Moderate (NEG) Urine Urobilinogen Dipstick 1.0mg/dL (0.2 mg/dL) Urine Leukocyte Esterase Small (NEG) Urine RBC 1-2/HPF (0-2) Urine WBC 5-10/HPF (0-4) Urine Squamous Epithelial Cells Few/LPF Urine Bacteria 0/HPF (0-FEW) Urine Hyaline Casts Many/HPF Urine Mucus Mod/LPF White Blood Count 22.7x10^3/uL (4.0-11.0) Red Blood Count 3.09x10^6/uL (3.50-5.40) Hemoglobin 8.2g/dL (12.0-15.5) Hematocrit 25.4% (36.0-47.0) Mean Corpuscular Volume 82fL (79-100) Mean Corpuscular Hemoglobin 27pg (25-35) Mean Corpuscular Hemoglobin Concent 32g/dL (31-37) Red Cell Distribution Width 24.8% (11.5-14.5) Platelet Count 243x10^3/uL (140-400) Neutrophils (%) (Auto) 85% (31-73) Lymphocytes (%) (Auto) 4% (24-48) Monocytes (%) (Auto) 9% (0-9) Eosinophils (%) (Auto) 2% (0-3) Basophils (%) (Auto) 0% (0-3) Neutrophils # (Auto) 19.3x10^3uL (1.8-7.7) Lymphocytes # (Auto) 0.9x10^3/uL (1.0-4.8) Monocytes # (Auto) 2.0x10^3/uL (0.0-1.1) Eosinophils # (Auto) 0.4x10^3/uL (0.0-0.7) Basophils # (Auto) 0.1x10^3/uL (0.0-0.2) Sodium Level 132mmol/L (136-145) Potassium Level 4.5mmol/L (3.5-5.1) Chloride Level 97mmol/L (98-107) Carbon Dioxide Level 24mmol/L (21-32) Anion Gap 11 (6-14) Blood Urea Nitrogen 24mg/dL (7-20) Creatinine 1.7mg/dL (0.6-1.0) Estimated GFR (Cockcroft-Gault) 31.9 BUN/Creatinine Ratio 14 (6-20) Glucose Level 125mg/dL (70-99) Calcium Level 8.8mg/dL (8.5-10.1) Total Bilirubin 2.3mg/dL (0.2-1.0) Aspartate Amino Transf (AST/SGOT) 122U/L (15-37) Alanine Aminotransferase (ALT/SGPT) 125U/L (14-59) Alkaline Phosphatase 208U/L (46-116) Total Protein 8.5g/dL (6.4-8.2) Albumin 2.7g/dL (3.4-5.0) Albumin/Globulin Ratio 0.5 (1.0-1.7) Test 07/06/16 11:21 Glucose (Fingerstick) 137mg/dL (70-99) Assessment and Plan Assessmemt and Plan acute renal failure, wildly fluctating labs, consult renal, Problems Medical Problems: (1) Acute GI bleeding Status: Acute (2) Blood loss anemia Status: Acute (3) Dentalgia Status: Acute (4) Headache Status: Acute (5) Moderate protein malnutrition Status: Acute Problems: Comment Review of Relevant I have reviewed the following items candace (where applicable) has been applied. Labs Laboratory Tests Test 07/04/16 16:40 07/04/16 16:52 07/04/16 21:23 07/05/16 05:15 Glucose (Fingerstick) 129mg/dL (70-99) 165mg/dL (70-99) Hemoglobin 7.6g/dL (12.0-15.5) Hematocrit 23.3% (36.0-47.0) Mean Corpuscular Hemoglobin Concent 32g/dL (31-37) Sodium Level 133mmol/L (136-145) Potassium Level 3.9mmol/L (3.5-5.1) Chloride Level 99mmol/L (98-107) Carbon Dioxide Level 25mmol/L (21-32) Anion Gap 9 (6-14) Blood Urea Nitrogen 14mg/dL (7-20) Creatinine 1.0mg/dL (0.6-1.0) Estimated GFR (Cockcroft-Gault) 58.9 Glucose Level 127mg/dL (70-99) Calcium Level 8.5mg/dL (8.5-10.1) Test 07/05/16 07:19 07/05/16 10:51 07/05/16 16:03 07/05/16 20:43 Glucose (Fingerstick) 151mg/dL (70-99) 151mg/dL (70-99) 114mg/dL (70-99) 134mg/dL (70-99) Test 07/05/16 23:08 07/06/16 04:30 07/06/16 11:21 Urine Collection Type Unknown Urine Color [place] Urine Clarity Clear Urine pH 5.0 Urine Specific [place] >=1.030 Urine Protein Negativemg/dL (NEG-TRACE) Urine Glucose (UA) Negativemg/dL (NEG) Urine Ketones (Stick) Tracemg/dL (NEG) Urine Blood Negative (NEG) Urine Nitrite Positive (NEG) Urine Bilirubin Moderate (NEG) Urine Urobilinogen Dipstick 1.0mg/dL (0.2 mg/dL) Urine Leukocyte Esterase Small (NEG) Urine RBC 1-2/HPF (0-2) Urine WBC 5-10/HPF (0-4) Urine Squamous Epithelial Cells Few/LPF Urine Bacteria 0/HPF (0-FEW) Urine Hyaline Casts Many/HPF Urine Mucus Mod/LPF White Blood Count 22.7x10^3/uL (4.0-11.0) Red Blood Count 3.09x10^6/uL (3.50-5.40) Hemoglobin 8.2g/dL (12.0-15.5) Hematocrit 25.4% (36.0-47.0) Mean Corpuscular Volume 82fL (79-100) Mean Corpuscular Hemoglobin 27pg (25-35) Mean Corpuscular Hemoglobin Concent 32g/dL (31-37) Red Cell Distribution Width 24.8% (11.5-14.5) Platelet Count 243x10^3/uL (140-400) Neutrophils (%) (Auto) 85% (31-73) Lymphocytes (%) (Auto) 4% (24-48) Monocytes (%) (Auto) 9% (0-9) Eosinophils (%) (Auto) 2% (0-3) Basophils (%) (Auto) 0% (0-3) Neutrophils # (Auto) 19.3x10^3uL (1.8-7.7) Lymphocytes # (Auto) 0.9x10^3/uL (1.0-4.8) Monocytes # (Auto) 2.0x10^3/uL (0.0-1.1) Eosinophils # (Auto) 0.4x10^3/uL (0.0-0.7) Basophils # (Auto) 0.1x10^3/uL (0.0-0.2) Sodium Level 132mmol/L (136-145) Potassium Level 4.5mmol/L (3.5-5.1) Chloride Level 97mmol/L (98-107) Carbon Dioxide Level 24mmol/L (21-32) Anion Gap 11 (6-14) Blood Urea Nitrogen 24mg/dL (7-20) Creatinine 1.7mg/dL (0.6-1.0) Estimated GFR (Cockcroft-Gault) 31.9 BUN/Creatinine Ratio 14 (6-20) Glucose Level 125mg/dL (70-99) Calcium Level 8.8mg/dL (8.5-10.1) Total Bilirubin 2.3mg/dL (0.2-1.0) Aspartate Amino Transf (AST/SGOT) 122U/L (15-37) Alanine Aminotransferase (ALT/SGPT) 125U/L (14-59) Alkaline Phosphatase 208U/L (46-116) Total Protein 8.5g/dL (6.4-8.2) Albumin 2.7g/dL (3.4-5.0) Albumin/Globulin Ratio 0.5 (1.0-1.7) Glucose (Fingerstick) 137mg/dL (70-99) Laboratory Tests Test 07/05/16 16:03 07/05/16 20:43 07/05/16 23:08 07/06/16 04:30 Glucose (Fingerstick) 114mg/dL (70-99) 134mg/dL (70-99) Urine Collection Type Unknown Urine Color [place] Urine Clarity Clear Urine pH 5.0 Urine Specific [place] >=1.030 Urine Protein Negativemg/dL (NEG-TRACE) Urine Glucose (UA) Negativemg/dL (NEG) Urine Ketones (Stick) Tracemg/dL (NEG) Urine Blood Negative (NEG) Urine Nitrite Positive (NEG) Urine Bilirubin Moderate (NEG) Urine Urobilinogen Dipstick 1.0mg/dL (0.2 mg/dL) Urine Leukocyte Esterase Small (NEG) Urine RBC 1-2/HPF (0-2) Urine WBC 5-10/HPF (0-4) Urine Squamous Epithelial Cells Few/LPF Urine Bacteria 0/HPF (0-FEW) Urine Hyaline Casts Many/HPF Urine Mucus Mod/LPF White Blood Count 22.7x10^3/uL (4.0-11.0) Red Blood Count 3.09x10^6/uL (3.50-5.40) Hemoglobin 8.2g/dL (12.0-15.5) Hematocrit 25.4% (36.0-47.0) Mean Corpuscular Volume 82fL (79-100) Mean Corpuscular Hemoglobin 27pg (25-35) Mean Corpuscular Hemoglobin Concent 32g/dL (31-37) Red Cell Distribution Width 24.8% (11.5-14.5) Platelet Count 243x10^3/uL (140-400) Neutrophils (%) (Auto) 85% (31-73) Lymphocytes (%) (Auto) 4% (24-48) Monocytes (%) (Auto) 9% (0-9) Eosinophils (%) (Auto) 2% (0-3) Basophils (%) (Auto) 0% (0-3) Neutrophils # (Auto) 19.3x10^3uL (1.8-7.7) Lymphocytes # (Auto) 0.9x10^3/uL (1.0-4.8) Monocytes # (Auto) 2.0x10^3/uL (0.0-1.1) Eosinophils # (Auto) 0.4x10^3/uL (0.0-0.7) Basophils # (Auto) 0.1x10^3/uL (0.0-0.2) Sodium Level 132mmol/L (136-145) Potassium Level 4.5mmol/L (3.5-5.1) Chloride Level 97mmol/L (98-107) Carbon Dioxide Level 24mmol/L (21-32) Anion Gap 11 (6-14) Blood Urea Nitrogen 24mg/dL (7-20) Creatinine 1.7mg/dL (0.6-1.0) Estimated GFR (Cockcroft-Gault) 31.9 BUN/Creatinine Ratio 14 (6-20) Glucose Level 125mg/dL (70-99) Calcium Level 8.8mg/dL (8.5-10.1) Total Bilirubin 2.3mg/dL (0.2-1.0) Aspartate Amino Transf (AST/SGOT) 122U/L (15-37) Alanine Aminotransferase (ALT/SGPT) 125U/L (14-59) Alkaline Phosphatase 208U/L (46-116) Total Protein 8.5g/dL (6.4-8.2) Albumin 2.7g/dL (3.4-5.0) Albumin/Globulin Ratio 0.5 (1.0-1.7) Test 07/06/16 11:21 Glucose (Fingerstick) 137mg/dL (70-99) Microbiology 06/25/16 Urine Culture - Final, Complete 06/25/16 Urine Culture Result 1 (JAKE) - Final, Complete Medications Current Medications Sodium Chloride (Iv Sodium Chloride 0.9% 1000ml Bag) 1,000 ml @ 1,000 mls/hr Q1H IV Last administered on 06/25/16 19:05; Start 06/25/16 at 18:00; Stop 01/31 at 18:59; Status DC Ondansetron HCl (Zofran) 4 mg 1X ONCE IV Last administered on 06/25/16 19:08 ; Start 06/25/16 at 18:00; Stop 06/25/16 at 18:01; Status DC Famotidine (Pepcid) 20 mg 1X ONCE IVP ; Start 06/25/16 at 18:00; Stop 06/25/16 at 18:27; Status DC Fentanyl Citrate (Fentanyl 2ml Vial) 50 mcg PRN Q15MIN PRN IV PAIN GREATER THAN 3/10 Last administered on 06/25/16 19:07; Start 06/25/16 at 18:00; Stop at 21:33; Status DC Pantoprazole Sodium 40 mg 40 mg 1X ONCE IVP Last administered on 06/25/16 19: 14; Start 06/25/16 at 18:30; Stop 06/25/16 at 18:31; Status DC Pantoprazole Sodium/Sodium Chloride (Protonix Iv/Iv Sodium Chloride 0.9% 100ml) 100 ml @ 10 mls/hr Q10H IV Last administered on 06/28/16 16:36; Start at 18:30; Stop 06/29/16 at 07:18; Status DC Ondansetron HCl (Zofran) 4 mg PRN Q8HRS PRN IV NAUSEA/VOMITING Last administered on 06/26/16 13:37; Start 06/25/16 at 19:00; Stop 06/26/16 at 18:59 ; Status DC Fentanyl Citrate 50 mcg 50 mcg PRN Q2HR PRN IV PAIN Last administered on 17:19; Start 06/25/16 at 19:00; Stop 06/26/16 at 18:59; Status DC Sodium Chloride 1,000 ml @ 125 mls/hr Q8H IV Last administered on 06/26/16 10 :58; Start 06/25/16 at 18:58; Stop 06/26/16 at 18:57; Status DC Propofol (Diprivan) 20 ml @ As Directed STK-MED ONCE IV ; Start 06/26/16 at 09: 32; Stop 06/26/16 at 09:33; Status DC Lidocaine HCl 5 ml 5 ml STK-MED ONCE .ROUTE ; Start 06/26/16 at 09:32; Stop 03/02 at 09:33; Status DC Propofol 20 ml @ As Directed STK-MED ONCE IV ; Start 06/26/16 at 09:50; Stop 03/02 at 09:51; Status DC Propofol 20 ml @ As Directed STK-MED ONCE IV ; Start 06/26/16 at 09:55; Stop 03/02 at 09:56; Status DC Propofol (Diprivan) 20 ml @ As Directed STK-MED ONCE IV ; Start 06/26/16 at 10: 04; Stop 06/26/16 at 10:05; Status DC Epinephrine HCl (Epinephrine Syringe) 1 mg STK-MED ONCE .ROUTE ; Start 06/26/16 at 10:07; Stop 06/26/16 at 10:08; Status DC Insulin Aspart (Novolog) 0-7 UNITS TIDWMEALS SQ Last administered on 07/05/16 12:44; Start 06/26/16 at 12:00 Dextrose 12.5 gm 12.5 gm PRN Q15MIN PRN IV SEE COMMENTS; Start 06/26/16 at 10: 15 Propofol 20 ml @ As Directed STK-MED ONCE IV ; Start 06/26/16 at 10:11; Stop 03/02 at 10:12; Status DC Propofol (Diprivan) 40 ml @ As Directed STK-MED ONCE IV ; Start 06/26/16 at 10: 20; Stop 06/26/16 at 10:21; Status DC Epinephrine HCl (Epinephrine Syringe) 1 mg STK-MED ONCE IV Last administered on 06/26/16 10:20; Start 06/26/16 at 10:20; Stop 06/26/16 at 10:46; Status DC Epinephrine HCl 1 mg 1 mg STK-MED ONCE IV Last administered on 06/26/16 10:22 ; Start 06/26/16 at 10:22; Stop 06/26/16 at 10:46; Status DC Octreotide Acetate/Sodium Chloride (Sandostatin/Iv Sodium Chloride 0.9% 100ml) 101 ml @ 0 mls/hr CONT PRN IV SEE COMMENTS Last administered on 06/28/16 17:42 ; Start 06/26/16 at 11:00; Stop 06/29/16 at 07:18; Status DC Fentanyl Citrate (Fentanyl 2ml Vial) 25 mcg PRN Q4HRS PRN IV PAIN; Start at 21:00; Stop 06/26/16 at 21:00; Status DC Fentanyl Citrate 25 mcg 25 mcg PRN Q4HRS PRN IV PAIN Last administered on 20:42; Start 06/26/16 at 21:00; Stop 06/28/16 at 00:00; Status DC Iron Sucrose/ Sodium Chloride (Venofer/Iv Sodium Chloride 0.9% 250ml) 265 ml @ 90 mls/hr Q12HR IV Last administered on 06/28/16 09:57; Start 06/27/16 at 12: 00; Stop 06/28/16 at 11:57; Status DC Fentanyl Citrate (Fentanyl 2ml Vial) 25 mcg PRN Q4HRS PRN IV SEVERE PAIN Last administered on 07/01/16 06:17; Start 06/28/16 at 01:15; Stop 07/01/16 at 09:00 ; Status DC Ondansetron HCl 4 mg 4 mg PRN Q6HRS PRN IV NAUSEA/VOMITING Last administered on 07/02/16 20:32; Start 06/28/16 at 04:30 Ceftriaxone Sodium/Sodium Chloride (Rocephin/Iv Sodium Chloride 0.9% 50ml) 50 ml @ 100 mls/hr Q24H IV Last administered on 07/01/16 15:46; Start 06/28/16 at 16:00; Stop 07/02/16 at 13:43; Status DC Pantoprazole Sodium (Protonix) 40 mg DAILYAC PO Last administered on 07/06/16 08:08; Start 06/29/16 at 08:00 Iohexol (Omnipaque 350 Mg/ml) 75 ml 1X ONCE IV Last administered on 06/29/16 12:05; Start 06/29/16 at 12:00; Stop 06/29/16 at 12:01; Status DC Info (Do NOT chart on this entry -- for MONITORING) 1 each PRN DAILY PRN MC SEE COMMENTS; Start 06/29/16 at 12:00; Stop 07/01/16 at 11:59; Status DC Potassium Chloride (Klor-Con) 40 meq 1X ONCE PO Last administered on 11:18; Start 06/30/16 at 11:00; Stop 06/30/16 at 11:01; Status DC Morphine Sulfate 2 mg PRN Q2HR PRN IV PAIN Last administered on 07/01/16 09:04 ; Start 07/01/16 at 09:00; Stop 07/01/16 at 10:53; Status DC Fentanyl Citrate (Fentanyl 2ml Vial) 25 mcg PRN Q2HR PRN IV SEVERE PAIN Last administered on 07/05/16 07:59; Start 07/01/16 at 01:15; Stop 07/05/16 at 09:04 ; Status DC Morphine Sulfate 4 mg PRN Q2HR PRN IV PAIN Last administered on 07/05/16 07:30 ; Start 07/01/16 at 11:00; Stop 07/05/16 at 09:05; Status DC Ondansetron HCl (Zofran) 4 mg PRN Q6HRS PRN IV NAUSEA/VOMITING; Start 07/01/16 at 11:00; Stop 07/02/16 at 10:59; Status DC Fentanyl Citrate (Fentanyl 2ml Vial) 25 mcg PRN Q5MIN PRN IV MILD PAIN; Start 07/01/16 at 11:00; Stop 07/02/16 at 10:59; Status DC Fentanyl Citrate (Fentanyl 2ml Vial) 50 mcg PRN Q5MIN PRN IV MODERATE PAIN; Start 07/01/16 at 11:00; Stop 07/02/16 at 10:59; Status DC Morphine Sulfate 1 mg 1 mg PRN Q10MIN PRN IV SEVERE PAIN; Start 07/01/16 at 11: 00; Stop 07/02/16 at 10:59; Status DC Lactated Ringer's (Iv Lactated Ringers) 1,000 ml @ 30 mls/hr Q24H IV ; Start at 10:59; Stop 07/01/16 at 22:58; Status DC Lidocaine HCl 2 ml PRN 1X PRN ID PRIOR TO IV START; Start 07/01/16 at 11:00; Stop 07/02/16 at 10:59; Status DC Hydromorphone HCl (Dilaudid) 0.5 mg PRN Q10MIN PRN IV SEV PAIN, Second choice; Start 07/01/16 at 11:00; Stop 07/02/16 at 10:59; Status DC Prochlorperazine Edisylate (Compazine) 5 mg PACU PRN PRN IV NAUSEA, MRX1; Start 07/01/16 at 11:00; Stop 07/02/16 at 10:59; Status DC Midazolam HCl (Versed) 2 mg STK-MED ONCE .ROUTE ; Start 07/01/16 at 13:27; Stop 07/01/16 at 13:28; Status DC Fentanyl Citrate (Fentanyl 5ml Vial) 250 mcg STK-MED ONCE .ROUTE ; Start at 13:27; Stop 07/01/16 at 13:28; Status DC Iohexol (Omnipaque 300 Mg/ml) 100 ml STK-MED ONCE .ROUTE ; Start 07/01/16 at 13: 30; Stop 07/01/16 at 13:31; Status DC Lidocaine/Sodium Bicarbonate 20 ml 20 ml STK-MED ONCE IJ ; Start 07/01/16 at 13: 30; Stop 07/01/16 at 13:31; Status DC Heparin Sodium/ Sodium Chloride 500 ml @ As Directed STK-MED ONCE .ROUTE ; Start 07/01/16 at 13:30; Stop 07/01/16 at 13:31; Status DC Heparin Sodium/ Sodium Chloride 1,000 unit 1X ONCE IART Last administered on t 14:25; Start 07/01/16 at 14:15; Stop 07/01/16 at 14:20; Status DC Lidocaine/Sodium Bicarbonate (Buffered Lidocaine 1%) 2 ml 1X ONCE IJ Last administered on 07/01/16t 14:25; Start 07/01/16 at 14:15; Stop 07/01/16 at 14:20 ; Status DC Midazolam HCl (Versed) 2 mg 1X ONCE IV Last administered on 07/01/16 14:26; Start 07/01/16 at 14:15; Stop 07/01/16 at 14:20; Status DC Fentanyl Citrate (Fentanyl 5ml Vial) 100 mcg 1X ONCE IV Last administered on 14:26; Start 07/01/16 at 14:15; Stop 07/01/16 at 14:20; Status DC Iohexol (Omnipaque 300 Mg/ml) 40 ml 1X ONCE IART Last administered on 14:26; Start 07/01/16 at 14:15; Stop 07/01/16 at 14:20; Status DC Iohexol (Omnipaque 300 Mg/ml) 100 ml STK-MED ONCE .ROUTE ; Start 07/02/16 at 12: 24; Stop 07/02/16 at 12:25; Status DC Lidocaine/Sodium Bicarbonate 20 ml 20 ml STK-MED ONCE IJ ; Start 07/02/16 at 12: 25; Stop 07/02/16 at 12:26; Status DC Heparin Sodium/ Sodium Chloride 1,000 ml @ As Directed STK-MED ONCE .ROUTE ; Start 07/02/16 at 12:25; Stop 07/02/16 at 12:26; Status DC Heparin Sodium/ Sodium Chloride 2,000 unit 1X ONCE IART Last administered on 14:04; Start 07/02/16 at 13:15; Stop 07/02/16 at 13:16; Status DC Lidocaine/Sodium Bicarbonate (Buffered Lidocaine 1%) 20 ml 1X ONCE IJ Last administered on 07/02/16 14:05; Start 07/02/16 at 13:15; Stop 07/02/16 at 13:16 ; Status DC Iohexol 200 ml 200 ml 1X ONCE IART Last administered on 07/02/16 14:05; Start 07/02/16 at 13:15; Stop 07/02/16 at 13:16; Status DC Ceftriaxone Sodium (Rocephin 1gm Ivpb For Omni) 50 ml @ As Directed STK-MED ONCE IV ; Start 07/02/16 at 13:20; Stop 07/02/16 at 13:21; Status DC Dexamethasone Sodium Phosphate (Decadron) 20 mg STK-MED ONCE .ROUTE ; Start at 13:34; Stop 07/02/16 at 13:35; Status DC Ondansetron HCl 4 mg 4 mg STK-MED ONCE .ROUTE ; Start 07/02/16 at 13:34; Stop at 13:35; Status DC Propofol (Diprivan) 20 ml @ As Directed STK-MED ONCE IV ; Start 07/02/16 at 13: 34; Stop 07/02/16 at 13:35; Status DC Fentanyl Citrate (Fentanyl 2ml Vial) 100 mcg STK-MED ONCE .ROUTE ; Start at 13:34; Stop 07/02/16 at 13:35; Status DC Midazolam HCl (Versed) 2 mg STK-MED ONCE .ROUTE ; Start 07/02/16 at 13:34; Stop 07/02/16 at 13:35; Status DC Rocuronium [place] 50 mg 50 mg STK-MED ONCE .ROUTE ; Start 07/02/16 at 13:34; Stop 07/02/16 at 13:35; Status DC Ceftriaxone Sodium 50 ml @ 100 mls/hr 1X ONCE IV Last administered on t 14:06; Start 07/02/16 at 13:45; Stop 07/02/16 at 14:14; Status DC Ceftriaxone Sodium/Sodium Chloride (Rocephin/Iv Sodium Chloride 0.9% 50ml) 50 ml @ 100 mls/hr Q24H IV Last administered on 07/05/16t 16:11; Start 07/03/16 at 14:00; Stop 07/06/16 at 10:33; Status DC Ephedrine Sulfate (Akovaz) 50 mg STK-MED ONCE .ROUTE ; Start 07/02/16 at 14:16; Stop 07/02/16 at 14:17; Status DC Phenylephrine HCl 1 mg STK-MED ONCE IV ; Start 07/02/16 at 14:16; Stop 07/02/16 at 14:17; Status DC Fentanyl Citrate (Fentanyl 2ml Vial) 100 mcg STK-MED ONCE .ROUTE ; Start at 16:30; Stop 07/02/16 at 16:31; Status DC Fentanyl Citrate 100 mcg 100 mcg STK-MED ONCE .ROUTE ; Start 07/02/16 at 17:50; Stop 07/02/16 at 17:51; Status DC Propofol (Diprivan) 20 ml @ As Directed STK-MED ONCE IV ; Start 07/02/16 at 17: 50; Stop 07/02/16 at 17:51; Status DC Tramadol HCl (Ultram) 50 mg PRN Q6HRS PRN PO PAIN Last administered on 21:23; Start 07/03/16 at 12:00 Ibuprofen (Motrin) 400 mg 1X ONCE PO Last administered on 07/04/16 10:30; Start 07/04/16 at 11:00; Stop 07/04/16 at 11:01; Status DC Fentanyl Citrate (Fentanyl 2ml Vial) 75 mcg PRN Q2HR PRN IV SEVERE PAIN Last administered on 07/05/16 12:39; Start 07/05/16 at 09:15 Morphine Sulfate 6 mg PRN Q2HR PRN IV PAIN; Start 07/05/16 at 09:15; Stop 07/05 at 09:15; Status DC Morphine Sulfate 8 mg PRN Q2HR PRN IV PAIN; Start 07/05/16 at 09:15; Stop 07/05 at 09:45; Status DC Morphine Sulfate 10 mg PRN Q2HR PRN IV PAIN Last administered on 07/05/16 09: 52; Start 07/05/16 at 09:45 Morphine Sulfate (Morphine Ir) 30 mg PRN Q4HRS PRN PO PAIN Last administered on 07/06/16 11:55; Start 07/05/16 at 11:00 Iohexol (Omnipaque 300 Mg/ml) 75 ml 1X ONCE PO Last administered on 07/05/16 18:18; Start 07/05/16 at 17:00; Stop 07/05/16 at 17:01; Status DC Iohexol (Omnipaque 240 Mg/ml) 50 ml 1X ONCE PO Last administered on 07/05/16 17:00; Start 07/05/16 at 17:00; Stop 07/05/16 at 17:01; Status DC Info (Do NOT chart on this entry -- for MONITORING) 1 each PRN DAILY PRN MC SEE COMMENTS; Start 07/05/16 at 17:00; Stop 07/07/16 at 16:59 Piperacillin Sod/ Tazobactam Sod 1 each 1 each PRN DAILY PRN MC SEE COMMENTS; Start 07/06/16 at 10:45 Piperacillin Sod/ Tazobactam Sod/ Sodium Chloride (Zosyn/Iv Sodium Chloride 0.9 % 50ml) 50 ml @ 100 mls/hr Q6HRS IV Last administered on 07/06/16t 11:06; Start 07/06/16 at 11:00 Active Scripts Active Fioricet 50-300-40 Mg Capsule (Butalb/Acetaminophen/Caffeine) 1 Each Capsule 1 Each PO PRN Q4HRS PRN Vitals/I & O Vital Sign - Last 24 Hours 07/05/16 07/05/16 07/05/16 07/05/16 12:39 15:00 15:29 19:00 Temp 98.2 98.2 98.2 98.2 Pulse 95 85 Resp 20 18 B/P 108/65 101/58 Pulse Ox 3 99 93 O2 Delivery Nasal Cannula Nasal Cannula Nasal Cannula O2 Flow Rate 2.5 3.0 07/05/16 07/05/16 07/05/16 07/06/16 20:10 20:10 23:00 01:42 Temp 97.7 97.7 Pulse 86 Resp 20 16 20 B/P 105/62 Pulse Ox 93 O2 Delivery Room Air Room Air Nasal Cannula 07/06/16 07/06/16 07/06/16 07/06/16 02:54 03:00 07:00 08:08 Temp 97.3 97.9 97.3 97.9 Pulse 82 85 Resp 20 16 20 14 B/P 97/57 113/70 Pulse Ox 98 100 99 O2 Delivery Nasal Cannula Nasal Cannula O2 Flow Rate 2.0 2.0 07/06/16 07/06/16 07/06/16 09:08 10:41 11:55 Temp 97.9 97.9 Pulse 84 Resp 16 B/P 109/58 Pulse Ox 99 94 94 O2 Delivery Room Air Nasal Cannula Room Air O2 Flow Rate 2.0 2.0 2.0 Intake and Output 07/05/16 07/05/16 07/06/16 15:00 23:00 07:00 Intake Total 250 ml 920 ml 120 ml Output Total 300 ml Balance 250 ml 920 ml -180 ml CHEPE NIEVES MD Jul 06, 2016 12:12
--- NOTE | 2016-07-06 12:29 | PDOC2 ---
CONSULT Date of Consult Date of Consult DATE: 07/06/16 TIME: 12:24 Reason for Consult Reason for Consult: MARITZA Referring Physician Referring Physician: EZEQUIEL Identification/Chief Complaint Chief Complaint GI BLEED Source Source: Chart review History of Present Illness Reason for Visit: THIS IS A 50 YR OLD ALCOHOLIC ADMITTED WITH CIRRHOSIS AND PORTAL HYPERTENSION. HX IS NOTABLE FOR TIPS. HE DEVELOPED A SUBCAPSULAR LIVER HEMATOMA AND HEMOPERITONEUM. HE HAS HAD EXPOSURE TO CONTRAST AND HAS HAD SOME ANEMIA ALONG WITH LOW BP'S CHARACTERISTIC OF HIS LIVER CIRRHOSIS. NO CKD IS NOTED. HIS CR IS UP TO 1.8 Past Medical History Heme/Onc: Cancer Hepatobiliary: Hep A/B/C Psych: Anxiety, Depression Musculoskeletal: Osteoarthritis Past Surgical History Past Surgical History: Family History Family History: Diabetes, Hypertension Social History <1 pack per day ALCOHOL: occassional Lives: with Family Current Problem List Problem List Problems Medical Problems: (1) Acute GI bleeding Status: Acute (2) Blood loss anemia Status: Acute (3) Dentalgia Status: Acute (4) Headache Status: Acute (5) Moderate protein malnutrition Status: Acute Current Medications Current Medications Current Medications Sodium Chloride (Iv Sodium Chloride 0.9% 1000ml Bag) 1,000 ml @ 1,000 mls/hr Q1H IV Last administered on 06/25/16 19:05; Start 06/25/16 at 18:00; Stop 01/31 at 18:59; Status DC Ondansetron HCl (Zofran) 4 mg 1X ONCE IV Last administered on 06/25/16 19:08 ; Start 06/25/16 at 18:00; Stop 06/25/16 at 18:01; Status DC Famotidine (Pepcid) 20 mg 1X ONCE IVP ; Start 06/25/16 at 18:00; Stop 06/25/16 at 18:27; Status DC Fentanyl Citrate (Fentanyl 2ml Vial) 50 mcg PRN Q15MIN PRN IV PAIN GREATER THAN 3/10 Last administered on 06/25/16 19:07; Start 06/25/16 at 18:00; Stop at 21:33; Status DC Pantoprazole Sodium 40 mg 40 mg 1X ONCE IVP Last administered on 06/25/16 19: 14; Start 06/25/16 at 18:30; Stop 06/25/16 at 18:31; Status DC Pantoprazole Sodium/Sodium Chloride (Protonix Iv/Iv Sodium Chloride 0.9% 100ml) 100 ml @ 10 mls/hr Q10H IV Last administered on 06/28/16 16:36; Start at 18:30; Stop 06/29/16 at 07:18; Status DC Ondansetron HCl (Zofran) 4 mg PRN Q8HRS PRN IV NAUSEA/VOMITING Last administered on 06/26/16 13:37; Start 06/25/16 at 19:00; Stop 06/26/16 at 18:59 ; Status DC Fentanyl Citrate 50 mcg 50 mcg PRN Q2HR PRN IV PAIN Last administered on 17:19; Start 06/25/16 at 19:00; Stop 06/26/16 at 18:59; Status DC Sodium Chloride 1,000 ml @ 125 mls/hr Q8H IV Last administered on 06/26/16 10 :58; Start 06/25/16 at 18:58; Stop 06/26/16 at 18:57; Status DC Propofol (Diprivan) 20 ml @ As Directed STK-MED ONCE IV ; Start 06/26/16 at 09: 32; Stop 06/26/16 at 09:33; Status DC Lidocaine HCl 5 ml 5 ml STK-MED ONCE .ROUTE ; Start 06/26/16 at 09:32; Stop 03/02 at 09:33; Status DC Propofol 20 ml @ As Directed STK-MED ONCE IV ; Start 06/26/16 at 09:50; Stop 03/02 at 09:51; Status DC Propofol 20 ml @ As Directed STK-MED ONCE IV ; Start 06/26/16 at 09:55; Stop 03/02 at 09:56; Status DC Propofol (Diprivan) 20 ml @ As Directed STK-MED ONCE IV ; Start 06/26/16 at 10: 04; Stop 06/26/16 at 10:05; Status DC Epinephrine HCl (Epinephrine Syringe) 1 mg STK-MED ONCE .ROUTE ; Start 06/26/16 at 10:07; Stop 06/26/16 at 10:08; Status DC Insulin Aspart (Novolog) 0-7 UNITS TIDWMEALS SQ Last administered on 07/05/16 12:44; Start 06/26/16 at 12:00 Dextrose 12.5 gm 12.5 gm PRN Q15MIN PRN IV SEE COMMENTS; Start 06/26/16 at 10: 15 Propofol 20 ml @ As Directed STK-MED ONCE IV ; Start 06/26/16 at 10:11; Stop 03/02 at 10:12; Status DC Propofol (Diprivan) 40 ml @ As Directed STK-MED ONCE IV ; Start 06/26/16 at 10: 20; Stop 06/26/16 at 10:21; Status DC Epinephrine HCl (Epinephrine Syringe) 1 mg STK-MED ONCE IV Last administered on 06/26/16 10:20; Start 06/26/16 at 10:20; Stop 06/26/16 at 10:46; Status DC Epinephrine HCl 1 mg 1 mg STK-MED ONCE IV Last administered on 06/26/16 10:22 ; Start 06/26/16 at 10:22; Stop 06/26/16 at 10:46; Status DC Octreotide Acetate/Sodium Chloride (Sandostatin/Iv Sodium Chloride 0.9% 100ml) 101 ml @ 0 mls/hr CONT PRN IV SEE COMMENTS Last administered on 06/28/16 17:42 ; Start 06/26/16 at 11:00; Stop 06/29/16 at 07:18; Status DC Fentanyl Citrate (Fentanyl 2ml Vial) 25 mcg PRN Q4HRS PRN IV PAIN; Start at 21:00; Stop 06/26/16 at 21:00; Status DC Fentanyl Citrate 25 mcg 25 mcg PRN Q4HRS PRN IV PAIN Last administered on 20:42; Start 06/26/16 at 21:00; Stop 06/28/16 at 00:00; Status DC Iron Sucrose/ Sodium Chloride (Venofer/Iv Sodium Chloride 0.9% 250ml) 265 ml @ 90 mls/hr Q12HR IV Last administered on 06/28/16 09:57; Start 06/27/16 at 12: 00; Stop 06/28/16 at 11:57; Status DC Fentanyl Citrate (Fentanyl 2ml Vial) 25 mcg PRN Q4HRS PRN IV SEVERE PAIN Last administered on 07/01/16 06:17; Start 06/28/16 at 01:15; Stop 07/01/16 at 09:00 ; Status DC Ondansetron HCl 4 mg 4 mg PRN Q6HRS PRN IV NAUSEA/VOMITING Last administered on 07/02/16 20:32; Start 06/28/16 at 04:30 Ceftriaxone Sodium/Sodium Chloride (Rocephin/Iv Sodium Chloride 0.9% 50ml) 50 ml @ 100 mls/hr Q24H IV Last administered on 07/01/16 15:46; Start 06/28/16 at 16:00; Stop 07/02/16 at 13:43; Status DC Pantoprazole Sodium (Protonix) 40 mg DAILYAC PO Last administered on 07/06/16 08:08; Start 06/29/16 at 08:00 Iohexol (Omnipaque 350 Mg/ml) 75 ml 1X ONCE IV Last administered on 06/29/16 12:05; Start 06/29/16 at 12:00; Stop 06/29/16 at 12:01; Status DC Info (Do NOT chart on this entry -- for MONITORING) 1 each PRN DAILY PRN MC SEE COMMENTS; Start 06/29/16 at 12:00; Stop 07/01/16 at 11:59; Status DC Potassium Chloride (Klor-Con) 40 meq 1X ONCE PO Last administered on 11:18; Start 06/30/16 at 11:00; Stop 06/30/16 at 11:01; Status DC Morphine Sulfate 2 mg PRN Q2HR PRN IV PAIN Last administered on 07/01/16 09:04 ; Start 07/01/16 at 09:00; Stop 07/01/16 at 10:53; Status DC Fentanyl Citrate (Fentanyl 2ml Vial) 25 mcg PRN Q2HR PRN IV SEVERE PAIN Last administered on 07/05/16 07:59; Start 07/01/16 at 01:15; Stop 07/05/16 at 09:04 ; Status DC Morphine Sulfate 4 mg PRN Q2HR PRN IV PAIN Last administered on 07/05/16 07:30 ; Start 07/01/16 at 11:00; Stop 07/05/16 at 09:05; Status DC Ondansetron HCl (Zofran) 4 mg PRN Q6HRS PRN IV NAUSEA/VOMITING; Start 07/01/16 at 11:00; Stop 07/02/16 at 10:59; Status DC Fentanyl Citrate (Fentanyl 2ml Vial) 25 mcg PRN Q5MIN PRN IV MILD PAIN; Start 07/01/16 at 11:00; Stop 07/02/16 at 10:59; Status DC Fentanyl Citrate (Fentanyl 2ml Vial) 50 mcg PRN Q5MIN PRN IV MODERATE PAIN; Start 07/01/16 at 11:00; Stop 07/02/16 at 10:59; Status DC Morphine Sulfate 1 mg 1 mg PRN Q10MIN PRN IV SEVERE PAIN; Start 07/01/16 at 11: 00; Stop 07/02/16 at 10:59; Status DC Lactated Ringer's (Iv Lactated Ringers) 1,000 ml @ 30 mls/hr Q24H IV ; Start at 10:59; Stop 07/01/16 at 22:58; Status DC Lidocaine HCl 2 ml PRN 1X PRN ID PRIOR TO IV START; Start 07/01/16 at 11:00; Stop 07/02/16 at 10:59; Status DC Hydromorphone HCl (Dilaudid) 0.5 mg PRN Q10MIN PRN IV SEV PAIN, Second choice; Start 07/01/16 at 11:00; Stop 07/02/16 at 10:59; Status DC Prochlorperazine Edisylate (Compazine) 5 mg PACU PRN PRN IV NAUSEA, MRX1; Start 07/01/16 at 11:00; Stop 07/02/16 at 10:59; Status DC Midazolam HCl (Versed) 2 mg STK-MED ONCE .ROUTE ; Start 07/01/16 at 13:27; Stop 07/01/16 at 13:28; Status DC Fentanyl Citrate (Fentanyl 5ml Vial) 250 mcg STK-MED ONCE .ROUTE ; Start at 13:27; Stop 07/01/16 at 13:28; Status DC Iohexol (Omnipaque 300 Mg/ml) 100 ml STK-MED ONCE .ROUTE ; Start 07/01/16 at 13: 30; Stop 07/01/16 at 13:31; Status DC Lidocaine/Sodium Bicarbonate 20 ml 20 ml STK-MED ONCE IJ ; Start 07/01/16 at 13: 30; Stop 07/01/16 at 13:31; Status DC Heparin Sodium/ Sodium Chloride 500 ml @ As Directed STK-MED ONCE .ROUTE ; Start 07/01/16 at 13:30; Stop 07/01/16 at 13:31; Status DC Heparin Sodium/ Sodium Chloride 1,000 unit 1X ONCE IART Last administered on 14:25; Start 07/01/16 at 14:15; Stop 07/01/16 at 14:20; Status DC Lidocaine/Sodium Bicarbonate (Buffered Lidocaine 1%) 2 ml 1X ONCE IJ Last administered on 07/01/16 14:25; Start 07/01/16 at 14:15; Stop 07/01/16 at 14:20 ; Status DC Midazolam HCl (Versed) 2 mg 1X ONCE IV Last administered on 07/01/16 14:26; Start 07/01/16 at 14:15; Stop 07/01/16 at 14:20; Status DC Fentanyl Citrate (Fentanyl 5ml Vial) 100 mcg 1X ONCE IV Last administered on 14:26; Start 07/01/16 at 14:15; Stop 07/01/16 at 14:20; Status DC Iohexol (Omnipaque 300 Mg/ml) 40 ml 1X ONCE IART Last administered on 14:26; Start 07/01/16 at 14:15; Stop 07/01/16 at 14:20; Status DC Iohexol (Omnipaque 300 Mg/ml) 100 ml STK-MED ONCE .ROUTE ; Start 07/02/16 at 12: 24; Stop 07/02/16 at 12:25; Status DC Lidocaine/Sodium Bicarbonate 20 ml 20 ml STK-MED ONCE IJ ; Start 07/02/16 at 12: 25; Stop 07/02/16 at 12:26; Status DC Heparin Sodium/ Sodium Chloride 1,000 ml @ As Directed STK-MED ONCE .ROUTE ; Start 07/02/16 at 12:25; Stop 07/02/16 at 12:26; Status DC Heparin Sodium/ Sodium Chloride 2,000 unit 1X ONCE IART Last administered on 14:04; Start 07/02/16 at 13:15; Stop 07/02/16 at 13:16; Status DC Lidocaine/Sodium Bicarbonate (Buffered Lidocaine 1%) 20 ml 1X ONCE IJ Last administered on 07/02/16 14:05; Start 07/02/16 at 13:15; Stop 07/02/16 at 13:16 ; Status DC Iohexol 200 ml 200 ml 1X ONCE IART Last administered on 07/02/16 14:05; Start 07/02/16 at 13:15; Stop 07/02/16 at 13:16; Status DC Ceftriaxone Sodium (Rocephin 1gm Ivpb For Omni) 50 ml @ As Directed STK-MED ONCE IV ; Start 07/02/16 at 13:20; Stop 07/02/16 at 13:21; Status DC Dexamethasone Sodium Phosphate (Decadron) 20 mg STK-MED ONCE .ROUTE ; Start at 13:34; Stop 07/02/16 at 13:35; Status DC Ondansetron HCl 4 mg 4 mg STK-MED ONCE .ROUTE ; Start 07/02/16 at 13:34; Stop at 13:35; Status DC Propofol (Diprivan) 20 ml @ As Directed STK-MED ONCE IV ; Start 07/02/16 at 13: 34; Stop 07/02/16 at 13:35; Status DC Fentanyl Citrate (Fentanyl 2ml Vial) 100 mcg STK-MED ONCE .ROUTE ; Start at 13:34; Stop 07/02/16 at 13:35; Status DC Midazolam HCl (Versed) 2 mg STK-MED ONCE .ROUTE ; Start 07/02/16 at 13:34; Stop 07/02/16 at 13:35; Status DC Rocuronium [place] 50 mg 50 mg STK-MED ONCE .ROUTE ; Start 07/02/16 at 13:34; Stop 07/02/16 at 13:35; Status DC Ceftriaxone Sodium 50 ml @ 100 mls/hr 1X ONCE IV Last administered on 14:06; Start 07/02/16 at 13:45; Stop 07/02/16 at 14:14; Status DC Ceftriaxone Sodium/Sodium Chloride (Rocephin/Iv Sodium Chloride 0.9% 50ml) 50 ml @ 100 mls/hr Q24H IV Last administered on 07/05/16 16:11; Start 07/03/16 at 14:00; Stop 07/06/16 at 10:33; Status DC Ephedrine Sulfate (Akovaz) 50 mg STK-MED ONCE .ROUTE ; Start 07/02/16 at 14:16; Stop 07/02/16 at 14:17; Status DC Phenylephrine HCl 1 mg STK-MED ONCE IV ; Start 07/02/16 at 14:16; Stop 07/02/16 at 14:17; Status DC Fentanyl Citrate (Fentanyl 2ml Vial) 100 mcg STK-MED ONCE .ROUTE ; Start at 16:30; Stop 07/02/16 at 16:31; Status DC Fentanyl Citrate 100 mcg 100 mcg STK-MED ONCE .ROUTE ; Start 07/02/16 at 17:50; Stop 07/02/16 at 17:51; Status DC Propofol (Diprivan) 20 ml @ As Directed STK-MED ONCE IV ; Start 07/02/16 at 17: 50; Stop 07/02/16 at 17:51; Status DC Tramadol HCl (Ultram) 50 mg PRN Q6HRS PRN PO PAIN Last administered on 21:23; Start 07/03/16 at 12:00 Ibuprofen (Motrin) 400 mg 1X ONCE PO Last administered on 07/04/16 10:30; Start 07/04/16 at 11:00; Stop 07/04/16 at 11:01; Status DC Fentanyl Citrate (Fentanyl 2ml Vial) 75 mcg PRN Q2HR PRN IV SEVERE PAIN Last administered on 07/05/16 12:39; Start 07/05/16 at 09:15 Morphine Sulfate 6 mg PRN Q2HR PRN IV PAIN; Start 07/05/16 at 09:15; Stop 07/05 at 09:15; Status DC Morphine Sulfate 8 mg PRN Q2HR PRN IV PAIN; Start 07/05/16 at 09:15; Stop 07/05 at 09:45; Status DC Morphine Sulfate 10 mg PRN Q2HR PRN IV PAIN Last administered on 07/05/16 09: 52; Start 07/05/16 at 09:45 Morphine Sulfate (Morphine Ir) 30 mg PRN Q4HRS PRN PO PAIN Last administered on 07/06/16 11:55; Start 07/05/16 at 11:00 Iohexol (Omnipaque 300 Mg/ml) 75 ml 1X ONCE PO Last administered on 07/05/16 18:18; Start 07/05/16 at 17:00; Stop 07/05/16 at 17:01; Status DC Iohexol (Omnipaque 240 Mg/ml) 50 ml 1X ONCE PO Last administered on 07/05/16 17:00; Start 07/05/16 at 17:00; Stop 07/05/16 at 17:01; Status DC Info (Do NOT chart on this entry -- for MONITORING) 1 each PRN DAILY PRN MC SEE COMMENTS; Start 07/05/16 at 17:00; Stop 07/07/16 at 16:59 Piperacillin Sod/ Tazobactam Sod 1 each 1 each PRN DAILY PRN MC SEE COMMENTS; Start 07/06/16 at 10:45 Piperacillin Sod/ Tazobactam Sod/ Sodium Chloride (Zosyn/Iv Sodium Chloride 0.9 % 50ml) 50 ml @ 100 mls/hr Q6HRS IV Last administered on 07/06/16 11:06; Start 07/06/16 at 11:00 Active Scripts Active Fioricet 50-300-40 Mg Capsule (Butalb/Acetaminophen/Caffeine) 1 Each Capsule 1 Each PO PRN Q4HRS PRN Allergies Allergies: Coded Allergies: I S O L A T I O N *CONTACT* (Verified Allergy, Unknown, 06/27/16) mrsa No Known Medication Allergies (Verified Allergy, Unknown, 06/27/16) ROS General: YES: Appetite, Fatigue PSYCHOLOGICAL ROS: YES: Anxiety, Depression Eyes: Yes Decreased vision HEENT: YES: [place]acaches Respiratory: YES: Cough Cardiovascular: yes Orthopnea Gastrointestinal: Yes Abdominal Pain Genitourinary: YES Frequency Musculoskeletal: Yes Muscular Weakness Skin: Yes Dry Skin Physical Exam General: Alert, Oriented X3, Cooperative, No acute distress HEENT: Atraumatic, PERRLA, EOMI Lungs: Clear to auscultation Heart: Regular rate, Normal S1, Normal S2, No murmurs Abdomen: Normal bowel sounds, No hepatosplenomegaly Extremities: No clubbing Psych/Mental Status: Mental status NL, Mood NL MUSCULOSKELETAL: No deformity, No swelling Vitals VITALS Vital Signs Date Time Temp Pulse Resp B/P Pulse Ox O2 Delivery O2 Flow Rate FiO2 07/06/16 11:55 94 Room Air 2.0 4/22/17 10:41 97.9 84 16 109/58 97.9 Labs Labs Laboratory Tests Test 07/04/16 16:40 07/04/16 16:52 07/04/16 21:23 07/05/16 05:15 Glucose (Fingerstick) 129mg/dL (70-99) 165mg/dL (70-99) Hemoglobin 7.6g/dL (12.0-15.5) Hematocrit 23.3% (36.0-47.0) Mean Corpuscular Hemoglobin Concent 32g/dL (31-37) Sodium Level 133mmol/L (136-145) Potassium Level 3.9mmol/L (3.5-5.1) Chloride Level 99mmol/L (98-107) Carbon Dioxide Level 25mmol/L (21-32) Anion Gap 9 (6-14) Blood Urea Nitrogen 14mg/dL (7-20) Creatinine 1.0mg/dL (0.6-1.0) Estimated GFR (Cockcroft-Gault) 58.9 Glucose Level 127mg/dL (70-99) Calcium Level 8.5mg/dL (8.5-10.1) Test 07/05/16 07:19 07/05/16 10:51 07/05/16 16:03 07/05/16 20:43 Glucose (Fingerstick) 151mg/dL (70-99) 151mg/dL (70-99) 114mg/dL (70-99) 134mg/dL (70-99) Test 07/05/16 23:08 07/06/16 04:30 07/06/16 11:21 Urine Collection Type Unknown Urine Color [place] Urine Clarity Clear Urine pH 5.0 Urine Specific [place] >=1.030 Urine Protein Negativemg/dL (NEG-TRACE) Urine Glucose (UA) Negativemg/dL (NEG) Urine Ketones (Stick) Tracemg/dL (NEG) Urine Blood Negative (NEG) Urine Nitrite Positive (NEG) Urine Bilirubin Moderate (NEG) Urine Urobilinogen Dipstick 1.0mg/dL (0.2 mg/dL) Urine Leukocyte Esterase Small (NEG) Urine RBC 1-2/HPF (0-2) Urine WBC 5-10/HPF (0-4) Urine Squamous Epithelial Cells Few/LPF Urine Bacteria 0/HPF (0-FEW) Urine Hyaline Casts Many/HPF Urine Mucus Mod/LPF White Blood Count 22.7x10^3/uL (4.0-11.0) Red Blood Count 3.09x10^6/uL (3.50-5.40) Hemoglobin 8.2g/dL (12.0-15.5) Hematocrit 25.4% (36.0-47.0) Mean Corpuscular Volume 82fL (79-100) Mean Corpuscular Hemoglobin 27pg (25-35) Mean Corpuscular Hemoglobin Concent 32g/dL (31-37) Red Cell Distribution Width 24.8% (11.5-14.5) Platelet Count 243x10^3/uL (140-400) Neutrophils (%) (Auto) 85% (31-73) Lymphocytes (%) (Auto) 4% (24-48) Monocytes (%) (Auto) 9% (0-9) Eosinophils (%) (Auto) 2% (0-3) Basophils (%) (Auto) 0% (0-3) Neutrophils # (Auto) 19.3x10^3uL (1.8-7.7) Lymphocytes # (Auto) 0.9x10^3/uL (1.0-4.8) Monocytes # (Auto) 2.0x10^3/uL (0.0-1.1) Eosinophils # (Auto) 0.4x10^3/uL (0.0-0.7) Basophils # (Auto) 0.1x10^3/uL (0.0-0.2) Sodium Level 132mmol/L (136-145) Potassium Level 4.5mmol/L (3.5-5.1) Chloride Level 97mmol/L (98-107) Carbon Dioxide Level 24mmol/L (21-32) Anion Gap 11 (6-14) Blood Urea Nitrogen 24mg/dL (7-20) Creatinine 1.7mg/dL (0.6-1.0) Estimated GFR (Cockcroft-Gault) 31.9 BUN/Creatinine Ratio 14 (6-20) Glucose Level 125mg/dL (70-99) Calcium Level 8.8mg/dL (8.5-10.1) Total Bilirubin 2.3mg/dL (0.2-1.0) Aspartate Amino Transf (AST/SGOT) 122U/L (15-37) Alanine Aminotransferase (ALT/SGPT) 125U/L (14-59) Alkaline Phosphatase 208U/L (46-116) Total Protein 8.5g/dL (6.4-8.2) Albumin 2.7g/dL (3.4-5.0) Albumin/Globulin Ratio 0.5 (1.0-1.7) Glucose (Fingerstick) 137mg/dL (70-99) Laboratory Tests Test 07/05/16 16:03 07/05/16 20:43 07/05/16 23:08 07/06/16 04:30 Glucose (Fingerstick) 114mg/dL (70-99) 134mg/dL (70-99) Urine Collection Type Unknown Urine Color [place] Urine Clarity Clear Urine pH 5.0 Urine Specific [place] >=1.030 Urine Protein Negativemg/dL (NEG-TRACE) Urine Glucose (UA) Negativemg/dL (NEG) Urine Ketones (Stick) Tracemg/dL (NEG) Urine Blood Negative (NEG) Urine Nitrite Positive (NEG) Urine Bilirubin Moderate (NEG) Urine Urobilinogen Dipstick 1.0mg/dL (0.2 mg/dL) Urine Leukocyte Esterase Small (NEG) Urine RBC 1-2/HPF (0-2) Urine WBC 5-10/HPF (0-4) Urine Squamous Epithelial Cells Few/LPF Urine Bacteria 0/HPF (0-FEW) Urine Hyaline Casts Many/HPF Urine Mucus Mod/LPF White Blood Count 22.7x10^3/uL (4.0-11.0) Red Blood Count 3.09x10^6/uL (3.50-5.40) Hemoglobin 8.2g/dL (12.0-15.5) Hematocrit 25.4% (36.0-47.0) Mean Corpuscular Volume 82fL (79-100) Mean Corpuscular Hemoglobin 27pg (25-35) Mean Corpuscular Hemoglobin Concent 32g/dL (31-37) Red Cell Distribution Width 24.8% (11.5-14.5) Platelet Count 243x10^3/uL (140-400) Neutrophils (%) (Auto) 85% (31-73) Lymphocytes (%) (Auto) 4% (24-48) Monocytes (%) (Auto) 9% (0-9) Eosinophils (%) (Auto) 2% (0-3) Basophils (%) (Auto) 0% (0-3) Neutrophils # (Auto) 19.3x10^3uL (1.8-7.7) Lymphocytes # (Auto) 0.9x10^3/uL (1.0-4.8) Monocytes # (Auto) 2.0x10^3/uL (0.0-1.1) Eosinophils # (Auto) 0.4x10^3/uL (0.0-0.7) Basophils # (Auto) 0.1x10^3/uL (0.0-0.2) Sodium Level 132mmol/L (136-145) Potassium Level 4.5mmol/L (3.5-5.1) Chloride Level 97mmol/L (98-107) Carbon Dioxide Level 24mmol/L (21-32) Anion Gap 11 (6-14) Blood Urea Nitrogen 24mg/dL (7-20) Creatinine 1.7mg/dL (0.6-1.0) Estimated GFR (Cockcroft-Gault) 31.9 BUN/Creatinine Ratio 14 (6-20) Glucose Level 125mg/dL (70-99) Calcium Level 8.8mg/dL (8.5-10.1) Total Bilirubin 2.3mg/dL (0.2-1.0) Aspartate Amino Transf (AST/SGOT) 122U/L (15-37) Alanine Aminotransferase (ALT/SGPT) 125U/L (14-59) Alkaline Phosphatase 208U/L (46-116) Total Protein 8.5g/dL (6.4-8.2) Albumin 2.7g/dL (3.4-5.0) Albumin/Globulin Ratio 0.5 (1.0-1.7) Test 07/06/16 11:21 Glucose (Fingerstick) 137mg/dL (70-99) Assessment/Plan Assessment/Plan IMP MARITZA DUE TO ATN AND CONTRAST EXPOSURE ETOH RELATED LIVER CIRRHOSIS S/P TIPS FOR PORTAL HTN SUBCAPSULAR LIVER HEMATOMA AND HEMOPERITONEUM ANEMIA DUE TO BLOOD LOSS PLAN ENC PO ISOTONIC SALINE WILL FOLLOW LABS IN [place] LOVE MD Jul 06, 2016 12:29
[2016-07-06] MEDS: IV NORMAL SALINE 1000ML BAG 1,000 ML IV SCH (12:30)
[2016-07-06 15:04] VITALS: BP 104/68
[2016-07-06 19:00] VITALS: BP 104/65
[2016-07-06 23:00] VITALS: BP 101/67
[2016-07-07] MEDS: PIPERACILLIN/TAZOBACTAM 3.375 GM in IV NORMAL SALINE 50ML 50 ML IV SCH ×4 (00:15→17:19)
[2016-07-07] MEDS: traMADol 50 MG TABLET PO PRN ×3 (00:29→23:04)
[2016-07-07] MEDS: IV NORMAL SALINE 1000ML BAG 1,000 ML IV SCH ×2 (02:05→13:29)
[2016-07-07 03:07] VITALS: BP 90/44
[2016-07-07 04:42] LABS: CALCIUM 8.7 mg/dL (8.5-10.1); CREATININE 1.7 mg/dL (0.6-1.0); GFR 31.9; POTASSIUM 4.3 mmol/L (3.5-5.1)
[2016-07-07 07:00] VITALS: BP 95/61
[2016-07-07] MEDS: PANTOPRAZOLE 40 MG TABLET.DR. PO SCH (08:17)
[2016-07-07] MEDS: INSULIN ASPART 300 UNITS/3 ML INSULN.PEN SQ SCH ×3 (08:20→17:00)
--- NOTE | 2016-07-07 09:57 | PDOC ---
PROGRESS NOTES Chief Complaint Chief Complaint Portal HTN, liver cirrhosis s/p TIPS (07/02) Upper GI bleeding, resolved hep C, alcoholic cirrhosis non compliance acute renal failure, sec to HTN and contrast exposure (crea 1.7) Subcapsular liver hematoma post TIPS - not an unexpected complication Reactive leukocytosis Acute anemia of blood loss on top of chrnci dse Precipitous drop hgb Mild to mod pCM - History of Present Illness History of Present Illness On liquid diet Tried biscuit did not sit well WBC 22s- has been like that past days - likely reactive post TIPS and subcapsular bleed Hgb stable at 8 INR mildly elevated (liver cirrhosis) Platelets ok Claims she is getting leg swelling - educated about her dse Started on isotonic at 75cc yesterday by renal CRea today 1.7 from 1.8 No GI Bleeding - has resolved no fever PLAn: CPm Monitor anemia, leukocytosis, fever NO further IR intervention warranted for the subcapsular bleed If any worse clinically, ct scan abd/pelvis might be warranted Keep on liquid diet IVF Renal panel daily Dw pt and RN Vitals Vitals Vital Signs Date Time Temp Pulse Resp B/P Pulse Ox O2 Delivery O2 Flow Rate FiO2 07/07/16 09:12 98 Room Air 3.0 07/07/16 07:00 97.5 88 16 95/61 97.5 Physical Exam General: Alert, Oriented X3, Cooperative, No acute distress Heart: Regular rate, Normal S1, Normal S2, No murmurs Lungs: Clear, Other (No chest retractions were present.) Abdomen: Normal bowel sounds, No hepatosplenomegaly Extremities: No clubbing Skin: No rashes, No breakdown Labs LABS Laboratory Tests Test 07/06/16 11:21 07/06/16 16:06 07/06/16 20:02 07/07/16 04:15 Glucose (Fingerstick) 137mg/dL (70-99) 142mg/dL (70-99) 156mg/dL (70-99) Sodium Level 132mmol/L (136-145) Potassium Level 4.3mmol/L (3.5-5.1) Chloride Level 98mmol/L (98-107) Carbon Dioxide Level 25mmol/L (21-32) Anion Gap 9 (6-14) Blood Urea Nitrogen 31mg/dL (7-20) Creatinine 1.7mg/dL (0.6-1.0) Estimated GFR (Cockcroft-Gault) 31.9 Glucose Level 128mg/dL (70-99) Calcium Level 8.7mg/dL (8.5-10.1) Test 07/07/16 07:26 Glucose (Fingerstick) 160mg/dL (70-99) Review of Systems Review of Systems mild diffuse abd pain, no emesis, no fevers, no cp, soa Assessment and Plan Assessmemt and Plan Problems Medical Problems: (1) Acute GI bleeding Status: Acute (2) Blood loss anemia Status: Acute (3) Dentalgia Status: Acute (4) Headache Status: Acute (5) Moderate protein malnutrition Status: Acute Problems: Comment Review of Relevant I have reviewed the following items candace (where applicable) has been applied. Labs Laboratory Tests Test 07/05/16 10:51 07/05/16 16:03 07/05/16 20:43 07/05/16 23:08 Glucose (Fingerstick) 151mg/dL (70-99) 114mg/dL (70-99) 134mg/dL (70-99) Urine Collection Type Unknown Urine Color [place] Urine Clarity Clear Urine pH 5.0 Urine Specific [place] >=1.030 Urine Protein Negativemg/dL (NEG-TRACE) Urine Glucose (UA) Negativemg/dL (NEG) Urine Ketones (Stick) Tracemg/dL (NEG) Urine Blood Negative (NEG) Urine Nitrite Positive (NEG) Urine Bilirubin Moderate (NEG) Urine Urobilinogen Dipstick 1.0mg/dL (0.2 mg/dL) Urine Leukocyte Esterase Small (NEG) Urine RBC 1-2/HPF (0-2) Urine WBC 5-10/HPF (0-4) Urine Squamous Epithelial Cells Few/LPF Urine Bacteria 0/HPF (0-FEW) Urine Hyaline Casts Many/HPF Urine Mucus Mod/LPF Test 07/06/16 04:30 07/06/16 07:31 07/06/16 11:21 07/06/16 16:06 White Blood Count 22.7x10^3/uL (4.0-11.0) Red Blood Count 3.09x10^6/uL (3.50-5.40) Hemoglobin 8.2g/dL (12.0-15.5) Hematocrit 25.4% (36.0-47.0) Mean Corpuscular Volume 82fL (79-100) Mean Corpuscular Hemoglobin 27pg (25-35) Mean Corpuscular Hemoglobin Concent 32g/dL (31-37) Red Cell Distribution Width 24.8% (11.5-14.5) Platelet Count 243x10^3/uL (140-400) Neutrophils (%) (Auto) 85% (31-73) Lymphocytes (%) (Auto) 4% (24-48) Monocytes (%) (Auto) 9% (0-9) Eosinophils (%) (Auto) 2% (0-3) Basophils (%) (Auto) 0% (0-3) Neutrophils # (Auto) 19.3x10^3uL (1.8-7.7) Lymphocytes # (Auto) 0.9x10^3/uL (1.0-4.8) Monocytes # (Auto) 2.0x10^3/uL (0.0-1.1) Eosinophils # (Auto) 0.4x10^3/uL (0.0-0.7) Basophils # (Auto) 0.1x10^3/uL (0.0-0.2) Sodium Level 132mmol/L (136-145) Potassium Level 4.5mmol/L (3.5-5.1) Chloride Level 97mmol/L (98-107) Carbon Dioxide Level 24mmol/L (21-32) Anion Gap 11 (6-14) Blood Urea Nitrogen 24mg/dL (7-20) Creatinine 1.7mg/dL (0.6-1.0) Estimated GFR (Cockcroft-Gault) 31.9 BUN/Creatinine Ratio 14 (6-20) Glucose Level 125mg/dL (70-99) Calcium Level 8.8mg/dL (8.5-10.1) Total Bilirubin 2.3mg/dL (0.2-1.0) Aspartate Amino Transf (AST/SGOT) 122U/L (15-37) Alanine Aminotransferase (ALT/SGPT) 125U/L (14-59) Alkaline Phosphatase 208U/L (46-116) Total Protein 8.5g/dL (6.4-8.2) Albumin 2.7g/dL (3.4-5.0) Albumin/Globulin Ratio 0.5 (1.0-1.7) Glucose (Fingerstick) 128mg/dL (70-99) 137mg/dL (70-99) 142mg/dL (70-99) Test 07/06/16 20:02 07/07/16 04:15 07/07/16 07:26 Glucose (Fingerstick) 156mg/dL (70-99) 160mg/dL (70-99) Sodium Level 132mmol/L (136-145) Potassium Level 4.3mmol/L (3.5-5.1) Chloride Level 98mmol/L (98-107) Carbon Dioxide Level 25mmol/L (21-32) Anion Gap 9 (6-14) Blood Urea Nitrogen 31mg/dL (7-20) Creatinine 1.7mg/dL (0.6-1.0) Estimated GFR (Cockcroft-Gault) 31.9 Glucose Level 128mg/dL (70-99) Calcium Level 8.7mg/dL (8.5-10.1) Laboratory Tests Test 07/06/16 11:21 07/06/16 16:06 07/06/16 20:02 07/07/16 04:15 Glucose (Fingerstick) 137mg/dL (70-99) 142mg/dL (70-99) 156mg/dL (70-99) Sodium Level 132mmol/L (136-145) Potassium Level 4.3mmol/L (3.5-5.1) Chloride Level 98mmol/L (98-107) Carbon Dioxide Level 25mmol/L (21-32) Anion Gap 9 (6-14) Blood Urea Nitrogen 31mg/dL (7-20) Creatinine 1.7mg/dL (0.6-1.0) Estimated GFR (Cockcroft-Gault) 31.9 Glucose Level 128mg/dL (70-99) Calcium Level 8.7mg/dL (8.5-10.1) Test 07/07/16 07:26 Glucose (Fingerstick) 160mg/dL (70-99) Microbiology 06/25/16 Urine Culture - Final, Complete 06/25/16 Urine Culture Result 1 (JAKE) - Final, Complete Medications Current Medications Sodium Chloride (Iv Sodium Chloride 0.9% 1000ml Bag) 1,000 ml @ 1,000 mls/hr Q1H IV Last administered on 06/25/16 19:05; Start 06/25/16 at 18:00; Stop 01/31 at 18:59; Status DC Ondansetron HCl (Zofran) 4 mg 1X ONCE IV Last administered on 06/25/16 19:08 ; Start 06/25/16 at 18:00; Stop 06/25/16 at 18:01; Status DC Famotidine (Pepcid) 20 mg 1X ONCE IVP ; Start 06/25/16 at 18:00; Stop 06/25/16 at 18:27; Status DC Fentanyl Citrate (Fentanyl 2ml Vial) 50 mcg PRN Q15MIN PRN IV PAIN GREATER THAN 3/10 Last administered on 06/25/16 19:07; Start 06/25/16 at 18:00; Stop at 21:33; Status DC Pantoprazole Sodium 40 mg 40 mg 1X ONCE IVP Last administered on 06/25/16 19: 14; Start 06/25/16 at 18:30; Stop 06/25/16 at 18:31; Status DC Pantoprazole Sodium/Sodium Chloride (Protonix Iv/Iv Sodium Chloride 0.9% 100ml) 100 ml @ 10 mls/hr Q10H IV Last administered on 06/28/16 16:36; Start at 18:30; Stop 06/29/16 at 07:18; Status DC Ondansetron HCl (Zofran) 4 mg PRN Q8HRS PRN IV NAUSEA/VOMITING Last administered on 06/26/16 13:37; Start 06/25/16 at 19:00; Stop 06/26/16 at 18:59 ; Status DC Fentanyl Citrate 50 mcg 50 mcg PRN Q2HR PRN IV PAIN Last administered on 17:19; Start 06/25/16 at 19:00; Stop 06/26/16 at 18:59; Status DC Sodium Chloride 1,000 ml @ 125 mls/hr Q8H IV Last administered on 06/26/16 10 :58; Start 06/25/16 at 18:58; Stop 06/26/16 at 18:57; Status DC Propofol (Diprivan) 20 ml @ As Directed [facility]-MED ONCE IV ; Start 06/26/16 at 09: 32; Stop 06/26/16 at 09:33; Status DC Lidocaine HCl 5 ml 5 ml STK-MED ONCE .ROUTE ; Start 06/26/16 at 09:32; Stop 03/02 at 09:33; Status DC Propofol 20 ml @ As Directed STK-MED ONCE IV ; Start 06/26/16 at 09:50; Stop 03/02 at 09:51; Status DC Propofol 20 ml @ As Directed STK-MED ONCE IV ; Start 06/26/16 at 09:55; Stop 03/02 at 09:56; Status DC Propofol (Diprivan) 20 ml @ As Directed STK-MED ONCE IV ; Start 06/26/16 at 10: 04; Stop 06/26/16 at 10:05; Status DC Epinephrine HCl (Epinephrine Syringe) 1 mg STK-MED ONCE .ROUTE ; Start 06/26/16 at 10:07; Stop 06/26/16 at 10:08; Status DC Insulin Aspart (Novolog) 0-7 UNITS TIDWMEALS SQ Last administered on 07/07/16 08:20; Start 06/26/16 at 12:00 Dextrose 12.5 gm 12.5 gm PRN Q15MIN PRN IV SEE COMMENTS; Start 06/26/16 at 10: 15 Propofol 20 ml @ As Directed STK-MED ONCE IV ; Start 06/26/16 at 10:11; Stop 03/02 at 10:12; Status DC Propofol (Diprivan) 40 ml @ As Directed STK-MED ONCE IV ; Start 06/26/16 at 10: 20; Stop 06/26/16 at 10:21; Status DC Epinephrine HCl (Epinephrine Syringe) 1 mg STK-MED ONCE IV Last administered on 06/26/16 10:20; Start 06/26/16 at 10:20; Stop 06/26/16 at 10:46; Status DC Epinephrine HCl 1 mg 1 mg STK-MED ONCE IV Last administered on 06/26/16 10:22 ; Start 06/26/16 at 10:22; Stop 06/26/16 at 10:46; Status DC Octreotide Acetate/Sodium Chloride (Sandostatin/Iv Sodium Chloride 0.9% 100ml) 101 ml @ 0 mls/hr CONT PRN IV SEE COMMENTS Last administered on 06/28/16 17:42 ; Start 06/26/16 at 11:00; Stop 06/29/16 at 07:18; Status DC Fentanyl Citrate (Fentanyl 2ml Vial) 25 mcg PRN Q4HRS PRN IV PAIN; Start at 21:00; Stop 06/26/16 at 21:00; Status DC Fentanyl Citrate 25 mcg 25 mcg PRN Q4HRS PRN IV PAIN Last administered on 20:42; Start 06/26/16 at 21:00; Stop 06/28/16 at 00:00; Status DC Iron Sucrose/ Sodium Chloride (Venofer/Iv Sodium Chloride 0.9% 250ml) 265 ml @ 90 mls/hr Q12HR IV Last administered on 06/28/16 09:57; Start 06/27/16 at 12: 00; Stop 06/28/16 at 11:57; Status DC Fentanyl Citrate (Fentanyl 2ml Vial) 25 mcg PRN Q4HRS PRN IV SEVERE PAIN Last administered on 07/01/16 06:17; Start 06/28/16 at 01:15; Stop 07/01/16 at 09:00 ; Status DC Ondansetron HCl 4 mg 4 mg PRN Q6HRS PRN IV NAUSEA/VOMITING Last administered on 07/02/16 20:32; Start 06/28/16 at 04:30 Ceftriaxone Sodium/Sodium Chloride (Rocephin/Iv Sodium Chloride 0.9% 50ml) 50 ml @ 100 mls/hr Q24H IV Last administered on 07/01/16 15:46; Start 06/28/16 at 16:00; Stop 07/02/16 at 13:43; Status DC Pantoprazole Sodium (Protonix) 40 mg DAILYAC PO Last administered on 07/07/16 08:17; Start 06/29/16 at 08:00 Iohexol (Omnipaque 350 Mg/ml) 75 ml 1X ONCE IV Last administered on 06/29/16 12:05; Start 06/29/16 at 12:00; Stop 06/29/16 at 12:01; Status DC Info (Do NOT chart on this entry -- for MONITORING) 1 each PRN DAILY PRN MC SEE COMMENTS; Start 06/29/16 at 12:00; Stop 07/01/16 at 11:59; Status DC Potassium Chloride (Klor-Con) 40 meq 1X ONCE PO Last administered on 11:18; Start 06/30/16 at 11:00; Stop 06/30/16 at 11:01; Status DC Morphine Sulfate 2 mg PRN Q2HR PRN IV PAIN Last administered on 07/01/16 09:04 ; Start 07/01/16 at 09:00; Stop 07/01/16 at 10:53; Status DC Fentanyl Citrate (Fentanyl 2ml Vial) 25 mcg PRN Q2HR PRN IV SEVERE PAIN Last administered on 07/05/16 07:59; Start 07/01/16 at 01:15; Stop 07/05/16 at 09:04 ; Status DC Morphine Sulfate 4 mg PRN Q2HR PRN IV PAIN Last administered on 07/05/16 07:30 ; Start 07/01/16 at 11:00; Stop 07/05/16 at 09:05; Status DC Ondansetron HCl (Zofran) 4 mg PRN Q6HRS PRN IV NAUSEA/VOMITING; Start 07/01/16 at 11:00; Stop 07/02/16 at 10:59; Status DC Fentanyl Citrate (Fentanyl 2ml Vial) 25 mcg PRN Q5MIN PRN IV MILD PAIN; Start 07/01/16 at 11:00; Stop 07/02/16 at 10:59; Status DC Fentanyl Citrate (Fentanyl 2ml Vial) 50 mcg PRN Q5MIN PRN IV MODERATE PAIN; Start 07/01/16 at 11:00; Stop 07/02/16 at 10:59; Status DC Morphine Sulfate 1 mg 1 mg PRN Q10MIN PRN IV SEVERE PAIN; Start 07/01/16 at 11: 00; Stop 07/02/16 at 10:59; Status DC Lactated Ringer's (Iv Lactated Ringers) 1,000 ml @ 30 mls/hr Q24H IV ; Start at 10:59; Stop 07/01/16 at 22:58; Status DC Lidocaine HCl 2 ml PRN 1X PRN ID PRIOR TO IV START; Start 07/01/16 at 11:00; Stop 07/02/16 at 10:59; Status DC Hydromorphone HCl (Dilaudid) 0.5 mg PRN Q10MIN PRN IV SEV PAIN, Second choice; Start 07/01/16 at 11:00; Stop 07/02/16 at 10:59; Status DC Prochlorperazine Edisylate (Compazine) 5 mg PACU PRN PRN IV NAUSEA, MRX1; Start 07/01/16 at 11:00; Stop 07/02/16 at 10:59; Status DC Midazolam HCl (Versed) 2 mg STK-MED ONCE .ROUTE ; Start 07/01/16 at 13:27; Stop 07/01/16 at 13:28; Status DC Fentanyl Citrate (Fentanyl 5ml Vial) 250 mcg STK-MED ONCE .ROUTE ; Start at 13:27; Stop 07/01/16 at 13:28; Status DC Iohexol (Omnipaque 300 Mg/ml) 100 ml STK-MED ONCE .ROUTE ; Start 07/01/16 at 13: 30; Stop 07/01/16 at 13:31; Status DC Lidocaine/Sodium Bicarbonate 20 ml 20 ml STK-MED ONCE IJ ; Start 07/01/16 at 13: 30; Stop 07/01/16 at 13:31; Status DC Heparin Sodium/ Sodium Chloride 500 ml @ As Directed STK-MED ONCE .ROUTE ; Start 07/01/16 at 13:30; Stop 07/01/16 at 13:31; Status DC Heparin Sodium/ Sodium Chloride 1,000 unit 1X ONCE IART Last administered on 14:25; Start 07/01/16 at 14:15; Stop 07/01/16 at 14:20; Status DC Lidocaine/Sodium Bicarbonate (Buffered Lidocaine 1%) 2 ml 1X ONCE IJ Last administered on 07/01/16 14:25; Start 07/01/16 at 14:15; Stop 07/01/16 at 14:20 ; Status DC Midazolam HCl (Versed) 2 mg 1X ONCE IV Last administered on 07/01/16 14:26; Start 07/01/16 at 14:15; Stop 07/01/16 at 14:20; Status DC Fentanyl Citrate (Fentanyl 5ml Vial) 100 mcg 1X ONCE IV Last administered on 14:26; Start 07/01/16 at 14:15; Stop 07/01/16 at 14:20; Status DC Iohexol (Omnipaque 300 Mg/ml) 40 ml 1X ONCE IART Last administered on 14:26; Start 07/01/16 at 14:15; Stop 07/01/16 at 14:20; Status DC Iohexol (Omnipaque 300 Mg/ml) 100 ml STK-MED ONCE .ROUTE ; Start 07/02/16 at 12: 24; Stop 07/02/16 at 12:25; Status DC Lidocaine/Sodium Bicarbonate 20 ml 20 ml STK-MED ONCE IJ ; Start 07/02/16 at 12: 25; Stop 07/02/16 at 12:26; Status DC Heparin Sodium/ Sodium Chloride 1,000 ml @ As Directed STK-MED ONCE .ROUTE ; Start 07/02/16 at 12:25; Stop 07/02/16 at 12:26; Status DC Heparin Sodium/ Sodium Chloride 2,000 unit 1X ONCE IART Last administered on 14:04; Start 07/02/16 at 13:15; Stop 07/02/16 at 13:16; Status DC Lidocaine/Sodium Bicarbonate (Buffered Lidocaine 1%) 20 ml 1X ONCE IJ Last administered on 07/02/16 14:05; Start 07/02/16 at 13:15; Stop 07/02/16 at 13:16 ; Status DC Iohexol 200 ml 200 ml 1X ONCE IART Last administered on 07/02/16 14:05; Start 07/02/16 at 13:15; Stop 07/02/16 at 13:16; Status DC Ceftriaxone Sodium (Rocephin 1gm Ivpb For Omni) 50 ml @ As Directed STK-MED ONCE IV ; Start 07/02/16 at 13:20; Stop 07/02/16 at 13:21; Status DC Dexamethasone Sodium Phosphate (Decadron) 20 mg STK-MED ONCE .ROUTE ; Start at 13:34; Stop 07/02/16 at 13:35; Status DC Ondansetron HCl 4 mg 4 mg STK-MED ONCE .ROUTE ; Start 07/02/16 at 13:34; Stop at 13:35; Status DC Propofol (Diprivan) 20 ml @ As Directed STK-MED ONCE IV ; Start 07/02/16 at 13: 34; Stop 07/02/16 at 13:35; Status DC Fentanyl Citrate (Fentanyl 2ml Vial) 100 mcg STK-MED ONCE .ROUTE ; Start at 13:34; Stop 07/02/16 at 13:35; Status DC Midazolam HCl (Versed) 2 mg STK-MED ONCE .ROUTE ; Start 07/02/16 at 13:34; Stop 07/02/16 at 13:35; Status DC Rocuronium [place] 50 mg 50 mg STK-MED ONCE .ROUTE ; Start 07/02/16 at 13:34; Stop 07/02/16 at 13:35; Status DC Ceftriaxone Sodium 50 ml @ 100 mls/hr 1X ONCE IV Last administered on 14:06; Start 07/02/16 at 13:45; Stop 07/02/16 at 14:14; Status DC Ceftriaxone Sodium/Sodium Chloride (Rocephin/Iv Sodium Chloride 0.9% 50ml) 50 ml @ 100 mls/hr Q24H IV Last administered on 07/05/16 16:11; Start 07/03/16 at 14:00; Stop 07/06/16 at 10:33; Status DC Ephedrine Sulfate (Akovaz) 50 mg STK-MED ONCE .ROUTE ; Start 07/02/16 at 14:16; Stop 07/02/16 at 14:17; Status DC Phenylephrine HCl 1 mg STK-MED ONCE IV ; Start 07/02/16 at 14:16; Stop 07/02/16 at 14:17; Status DC Fentanyl Citrate (Fentanyl 2ml Vial) 100 mcg STK-MED ONCE .ROUTE ; Start at 16:30; Stop 07/02/16 at 16:31; Status DC Fentanyl Citrate 100 mcg 100 mcg STK-MED ONCE .ROUTE ; Start 07/02/16 at 17:50; Stop 07/02/16 at 17:51; Status DC Propofol (Diprivan) 20 ml @ As Directed STK-MED ONCE IV ; Start 07/02/16 at 17: 50; Stop 07/02/16 at 17:51; Status DC Tramadol HCl (Ultram) 50 mg PRN Q6HRS PRN PO PAIN Last administered on 09:12; Start 07/03/16 at 12:00 Ibuprofen (Motrin) 400 mg 1X ONCE PO Last administered on 07/04/16 10:30; Start 07/04/16 at 11:00; Stop 07/04/16 at 11:01; Status DC Fentanyl Citrate (Fentanyl 2ml Vial) 75 mcg PRN Q2HR PRN IV SEVERE PAIN Last administered on 07/05/16 12:39; Start 07/05/16 at 09:15 Morphine Sulfate 6 mg PRN Q2HR PRN IV PAIN; Start 07/05/16 at 09:15; Stop 07/05 at 09:15; Status DC Morphine Sulfate 8 mg PRN Q2HR PRN IV PAIN; Start 07/05/16 at 09:15; Stop 07/05 at 09:45; Status DC Morphine Sulfate 10 mg PRN Q2HR PRN IV PAIN Last administered on 07/05/16 09: 52; Start 07/05/16 at 09:45 Morphine Sulfate (Morphine Ir) 30 mg PRN Q4HRS PRN PO PAIN Last administered on 07/06/16 22:35; Start 07/05/16 at 11:00 Iohexol (Omnipaque 300 Mg/ml) 75 ml 1X ONCE PO Last administered on 07/05/16 18:18; Start 07/05/16 at 17:00; Stop 07/05/16 at 17:01; Status DC Iohexol (Omnipaque 240 Mg/ml) 50 ml 1X ONCE PO Last administered on 07/05/16 17:00; Start 07/05/16 at 17:00; Stop 07/05/16 at 17:01; Status DC Info (Do NOT chart on this entry -- for MONITORING) 1 each PRN DAILY PRN MC SEE COMMENTS; Start 07/05/16 at 17:00; Stop 07/07/16 at 16:59 Piperacillin Sod/ Tazobactam Sod 1 each 1 each PRN DAILY PRN MC SEE COMMENTS; Start 07/06/16 at 10:45 Piperacillin Sod/ Tazobactam Sod 3.375 gm/Sodium Chloride 50 ml @ 100 mls/hr Q6HRS IV Last administered on 07/07/16 06:06; Start 07/06/16 at 11:00 Sodium Chloride (Iv Sodium Chloride 0.9% 1000ml Bag) 1,000 ml @ 75 mls/hr [id number] IV Last administered on 07/07/16t 02:05; Start 07/06/16 at 12:30 Active Scripts Active Fioricet 50-300-40 Mg Capsule (Butalb/Acetaminophen/Caffeine) 1 Each Capsule 1 Each PO PRN Q4HRS PRN Vitals/I & O Vital Sign - Last 24 Hours 07/06/16 07/06/16 07/06/16 07/06/16 10:41 11:55 15:04 19:00 Temp 97.9 97.9 97.1 97.9 97.9 97.1 Pulse 84 90 85 Resp 16 14 20 B/P 109/58 104/68 104/65 Pulse Ox 94 94 97 96 O2 Delivery Nasal Cannula Room Air Nasal Cannula Room Air O2 Flow Rate 2.0 2.0 2.0 07/06/16 07/06/16 07/06/16 07/06/16 20:00 22:35 23:00 23:35 Temp 97.4 97.4 Pulse 90 Resp 20 18 B/P 101/67 Pulse Ox 96 99 99 O2 Delivery Room Air Nasal Cannula Nasal Cannula Nasal Cannula O2 Flow Rate 2.0 2.0 07/07/16 07/07/16 07/07/16 07/07/16 00:29 01:29 03:07 07:00 Temp 97.5 97.5 97.5 97.5 Pulse 85 88 Resp 18 16 20 16 B/P 90/44 95/61 Pulse Ox 99 99 98 98 O2 Delivery Nasal Cannula Nasal Cannula Nasal Cannula High Flow Nasal Cannula O2 Flow Rate 2.0 2.0 3.0 07/07/16 09:12 Pulse Ox 98 O2 Delivery Room Air O2 Flow Rate 3.0 Intake and Output 07/06/16 07/06/16 07/07/16 15:00 23:00 07:00 Intake Total 280 ml 325 ml 420 ml Output Total 200 ml 200 ml 350 ml Balance 80 ml 125 ml 70 ml RIC BAIG MD Jul 07, 2016 09:57
--- NOTE | 2016-07-07 10:31 | PDOC ---
Renal-Progress Notes Subjective Notes Notes FEELING BETTER History of Present Illness Hx of present illness STABLE Vitals Vitals Vital Signs Date Time Temp Pulse Resp B/P Pulse Ox O2 Delivery O2 Flow Rate FiO2 07/07/16 09:12 98 Room Air 3.0 07/07/16 07:00 97.5 88 16 95/61 97.5 Weight Weight [ ] I.O. Intake and Output Intake and Output 07/07/16 07:00 Intake Total 1025 ml Output Total 750 ml Balance 275 ml Intake Oral 1025 ml Output Urine Total 750 ml # Voids 1 Labs Labs Laboratory Tests Test 07/06/16 11:21 07/06/16 16:06 07/06/16 20:02 07/07/16 04:15 Glucose (Fingerstick) 137mg/dL (70-99) 142mg/dL (70-99) 156mg/dL (70-99) Sodium Level 132mmol/L (136-145) Potassium Level 4.3mmol/L (3.5-5.1) Chloride Level 98mmol/L (98-107) Carbon Dioxide Level 25mmol/L (21-32) Anion Gap 9 (6-14) Blood Urea Nitrogen 31mg/dL (7-20) Creatinine 1.7mg/dL (0.6-1.0) Estimated GFR (Cockcroft-Gault) 31.9 Glucose Level 128mg/dL (70-99) Calcium Level 8.7mg/dL (8.5-10.1) Test 07/07/16 07:26 Glucose (Fingerstick) 160mg/dL (70-99) Micro Micro Microbiology 06/25/16 Urine Culture - Final, Complete 06/25/16 Urine Culture Result 1 (JAKE) - Final, Complete Review of Systems Constitutional: yes: alert, oriented, weakness Ears/Nose/Throat: Yes: no symptom reported Eyes: Yes: no symptom reported Pulmonary: Yes no symptom reported Cardiovascular: Yes no symptom reported Gastrointestional: Yes: no symptom reported Genitourinary: Yes: no symptom reported Musculoskeletal: Yes: muscle stiffness Skin: Yes no symptom reported Physical Exam General Appearance: no apparent distress Skin: warm Respiratory: bilateral CTA Heart: S1S2 Abdomen: soft, bowel sounds present Extremities: pulses present Neurology: alert Musculoskeletal: Osteoarthritis Assessment Assessment IMP MARITZA-DUE TO CAN-CR DOWN TO 1.7 MILD HYPONATREMIA-BETTER ANEMIA-BETTER WITH HGB UP TO 8.2 FROM 6.5 LIVER CIRRHOSIS S/P TIPS PLAN CONT WITH LOW FLOW IVF'S LABS IN AM JUSTO HERRERA MD Jul 07, 2016 10:31
[2016-07-07 11:00] VITALS: BP 101/54
[2016-07-07 15:00] VITALS: BP 111/64
[2016-07-07] MEDS: MORPHINE IR 15 MG TABLET PO PRN ×2 (15:22→20:23)
[2016-07-07 19:00] VITALS: BP 127/58
[2016-07-07 23:00] VITALS: BP 121/72
[2016-07-08] MEDS: PIPERACILLIN/TAZOBACTAM 3.375 GM in IV NORMAL SALINE 50ML 50 ML IV SCH ×4 (00:32→18:17)
[2016-07-08 03:00] VITALS: BP 105/61
[2016-07-08] MEDS: IV NORMAL SALINE 1000ML BAG 1,000 ML IV SCH ×2 (03:47→16:21)
[2016-07-08] MEDS: MORPHINE IR 15 MG TABLET PO PRN ×4 (03:47→21:41)
[2016-07-08 04:04] LABS: ALBUMIN 2.1 g/dL (3.4-5.0); CALCIUM 8.1 mg/dL (8.5-10.1); CREATININE 0.9 mg/dL (0.6-1.0); GFR 66.5; POTASSIUM 3.9 mmol/L (3.5-5.1)
[2016-07-08 05:56] LABS: BASO # 0.1 x10^3/uL (0.0-0.2); BASO % 1 % (0-3); EOS % 5 % (0-3); HEMATOCRIT 24.1 % (36.0-47.0); LYMPH # 0.8 x10^3/uL (1.0-4.8); LYMPH % 6 % (24-48); MEAN CORPUSCULAR HEMOGLOBIN 27 pg (25-35); MEAN CORPUSCULAR HGB CONC 33 g/dL (31-37); MEAN CORPUSCULAR VOLUME 82 fL (79-100); MONO % 12 % (0-9); NEUT % 77 % (31-73); PLATELET COUNT 243 x10^3/uL (140-400); RED BLOOD COUNT 2.96 x10^6/uL (3.50-5.40); RED CELL DISTRIBUTION WIDTH 23.8 % (11.5-14.5); WHITE BLOOD COUNT 13.3 x10^3/uL (4.0-11.0)
[2016-07-08 07:00] VITALS: BP 100/64
[2016-07-08] MEDS: INSULIN ASPART 300 UNITS/3 ML INSULN.PEN SQ SCH ×3 (09:16→17:03)
[2016-07-08] MEDS: PANTOPRAZOLE 40 MG TABLET.DR. PO SCH (09:18)
[2016-07-08] MEDS: MORPHINE SULFATE 10 MG/ML VIAL. IV PRN (09:27)
[2016-07-08 11:00] VITALS: BP 110/67
--- NOTE | 2016-07-08 13:31 | PDOC ---
Subjective: Subjective: RUQ discomfort. Hasn't eaten lunch yet because "just woke up." Last BM a couple days ago. Objective: Vital Signs: Vital Signs Date Time Temp Pulse Resp B/P Pulse Ox O2 Delivery O2 Flow Rate FiO2 07/08/16 11:50 20 98 Nasal Cannula 3.0 07/08/16 03:00 97.9 92 105/61 97.9 Labs: Laboratory Tests Test 07/07/16 16:53 07/07/16 21:29 07/08/16 07:26 07/08/16 12:03 Glucose (Fingerstick) 105mg/dL (70-99) 94mg/dL (70-99) 87mg/dL (70-99) 101mg/dL (70-99) Imaging: CT A/P 07/05/16 Impression: 1. A subacute subcapsular hematoma is seen surrounding the right lobe of the liver. 2. A relatively small area of infarction is seen involving the right lobe of the liver. 3. Small to moderate amount of subacute hemoperitoneum is seen within the pelvis. PE: GEN: NAD LUNGS: CTAB HEART: RRR ABD: RUQ discomfort - vague NEURO/PSYCH: A & O 3 A/P: Cirrhosis (Hep C, alcohol), portal HTN, s/p TIPS RUQ discomfort -Doppler w/ patent TIPS, CT w/ subcapsular hematoma, small area of infarction right hepatic lobe, subacute hemoperitoneum Anemia -Hgb improved -- Will add Miralax PRN - otherwise continue same per GI. BENTON JACOBSON Jul 08, 2016 13:31
[2016-07-08] MEDS ORDERED: POLYETHYLENE GLYCOL 3350 17 GM PACKET. PO PRN (13:45)
[2016-07-08 15:00] VITALS: BP 122/72
--- NOTE | 2016-07-08 18:12 | PDOC ---
PROGRESS NOTES Chief Complaint Chief Complaint Hematemesis ASSESSMENT AND PLAN: 1. Portal HTN 2/2 liver cirrhosis: s/p TIPS (07/02) 2. Subcapsular liver hematoma post TIPS 3. pain control: on huge doses of morphine and oxy. start weaning 4. cirrhosis: HCV and EtOH; noncompliant with HCV regimen 5. UGIB: 2/2 varices, resolved 6. Anemia: GIB, hepatic bleed, and chronic inflammation as well as HCV. Hgb ~ 8. monitor 7. Leukocytosis: reactive 2/2 hepatic bleed. much improved 8. MARITZA: ATN from contrast. resolved. monitor 9. Prophylaxis: PPI History of Present Illness History of Present Illness sleepy. c/o pain in abd "all over" . appetite ok, no N/V Vitals Vitals Vital Signs Date Time Temp Pulse Resp B/P Pulse Ox O2 Delivery O2 Flow Rate FiO2 07/08/16 16:22 20 98 Room Air 3.0 07/08/16 15:00 97.7 84 122/72 97.7 Physical Exam General: Oriented X3, Cooperative, No acute distress, Other (lethargic) Heart: Regular rate, Normal S1, Normal S2, No murmurs Lungs: Clear Abdomen: Normal bowel sounds, Other (TTP RUQ) Extremities: No clubbing Skin: No rashes Labs LABS Laboratory Tests Test 07/07/16 21:29 07/08/16 03:20 07/08/16 05:45 07/08/16 07:26 Glucose (Fingerstick) 94mg/dL (70-99) 87mg/dL (70-99) Sodium Level 133mmol/L (136-145) Potassium Level 3.9mmol/L (3.5-5.1) Chloride Level 101mmol/L (98-107) Carbon Dioxide Level 23mmol/L (21-32) Anion Gap 9 (6-14) Blood Urea Nitrogen 15mg/dL (7-20) Creatinine 0.9mg/dL (0.6-1.0) Estimated GFR (Cockcroft-Gault) 66.5 Glucose Level 99mg/dL (70-99) Calcium Level 8.1mg/dL (8.5-10.1) Phosphorus Level 3.0mg/dL (2.6-4.7) Albumin 2.1g/dL (3.4-5.0) White Blood Count 13.3x10^3/uL (4.0-11.0) Red Blood Count 2.96x10^6/uL (3.50-5.40) Hemoglobin 8.0g/dL (12.0-15.5) Hematocrit 24.1% (36.0-47.0) Mean Corpuscular Volume 82fL (79-100) Mean Corpuscular Hemoglobin 27pg (25-35) Mean Corpuscular Hemoglobin Concent 33g/dL (31-37) Red Cell Distribution Width 23.8% (11.5-14.5) Platelet Count 243x10^3/uL (140-400) Neutrophils (%) (Auto) 77% (31-73) Lymphocytes (%) (Auto) 6% (24-48) Monocytes (%) (Auto) 12% (0-9) Eosinophils (%) (Auto) 5% (0-3) Basophils (%) (Auto) 1% (0-3) Neutrophils # (Auto) 10.2x10^3uL (1.8-7.7) Lymphocytes # (Auto) 0.8x10^3/uL (1.0-4.8) Monocytes # (Auto) 1.6x10^3/uL (0.0-1.1) Eosinophils # (Auto) 0.6x10^3/uL (0.0-0.7) Basophils # (Auto) 0.1x10^3/uL (0.0-0.2) Test 07/08/16 12:03 07/08/16 16:52 Glucose (Fingerstick) 101mg/dL (70-99) 93mg/dL (70-99) CHARIS LUNDBERG MD Jul 08, 2016 18:12
[2016-07-08 19:00] VITALS: BP 124/63
[2016-07-08] MEDS ORDERED: MORPHINE SULFATE 10 MG/ML VIAL. IV PRN (21:00)
[2016-07-08] MEDS: traMADol 50 MG TABLET PO PRN (21:41)
[2016-07-08 23:00] VITALS: BP 119/75
--- NOTE | 2016-07-08 23:48 | PDOC ---
Provider Note Provider Note RENAL F/U: EDWINI. S : No new c/o O : Alert. VSS. Afebrile. Somnolent. Neck : Supple Lungs : Decreased bases CVS : RRR Abd: Soft, benign in appearance. Portly Ext: Stable edema Neuro : Grossly intact. A/P: ARF HTN ANEMIA Supportive care Labs better/stable. . CPM. PELON DIXON MD Jul 08, 2016 23:48
[2016-07-09] MEDS: MORPHINE IR 15 MG TABLET PO PRN ×3 (02:14→13:42)
[2016-07-09] MEDS: PIPERACILLIN/TAZOBACTAM 3.375 GM in IV NORMAL SALINE 50ML 50 ML IV SCH ×5 (05:08→17:50)
[2016-07-09] MEDS: IV NORMAL SALINE 1000ML BAG 1,000 ML IV SCH (05:08)
[2016-07-09] MEDS: PANTOPRAZOLE 40 MG TABLET.DR. PO SCH (05:10)
[2016-07-09 07:00] VITALS: BP 101/56
[2016-07-09] MEDS: INSULIN ASPART 300 UNITS/3 ML INSULN.PEN SQ SCH ×3 (08:17→17:00)
[2016-07-09] MEDS: traMADol 50 MG TABLET PO PRN (10:34)
--- NOTE | 2016-07-09 10:56 | PDOC ---
Subjective: Subjective: Says fell in the shower, now back hurts. Still RUQ discomfort. BM this morning. Eating okay. Objective: Vital Signs: Vital Signs Date Time Temp Pulse Resp B/P Pulse Ox O2 Delivery O2 Flow Rate FiO2 07/09/16 10:34 20 98 Room Air 3.0 07/09/16 07:00 97.9 81 101/56 97.9 Labs: Laboratory Tests Test 07/08/16 12:03 07/08/16 16:52 07/08/16 20:38 07/09/16 07:40 Glucose (Fingerstick) 101mg/dL 93mg/dL 96mg/dL 92mg/dL PE: GEN: NAD LUNGS: clear anteriorly HEART: RRR ABD: S/ND, RUQ discomfort - stable exam NEURO/PSYCH: A & O 3 A/P: Cirrhosis (Hep C, alcohol), portal HTN, s/p TIPS -ongoing RUQ discomfort -Doppler w/ patent TIPS; CT w/ subcapsular hematoma, small area of infarction right hepatic lobe, subacute hemoperitoneum Anemia -Hgb stable Back pain -- Other per Dr. Macdonald. BENTON JACOBSON Jul 09, 2016 10:56
[2016-07-09 11:00] VITALS: BP 105/61
--- NOTE | 2016-07-09 14:27 | PDOC ---
PROGRESS NOTES Chief Complaint Chief Complaint Hematemesis ASSESSMENT AND PLAN: 1. Portal HTN 2/2 liver cirrhosis: s/p TIPS (07/02) 2. Subcapsular liver hematoma post TIPS 3. pain control: on huge doses of morphine and oxy. start weaning 4. cirrhosis: HCV and EtOH; noncompliant with HCV regimen 5. Hepatic encephalopathy: auditory hallucinations; laxative with goal of daily BM 1-2 discussed w/ pt 5. UGIB: 2/2 varices, resolved 6. Anemia: GIB, hepatic bleed, and chronic inflammation as well as HCV. Hgb ~ 8. monitor 7. Leukocytosis: reactive 2/2 hepatic bleed. much improved 8. MARITZA: ATN from contrast. resolved. monitor 9. Prophylaxis: PPI 10. slipped in shower today, back sore, but no bruising, no mobility limitations. 11. Dispo: ?home in AM, W/GI F/U History of Present Illness History of Present Illness noticed some auditory hallucinations off and on. no BM today. Vitals Vitals Vital Signs Date Time Temp Pulse Resp B/P Pulse Ox O2 Delivery O2 Flow Rate FiO2 07/09/16 13:42 20 98 Room Air 3.0 07/09/16 11:00 97.6 85 105/61 97.6 Physical Exam General: Alert, Oriented X3, Cooperative, No acute distress Heart: Regular rate, No murmurs Lungs: Clear Abdomen: Normal bowel sounds, Other (TTP RUQ) Extremities: No clubbing Skin: No rashes Labs LABS Laboratory Tests Test 07/08/16 16:52 07/08/16 20:38 07/09/16 07:40 Glucose (Fingerstick) 93mg/dL (70-99) 96mg/dL (70-99) 92mg/dL (70-99) CHARIS LUNDBERG MD Jul 09, 2016 14:27
[2016-07-09 15:00] VITALS: BP 106/55
[2016-07-09 19:00] VITALS: BP 104/63
[2016-07-09] MEDS ORDERED: oxyCODONE IR 5 MG TABLET PO PRN (19:30)
[2016-07-09 23:00] VITALS: BP 119/70
[2016-07-09] MEDS: oxyCODONE IR 5 MG TABLET PO PRN (23:24)
[2016-07-10 03:10] VITALS: BP 100/63
[2016-07-10] MEDS: PANTOPRAZOLE 40 MG TABLET.DR. PO SCH (05:08)
[2016-07-10] MEDS: oxyCODONE IR 5 MG TABLET PO PRN (05:09)
[2016-07-10 07:15] VITALS: BP 98/61
[2016-07-10] MEDS: INSULIN ASPART 300 UNITS/3 ML INSULN.PEN SQ SCH ×2 (08:00→12:00)
--- NOTE | 2016-07-10 09:44 | PDOC ---
G I PROGRESS NOTE Subjective Most complaints related to back. Some RUQ discomfort. Eating OK. Physical Exam Lungs clear. RRR Abdomen soft, not distended. Some RUQ tenderness (liver). Review of Relevant I have reviewed the following items candace (where applicable) has been applied. Labs Laboratory Tests Test 07/08/16 12:03 07/08/16 16:52 07/08/16 20:38 07/09/16 07:40 Glucose (Fingerstick) 101mg/dL (70-99) 93mg/dL (70-99) 96mg/dL (70-99) 92mg/dL (70-99) Test 07/09/16 16:51 07/09/16 20:21 Glucose (Fingerstick) 91mg/dL (70-99) 87mg/dL (70-99) Laboratory Tests Test 07/09/16 16:51 07/09/16 20:21 Glucose (Fingerstick) 91mg/dL (70-99) 87mg/dL (70-99) Microbiology 07/06/16 Urine Culture - Final, Complete 07/06/16 Urine Culture Result 1 (JAKE) - Final, Complete Hemoglobin stable. Medications Current Medications Sodium Chloride (Iv Sodium Chloride 0.9% 1000ml Bag) 1,000 ml @ 1,000 mls/hr Q1H IV Last administered on 06/25/16 19:05; Start 06/25/16 at 18:00; Stop 01/31 at 18:59; Status DC Ondansetron HCl (Zofran) 4 mg 1X ONCE IV Last administered on 06/25/16 19:08 ; Start 06/25/16 at 18:00; Stop 06/25/16 at 18:01; Status DC Famotidine (Pepcid) 20 mg 1X ONCE IVP ; Start 06/25/16 at 18:00; Stop 06/25/16 at 18:27; Status DC Fentanyl Citrate (Fentanyl 2ml Vial) 50 mcg PRN Q15MIN PRN IV PAIN GREATER THAN 3/10 Last administered on 06/25/16 19:07; Start 06/25/16 at 18:00; Stop at 21:33; Status DC Pantoprazole Sodium 40 mg 40 mg 1X ONCE IVP Last administered on 06/25/16 19: 14; Start 06/25/16 at 18:30; Stop 06/25/16 at 18:31; Status DC Pantoprazole Sodium/Sodium Chloride (Protonix Iv/Iv Sodium Chloride 0.9% 100ml) 100 ml @ 10 mls/hr Q10H IV Last administered on 06/28/16 16:36; Start at 18:30; Stop 06/29/16 at 07:18; Status DC Ondansetron HCl (Zofran) 4 mg PRN Q8HRS PRN IV NAUSEA/VOMITING Last administered on 06/26/16 13:37; Start 06/25/16 at 19:00; Stop 06/26/16 at 18:59 ; Status DC Fentanyl Citrate 50 mcg 50 mcg PRN Q2HR PRN IV PAIN Last administered on 17:19; Start 06/25/16 at 19:00; Stop 06/26/16 at 18:59; Status DC Sodium Chloride 1,000 ml @ 125 mls/hr Q8H IV Last administered on 06/26/16 10 :58; Start 06/25/16 at 18:58; Stop 06/26/16 at 18:57; Status DC Propofol (Diprivan) 20 ml @ As Directed STK-MED ONCE IV ; Start 06/26/16 at 09: 32; Stop 06/26/16 at 09:33; Status DC Lidocaine HCl 5 ml 5 ml STK-MED ONCE .ROUTE ; Start 06/26/16 at 09:32; Stop 03/02 at 09:33; Status DC Propofol 20 ml @ As Directed STK-MED ONCE IV ; Start 06/26/16 at 09:50; Stop 03/02 at 09:51; Status DC Propofol 20 ml @ As Directed STK-MED ONCE IV ; Start 06/26/16 at 09:55; Stop 03/02 at 09:56; Status DC Propofol (Diprivan) 20 ml @ As Directed STK-MED ONCE IV ; Start 06/26/16 at 10: 04; Stop 06/26/16 at 10:05; Status DC Epinephrine HCl (Epinephrine Syringe) 1 mg STK-MED ONCE .ROUTE ; Start 06/26/16 at 10:07; Stop 06/26/16 at 10:08; Status DC Insulin Aspart (Novolog) 0-7 UNITS TIDWMEALS SQ Last administered on 07/07/16 08:20; Start 06/26/16 at 12:00 Dextrose 12.5 gm 12.5 gm PRN Q15MIN PRN IV SEE COMMENTS; Start 06/26/16 at 10: 15 Propofol 20 ml @ As Directed STK-MED ONCE IV ; Start 06/26/16 at 10:11; Stop 03/02 at 10:12; Status DC Propofol (Diprivan) 40 ml @ As Directed STK-MED ONCE IV ; Start 06/26/16 at 10: 20; Stop 06/26/16 at 10:21; Status DC Epinephrine HCl (Epinephrine Syringe) 1 mg STK-MED ONCE IV Last administered on 06/26/16 10:20; Start 06/26/16 at 10:20; Stop 06/26/16 at 10:46; Status DC Epinephrine HCl 1 mg 1 mg STK-MED ONCE IV Last administered on 06/26/16 10:22 ; Start 06/26/16 at 10:22; Stop 06/26/16 at 10:46; Status DC Octreotide Acetate/Sodium Chloride (Sandostatin/Iv Sodium Chloride 0.9% 100ml) 101 ml @ 0 mls/hr CONT PRN IV SEE COMMENTS Last administered on 06/28/16 17:42 ; Start 06/26/16 at 11:00; Stop 06/29/16 at 07:18; Status DC Fentanyl Citrate (Fentanyl 2ml Vial) 25 mcg PRN Q4HRS PRN IV PAIN; Start at 21:00; Stop 06/26/16 at 21:00; Status DC Fentanyl Citrate 25 mcg 25 mcg PRN Q4HRS PRN IV PAIN Last administered on 20:42; Start 06/26/16 at 21:00; Stop 06/28/16 at 00:00; Status DC Iron Sucrose/ Sodium Chloride (Venofer/Iv Sodium Chloride 0.9% 250ml) 265 ml @ 90 mls/hr Q12HR IV Last administered on 06/28/16 09:57; Start 06/27/16 at 12: 00; Stop 06/28/16 at 11:57; Status DC Fentanyl Citrate (Fentanyl 2ml Vial) 25 mcg PRN Q4HRS PRN IV SEVERE PAIN Last administered on 07/01/16 06:17; Start 06/28/16 at 01:15; Stop 07/01/16 at 09:00 ; Status DC Ondansetron HCl 4 mg 4 mg PRN Q6HRS PRN IV NAUSEA/VOMITING Last administered on 07/02/16 20:32; Start 06/28/16 at 04:30 Ceftriaxone Sodium/Sodium Chloride (Rocephin/Iv Sodium Chloride 0.9% 50ml) 50 ml @ 100 mls/hr Q24H IV Last administered on 07/01/16 15:46; Start 06/28/16 at 16:00; Stop 07/02/16 at 13:43; Status DC Pantoprazole Sodium (Protonix) 40 mg DAILYAC PO Last administered on 07/10/16 05:08; Start 06/29/16 at 08:00 Iohexol (Omnipaque 350 Mg/ml) 75 ml 1X ONCE IV Last administered on 06/29/16 12:05; Start 06/29/16 at 12:00; Stop 06/29/16 at 12:01; Status DC Info (Do NOT chart on this entry -- for MONITORING) 1 each PRN DAILY PRN MC SEE COMMENTS; Start 06/29/16 at 12:00; Stop 07/01/16 at 11:59; Status DC Potassium Chloride (Klor-Con) 40 meq 1X ONCE PO Last administered on 11:18; Start 06/30/16 at 11:00; Stop 06/30/16 at 11:01; Status DC Morphine Sulfate 2 mg PRN Q2HR PRN IV PAIN Last administered on 07/01/16 09:04 ; Start 07/01/16 at 09:00; Stop 07/01/16 at 10:53; Status DC Fentanyl Citrate (Fentanyl 2ml Vial) 25 mcg PRN Q2HR PRN IV SEVERE PAIN Last administered on 07/05/16 07:59; Start 07/01/16 at 01:15; Stop 07/05/16 at 09:04 ; Status DC Morphine Sulfate 4 mg PRN Q2HR PRN IV PAIN Last administered on 07/05/16 07:30 ; Start 07/01/16 at 11:00; Stop 07/05/16 at 09:05; Status DC Ondansetron HCl (Zofran) 4 mg PRN Q6HRS PRN IV NAUSEA/VOMITING; Start 07/01/16 at 11:00; Stop 07/02/16 at 10:59; Status DC Fentanyl Citrate (Fentanyl 2ml Vial) 25 mcg PRN Q5MIN PRN IV MILD PAIN; Start 07/01/16 at 11:00; Stop 07/02/16 at 10:59; Status DC Fentanyl Citrate (Fentanyl 2ml Vial) 50 mcg PRN Q5MIN PRN IV MODERATE PAIN; Start 07/01/16 at 11:00; Stop 07/02/16 at 10:59; Status DC Morphine Sulfate 1 mg 1 mg PRN Q10MIN PRN IV SEVERE PAIN; Start 07/01/16 at 11: 00; Stop 07/02/16 at 10:59; Status DC Lactated Ringer's (Iv Lactated Ringers) 1,000 ml @ 30 mls/hr Q24H IV ; Start at 10:59; Stop 07/01/16 at 22:58; Status DC Lidocaine HCl 2 ml PRN 1X PRN ID PRIOR TO IV START; Start 07/01/16 at 11:00; Stop 07/02/16 at 10:59; Status DC Hydromorphone HCl (Dilaudid) 0.5 mg PRN Q10MIN PRN IV SEV PAIN, Second choice; Start 07/01/16 at 11:00; Stop 07/02/16 at 10:59; Status DC Prochlorperazine Edisylate (Compazine) 5 mg PACU PRN PRN IV NAUSEA, MRX1; Start 07/01/16 at 11:00; Stop 07/02/16 at 10:59; Status DC Midazolam HCl (Versed) 2 mg STK-MED ONCE .ROUTE ; Start 07/01/16 at 13:27; Stop 07/01/16 at 13:28; Status DC Fentanyl Citrate (Fentanyl 5ml Vial) 250 mcg STK-MED ONCE .ROUTE ; Start at 13:27; Stop 07/01/16 at 13:28; Status DC Iohexol (Omnipaque 300 Mg/ml) 100 ml STK-MED ONCE .ROUTE ; Start 07/01/16 at 13: 30; Stop 07/01/16 at 13:31; Status DC Lidocaine/Sodium Bicarbonate 20 ml 20 ml STK-MED ONCE IJ ; Start 07/01/16 at 13: 30; Stop 07/01/16 at 13:31; Status DC Heparin Sodium/ Sodium Chloride 500 ml @ As Directed STK-MED ONCE .ROUTE ; Start 07/01/16 at 13:30; Stop 07/01/16 at 13:31; Status DC Heparin Sodium/ Sodium Chloride 1,000 unit 1X ONCE IART Last administered on 14:25; Start 07/01/16 at 14:15; Stop 07/01/16 at 14:20; Status DC Lidocaine/Sodium Bicarbonate (Buffered Lidocaine 1%) 2 ml 1X ONCE IJ Last administered on 07/01/16 14:25; Start 07/01/16 at 14:15; Stop 07/01/16 at 14:20 ; Status DC Midazolam HCl (Versed) 2 mg 1X ONCE IV Last administered on 07/01/16 14:26; Start 07/01/16 at 14:15; Stop 07/01/16 at 14:20; Status DC Fentanyl Citrate (Fentanyl 5ml Vial) 100 mcg 1X ONCE IV Last administered on 14:26; Start 07/01/16 at 14:15; Stop 07/01/16 at 14:20; Status DC Iohexol (Omnipaque 300 Mg/ml) 40 ml 1X ONCE IART Last administered on 14:26; Start 07/01/16 at 14:15; Stop 07/01/16 at 14:20; Status DC Iohexol (Omnipaque 300 Mg/ml) 100 ml STK-MED ONCE .ROUTE ; Start 07/02/16 at 12: 24; Stop 07/02/16 at 12:25; Status DC Lidocaine/Sodium Bicarbonate 20 ml 20 ml STK-MED ONCE IJ ; Start 07/02/16 at 12: 25; Stop 07/02/16 at 12:26; Status DC Heparin Sodium/ Sodium Chloride 1,000 ml @ As Directed STK-MED ONCE .ROUTE ; Start 07/02/16 at 12:25; Stop 07/02/16 at 12:26; Status DC Heparin Sodium/ Sodium Chloride 2,000 unit 1X ONCE IART Last administered on 14:04; Start 07/02/16 at 13:15; Stop 07/02/16 at 13:16; Status DC Lidocaine/Sodium Bicarbonate (Buffered Lidocaine 1%) 20 ml 1X ONCE IJ Last administered on 07/02/16 14:05; Start 07/02/16 at 13:15; Stop 07/02/16 at 13:16 ; Status DC Iohexol 200 ml 200 ml 1X ONCE IART Last administered on 07/02/16 14:05; Start 07/02/16 at 13:15; Stop 07/02/16 at 13:16; Status DC Ceftriaxone Sodium (Rocephin 1gm Ivpb For Omni) 50 ml @ As Directed STK-MED ONCE IV ; Start 07/02/16 at 13:20; Stop 07/02/16 at 13:21; Status DC Dexamethasone Sodium Phosphate (Decadron) 20 mg STK-MED ONCE .ROUTE ; Start at 13:34; Stop 07/02/16 at 13:35; Status DC Ondansetron HCl 4 mg 4 mg STK-MED ONCE .ROUTE ; Start 07/02/16 at 13:34; Stop at 13:35; Status DC Propofol (Diprivan) 20 ml @ As Directed STK-MED ONCE IV ; Start 07/02/16 at 13: 34; Stop 07/02/16 at 13:35; Status DC Fentanyl Citrate (Fentanyl 2ml Vial) 100 mcg STK-MED ONCE .ROUTE ; Start at 13:34; Stop 07/02/16 at 13:35; Status DC Midazolam HCl (Versed) 2 mg STK-MED ONCE .ROUTE ; Start 07/02/16 at 13:34; Stop 07/02/16 at 13:35; Status DC Rocuronium Marcellus 50 mg 50 mg STK-MED ONCE .ROUTE ; Start 07/02/16 at 13:34; Stop 07/02/16 at 13:35; Status DC Ceftriaxone Sodium 50 ml @ 100 mls/hr 1X ONCE IV Last administered on 14:06; Start 07/02/16 at 13:45; Stop 07/02/16 at 14:14; Status DC Ceftriaxone Sodium/Sodium Chloride (Rocephin/Iv Sodium Chloride 0.9% 50ml) 50 ml @ 100 mls/hr Q24H IV Last administered on 4/21/17at 16:11; Start 07/03/16 at 14:00; Stop 07/06/16 at 10:33; Status DC Ephedrine Sulfate (Akovaz) 50 mg STK-MED ONCE .ROUTE ; Start 07/02/16 at 14:16; Stop 07/02/16 at 14:17; Status DC Phenylephrine HCl 1 mg STK-MED ONCE IV ; Start 07/02/16 at 14:16; Stop 07/02/16 at 14:17; Status DC Fentanyl Citrate (Fentanyl 2ml Vial) 100 mcg STK-MED ONCE .ROUTE ; Start at 16:30; Stop 07/02/16 at 16:31; Status DC Fentanyl Citrate 100 mcg 100 mcg STK-MED ONCE .ROUTE ; Start 07/02/16 at 17:50; Stop 07/02/16 at 17:51; Status DC Propofol (Diprivan) 20 ml @ As Directed STK-MED ONCE IV ; Start 07/02/16 at 17: 50; Stop 07/02/16 at 17:51; Status DC Tramadol HCl (Ultram) 50 mg PRN Q6HRS PRN PO PAIN Last administered on 10:34; Start 07/03/16 at 12:00 Ibuprofen (Motrin) 400 mg 1X ONCE PO Last administered on 07/04/16 10:30; Start 07/04/16 at 11:00; Stop 07/04/16 at 11:01; Status DC Fentanyl Citrate (Fentanyl 2ml Vial) 75 mcg PRN Q2HR PRN IV SEVERE PAIN Last administered on 07/05/16 12:39; Start 07/05/16 at 09:15; Stop 07/08/16 at 20:50 ; Status DC Morphine Sulfate 6 mg PRN Q2HR PRN IV PAIN; Start 07/05/16 at 09:15; Stop 07/05 at 09:15; Status DC Morphine Sulfate 8 mg PRN Q2HR PRN IV PAIN; Start 07/05/16 at 09:15; Stop 07/05 at 09:45; Status DC Morphine Sulfate 10 mg PRN Q2HR PRN IV PAIN Last administered on 07/08/16 09: 27; Start 07/05/16 at 09:45; Stop 07/08/16 at 20:50; Status DC Morphine Sulfate (Morphine Ir) 30 mg PRN Q4HRS PRN PO PAIN Last administered on 07/09/16 13:42; Start 07/05/16 at 11:00; Stop 07/09/16 at 19:20; Status DC Iohexol (Omnipaque 300 Mg/ml) 75 ml 1X ONCE PO Last administered on 07/05/16 18:18; Start 07/05/16 at 17:00; Stop 07/05/16 at 17:01; Status DC Iohexol (Omnipaque 240 Mg/ml) 50 ml 1X ONCE PO Last administered on 07/05/16 17:00; Start 07/05/16 at 17:00; Stop 07/05/16 at 17:01; Status DC Info (Do NOT chart on this entry -- for MONITORING) 1 each PRN DAILY PRN MC SEE COMMENTS; Start 07/05/16 at 17:00; Stop 07/07/16 at 16:59; Status DC Piperacillin Sod/ Tazobactam Sod 1 each 1 each PRN DAILY PRN MC SEE COMMENTS; Start 07/06/16 at 10:45 Piperacillin Sod/ Tazobactam Sod 3.375 gm/Sodium Chloride 50 ml @ 100 mls/hr Q6HRS IV Last administered on 07/09/16 17:50; Start 07/06/16 at 11:00; Stop at 19:20; Status DC Sodium Chloride (Iv Sodium Chloride 0.9% 1000ml Bag) 1,000 ml @ 75 mls/hr [id number] IV Last administered on 07/09/16 05:08; Start 07/06/16 at 12:30; Stop 07/09/16 at 19:20; Status DC Polyethylene Glycol (miraLAX PACKET) 17 gm PRN DAILY PRN PO CONSTIPATION; Start 07/08/16 at 13:45 Morphine Sulfate 10 mg PRN Q4HRS PRN IV PAIN; Start 07/08/16 at 21:00; Stop at 19:20; Status DC Oxycodone HCl (Roxicodone) 5 mg PRN Q6HRS PRN PO PAIN; Start 07/09/16 at 19:30 Oxycodone HCl (Roxicodone) 10 mg PRN Q6HRS PRN PO PAIN Last administered on 4/ 26/17at 05:09; Start 07/09/16 at 19:30 Active Scripts Active Fioricet 50-300-40 Mg Capsule (Butalb/Acetaminophen/Caffeine) 1 Each Capsule 1 Each PO PRN Q4HRS PRN Vitals/I & O Vital Sign - Last 24 Hours 07/09/16 07/09/16 07/09/16 07/09/16 10:34 11:00 11:34 13:42 Temp 97.6 97.6 Pulse 85 Resp 20 16 20 20 B/P 105/61 Pulse Ox 98 94 98 98 O2 Delivery Room Air Nasal Cannula Room Air Room Air O2 Flow Rate 3.0 3.0 3.0 07/09/16 07/09/16 07/09/16 07/09/16 14:42 15:00 19:00 20:00 Temp 97.7 97.7 97.7 97.7 Pulse 78 82 Resp 20 18 20 B/P 106/55 104/63 Pulse Ox 100 100 100 O2 Delivery Room Air Nasal Cannula Nasal Cannula Room Air O2 Flow Rate 3.0 3.0 3.0 07/09/16 07/09/16 07/10/16 07/10/16 23:00 23:24 03:10 05:09 Temp 97.7 98.1 97.7 98.1 Pulse 90 85 Resp 20 18 20 18 B/P 119/70 100/63 Pulse Ox 91 91 92 92 O2 Delivery Room Air Room Air Room Air Room Air O2 Flow Rate 3.0 3.0 07/10/16 07/10/16 07/10/16 06:08 07:15 08:00 Temp 97.7 97.7 Pulse 71 Resp 18 16 B/P 98/61 Pulse Ox 92 99 O2 Delivery Room Air Nasal Cannula Room Air O2 Flow Rate 3.0 1.0 3.0 Intake and Output 07/09/16 07/09/16 07/10/16 15:00 23:00 07:00 Intake Total 300 ml 300 ml 1200 ml Balance 300 ml 300 ml 1200 ml Problem List Problems Medical Problems: (1) Acute GI bleeding Status: Acute (2) Blood loss anemia Status: Acute (3) Dentalgia Status: Acute (4) Headache Status: Acute (5) Moderate protein malnutrition Status: Acute Assessment Seems stable GI-baird. Residual RUQ pain likely from the subcapsular hematoma. Back pain after fall. Plan of Care: Continue current Tx, Mgmt Plan of Care Note Once back issues better, OK to dismiss from GI standpoint. RETA CANTU MD Jul 10, 2016 09:44
[2016-07-10] MEDS ORDERED: POLY17PO29 PO (10:26)
[2016-07-10] MEDS ORDERED: Oxycodone Hcl PO (10:26)
[2016-07-10] MEDS ORDERED: PANT40TA5 PO (10:26)
[2016-07-10] MEDS ORDERED: LACT20SO PO (10:30)
--- NOTE | 2016-07-10 10:50 | PDOC3 ---
Discharge Summary Visit Information Date of Admission: Jun 25, 2016 Date of Discharge: Jul 10, 2016 Admitting Diagnosis: GI bleed upper Final Diagnosis 1. Portal HTN 2/2 liver cirrhosis: s/p TIPS (07/02) 2. Subcapsular liver hematoma post TIPS 3. pain control: was given morphine and oxy. t weaning 4. cirrhosis: HCV and EtOH; prior noncompliant with HCV regimen 5. Hepatic encephalopathy: auditory hallucinations, improved at DC 5. UGIB: 2/2 varices, resolved at DC 6. Anemia: GIB, hepatic bleed, and chronic inflammation as well as HCV. 7. Leukocytosis: reactive 2/2 hepatic bleed. 8. MARITZA: ATN from contrast. resolved. 9. Prophylaxis: PPI 10. some weakess, sore back Problems Medical Problems: (1) Acute GI bleeding Status: Acute (2) Blood loss anemia Status: Acute (3) Dentalgia Status: Acute (4) Headache Status: Acute (5) Hepatic cirrhosis Status: Acute (6) Moderate protein malnutrition Status: Acute Brief Hospital Course Allergies Allergies Coded Allergies Type Severity Reaction Last Updated Verified I S O L A T I O N *CONTACT* Allergy Unknown 06/27/16 Yes No Known Medication Allergies Allergy Unknown 06/27/16 Yes Vital Signs Vital Signs Date Time Temp Pulse Resp B/P Pulse Ox O2 Delivery O2 Flow Rate FiO2 07/10/16 08:00 Room Air 3.0 07/10/16 07:15 97.7 71 16 98/61 99 97.7 Lab Results Laboratory Tests Test 07/08/16 12:03 07/08/16 16:52 07/08/16 20:38 07/09/16 07:40 Glucose (Fingerstick) 101mg/dL (70-99) 93mg/dL (70-99) 96mg/dL (70-99) 92mg/dL (70-99) Test 07/09/16 16:51 07/09/16 20:21 Glucose (Fingerstick) 91mg/dL (70-99) 87mg/dL (70-99) Laboratory Tests Test 07/09/16 16:51 07/09/16 20:21 Glucose (Fingerstick) 91mg/dL (70-99) 87mg/dL (70-99) Brief Hospital Course Ms. Hollis is a 50 old woman with history of GI bleed, admitted here twice, most recently in 11/2014. on this admit, was very dizzy, could barely walk, had ongoing melena as well as hematemesis. 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 noted Severe reflux esophagitis with mild stricture. on ontreotide and PPI TIPS performed, pt had ongoing pain, some fluctuation in renal fxn, MARITZA, cr 1.0 to 2, then back X2, was 1.0 on DC f.u GI Discharge Information Condition at Discharge: Improved Follow Up: Weeks Disposition/Orders: D/C to Home Scheduled PRN ([Oxycodone Hcl]) 5 MG PO PRN Q6HRS PRN PRN PAIN Butalb/Acetaminophen/Caffeine (Fioricet 50-300-40 Mg Capsule) 1 EACH PO PRN Q4HRS PRN PRN MIGRAINE HEADACHE Patient Instructions Patient Instructions time > 30 min other meds, Lactulose 20 daily oxycodone 5mg Q6 PRN, #40 pantoprazole 40 daily CHEPE NIEVES MD Jul 10, 2016 10:50
[2016-07-10 11:20] VITALS: BP 94/64
== END 2016-07-10 15:16 | disposition home or self-care (01) | DRG 405 ==
LOC: ER 17:02 → 1 WEST ICU 18:21 → 5 NORTH 06-27 15:48 → 1 WEST ICU 07-02 19:34 → 5 NORTH 07-03 16:45
PROVIDERS: ADMIT Internal Medicine Hematology & Oncology; ATTEND Internal Medicine Hematology & Oncology
PROC: 0FB03ZX Excision of Liver, Percutaneous Approach, Diagnostic (ICD-10-PCS; 2016-06-26)
PROC: 30233N1 Transfusion of Nonautologous Red Blood Cells into Peripheral Vein, Percutaneous Approach (ICD-10-PCS; 2016-06-26)
PROC: 3E0G8GC Introduction of Other Therapeutic Substance into Upper GI, Via Natural or Artificial Opening Endoscopic (ICD-10-PCS; principal; 2016-06-26 10:00)
PROC: 06183DY (ICD-10-PCS; 2016-06-26 10:00)
DX: K74.69 Other cirrhosis of liver (principal); N17.0 Acute kidney failure with tubular necrosis; I85.11 Secondary esophageal varices with bleeding; K76.6 Portal hypertension; D62 Acute posthemorrhagic anemia; E44.0 Moderate protein-calorie malnutrition; E87.1 Hypo-osmolality and hyponatremia; K72.90 Hepatic failure, unspecified without coma; I83.90 Asymptomatic varicose veins of unspecified lower extremity; B19.20 Unspecified viral hepatitis C without hepatic coma; C53.9 Malignant neoplasm of cervix uteri, unspecified; D50.0 Iron deficiency anemia secondary to blood loss (chronic); D57.3 Sickle-cell trait; D69.6 Thrombocytopenia, unspecified; D72.829 Elevated white blood cell count, unspecified; E11.9 Type 2 diabetes mellitus without complications; F32.9 Major depressive disorder, single episode, unspecified; F41.9 Anxiety disorder, unspecified; G43.909 Migraine, unspecified, not intractable, without status migrainosus; I10 Essential (primary) hypertension; I20.9 Angina pectoris, unspecified; K21.0 Gastro-esophageal reflux disease with esophagitis; K44.9 Diaphragmatic hernia without obstruction or gangrene; K70.30 Alcoholic cirrhosis of liver without ascites; F17.210 Nicotine dependence, cigarettes, uncomplicated; M19.90 Unspecified osteoarthritis, unspecified site; W18.2XXA Fall in (into) shower or empty bathtub, initial encounter; Y93.E1 Activity, personal bathing and showering; Z80.0 Family history of malignant neoplasm of digestive organs; Z82.49 Family history of ischemic heart disease and other diseases of the circulatory system; Z83.3 Family history of diabetes mellitus; Z85.41 Personal history of malignant neoplasm of cervix uteri; Z91.19 Patient's noncompliance with other medical treatment and regimen; Z92.3 Personal history of irradiation
CPT/HCPCS: 36415; 36596; 37182; 74022; 74170; 74177; 75889; 75970; 76937; 78278; 80048; 80053; 80069; 80076; 81001; 81025; 82140; 82274; 82553; 82728; 82947; 83540; 83550; 83690; 84484; 85007; 85014; 85018; 85027; 85379; 85610; 85730; 86850; 86900; 86901; 86920; 87086; 87641; 88307; 88313; 93005; 93976; 96361; 96374; 96375; A9560; C1713; C1758; C1769; C1887; C1892; C1894; C9113; J0171; J0690; J0696; J1100; J1756; J1815; J2250; J2270; J2354; J2370; J2405; J2543; J2704; J3010; J7030; J7050; P9016; Q9966; Q9967; 99291-25

== ENCOUNTER 2017-08-29 13:40 | Emergency (ER) | payer SELFPAY, OTHER | END 2017-08-29 16:12 | disposition home or self-care (01) | LOC: ER 13:40 | DX: F10.129 Alcohol abuse with intoxication, unspecified (principal); J45.909 Unspecified asthma, uncomplicated; F17.200 Nicotine dependence, unspecified, uncomplicated; Z91.041 Radiographic dye allergy status | CPT/HCPCS: 99284 ==

== ENCOUNTER 2020-01-02 01:00 | Emergency (ER) | payer SELFPAY ==
[~2020-01-02] VITALS: Ht 157.5 cm; Wt 81.8 kg
[~2020-01-02 01:00] MED LIST changes: +CIPR250T PO; +CIPR500T94 PO; +FERR325T14 PO; +FOLI1TAB16 PO; +LACT20SO PO; +Oxycodone Hcl PO; +PANT40TA77 PO; +POLY17PO29 PO; +THIA100T22 PO
--- NOTE | 2020-01-02 01:19 | PHYS DOC ---
Past Medical History Past Medical History: Anemia, Cancer, Diabetes-Type II, Hypertension, Hep atitis, Liver Disease, Sickle Cell Disease Additional Past Medical Histor: cervical ca,HEP C,esophageal varices1/2 FUNCTIONING LIVER Past Surgical History: Other Additional Past Surgical Histo: "tubes to drain liver",NECK SURG Smoking Status: Light Tobacco Smoker Alcohol Use: Heavy Drug Use: Marijuana, Other General Adult EDM: Chief Complaint: CHEST PAIN HPI: HPI: Patient is a 54 year old female past medical history of anxiety and gastric ulcers presents with a chief of complaint of epigastric discomfort. Patient states she has had this epigastric discomfort x1 month. Patient states she was recently hospitalized at [facility] for 1 week and discharged 3 days ago. Patient states since discharge pain has continued and not improved. Patient admits to taking her omeprazole as prescribed. Patient states she has been taking aspirin for her pain. Patient states she has not been taking her anxiety medication Ativan because she cannot afford it. Patient denies any nausea or vomiting or dark or bloody stools. Review of Systems: Review of Systems: Constitutional: Denies fever or chills. [] Eyes: Denies change in visual acuity. [] HENT: Denies nasal congestion or sore throat. [] Respiratory: Denies cough or shortness of breath. [] Cardiovascular: Denies chest pain or edema. [] GI: Denies, nausea, vomiting, bloody stools or diarrhea. [Positive abdominal pain] : Denies dysuria. [] Musculoskeletal: Denies back pain or joint pain. [] Integument: Denies rash. [] Neurologic: Denies headache, focal weakness or sensory changes. [] Endocrine: Denies polyuria or polydipsia. [] Lymphatic: Denies swollen glands. [] Psychiatric: Denies depression or anxiety. [] Heart Score: Risk Factors: Risk Factors: DM, Current or recent (<one month) smoker, HTN, HLP, family history of CAD, obesity. Risk Scores: Score 0 - 3: 2.5% MACE over next 6 weeks - Discharge Home Score 4 - 6: 20.3% MACE over next 6 weeks - Admit for Clinical Observation Score 7 - 10: 72.7% MACE over next 6 weeks - Early Invasive Strategies Current Medications: Current Medications Medications (Trade) Dose Ordered Sig/Iza Start Time Stop Time Status Last Admin Dose Admin Multi-Ingredient Mouthwash/Gargle (Gi Cocktail) 20 ml 1X ONCE 01/02/20 01:15 01/02/20 01:16 UNV Allergies: Allergies: Allergies Coded Allergies Type Severity Reaction Last Updated Verified I S O L A T I O N *CONTACT* Allergy Unknown 05/02/18 Yes No Known Medication Allergies Allergy Unknown 10/27/18 Yes Physical Exam: PE: Constitutional: Well developed, well nourished, no acute distress, non-toxic appearance. [] HENT: Normocephalic, atraumatic, bilateral external ears normal, oropharynx moist, no oral exudates, nose normal. [] Eyes: PERRLA, EOMI, conjunctiva normal, no discharge. [] Neck: Normal range of motion, no tenderness, supple, no stridor. [] Cardiovascular: Tachycardia Lungs & Thorax: Bilateral breath sounds clear to auscultation [] Abdomen: Bowel sounds normal, soft, no tenderness, no masses, no pulsatile masses. [] Skin: Warm, dry, no erythema, no rash. [] Back: No tenderness, no CVA tenderness. [] Extremities: No tenderness, no cyanosis, no clubbing, ROM intact, no edema. [] Neurologic: Alert and oriented X 3, normal motor function, normal sensory function, no focal deficits noted. [] Psychologic: Affect normal, judgement normal, mood normal. [] EKG: EKG: [] EKG performed at 109 heart rate [address] elevation no ST depression no acute NC Radiology/Procedures: Radiology/Procedures: [] Course & Med Decision Making: Course & Med Decision Making Pertinent Labs and Imaging studies reviewed. (See chart for details) [] Patient was evaluated for chief complaint. Work-up consisted of laboratory analysis radiologic imaging and EKG. Treatment included GI cocktail Pepcid. Patient states pain has improved post treatment. Patient will be prescribed Conesus advised to continue to take her omeprazole. Vandana Disclaimer: Vandana Disclaimer: This electronic medical record was generated, in whole or in part, using a voice recognition dictation system. Departure Departure Impression: Primary Impression: Epigastric abdominal pain Additional Impression: Gastric ulcer Disposition: HOME SELF CARE/HOMELESS Condition: STABLE Referrals: NO PCP (PCP) Patient Instructions: Abdominal Pain Scripts Hydrocodone/Apap 5-325 (NORCO 5-325 TABLET) 1 Each Tablet 1 TAB PO PRN Q6HRS PRN for PAIN for 14 Days, #14 TAB 0 Refills Prov: RODERICK ZARATE DO 01/02/20 RODERICK ZARATE DO Jan 02, 2020 01:19
[2020-01-02] MEDS ORDERED: LIDO:MAALOX 1:1 20 ML SINGLE DOSE. SWSW ONE (01:30)
[2020-01-02 02:11] LABS: BASO # 0.1 x10^3/uL (0.0-0.2); BASO % 1 % (0-3); EOS # 0.6 x10^3/uL (0.0-0.7); EOS % 5 % (0-3); HEMATOCRIT 24.9 % (36.0-47.0); HEMOGLOBIN 7.7 g/dL (12.0-15.5); LYMPH # 1.9 x10^3/uL (1.0-4.8); LYMPH % 18 % (24-48); MEAN CORPUSCULAR HEMOGLOBIN 18 pg (25-35); MEAN CORPUSCULAR HGB CONC 31 g/dL (31-37); MEAN CORPUSCULAR VOLUME 58 fL (79-100); MONO # 1.1 x10^3/uL (0.0-1.1); MONO % 10 % (0-9); NEUT # 6.9 x10^3/uL (1.8-7.7); NEUT % 65 % (31-73); PLATELET COUNT 313 x10^3/uL (140-400); RED BLOOD COUNT 4.28 x10^6/uL (3.50-5.40); RED CELL DISTRIBUTION WIDTH 22.2 % (11.5-14.5); WHITE BLOOD COUNT 10.6 x10^3/uL (4.0-11.0)
[2020-01-02 02:20] LABS: CALCIUM 8.7 mg/dL (8.5-10.1); CREATININE 0.7 mg/dL (0.6-1.0); GFR 87.5
[2020-01-02 02:26] LABS: ALBUMIN 2.7 g/dL (3.4-5.0); ALBUMIN/GLOBULIN RATIO 0.6 (1.0-1.7); TOTAL BILIRUBIN 0.2 mg/dL (0.2-1.0); TOTAL PROTEIN 7.5 g/dL (6.4-8.2)
[2020-01-02] MEDS ORDERED: FAMOTIDINE 20 MG/2 ML VIAL IVP ONE (02:30)
--- NOTE | 2020-01-02 03:08 | RAD ---
AP chest. HISTORY: Chest pain AP view was taken of the chest. Lungs are free of infiltrates. Heart is normal in size without heart failure. There is no effusion. IMPRESSION: 1. No acute infiltrates. Electronically signed by: Karl Finley MD (01/02/2020 3:05 AM) [id number]
[2020-01-02] MEDS ORDERED: HYDR-3164 PO (03:26)
[2020-01-02 03:38] VITALS: BP 142/80
[2020-01-02 04:49] LABS: PLT ESTIMATE ADEQUATE (ADEQUATE); POLYCHROMASIA SLIGHT
[2020-01-02 04:50] LABS: ANISOCYTOSIS MOD; HYPOCHROMIA MARKED; MICROCYTOSIS MARKED; TARGET CELLS OCC
== END 2020-01-02 04:00 | disposition home or self-care (01) ==
LOC: ER 01:00
DX: K25.9 Gastric ulcer, unspecified as acute or chronic, without hemorrhage or perforation (principal); R10.13 Epigastric pain; E11.9 Type 2 diabetes mellitus without complications; F41.9 Anxiety disorder, unspecified; I10 Essential (primary) hypertension; K73.9 Chronic hepatitis, unspecified; K76.9 Liver disease, unspecified; D57.1 Sickle-cell disease without crisis; F12.90 Cannabis use, unspecified, uncomplicated; F10.10 Alcohol abuse, uncomplicated; Z98.890 Other specified postprocedural states; Z88.8 Allergy status to other drugs, medicaments and biological substances
CPT/HCPCS: 36415; 71045; 80053; 84484; 85025; 96374; 96375; 99285; J2060; J3490

== ENCOUNTER 2020-02-07 05:31 | Emergency (ER) | payer SELFPAY ==
[~2020-02-07] VITALS: Ht 157.5 cm; Wt 81.8 kg
[~2020-02-07 05:31] MED LIST changes: +HYDR-3164 PO
[2020-02-07 06:22] LABS: BASO # 0.1 x10^3/uL (0.0-0.2); BASO % 1 % (0-3); EOS # 0.4 x10^3/uL (0.0-0.7); EOS % 5 % (0-3); HEMATOCRIT 25.3 % (36.0-47.0); HEMOGLOBIN 7.6 g/dL (12.0-15.5); LYMPH # 1.1 x10^3/uL (1.0-4.8); LYMPH % 12 % (24-48); MEAN CORPUSCULAR HEMOGLOBIN 18 pg (25-35); MEAN CORPUSCULAR HGB CONC 30 g/dL (31-37); MEAN CORPUSCULAR VOLUME 61 fL (79-100); MONO # 0.8 x10^3/uL (0.0-1.1); MONO % 9 % (0-9); NEUT # 6.5 x10^3/uL (1.8-7.7); NEUT % 72 % (31-73); PLATELET COUNT 300 x10^3/uL (140-400); RED BLOOD COUNT 4.15 x10^6/uL (3.50-5.40); RED CELL DISTRIBUTION WIDTH 22.2 % (11.5-14.5)
[2020-02-07 06:23] LABS: CALCIUM 8.6 mg/dL (8.5-10.1); POTASSIUM 3.8 mmol/L (3.5-5.1)
[2020-02-07 06:29] LABS: ALBUMIN/GLOBULIN RATIO 0.7 (1.0-1.7); TOTAL BILIRUBIN 0.2 mg/dL (0.2-1.0); TOTAL PROTEIN 7.5 g/dL (6.4-8.2)
--- NOTE | 2020-02-07 06:40 | PHYS DOC ---
Past Medical History Past Medical History: Anemia, Anxiety, Cancer, Depression, Diabetes-Type II, GERD, Hypertension, Hepatitis, Liver Disease, Sickle Cell Disease Additional Past Medical Histor: esophageal varices 1/2 FUNCTIONING LIVER, chronic pain, insomnia Past Surgical History: Other Additional Past Surgical Histo: "tubes to drain liver",NECK SURG Smoking Status: Light Tobacco Smoker Alcohol Use: Heavy Drug Use: Marijuana, Other General Adult EDM: Chief Complaint: MULTIPLE COMPLAINTS HPI: HPI: Patient is a 54 year old female who presented to ER today for evaluation of pain all over her body for 2 months. Patient has had history of sickle cell disease, hepatitis C, acid reflux. Patient said the pain got worse today. Patient is also complaining of nausea no vomiting. Pain became more severe so she came in today. Patient denies any cough or fever. Patient also complain of pain in her epigastric area. NO CHEST PAIN, NO SHORTNESS OF AIR, NO COUGH, NO FEVER. Review of Systems: Review of Systems: Constitutional: Denies fever or chills. [] Eyes: Denies change in visual acuity. [] HENT: Denies nasal congestion or sore throat. [] Respiratory: Denies cough or shortness of breath. [] Cardiovascular: Denies chest pain or edema. [] GI: Positive for abdominal pain, nausea, NO vomiting, bloody stools or diarrhea. [] : Denies dysuria. [] Musculoskeletal: Positive for back pain or joint pain. [] Integument: Denies rash. [] Neurologic: Denies headache, focal weakness or sensory changes. [] Endocrine: Denies polyuria or polydipsia. [] Lymphatic: Denies swollen glands. [] Psychiatric: Denies depression or anxiety. [] Heart Score: Risk Factors: Risk Factors: DM, Current or recent (<one month) smoker, HTN, HLP, family history of CAD, obesity. Risk Scores: Score 0 - 3: 2.5% MACE over next 6 weeks - Discharge Home Score 4 - 6: 20.3% MACE over next 6 weeks - Admit for Clinical Observation Score 7 - 10: 72.7% MACE over next 6 weeks - Early Invasive Strategies Current Medications: Current Medications Medications (Trade) Dose Ordered Sig/Iza Start Time Stop Time Status Last Admin Dose Admin Morphine Sulfate (Morphine Sulfate) 4 mg 1X ONCE 02/07/20 07:00 02/07/20 07:01 Ondansetron HCl (Zofran) 4 mg 1X ONCE 02/07/20 07:00 02/07/20 07:01 Allergies: Allergies: Allergies Coded Allergies Type Severity Reaction Last Updated Verified I S O L A T I O N *CONTACT* Allergy Unknown 05/02/18 Yes No Known Medication Allergies Allergy Unknown 10/27/18 Yes Physical Exam: PE: Constitutional: Well developed, well nourished, no acute distress, non-toxic appearance. [] HENT: Normocephalic, atraumatic, bilateral external ears normal, oropharynx moist, no oral exudates, nose normal. [] Eyes: PERRLA, EOMI, conjunctiva normal, no discharge. [] Neck: Normal range of motion, no tenderness, supple, no stridor. [] Cardiovascular:Heart rate regular rhythm, no murmur [] Lungs & Thorax: Bilateral breath sounds clear to auscultation [] Abdomen: Bowel sounds normal, soft, tenderness to palpation in epigastric area, no masses, no pulsatile masses. [] Skin: Warm, dry, no erythema, no rash. [] Back: No tenderness, no CVA tenderness. [] Extremities: No tenderness, no cyanosis, no clubbing, ROM intact, no edema. [] Neurologic: Alert and oriented X 3, normal motor function, normal sensory function, no focal deficits noted. [] Psychologic: Affect normal, judgement normal, mood normal. [] Current Patient Data: Labs: Laboratory Tests Test 02/07/20 05:55 White Blood Count 9.0 x10^3/uL (4.0-11.0) Red Blood Count 4.15 x10^6/uL (3.50-5.40) Hemoglobin 7.6 g/dL (12.0-15.5) L Hematocrit 25.3 % (36.0-47.0) L Mean Corpuscular Volume 61 fL (79-100) L Mean Corpuscular Hemoglobin 18 pg (25-35) L Mean Corpuscular Hemoglobin Concent 30 g/dL (31-37) L Red Cell Distribution Width 22.2 % (11.5-14.5) H Platelet Count 300 x10^3/uL (140-400) Neutrophils (%) (Auto) 72 % (31-73) Lymphocytes (%) (Auto) 12 % (24-48) L Monocytes (%) (Auto) 9 % (0-9) Eosinophils (%) (Auto) 5 % (0-3) H Basophils (%) (Auto) 1 % (0-3) Neutrophils # (Auto) 6.5 x10^3/uL (1.8-7.7) Lymphocytes # (Auto) 1.1 x10^3/uL (1.0-4.8) Monocytes # (Auto) 0.8 x10^3/uL (0.0-1.1) Eosinophils # (Auto) 0.4 x10^3/uL (0.0-0.7) Basophils # (Auto) 0.1 x10^3/uL (0.0-0.2) Platelet Estimate Pending Sodium Level 137 mmol/L (136-145) Potassium Level 3.8 mmol/L (3.5-5.1) Chloride Level 107 mmol/L (98-107) Carbon Dioxide Level 18 mmol/L (21-32) L Anion Gap 12 (6-14) Blood Urea Nitrogen 11 mg/dL (7-20) Creatinine 1.0 mg/dL (0.6-1.0) Estimated GFR (Cockcroft-Gault) 58.0 BUN/Creatinine Ratio 11 (6-20) Glucose Level 89 mg/dL (70-99) Calcium Level 8.6 mg/dL (8.5-10.1) Total Bilirubin 0.2 mg/dL (0.2-1.0) Aspartate Amino Transferase (AST) 30 U/L (15-37) Alanine Aminotransferase (ALT) 17 U/L (14-59) Alkaline Phosphatase 125 U/L (46-116) H Creatine Kinase 84 U/L (26-192) Troponin I Quantitative < 0.017 ng/mL (0.000-0.055) C-Reactive Protein, Quantitative 5.0 mg/L (0-3.3) H AX-Dxu-H-Type Natriuretic Peptide 119 pg/mL (0-124) Total Protein 7.5 g/dL (6.4-8.2) Albumin 3.0 g/dL (3.4-5.0) L Albumin/Globulin Ratio 0.7 (1.0-1.7) L Laboratory Tests 02/07/20 05:55 Laboratory Tests 02/07/20 05:55 Vital Signs: Vital Signs Date Time Temp Pulse Resp B/P (MAP) Pulse Ox O2 Delivery O2 Flow Rate FiO2 02/07/20 05:35 98.1 87 18 177/81 (113) 100 Room Air 98.1 EKG: EKG: EKG was done at 556, heart rate of 67 beats per minute, no ST segment elevation. Radiology/Procedures: Radiology/Procedures: [][facility] [address] [place] [address] IMAGING REPORT Signed PATIENT: NELLI SHAY MACCOUNT: [id number] : 1965 LOCATION: ER AGE: 54 SEX: F EXAM STATUS: REG ER ORD. PHYSICIAN: CHERISE BRIGHT MD REASON: cough, covid? PROCEDURE: CHEST AP ONLY EXAMINATION: CHEST AP ONLY CLINICAL HISTORY: Reason: cough, covid? / Spl. Instructions: / History: EXAM DATE/TIME: 02/07/2020 5:47 AM COMPARISON: 01/02/2020 FINDINGS: Lines, Tubes, and Devices: None. Cardiomediastinal Silhouette: Normal heart size. Aortic atherosclerotic calcification. Lungs and Pleura: No evidence of focal airspace consolidation or pleural effusion. Pulmonary vasculature unremarkable. Bones and Soft Tissues: Degenerative changes of the thoracic spine. IMPRESSION: No evidence of acute cardiopulmonary abnormality or significant interval change. Electronically signed by: Zach Peña DO (02/07/2020 6:57 AM) [facility] DICTATED and SIGNED BY: ZACH PEÑA DO DATE: 02/07/20 [id number] Course & Med Decision Making: Course & Med Decision Making Pertinent Labs and Imaging studies reviewed. (See chart for details) Patient is a 54-year-old female who presented to ER due to chronic pain everywhere. She also have chronic abdominal pain. Patient was given antiacid medication in the ER, she said it helped with the pain. Patient will be discharged home, she will need to follow-up with her family physician for further evaluation and treatment. Vandana Disclaimer: Vandana Disclaimer: This electronic medical record was generated, in whole or in part, using a voice recognition dictation system. Departure Departure Impression: Primary Impression: Gastritis Additional Impression: Chronic pain Disposition: 01 DC HOME SELF CARE/HOMELESS Condition: IMPROVED Referrals: NO PCP (PCP) please follow up with your doctor this week Patient Instructions: Chronic Pain, Gastritis, Adult Additional Instructions: Thank you for visiting our Emergency Department. We appreciate you trusting us with your care. If any additional problems come up don't hesitate to return to visit us. Please follow up with your primary care provider so they can plan additional care if needed and know about the problem that you had. If symptoms worsen come back to the Emergency Department. Any concerning symptoms that start such as chest pain, shortness of air, weakness or numbness on one side of the body, running high fevers or any other concerning symptoms return to the ER. Scripts Hydrocodone/Apap 5-325 (NORCO 5-325 TABLET) 1 Each Tablet 1 TAB PO PRN Q6HRS PRN for PAIN, #10 TAB 0 Refills Prov: ISMAEL SHAH DO 02/07/20 Omeprazole Magnesium (PRILOSEC OTC) 20 Mg Tablet.dr 20 MG PO DAILY for 30 Days, #30 TAB Prov: ISMAEL SHAH DO 02/07/20 Sucralfate (CARAFATE) 1 Gm Tablet 1 TAB PO QID for 14 Days, #56 TAB 0 Refills Prov: ISMAEL SHAH DO 02/07/20 ISMAEL SHAH DO Feb 07, 2020 06:40
[2020-02-07] MEDS ORDERED: ONDANSETRON PF 4 MG/2 ML VIAL. IVP ONE (07:00)
[2020-02-07] MEDS ORDERED: MORPHINE SULFATE 4 MG/ML VIAL. IV ONE (07:00)
[2020-02-07] MEDS ORDERED: FAMOTIDINE 20 MG/2 ML VIAL IVP ONE (07:00)
--- NOTE | 2020-02-07 07:00 | RAD ---
EXAMINATION: CHEST AP ONLY CLINICAL HISTORY: Reason: cough, covid? / Spl. Instructions: / History: EXAM DATE/TIME: 02/07/2020 5:47 AM COMPARISON: 01/02/2020 FINDINGS: Lines, Tubes, and Devices: None. Cardiomediastinal Silhouette: Normal heart size. Aortic atherosclerotic calcification. Lungs and Pleura: No evidence of focal airspace consolidation or pleural effusion. Pulmonary vasculature unremarkable. Bones and Soft Tissues: Degenerative changes of the thoracic spine. IMPRESSION: No evidence of acute cardiopulmonary abnormality or significant interval change. Electronically signed by: Zach Retana DO (02/07/2020 6:57 AM) [facility]
[2020-02-07 07:09] LABS: PROTHROMBIN TIME PATIENT 14.9 SEC (11.7-14.0)
[2020-02-07] MEDS ORDERED: SUCR1TAB35 PO (08:19)
[2020-02-07] MEDS ORDERED: OMEP20TA63 PO (08:19)
[2020-02-07] MEDS ORDERED: HYDR-3164 PO (08:19)
[2020-02-07 09:05] VITALS: BP 144/84
--- NOTE | 2020-02-07 11:47 | EKG ---
[facility] [address] [place] [address] Test Date: 2020-02-07 Test Time: 05:56:23 Pat Name: NELLI SHAY Department: Room: Gender: F Method Consultant: : 1965 Requested By: CHERISE BRIGHT Order Number: [id number] Reading MD: Measurements Intervals [place] Rate: 67 P: 246 [place]: 102 QRS: -9 QRSD: 96 T: 21 QT: 450 QTc: 479 Interpretive Statements SUPRAVENTRICULAR RHYTHM LEFTWARD AXIS PROLONGED QT NO SPECIFIC ECG ABNORMALITIES RI6.02 No previous ECG available for comparison
[2020-02-07 12:45] LABS: HYPOCHROMIA MARKED; MICROCYTOSIS MARKED; PLT ESTIMATE ADEQUATE (ADEQUATE)
[2020-02-07 12:46] LABS: ANISOCYTOSIS MOD; OVALOCYTES PRESENT; POIKILOCYTOSIS PRESENT; SCHISTOCYTES OCC; TARGET CELLS PRESENT
--- NOTE | 2020-02-09 09:40 | NUR ---
IP: Attempted to call COVID results. No answer. Left a voicemail to return the call.
== END 2020-02-07 09:47 | disposition home or self-care (01) ==
LOC: ER 05:31
DX: K29.70 Gastritis, unspecified, without bleeding (principal); Z20.828 Contact with and (suspected) exposure to other viral communicable diseases; R10.13 Epigastric pain; G89.29 Other chronic pain; M54.9 Dorsalgia, unspecified; R11.0 Nausea; F41.9 Anxiety disorder, unspecified; F32.9 Major depressive disorder, single episode, unspecified; E11.9 Type 2 diabetes mellitus without complications; K21.9 Gastro-esophageal reflux disease without esophagitis; I10 Essential (primary) hypertension; K76.1 Chronic passive congestion of liver; F12.90 Cannabis use, unspecified, uncomplicated; F10.10 Alcohol abuse, uncomplicated; Z98.890 Other specified postprocedural states; Z88.8 Allergy status to other drugs, medicaments and biological substances
CPT/HCPCS: 36415; 71045; 80053; 82550; 83690; 83735; 83880; 84484; 85025; 85045; 85610; 85730; 86140; 93005; 96374; 96375; 99285; G0480; J2270; J2405; J3490; U0003

== ENCOUNTER 2020-02-10 02:51 | Emergency (ER) | payer SELFPAY ==
[~2020-02-10] VITALS: Ht 157.5 cm; Wt 90.0 kg
[~2020-02-10 02:51] MED LIST changes: +OMEP20TA63 PO; +SUCR1TAB35 PO
[2020-02-10] MEDS ORDERED: LIDO:MAALOX 1:1 20 ML SINGLE DOSE. SWSW ONE (03:15)
--- NOTE | 2020-02-10 03:40 | PHYS DOC ---
Past Medical History Past Medical History: Anemia, Anxiety, Cancer, Depression, Diabetes-Type II, GERD, Hypertension, Hepatitis, Liver Disease, Sickle Cell Disease Additional Past Medical Histor: esophageal varices 1/2 FUNCTIONING LIVER, chronic pain, insomnia Past Surgical History: Other Additional Past Surgical Histo: "tubes to drain liver",NECK SURG Smoking Status: Light Tobacco Smoker Alcohol Use: Heavy Drug Use: Marijuana, Other General Adult EDM: Chief Complaint: ABDOMINAL PAIN HPI: HPI: Patient is a 54 year old female who presents with abdominal and back pain. Patient states she hurt her back at the end of December after falling onto a Tu jar. She has had constant stabbing pain since the fall. Patient states the pain radiates around her sides and to her stomach. The pain worsened today after the patient moved a number of heavy items for a friend. Patient states her prescription for [place] is not strong enough for the pain and would like something else to relieve her pain. Patient denies and loss of bowel or bladder control, any sensation loss, or any weakness. Additionally, patient states she had 1 bout of dark diarrhea earlier today. Patient states she has had this pain for approximately 1 month. States she has been seen at [facility] and was diagnosed with ulcers. She states she is been prescribed omeprazole and sulcal fate which she has been taking daily. She admits to drinking alochol today. Review of Systems: Review of Systems: Constitutional: Denies fever or chills. [] Eyes: Denies change in visual acuity. [] HENT: Denies nasal congestion or sore throat. [] Respiratory: Denies cough or shortness of breath. [] Cardiovascular: Denies chest pain or edema. [] GI: Denies nausea, vomiting, bloody stools. [Positive for abdominal pain and diarrhea] : Denies dysuria. [] Musculoskeletal: Positive for back pain. Integument: Denies rash. [] Neurologic: Denies headache, focal weakness or sensory changes. [] Endocrine: Denies polyuria or polydipsia. [] Heart Score: Risk Factors: Risk Factors: DM, Current or recent (<one month) smoker, HTN, HLP, family history of CAD, obesity. Risk Scores: Score 0 - 3: 2.5% MACE over next 6 weeks - Discharge Home Score 4 - 6: 20.3% MACE over next 6 weeks - Admit for Clinical Observation Score 7 - 10: 72.7% MACE over next 6 weeks - Early Invasive Strategies Current Medications: Current Medications Medications (Trade) Dose Ordered Sig/Iza Start Time Stop Time Status Last Admin Dose Admin Multi-Ingredient Mouthwash/Gargle (Gi Cocktail) 20 ml 1X ONCE 02/10/20 03:15 02/10/20 03:16 DC 02/10/20 03:21 20 ML Allergies: Allergies: Allergies Coded Allergies Type Severity Reaction Last Updated Verified I S O L A T I O N *CONTACT* Allergy Unknown 05/02/18 Yes No Known Medication Allergies Allergy Unknown 10/27/18 Yes Physical Exam: PE: Constitutional: Well developed, well nourished, no acute distress, non-toxic appearance. [] HENT: Normocephalic, atraumatic, bilateral external ears normal, oropharynx moist, no oral exudates, nose normal. [] Eyes: PERRLA, EOMI, conjunctiva normal, no discharge. [] Neck: Normal range of motion, no tenderness, supple, no stridor. [] Cardiovascular:Heart rate regular rhythm, no murmur [] Lungs & Thorax: Bilateral breath sounds clear to auscultation [] Abdomen: Bowel sounds normal, soft, no tenderness, no masses, no pulsatile masses. [] Skin: Warm, dry, no erythema, no rash. [] Back: No tenderness, no CVA tenderness. [] Extremities: No tenderness, no cyanosis, no clubbing, ROM intact, no edema. [] Neurologic: Alert and oriented X 3, normal motor function, normal sensory function, no focal deficits noted. [] Psychologic: Affect normal, judgement normal, mood normal. [] Current Patient Data: Vital Signs: Vital Signs Date Time Temp Pulse Resp B/P (MAP) Pulse Ox O2 Delivery O2 Flow Rate FiO2 02/10/20 02:53 98.1 75 18 122/59 (80) 99 Room Air 98.1 EKG: EKG: [] Radiology/Procedures: Radiology/Procedures: [] Course & Med Decision Making: Course & Med Decision Making Pertinent Labs and Imaging studies reviewed. (See chart for details) [] Patient was evaluated for chief complaint. Based upon history of present illness and physical exam no emergent lab or radiologic imaging ordered. Patient arrived via EMS she walked into the ER. Patient's vital signs are stable she appears in no acute distress. Patient was treated with a GI cocktail with improvement. She was discharged home instructed to continue taking her omeprazole and sulcalfate. Patient advised to take Tylenol as needed for pain. Patient advised alcohol cessation and not to take NSAIDs. Patient to follow-up with primary care physician. Vandana Disclaimer: Vandana Disclaimer: This electronic medical record was generated, in whole or in part, using a voice recognition dictation system. Departure Departure Impression: Primary Impression: Abdominal pain Additional Impressions: Alcohol abuse Chronic pain Disposition: 01 HOME SELF CARE/HOMELESS Condition: STABLE Referrals: NO PCP (PCP) Patient Instructions: Abdominal Pain (Nonspecific), Alcohol Problems Scripts Oxycodone HCl/Acetaminophen (Percocet 5-325 mg Tablet) 1 Each Tablet 1 TAB PO PRN BID PRN for PAIN MDD 2 Tablet(s) for 5 Days, #10 TAB 0 Refills Prov: RODERICK ZARATE DO 02/10/20 RODERICK ZARATE DO Feb 10, 2020 03:39
[2020-02-10 03:46] VITALS: BP 107/52
[2020-02-10] MEDS ORDERED: OXYC-325 PO (03:56)
== END 2020-02-10 04:10 | disposition home or self-care (01) ==
LOC: ER 02:51
DX: R10.9 Unspecified abdominal pain (principal); G89.29 Other chronic pain; F10.10 Alcohol abuse, uncomplicated; Y90.9 Presence of alcohol in blood, level not specified; M54.9 Dorsalgia, unspecified; R19.7 Diarrhea, unspecified; E11.9 Type 2 diabetes mellitus without complications; I10 Essential (primary) hypertension; K21.9 Gastro-esophageal reflux disease without esophagitis; Z72.0 Tobacco use; Z91.041 Radiographic dye allergy status
CPT/HCPCS: 99283

== ENCOUNTER → 2020-09-13 | Outpatient (CLI) | payer OTHER, MEDICAID ==
[2020-07-27 23:27] VITALS: BP 142/83
[~2020-09-13] MED LIST changes: +ACET325T21 PO; +DOCU-153 PO; +OXYC-325 PO
--- NOTE | 2020-09-13 12:58 | RAD ---
EXAM: Bilateral hands, 2 views. HISTORY: Disability determination. COMPARISON: None. FINDINGS: 2 views of both hands are obtained. There is bilateral first carpometacarpal joint spurring . There is a healed distal left fifth metacarpal fracture. There are suspected small cysts within the capitate left capitate. There is slight ulnar deviation of the right fourth distal interphalangeal j oint. IMPRESSION: 1. 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 2. Healed left fifth metacarpal fracture. 3. Slight ulnar deviation of the right fourth distal interphalangeal joint, likely degenerative in et iology. 4. No acute osseous finding. Electronically signed by: Mary Plaza MD (09/13/2020 12:56 PM) [id number]
== END ==
LOC: RAD 12:18
PROVIDERS: ATTEND Internal Medicine Pulmonary Disease
DX: Z02.71 Encounter for disability determination (principal); M18.0 Bilateral primary osteoarthritis of first carpometacarpal joints
CPT/HCPCS: 73120-50